=== PATIENT | male | born 1970 | race Caucasian/White ===

== ENCOUNTER → 2020-01-18 13:01 | Outpatient (CLI) | payer MEDICAID, SELFPAY ==
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
--- NOTE | 2020-01-25 10:30 | NURSING ---
THIS RN ATTEMPTED U/S GUIDED IV X4. PRISCA, RN FINANCIAL REPORTING ANALYST, AND [facility] ALSO ATTEMPTED IV STARTS. UNABLE TO COMPLETE CTA TODAY. VASCULAR ALSO MADE AWARE THAT IV WAS UNABLE TO BE ESTABLISHED FOR BUBBLE STUDY. PT ASSISTED WITH DRESSING AND BACK INTO WHEELCHAIR. TO WR TO MEET [facility] AIDE BY Govind LEE, RT-CT.
--- NOTE | 2020-01-25 15:32 | NURSING ---
THIS RN CALLED [facility] AND TALKED WITH SERINA NURSE, TO OBTAIN AN ORDER FOR AN U/S GUIDED IV TO UTILIZE IN[employer]CTOR [employer]S SERVICE BEFORE CTA AND ECHO WHEN RESCHEDULED. WILL FAX TO RADIOLOGY.
== END ==
PROVIDERS: PCP Family Medicine; Referring Provider Family Medicine; Visit Provider Family Medicine
DX: G45.9 Transient cerebral ischemic attack, unspecified (principal)
CPT/HCPCS: 70470; Q9967; A4216

== ENCOUNTER → 2020-02-01 08:56 | Outpatient (CLI) | payer MEDICAID, SELFPAY ==
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
--- NOTE | 2020-02-01 09:57 | ECHOCS_ITS ---
Reason For Study: TIA Procedure This was a 2D Doppler, Color Flow transthoracic echocardiogram. The study was technically difficult. Contrast injection was performed. Exam performed in department. Left Ventricle Normal LV size. Left ventricular systolic function is normal. The estimated ejection fraction is 60 %. No regional wall motion abnormalities noted. Right Ventricle Normal RV size. Normal systolic function. Atria Normal left atrium. Normal right atrium. Bubble contrast study negative for right to left interatrial shunt. Mitral Valve Normal mitral valve. Tricuspid Valve Normal tricuspid valve. Aortic Valve Normal aortic valve. Pulmonic Valve Normal pulmonic valve. Great Vessels Normal aortic root. The pulmonary artery is normal size. Normal inferior vena cava. Pericardium/Pleural No pericardial effusion. Medication Diluted definity 5ml given slow IV push to enhance endocardial definition. Performed a rapid injection of agitated mix of 9 cc saline and 1cc air to assess for atrial septal defect. MMode/2D Measurements & Calculations LVIDd: 4.8 cm IVSd: 0.95 cm Ao root diam: 3.4 cm LVIDs: 3.2 cm LVPWd: 0.97 cm RVDd: 4.4 cm FS: 32.7 % LAV(MOD-sp4): 35.8 ml EDV(MOD-sp4): 123.2 ml EDV(MOD-sp2): 91.9 ml ESV(MOD-sp4): 47.1 ml EF(MOD-sp2): 49.1 % EF(MOD-sp4): 61.8 % SV(MOD-sp4): 76.1 ml SV(MOD-sp2): 45.1 ml LA A4 area: 13.9 cm2 LA dimension(2D): 3.3 cm RA A4 area: 10.8 cm2 Time Measurements MV dec time: 0.15 sec Doppler Measurements & Calculations MV E max gal: 68.5 cm/sec Lat Peak E' Gal: 8.6 cm/sec Med Peak E' Gal: 9.9 cm/sec MV A max gal: 45.6 cm/sec E/E' lat: 7.9 E/E' med: 6.9 MV E/A: 1.5 Ao V2 max: 103.6 cm/sec LV V1 max: 61.0 cm/sec PA V2 max: 114.4 cm/sec Ao max P.3 mmHg LV V1 max P.5 mmHg Interpretation Summary Normal LV size. Left ventricular systolic function is normal. The estimated ejection fraction is 60 %. Bubble contrast study negative for right to left interatrial shunt. Ordering Physician: Ramon Sanchez Referring Physician: Ramon Sanchez Performed By: Romina Momin, NICOLE, RVT
== END ==
PROVIDERS: PCP Family Medicine; Referring Provider Family Medicine; Visit Provider Family Medicine
DX: I65.21 Occlusion and stenosis of right carotid artery (principal)
CPT/HCPCS: 70496; 70498; 93306; Q9957; Q9967; A4216; C8929

== ENCOUNTER 2020-08-27 12:26 | Emergency (ER) | payer MEDICAID, SELFPAY ==
[2020-08-27 12:27] VITALS: RESP 16
[2020-08-27 12:31] VITALS: BP 106/72; PULSE 63; RESP 16; TEMP 37; O2SAT 99; BMI 25.9
--- NOTE | 2020-08-27 12:31 | EDS_ITS ---
HPI History of Present Illness Chief Complaint: Laceration Informant: patient and EMS Narrative Narrative: 49-year-old male presents to the emergency room after he sustained a fall out of wheelchair resulted in laceration to the right hand. It was dressed by nursing. Last tetanus was in 2014. No other injuries noted. Tetanus Immunization: 5-10 years [facility] Medical History Alcohol dependence Anemia Bipolar disorder Chronic pain COPD (chronic obstructive pulmonary disease) Delusional disorder Dementia Depression Hyperlipidemia Nicotine dependence Polyarthritis Post traumatic seizure Psychotic disorder Schizoaffective disorder Stroke/cerebrovascular accident TBI (traumatic brain injury) TIA (transient ischemic attack) Tinea corporis Home Medications Zonisamide [Zonegran] 200 mg PO DAILY 01/02/14 [History Last Taken Unknown] acetaminophen [Tylenol Tablet] 650 mg PO Q4H PRN PRN 01/02/14 [History Last Taken Unknown] lorazepam 2 mg IM Q4H PRN PRN 01/02/14 [History Last Taken Unknown] lorazepam [Ativan] 1 mg PO TID 01/02/14 [History Last Taken Unknown] trazodone 50 mg PO BID 01/02/14 [History Last Taken Unknown] Ibuprofen [Motrin] 600 mg PO 4X/DAY 08/27/20 [History Last Taken Unknown] alum-mag hydroxide-simeth [Mylanta] 30 ml PO Q4H PRN PRN 08/27/20 [History Last Taken Unknown] aspirin [Aspir-81] 81 mg PO DAILY 08/27/20 [History Last Taken Unknown] atorvastatin 20 mg PO DAILY 08/27/20 [History Last Taken Unknown] cholecalciferol (vitamin D3) 1,250 mcg PO SAAVEDRA 08/27/20 [History Last Taken Unknown] escitalopram oxalate [Lexapro] 10 mg PO DAILY 08/27/20 [History Last Taken Unknown] fenofibrate 48 mg PO DAILY 08/27/20 [History Last Taken Unknown] haloperidol [Haldol] 2 mg PO TID 08/27/20 [History Last Taken Unknown] lactulose 45 ml PO TID 08/27/20 [History Last Taken Unknown] lamotrigine [Lamictal] 50 mg PO DAILY 08/27/20 [History Last Taken Unknown] lamotrigine [Lamictal] 100 mg PO QHS 08/27/20 [History Last Taken Unknown] lorazepam [Ativan] 1 mg PO Q4H PRN PRN 08/27/20 [History Last Taken Unknown] lurasidone [Latuda] 40 mg PO BID 08/27/20 [History Last Taken Unknown] magnesium hydroxide [Milk of Magnesia] 30 ml PO DAILY PRN PRN 08/27/20 [History Last Taken Unknown] nicotine (polacrilex) 2 mg BUCCAL Q2H PRN PRN 08/27/20 [History Last Taken Unknown] omega-3 fatty acids [[place] 3 Fish Oil] 2,000 mg PO DAILY 08/27/20 [History Last Taken Unknown] selenium sulfide [Sels[place] Blue Dry Hair/Dandruff] 1 applic TOPICAL DAILY 08/27/20 [History Last Taken Unknown] Allergy/AdvReac Type Severity Reaction Status Date / Time No Known Allergies Allergy Verified 08/27/20 12:29 Social History (Updated 08/27/20 @ 13:[address] Wil Leary, DO) Smoking Status: Current every day smoker tobacco type: cigarettes substance use type: does not use ROS ROS ED Review of Systems ROS Unobtainable: due to mental status EXAM Physical Exam Const Vital Signs: 08/27/20 12:27 08/27/20 12:31 08/27/20 13:52 Temperature 98.6 F Temperature Source Oral Pulse Rate 63 Respiratory Rate 16 16 16 Blood Pressure 106/72 Blood Pressure Mean 83 Pulse Ox 99 Oxygen Delivery Method Room Air Positive well nourished and well developed General Appearance ED: well developed HEENT Reports normocephalic, head/scalp atraumatic and moist mucous membranes Eyes PERRL and EOMs intact bilaterally Neck no lymphadenopathy, supple and no JVD Resp normal respiratory effort and clear to auscultation bilaterally Cardio regular rate, regular rhythm and no murmurs GI normal to inspection, nondistended, normoactive bowel sounds and non-tender Palpation: soft Back/Spine no CVA tenderness and normal ROM Extremity Extremity Narrative: There is laceration noted to the right thumb base on the volar surface. No visualization of the tendons is noted. No active bleeding. General Extremety ED: Negative for edema General Extremity: Negative for edema Neuro Sensorium / Orientation: alert and orientation impaired Sensory Exam: other Chronic right-sided deficits Psych mental status grossly normal Mood & Affect: Negative for depressed or tearful Skin no rashes or lesions noted and no wounds MDM MDM MDM Narrative Medical decision making narrative: Wound was locally anesthetized using 1% lidocaine. Was washed with Shur-Clens and explored. Was closed using a total of 8 simple interrupted 3-0 Ethilon sutures. My interpretation of the plain films of the right hand is nondisplaced fracture through the scaphoid bone.. At this point patient will be discharged home. Stitches will need to be removed a nd 7 to 10 days. Because the patient will need local wound care on hesitant to put a full immobilization Ortho-Glass splint on. I think a Velcro wrist splint will be appropriate and allow better access to the wound for monitoring and care. Radiography Diagnostic Testing: Radiology Impression Hand X-Ray 08/27/20 12:56 IMPRESSION: Nondisplaced fracture through the waist of the scaphoid bone. Foreshortening and deformity of the fifth metacarpal. Metallic BB in the soft tissues overlying the base of the fifth metacarpal. Electronically Signed: Aleksander Alberts MD at 14:44 EDT , Service support , Discharge Plan Triage Chief Complaint: Laceration ED Provider: Wil Leary Dx/Rx/DC Orders Clinical Impression: Laceration of right hand, Closed fracture of scaphoid of right wrist Instructions: ED Laceration, Hand: All Closures Prescriptions: No Action trazodone 50 MG tablet 50 mg PO BID RF: 0 lorazepam 2 MG/ML syringe 2 mg IM Q4H PRN PRN (Reason: ANXIETY/SEIZURES) RF: 0 lorazepam [Ativan] 2 MG tablet 1 mg PO TID RF: 0 acetaminophen [Tylenol] 325 MG tablet 650 mg PO Q4H PRN PRN (Reason: PAIN/FEVER) RF: 0 Zonisamide [Zonegran] 100 MG capsule 200 mg PO DAILY RF: 0 atorvastatin 20 mg Tablet 20 mg PO DAILY RF: 0 aspirin [Aspir-81] 81 mg Tablet,Delayed Release (Dr/Ec) 81 mg PO DAILY RF: 0 lamotrigine [Lamictal] 25 mg Tablet 50 mg PO DAILY RF: 0 magnesium hydroxide [Milk of Magnesia] 400 mg/5 mL Suspension 30 ml PO DAILY PRN PRN (Reason: Constipation) RF: 0 alum-mag hydroxide-simeth [Mylanta] 200-200-20 mg/5 mL Suspension 30 ml PO Q4H PRN PRN (Reason: Indigestion) RF: 0 lorazepam [Ativan] 1 mg Tablet 1 mg PO Q4H PRN PRN (Reason: ANXIETY/SEIZURES) RF: 0 haloperidol [Haldol] 2 mg Tablet 2 mg PO TID RF: 0 lamotrigine [Lamictal] 100 mg Tablet 100 mg PO QHS RF: 0 [place] Blue Dry Hair/Dandruff 1 % Shampoo 1 applic TOPICAL DAILY RF: 0 escitalopram oxalate [Lexapro] 10 mg Tablet 10 mg PO DAILY RF: 0 nicotine (polacrilex) 2 mg Lozenge 2 mg BUCCAL Q2H PRN PRN (Reason: Smoking Cessation) RF: 0 [place] 3 Fish Oil Capsule 2,000 mg PO DAILY RF: 0 lactulose 10 gram/15 mL Solution 45 ml PO TID RF: 0 cholecalciferol (vitamin D3) 1,250 mcg (50,000 unit) Capsule 1,250 mcg PO SAAVEDRA RF: 0 fenofibrate 120 mg Tablet 48 mg PO DAILY RF: 0 Latuda 40 mg Tablet 40 mg PO BID RF: 0 Ibuprofen [Motrin] 800 MG tablet 600 mg PO 4X/DAY RF: 0 Primary Care Provider: Ramon Sanchez Referrals: Ramon Sanchez MD [Primary Care Provider] - 10 Day for suture removal Disposition Disposition: Home, Self Care Discharge Date/Time: 08/27/20 13:53
[2020-08-27] MEDS: Lidocaine 1% (20 ml mdv) 20 ML Vial INFILT (12:44)
--- NOTE | 2020-08-27 12:56 | RAD_ITS ---
STUDY: X-RAY - RIGHT HAND REASON FOR EXAM: Male, 49 years old. INJURY TO RIGHT HAND TECHNIQUE: 3 view(s) of the hand. COMPARISON: None. FINDINGS: Normal radiocarpal articulation. Normal distal radioulnar joint. Nondisplaced fracture through the waist of the scaphoid bone. Normal carpal articulations Normal carpometacarpal articulation of the thumb. Normal second through fifth carpometacarpal joints. Shortening and deformity of the fifth metacarpal most likely secondary to prior injury. Normal metacarpophalangeal joint of the thumb. Normal interphalangeal joint of the thumb. Normal proximal and distal phalanges of the thumb. Normal metacarpophalangeal joints of the second through fifth fingers. Normal proximal and distal interphalangeal joints of the second through fifth fingers. Normal phalanges of the second through fifth fingers. A 2 mm metallic BB is seen within the dorsal soft tissues overlying the base of the fifth metacarpal. RAD/Hand Min 3 Views IMPRESSION: Nondisplaced fracture through the waist of the scaphoid bone. Foreshortening and deformity of the fifth metacarpal. Metallic BB in the soft tissues overlying the base of the fifth metacarpal. Electronically Signed: Aleksander Alberts MD at 14:44 EDT , Service support ,
--- NOTE | 2020-08-27 13:21 | NURSING ---
CALLED [facility], ETA IS 30 MIN
[2020-08-27 13:52] VITALS: RESP 16
--- NOTE | 2020-08-27 13:52 | ED.RN ---
DISCHARGE INSTRUCTIONS GIVEN TO STAFF MEMBER FROM [facility] AT BEDSIDE. PT SKIN P/W/D, RESP EVEN AND UNLABORED, NO DISTRESS NOTED. PT OUT OF ED IN WHEELCHAIR FOR TRANSPORT BACK TO [facility] VIA [facility].
== END 2020-08-27 13:53 | disposition home or self-care (01) ==
PROVIDERS: Emergency Provider Emergency Medicine; PCP Family Medicine
DX: S61.411A Laceration without foreign body of right hand, initial encounter (principal); S62.001A Unspecified fracture of navicular [scaphoid] bone of right wrist, initial encounter for closed fracture; W05.0XXA Fall from non-moving wheelchair, initial encounter; F17.210 Nicotine dependence, cigarettes, uncomplicated; E78.5 Hyperlipidemia, unspecified; D64.9 Anemia, unspecified; F31.9 Bipolar disorder, unspecified; Z79.82 Long term (current) use of aspirin; Z79.899 Other long term (current) drug therapy
CPT/HCPCS: 12002; 73130; 99285

== ENCOUNTER → 2021-04-22 | Outpatient (REF) | payer SELFPAY | END | disposition home or self-care (01) | LOC: OLS.AHA 04:35 | PROVIDERS: PCP Family Medicine; Visit Provider Family Medicine | DX: Z79.899 Other long term (current) drug therapy (principal); Z51.81 Encounter for therapeutic drug level monitoring | CPT/HCPCS: 82140 ==

== ENCOUNTER → 2021-07-14 | Outpatient (REF) | payer SELFPAY | END | disposition home or self-care (01) | LOC: OLS.AHA 06:11 | PROVIDERS: PCP Family Medicine; Visit Provider Family Medicine | DX: E72.20 Disorder of urea cycle metabolism, unspecified (principal); K72.91 Hepatic failure, unspecified with coma; E87.1 Hypo-osmolality and hyponatremia; B34.2 Coronavirus infection, unspecified | CPT/HCPCS: 82140 ==

== ENCOUNTER → 2021-08-07 | Outpatient (REF) | payer SELFPAY | END | disposition home or self-care (01) | LOC: OLS.AHA 03:48 | PROVIDERS: PCP Family Medicine; Visit Provider Family Medicine | DX: E72.20 Disorder of urea cycle metabolism, unspecified (principal) | CPT/HCPCS: 82140 ==

== ENCOUNTER 2022-08-13 22:25 | Emergency (ER) | payer MEDICAID, SELFPAY ==
[2022-08-13 22:27] VITALS: BP 149/90; PULSE 78; RESP 18; TEMP 36.3; O2SAT 97; BMI 22.8
--- NOTE | 2022-08-13 22:29 | CT_ITS ---
EXAM: CT brain without contrast HISTORY: Neuro deficit, acute, stroke suspected TECHNIQUE: CT Head Stroke Protocol W/O Contrast Injection A radiation dose optimization technique was used for this scan. COMPARISON: CT brain 01/18/2020 LIMITATIONS: None. BRAIN: Encephalomalacia in the left frontotemporal region subjacent to the overlying craniotomy, consistent with postsurgical changes, similar compared to the prior. VENTRICLES: The ventricles and cortical sulci are mildly enlarged, similar compared to the prior. Bilateral periventricular hypoattenuation, nonspecific however likely represents chronic microvascular ischemic changes.. EXTRA-AXIAL SPACES: No hemorrhages, fluid collections, or masses. CALVARIUM/SKULL BASE: Normal. FACE/SINUSES: Visualized portions normal. SOFT TISSUES: Normal. OTHER: None. CT/STROKE Brain/Head without Cont IMPRESSION: 1. No intracranial hemorrhage or acute territorial infarction. 2. Postsurgical and senescent changes as above. N.B. : The above Results were Read Back by Eddie Barth MD to Mohan Srivastava MD, and understanding confirmed on 08/13/2022 22:49:57 (ET). Electronically Signed: Eddie Barth MD at 22:51 EDT ,
--- NOTE | 2022-08-13 22:35 | ED.RN ---
STROKE ALERT WAS CALLED,BUT AFTER DR GIRON EVALUTED PT IT WAS CANCELLED.
--- NOTE | 2022-08-13 22:38 | RAD_ITS ---
INDICATION: Neuro deficit, acute, stroke suspected EXAMINATION/TECHNIQUE: X-RAY - XR Chest 1 View COMPARISON: None FINDINGS: LINES/DEVICES: None. LUNGS: Hazy left basal opacity. No edema or effusion. No pneumothorax. MEDIASTINUM AND CARDIOVASCULAR STRUCTURES: Cardiac silhouette not enlarged. Central airways and mediastinal contour are unremarkable. BONES AND SOFT TISSUES: Unremarkable. RAD/Chest 1 View IMPRESSION: Hazy left basal opacity, may represent atelectasis or infection. Electronically Signed: Eddie Barth MD at 23:05 EDT ,
[2022-08-13 22:55] LABS: International Normalized Ratio 0.9; Prothrombin Time (Protime)PT. 11.7 SECONDS (11.7-14.9)
[2022-08-13 22:56] LABS: Partial Thromboplast Time 28.2 Seconds (24.1-36.2)
[2022-08-13 22:59] LABS: AST(SGOT) 13 U/L (15-37); Absolute Lymphocyte Count 2.57 X10^3/uL (0.83-4.51); Absolute Neutrophil Count 4.8 X10^3/uL (2.0-7.7); Alanine Aminotransfer ALT/SGPT 20 U/L (16-61); Albumin, Serum 4.1 g/dL (3.2-5.0); Alkaline Phosphatase 91 U/L (45-117); Anion Gap 5 (5-15); BUN 10 mg/dL (7-18); BUN/Creat Ratio 9.9 RATIO (10-20); Basophil# 0.03 X10^3/uL; Basophil% 0.4 % (0-1); Bilirubin, Direct 0.13 mg/dL (0.00-0.30); Calcium,Total 10.1 mg/dL (8.5-10.1); Chloride 104 mmol/L (98-107); Creatinine, Serum 1.01 mg/dL (0.70-1.30); EST Glomerular Filtration Rate 83 mL/min (>60); Eosinophil# 0.26 X10^3/uL; Eosinophils% 3.1 % (0-5); Est Glom Filt Rate - Afr Amer 100 mL/min (>60); Estimated Creatinine Clearance 90.69 ml/min; Globulin 3.3 g/dL (2.2-4.2); Glucose 98 mg/dL (74-106); Lymphocyte # 2.57 X10^3/ul (0.83-4.51); Lymphocyte % 30.3 % (19-41); Mean Corpuscular Volume 94.3 fL (80-94); Mean Platelet Vol. 8.8 fl (6.2-12.0); Monocyte# 0.68 X10^3/uL; NRBC Flagged by Analyzer 0 % (0-5); Neutrophil # 4.82 X10^3/uL (2.7-7.7); Neutrophil % 56.7 % (47-70); Platelet Count 197 K/mm3 (150-450); Potassium 3.3 mmol/L (3.5-5.1); Protein, Total 7.4 g/dL (6.4-8.2); RBC Distribution Width CV 11.7 % (11.6-14.6); RBC Distribution Width SD 40.2 fl (35.1-43.9); Red Blood Count 4.24 M/mm3 (4.6-6.2); Sodium Level 139 mmol/L (136-145); Troponin-I HS 4 pg/mL (3.0-78.0); White Blood Count 8.5 K/mm3 (4.4-11.0)
--- NOTE | 2022-08-13 22:59 | EDS_ITS ---
HPI History of Present Illness Chief Complaint: Mental Status Change Informant: patient, EMS and SNF Onset/Context/Timing Onset: Today Context: Gradual Onset Timing: Continuous Current Severity: Moderate Maximum Severity: Moderate Narrative Narrative: 51-year-old male was unable to give me any history. I reviewed his prior medical records sent in from his extended care facility. He lives at a facility called [facility] [place]. Reportedly had a decreased mental status. Also fell out of his wheelchair tonight. He has a history of dementia and seizures. He has a history history of hepatic encephalopathy. Today had a decreased mental status this evening and fell out of his wheelchair. He is normally wheelchair-bound but can stand but really does not walk. I spoke to the nurse that he typically cares for him at this facility. She states has not recently been ill. He has not had a fever. Has not recently been hospitalized. He was treated with his normal dose of Haldol, Ativan and trazodone tonight. Prior similar symptoms: No Recent Illness/Hospitalization: No PFSH PFSH Medical History Alcohol dependence Anemia Bipolar disorder Chronic pain COPD (chronic obstructive pulmonary disease) Delusional disorder Dementia Depression Hyperlipidemia Nicotine dependence Personality disorder Polyarthritis Post traumatic seizure Psychotic disorder Schizoaffective disorder Stroke/cerebrovascular accident TBI (traumatic brain injury) TIA (transient ischemic attack) Tinea corporis Home Medications Zonisamide [Zonegran] 200 mg PO DAILY 01/02/14 [History Last Taken Unknown] acetaminophen 325 mg tablet (Tylenol) 650 mg PO Q4H PRN PRN PAIN/FEVER 01/02/14 [History Last Taken Unknown] lorazepam 2 mg/mL injection solution 1 mg IM Q4H PRN PRN ANXIETY/SEIZURES 01/02/14 [History Last Taken Unknown] trazodone 50 mg tablet 100 mg PO QHS 01/02/14 [History Last Taken Unknown] Ibuprofen [Motrin] 600 mg PO TID 08/27/20 [History Last Taken Unknown] aluminum-mag hydroxide-simethicone 200 mg-200 mg-20 mg/5 mL oral susp 30 ml PO Q4H PRN PRN Indigestion 08/27/20 [History Last Taken Unknown] cholecalciferol (vitamin D3) 1,250 mcg (50,000 unit) capsule 1,250 mcg PO SAAVEDRA 08/27/20 [History Last Taken Unknown] fenofibrate 120 mg tablet 48 mg PO DAILY 08/27/20 [History Last Taken Unknown] haloperidol 2 mg tablet 5 mg PO TID 08/27/20 [History Last Taken Unknown] lamotrigine 100 mg tablet (Lamictal) 100 mg PO QHS 08/27/20 [History Last Taken Unknown] lamotrigine 25 mg tablet (Lamictal) 50 mg PO DAILY 08/27/20 [History Last Taken Unknown] lorazepam 1 mg tablet (Ativan) 1 mg PO Q4H PRN PRN ANXIETY/SEIZURES 08/27/20 [History Last Taken Unknown] lurasidone 40 mg tablet (Latuda) 40 mg PO BID 08/27/20 [History Last Taken Unknown] magnesium hydroxide 400 mg/5 mL oral suspension (Milk of Magnesia) 30 ml PO DAILY PRN PRN Constipation 08/27/20 [History Last Taken Unknown] nicotine (polacrilex) 2 mg buccal lozenge 2 mg buccal Q2H PRN PRN Smoking Cessation 08/27/20 [History Last Taken Unknown] omega-3 fatty acids 2,000 mg PO DAILY 08/27/20 [History Last Taken Unknown] selenium sulfide 1 % shampoo 1 applic topical DAILY 08/27/20 [History Last Taken Unknown] atorvastatin 20 mg tablet (Lipitor) 20 mg PO DAILY 08/13/22 [History Last Taken Unknown] cariprazine 1.5 mg capsule (Vraylar) 1.5 mg PO DAILY 08/13/22 [History Last Taken Unknown] lactulose 10 gram/15 mL (15 mL) oral solution 45 ml PO TID 08/13/22 [History Last Taken Unknown] lorazepam 1 mg tablet (Ativan) 1 mg PO TID PRN Anxiety 08/13/22 [History Last Taken Unknown] propranolol 80 mg capsule,24 hr,extended release (Inderal LA) 80 mg PO DAILY 08/13/22 [History Last Taken Unknown] rifaximin 550 mg tablet 550 mg PO BID 08/13/22 [History Last Taken Unknown] trazodone 50 mg tablet 50 mg PO DAILY 08/13/22 [History Last Taken Unknown] Allergy/AdvReac Type Severity Reaction Status Date / Time No Known Allergies Allergy Verified 08/13/22 22:40 Social History Smoking Status: Current every day smoker tobacco type: cigarettes substance use type: does not use ROS ROS ED ROS Narrative Unable to obtain from the patient. Per nurse at [facility] has had no recent illness. Review of Systems ROS Unobtainable: due to mental status EXAM Physical Exam Narrative Exam Narrative: 51-year-old male. Brought in by squad. Vital signs stable afebrile. Pulse ox 97% on room air. Patient's eyes are open. He is not responsive. He does not answer questions. She really not speaking. He does not follow commands. HEENT exam pupils are round reactive light. He is looking about the room. He has a contusion and abrasion to his left forehead. There is no significant hematoma. No laceration. Scalp nontender. C-spine nontender. Trachea midline. Lungs clear equal and symmetrical bilaterally. Heart regular rhythm rate about 80 no murmur. Chest wall and ribs nontender. Abdomen soft nontender. Moving all 4 extremities. Nontender no deformity. Neurologically. Eyes are open. Moving extremities. Not answering any questions. Not following any commands. Seems confused. Const Vital Signs: 08/13/22 22:27 08/13/22 23:38 08/14/22 00:21 Temperature 97.4 F L Temperature Source Temporal Pulse Rate 78 78 Respiratory Rate 18 22 H Blood Pressure 149/90 H 178/90 H Blood Pressure Mean 109 119 Pulse Ox 97 Oxygen Delivery Method Room Air Nasal Cannula Oxygen Flow Rate (L/min) 2 Positive well nourished and well developed; Negative for cachectic, contractures or unkempt General Appearance ED: well developed and NAD; Negative for unkempt, cachectic, contractures, cyanotic, diaphoretic or pallor Nutritional Appearance: Negative for cachectic HEENT Reports moist mucous membranes; Denies dry mucous membranes trauma Mouth ED: No dry mucous membranes Mouth: No dry mucous membranes Eyes PERRL and EOMs intact bilaterally General Eye ED: Negative for pale conjunctiva or scleral icterus Neck no lymphadenopathy, supple and no JVD General: Negative for tenderness Lymph Lymphatic: Negative for other Chest Wall inspection of chest normal and palpation of chest normal Resp normal respiratory effort and clear to auscultation bilaterally Effort and Inspection: Negative for retractions Auscultation: Negative for rales, rhonchi or wheezes Cardio regular rate, regular rhythm, S1 normal heart sound, S2 normal heart sound and no murmurs GI normal to inspection, nondistended, normoactive bowel sounds, non-tender, non- distended and no masses Auscultation: normoactive bowel sounds Palpation: soft; Negative for tender or guarding Back/Spine no CVA tenderness General Back: Negative for CVA tenderness Cervical Spine: Negative for cervical spine tenderness Thoracic Spine / Upper Back: Negative for thoracic spinal tenderness Extremity Negative for normal to inspection Extremity Narrative: Nontender. No deformity. Neuro No oriented x3 Sensorium / Orientation: alert, orientation impaired and lethargic Motor Exam: general weakness; Negative for strength 5/5 throughout Psych Negative for mental status grossly normal Appearance: Negative for unkempt Skin no rashes or lesions noted and No no wounds Skin Narrative: Left forehead abrasion. General Skin Exam: elasticity normal; Negative for jaundice or pallor Lesions: No lesion noted Trauma: abrasion MDM MDM MDM Narrative Medical decision making narrative: 51-year-old male with extensive past medical history of a prior craniotomy. Dementia with schizoaffective disorder and bipolar. Extended-care facility resident was been there for at least 4 years. May be much longer. The neurocirculatory status is not his baseline. He is not recently been ill. CAT scan and labs to be obtained. Repeat exam at 1 AM is unchanged. Patient's eyes are open. He is moving everything. He is really not answering questions or following commands. He typically does not speak much according to the [facility]. We do not have any specific, see if they can imaging or lab abnormalities on this patient. He will be transferred back to the [facility]. History & Record Review Discussion w/independent historian: EMS personnel, Patient and Other Additional record(s) reviewed:: Prior inpatient record, Prior outpatient record, Prior ED visit and Prior labs Lab Data Attestation: I reviewed the patient's lab results. Lab results narrative: CBC unremarkable. White count 8.5. H&H 14 and 40. Platelets 197. PT, INR and PTT are normal. Electrolytes show potassium of 3.3. Gap of 5. Normal BUN of 10 creatinine of 1. Liver enzymes are unremarkable. Glucose is 98. Chest x-ray no acute process. CAT scan of the brain shows chronic changes, encephalomalacia and prior brain surgery but no bleed or acute stroke. Ammonia level is unremarkable at 43. UA is normal. No white or red cells. No bacteria or nitrites. Labs: Laboratory Results - last 24 hr 08/13/22 08/13/22 08/13/22 22:30 22:30 22:30 WBC 8.5 RBC 4.24 L Hgb 14.0 Hct 40.0 MCV 94.3 H MCH 33.0 H MCHC 35.0 RDW Std Deviation 40.2 RDW Coeff of Michael 11.7 Plt Count 197 MPV 8.8 Immature Gran % (Auto) 1.500 H Neut % (Auto) 56.7 Lymph % (Auto) 30.3 [place] % (Auto) 8.0 Eos % (Auto) 3.1 Baso % (Auto) 0.4 Absolute Neuts (auto) 4.8 Absolute Lymphs (auto) 2.57 Nucleated RBC % 0 PT 11.7 INR 0.9 APTT 28.2 Sodium 139 Potassium 3.3 L Chloride 104 Carbon Dioxide 30.0 Anion Gap 5 BUN 10 Creatinine 1.01 Estim Creat Clear Calc 90.69 Est GFR (MDRD) Af Amer 100 Est GFR (MDRD) Non-Af 83 BUN/Creatinine Ratio 9.9 L Glucose 98 Calcium 10.1 Total Bilirubin 0.40 Direct Bilirubin 0.13 AST 13 L ALT 20 Alkaline Phosphatase 91 Ammonia Troponin I High Sens 4 Total Protein 7.4 Albumin 4.1 Globulin 3.3 Urine Color Urine Clarity Urine pH Ur Specific [place] Urine Protein Urine Glucose (UA) Urine Ketones Urine Occult Blood Urine Nitrite Urine Bilirubin Urine Urobilinogen Ur Leukocyte Esterase Urine RBC Urine WBC Ur Squamous Epith Cells Urine Bacteria Urine Mucus POC Glucose 08/13/22 08/13/22 08/13/22 22:53 23:10 23:28 WBC RBC Hgb Hct MCV MCH MCHC RDW Std Deviation RDW Coeff of Michael Plt Count MPV Immature Gran % (Auto) Neut % (Auto) Lymph % (Auto) [place] % (Auto) Eos % (Auto) Baso % (Auto) Absolute Neuts (auto) Absolute Lymphs (auto) Nucleated RBC % PT INR APTT Sodium Potassium Chloride Carbon Dioxide Anion Gap BUN Creatinine Estim Creat Clear Calc Est GFR (MDRD) Af Amer Est GFR (MDRD) Non-Af BUN/Creatinine Ratio Glucose Calcium Total Bilirubin Direct Bilirubin AST ALT Alkaline Phosphatase Ammonia 43.0 H Troponin I High Sens Total Protein Albumin Globulin Urine Color Yellow Urine Clarity Clear Urine pH 7.0 Ur Specific [place] 1.005 Urine Protein 15 H Urine Glucose (UA) Normal Urine Ketones Negative Urine Occult Blood Negative Urine Nitrite Negative Urine Bilirubin Negative Urine Urobilinogen Normal Ur Leukocyte Esterase Negative Urine RBC 0 SEEN Urine WBC 0 SEEN Ur Squamous Epith Cells 0 SEEN Urine Bacteria 0 SEEN Urine Mucus 0 SEEN POC Glucose 106 Radiography Chest X-Ray - ED: 1 View, Read by ED Physician, Heart, Lungs, Mediastinum, Bony Structures, No Acute Disease and Chronic Changes Diagnostic Testing: Clinical Impression(s) from Imaging Studies Brain CT 08/13/22 22:29 IMPRESSION: 1. No intracranial hemorrhage or acute territorial infarction. 2. Postsurgical and senescent changes as above. N.B. : The above Results were Read Back by Eddie Barth MD to Mohan Srivastava MD, and understanding confirmed on 08/13/2022 22:49:57 (ET). Electronically Signed: Eddie Barth MD at 22:51 EDT Reading Location ID and State: [facility] / [place] Tel , Service support , ADDENDUM: 08/13/222257 IMPRESSION: 1. No intracranial hemorrhage or acute territorial infarction. 2. Postsurgical and senescent changes as above. N.B. : The above Results were Read Back by Eddie Barth MD to Mohan Srivastava MD, and understanding confirmed on 08/13/2022 22:49:57 (ET). Electronically Signed: Eddie Barth MD at 22:51 EDT , Chest X-Ray 08/13/22 22:38 IMPRESSION: Hazy left basal opacity, may represent atelectasis or infection. Electronically Signed: Eddie Barth MD at 23:05 EDT Reading Location ID and State: [facility] / [place] Tel , Service support , Chest x-ray, portable, single view interpreted by myself shows no acute abnormality. Normal cardiac silhouette. Normal mediastinum. No infiltrates. No effusions. Rhythm Strip Rhythm Strip: Sinus Rhythm Rate: 76 Ectopy: None EKG Initial EKG: Interpretation: Sinus Rhythm and No Acute Injury Pattern Comments: Normal sinus rhythm rate of 51 no acute signs of GA or ischemia. No dysrhythmia. Discharge Plan Triage Chief Complaint: Mental Status Change ED Provider: Mohan Srivastava Dx/Rx/DC Orders Clinical Impression: Altered level of consciousness, History of dementia, History of schizoaffective disorder Instructions: ED ALOC Prescriptions: No Action trazodone 50 MG tablet 100 mg PO QHS lorazepam 2 MG/ML syringe 1 mg IM Q4H PRN PRN (Reason: ANXIETY/SEIZURES) acetaminophen [Tylenol] 325 MG tablet 650 mg PO Q4H PRN PRN (Reason: PAIN/FEVER) Zonisamide [Zonegran] 100 MG capsule 200 mg PO DAILY lamotrigine [Lamictal] 25 mg Tablet 50 mg PO DAILY magnesium hydroxide [Milk of Magnesia] 400 mg/5 mL Suspension 30 ml PO DAILY PRN PRN (Reason: Constipation) alum-mag hydroxide-simeth [Mylanta] 200-200-20 mg/5 mL Suspension 30 ml PO Q4H PRN PRN (Reason: Indigestion) lorazepam [Ativan] 1 mg Tablet 1 mg PO Q4H PRN PRN (Reason: ANXIETY/SEIZURES) haloperidol [Haldol] 2 mg Tablet 5 mg PO TID lamotrigine [Lamictal] 100 mg Tablet 100 mg PO QHS [place] Blue Dry Hair/Dandruff 1 % Shampoo 1 applic TOPICAL DAILY nicotine (polacrilex) 2 mg Lozenge 2 mg BUCCAL Q2H PRN PRN (Reason: Smoking Cessation) [place] 3 Fish Oil Capsule 2,000 mg PO DAILY cholecalciferol (vitamin D3) 1,250 mcg (50,000 unit) Capsule 1,250 mcg PO SAAVEDRA Label Comments: every tuesday fenofibrate 120 mg Tablet 48 mg PO DAILY lurasidone [Latuda] 40 mg Tablet 40 mg PO BID Ibuprofen [Motrin] 800 MG tablet 600 mg PO TID lorazepam [Ativan] 1 mg Tablet 1 mg PO TID PRN (Reason: Anxiety) atorvastatin [Lipitor] 20 mg Tablet 20 mg PO DAILY trazodone 50 mg Tablet 50 mg PO DAILY propranolol [Inderal LA] 80 mg Capsule,Extended Release 24 Hr 80 mg PO DAILY rifaximin 550 mg Tablet 550 mg PO BID lactulose 10 gram/15 mL (15 mL) Solution 45 ml PO TID Vraylar 1.5 mg Capsule 1.5 mg PO DAILY Primary Care Provider: Ramon Sanchez Referrals: Ramon Sanchez MD [Primary Care Provider] - 1-2 Days if not improving Activity Restrictions/Additional Instructions: Follow-up with your medical doctor nuclear medicine or his primary care physician if not improving. The CAT scan of his brain tonight, EKG, chest x-ray and labs were unremarkable. No signs of infection or acute abnormalities on his lab work. Disposition Disposition: Home, Self Care
[2022-08-13 23:11] LABS: Bedside Glucose 106 mg/dL (74-106)
[2022-08-13 23:36] LABS: Bacteria 0 SEEN /hpf (None Seen); Mucous, Urine 0 SEEN /hpf (<or=2+); Red Blood Cells-Urine 0 SEEN /hpf (0-5); Squamous Epithelial Cells - UA 0 SEEN /hpf (0-5); White Blood Cells 0 SEEN /hpf (0-5)
[2022-08-13 23:38] LABS: Color, Urine Yellow (Yellow); Glucose, Dipstick Normal (Normal); Ketone-Dipstick Negative (Negative); Leukocyte Esterase-Dipstick Negative /ul (Negative); Nitrite-Dipstick Negative (Negative); Occult Blood-Urine Negative /ul (Negative); Protein-Dipstick 15 mg/dl (Negative); Specific Gravity, Urine 1.005 (1.002-1.030); Urine Bilirubin Dipstick Negative (Negative); Urine Clarity Clear (Clear); Urine Urobilinogen Normal (Normal)
[2022-08-14 00:21] VITALS: BP 178/90; PULSE 78; RESP 22
[2022-08-14 01:22] VITALS: BP 158/90; PULSE 77; RESP 18; O2SAT 93
[2022-08-14 02:14] VITALS: BP 116/65; PULSE 70; RESP 16
--- NOTE | 2022-08-14 02:32 | ED.RN ---
0230 PT'S MARCH CATHETER DCD AFTER BALLOON DEFLATED. MARCH EMPTIED FOR 400CC OF CLEAR URINE. LAZARA-CARE GIVEN AND DEPENDS APPLIED.PT SHERMAN WITH SOME RESISTENCE.
== END 2022-08-14 04:50 | disposition home or self-care (01) ==
PROVIDERS: Emergency Provider Emergency Medicine; PCP Family Medicine; Visit Provider Emergency Medicine
DX: R40.4 Transient alteration of awareness (principal); F03.90 Unspecified dementia, unspecified severity, without behavioral disturbance, psychotic disturbance, mood disturbance, and anxiety; F17.210 Nicotine dependence, cigarettes, uncomplicated; Z86.73 Personal history of transient ischemic attack (TIA), and cerebral infarction without residual deficits
CPT/HCPCS: 70450; 71045; 80048; 80076; 81001; 82140; 82962; 84484; 85025; 85610; 85730; 93005; 99285; A4216

== ENCOUNTER 2023-03-26 23:41 | Emergency (ER) | payer MEDICAID, SELFPAY ==
[2023-03-26 23:44] VITALS: BP 128/82; PULSE 70; RESP 12; TEMP 36.7; O2SAT 98; BMI 22.4
--- NOTE | 2023-03-27 00:16 | CT_ITS ---
STUDY: CTA OF THE ABDOMINAL AORTA AND BILATERAL LOWER EXTREMITIES REASON FOR EXAM: Male, 52 years old patient with cold right leg after injury last week. RADIATION DOSAGE (If Supplied By Facility): CTDIvol = ( 9.57 ) mGy, DLP = ( 1096.04 ) mGycm TECHNIQUE: Axial CT angiography multi-detector data acquisition was obtained from the lung bases to the feet following intravenous administration of 100 ml of IV Isouve 370. Axial images and MIP images were reconstructed from the axial data set. Post-processing of the angiographic images was performed, with multiplanar reformation and 3D reconstruction. Individualized dose optimization techniques were used for this CT. TECHNICAL QUALITY: Good COMPARISON: None. Descriptors of Narrowing: None (0%) Mild (< 50%) Moderate (50-70%) Severe (70-90%) Subtotal/Total Occlusion (90-100%) Non-Evaluable (technically non-diagnostic FINDINGS: Abdominal aorta: No demonstrated narrowing. Celiac and superior mesenteric arteries: No demonstrated narrowing. Inferior mesenteric artery: No demonstrated narrowing. Right renal artery(arteries): No demonstrated narrowing. Left renal artery(arteries): No demonstrated narrowing. Right common iliac artery: No demonstrated narrowing. Right external iliac artery: No demonstrated narrowing. Right internal iliac artery: No demonstrated narrowing. Left common iliac artery: No demonstrated narrowing. Left external iliac artery: No demonstrated narrowing. Left internal iliac artery: No demonstrated narrowing. RIGHT LOWER EXTREMITY Right common femoral artery: No demonstrated narrowing. Right profundus femoris: No demonstrated narrowing. Right superficial femoral: No demonstrated narrowing. Right popliteal artery: No demonstrated narrowing. Right tibioperoneal trunk: No demonstrated narrowing. Right anterior tibial artery: No demonstrated narrowing. Right posterior tibial artery: No demonstrated narrowing. Right peroneal artery: No demonstrated narrowing. LEFT LOWER EXTREMITY Left common femoral artery: No demonstrated narrowing. Left profundus femoris: No demonstrated narrowing. Left superficial femoral: No demonstrated narrowing. Left popliteal artery: No demonstrated narrowing. Left tibioperoneal trunk: No demonstrated narrowing. Left anterior tibial artery: No demonstrated narrowing. Left posterior tibial artery: No demonstrated narrowing. Left peroneal artery: No demonstrated narrowing. ABDOMINAL AND PELVIC FINDINGS: There is right lower lobe airspace disease suggesting possible pneumonia. Left lung bases clear. The visualized portions of the heart are within normal limits. Normal liver. Normal gallbladder and extrahepatic biliary system. There are multiple benign calcified granulomata of the spleen. Normal pancreas. Normal bilateral adrenal glands. Both kidneys appear to be excreting contrast. There is no obvious hydronephrosis, hydroureter or radiopaque ureteral calculus. Normal visualized stomach. No obvious dilated bowel, ascites or pneumoperitoneum. Small bowel has a grossly normal appearance. There is stool and/or gas visible in the colon. The appendix is visualized and appears normal. Normal abdominal aorta. Normal inferior vena cava. Normal retroperitoneum. Normal urinary bladder. Normal visualized prostate gland. Normal abdominal wall. There is moderate compression of the T12 vertebral body. Remaining imaged thoracic and lumbar vertebral bodies have normal height and alignment. The bony pelvis is grossly normal appearance. Visualized femurs, tibia is in the visualized have a grossly normal appearance. Visualized tarsal bones, metatarsals and phalanges have a grossly normal appearance. The skeletal muscles of the thighs and legs are within normal limits in appearance. CT/CTA Abd w/Runoff W/WO Contrast IMPRESSION: 1. No CT evidence for hemodynamically significant stenosis or thrombosis. 2. Compression fracture of T12. Electronically Signed: Jayne Alcantara MD at 6:24 EST Reading Location ID and State: [facility] / [place] , Service support ,
[2023-03-27 01:07] LABS: Absolute Lymphocyte Count 2.47 X10^3/uL (0.83-4.51); Absolute Neutrophil Count 4.7 X10^3/uL (2.0-7.7); Basophil# 0.04 X10^3/uL; Basophil% 0.5 % (0-1); Eosinophil# 0.27 X10^3/uL; Eosinophils% 3.3 % (0-5); Hematocrit 39.1 % (40-54); Hemoglobin 13.5 g/dL (13.0-16.5); Lymphocyte # 2.47 X10^3/ul (0.83-4.51); Lymphocyte % 30.2 % (19-41); Mean Corp Hgb Conc 34.5 g/dL (32-36); Mean Corpuscular Hgb 32.1 pg (27.0-32.0); Mean Corpuscular Volume 92.9 fL (80-94); Mean Platelet Vol. 9.1 fl (6.2-12.0); Monocyte# 0.67 X10^3/uL; Monocyte% 8.2 % (0-10); NRBC Flagged by Analyzer 0 % (0-5); Neutrophil # 4.71 X10^3/uL (2.7-7.7); Neutrophil % 57.6 % (47-70); POSITIVE COUNT YES; Platelet Count 226 K/mm3 (150-450); RBC Distribution Width CV 11.9 % (11.6-14.6); RBC Distribution Width SD 40.4 fl (35.1-43.9); Red Blood Count 4.21 M/mm3 (4.6-6.2); White Blood Count 8.2 K/mm3 (4.4-11.0)
[2023-03-27 01:11] LABS: Differential Indicated SCAN CRITERIA MET
[2023-03-27 01:22] LABS: ALB/GLOB Ratio 1.1 RATIO (0.9-2.4); AST(SGOT) 13 U/L (15-37); Alanine Aminotransfer ALT/SGPT 18 U/L (16-61); Albumin, Serum 3.5 g/dL (3.2-5.0); Alkaline Phosphatase 92 U/L (45-117); Anion Gap 3 (5-15); BUN 16 mg/dL (7-18); BUN/Creat Ratio 18.1 RATIO (10-20); Calcium,Total 9.6 mg/dL (8.5-10.1); Chloride 103 mmol/L (98-107); Creatinine, Serum 0.89 mg/dL (0.70-1.30); EST Glomerular Filtration Rate 96 mL/min (>60); Est Glom Filt Rate - Afr Amer 116 mL/min (>60); Estimated Creatinine Clearance 100.25 ml/min; Globulin 3.2 g/dL (2.2-4.2); Glucose 100 mg/dL (74-106); Potassium 3.3 mmol/L (3.5-5.1); Protein, Total 6.7 g/dL (6.4-8.2); Sodium Level 137 mmol/L (136-145)
--- NOTE | 2023-03-27 01:27 | ED.RN ---
Attempted to call for permission to treat. No answer at this time.
[2023-03-27 01:43] VITALS: BP 115/97; PULSE 71; RESP 18; O2SAT 100
--- NOTE | 2023-03-27 02:39 | ED.RN ---
unable to obtain IV with multiple tries with multiple RNs. Dr. Way notified, no new orders at this time.
[2023-03-27 03:43] VITALS: BP 130/99; PULSE 68; RESP 18; O2SAT 97
[2023-03-27 05:43] VITALS: BP 100/60; PULSE 69; RESP 18; O2SAT 98
[2023-03-27 07:21] VITALS: BP 120/99; PULSE 69; RESP 16; O2SAT 98
--- NOTE | 2023-03-27 07:44 | ED.RN ---
CALLED PHYSICIANS AT [phone] FOR TRANSFER
--- NOTE | 2023-03-27 07:58 | ED.VIS.LOWEX ---
HPI History of Present Illness Chief Complaint: Lower Extremity Injury Narrative Narrative: 52-year-old male presenting for evaluation of right leg symptoms. Apparently his right leg is cooler than left leg. Patient is a very poor informant and unable to give much history. There is not much given via the nursing facility. [facility] Medical History Alcohol dependence Anemia Bipolar disorder Chronic pain COPD (chronic obstructive pulmonary disease) Delusional disorder Dementia Depression Hyperlipidemia Nicotine dependence Personality disorder Polyarthritis Post traumatic seizure Psychotic disorder Schizoaffective disorder Stroke/cerebrovascular accident TBI (traumatic brain injury) TIA (transient ischemic attack) Tinea corporis Home Medications Zonisamide [Zonegran] 200 mg PO DAILY 01/02/14 [History Last Taken Unknown] acetaminophen 325 mg tablet (Tylenol) 650 mg PO Q4H PRN PRN PAIN/FEVER 01/02/14 [History Last Taken Unknown] lorazepam 2 mg/mL injection solution 1 mg IM Q4H PRN PRN ANXIETY/SEIZURES 01/02/14 [History Last Taken Unknown] trazodone 50 mg tablet 100 mg PO QHS 01/02/14 [History Last Taken Unknown] Ibuprofen [Motrin] 600 mg PO TID 08/27/20 [History Last Taken Unknown] aluminum-mag hydroxide-simethicone 200 mg-200 mg-20 mg/5 mL oral susp 30 ml PO Q4H PRN PRN Indigestion 08/27/20 [History Last Taken Unknown] cholecalciferol (vitamin D3) 1,250 mcg (50,000 unit) capsule 1,250 mcg PO SAAVEDRA 08/27/20 [History Last Taken Unknown] fenofibrate 120 mg tablet 48 mg PO DAILY 08/27/20 [History Last Taken Unknown] haloperidol 2 mg tablet 5 mg PO TID 08/27/20 [History Last Taken Unknown] lamotrigine 100 mg tablet (Lamictal) 100 mg PO QHS 08/27/20 [History Last Taken Unknown] lamotrigine 25 mg tablet (Lamictal) 50 mg PO DAILY 08/27/20 [History Last Taken Unknown] lorazepam 1 mg tablet (Ativan) 1 mg PO Q4H PRN PRN ANXIETY/SEIZURES 08/27/20 [History Last Taken Unknown] lurasidone 40 mg tablet (Latuda) 40 mg PO BID 08/27/20 [History Last Taken Unknown] magnesium hydroxide 400 mg/5 mL oral suspension (Milk of Magnesia) 30 ml PO DAILY PRN PRN Constipation 08/27/20 [History Last Taken Unknown] nicotine (polacrilex) 2 mg buccal lozenge 2 mg buccal Q2H PRN PRN Smoking Cessation 08/27/20 [History Last Taken Unknown] omega-3 fatty acids 2,000 mg PO DAILY 08/27/20 [History Last Taken Unknown] selenium sulfide 1 % shampoo 1 applic topical DAILY 08/27/20 [History Last Taken Unknown] atorvastatin 20 mg tablet (Lipitor) 20 mg PO DAILY 08/13/22 [History Last Taken Unknown] cariprazine 1.5 mg capsule (Vraylar) 1.5 mg PO DAILY 08/13/22 [History Last Taken Unknown] lactulose 10 gram/15 mL (15 mL) oral solution 45 ml PO TID 08/13/22 [History Last Taken Unknown] lorazepam 1 mg tablet (Ativan) 1 mg PO TID PRN Anxiety 08/13/22 [History Last Taken Unknown] propranolol 80 mg capsule,24 hr,extended release (Inderal LA) 80 mg PO DAILY 08/13/22 [History Last Taken Unknown] rifaximin 550 mg tablet 550 mg PO BID 08/13/22 [History Last Taken Unknown] trazodone 50 mg tablet 50 mg PO DAILY 08/13/22 [History Last Taken Unknown] aspirin 81 mg capsule 81 mg PO DAILY 03/27/23 [History Last Taken Unknown] hydrochlorothiazide 25 mg tablet 25 mg PO DAILY 03/27/23 [History Last Taken Unknown] Allergy/AdvReac Type Severity Reaction Status Date / Time No Known Allergies Allergy Verified 03/26/23 23:49 Social History Smoking Status: Current every day smoker tobacco type: cigarettes substance use type: does not use ROS ROS ED Review of Systems ROS Unobtainable: due to mental condition EXAM Physical Exam Const Vital Signs: 03/26/23 23:44 03/27/23 01:43 03/27/23 03:43 Temperature 98.0 F Temperature Source Temporal Pulse Rate 70 71 68 Respiratory Rate 12 18 18 Blood Pressure 128/82 H 115/97 H 130/99 H Blood Pressure Mean 97 103 109 Pulse Ox 98 100 97 Oxygen Delivery Method Room Air Room Air Room Air 03/27/23 05:43 03/27/23 07:21 Temperature Temperature Source Pulse Rate 69 69 Respiratory Rate 18 16 Blood Pressure 100/60 120/99 H Blood Pressure Mean 73 106 Pulse Ox 98 98 Oxygen Delivery Method Room Air Room Air Positive well nourished HEENT Reports moist mucous membranes normocephalic and atraumatic Chest Wall inspection of chest normal and palpation of chest normal Resp normal respiratory effort and no retractions Cardio regular rate and regular rhythm GI non-tender Extremity Extremity Narrative: Right lower extremity slightly cooler than the left lower extremity. 1+ pedal pulses on the right. Cap refill less than 5 seconds on the right. Patient able to lift and move the right leg. Neuro moves all extremities Sensorium / Orientation: alert MDM MDM MDM Narrative Medical decision making narrative: Patient presenting for evaluation of right leg coolness. On examination he has 1+ pulses on the right.. His leg does feel little bit cooler but he is able to move it without difficulty but does feel me touching. He is a poor informant he has a history of elevated ammonia levels. Given the patient's symptoms I did obtain blood work. CBC was obtained to assess white blood cell count, hemoglobin, platelets. CMP to assess liver function, renal function, electrolytes. Ammonia level was obtained due to patient's history of high ammonia. CBC and CMP unremarkable. Ammonia level 60. Patient appears to be on lactulose for this at home. There was a delay in the patient's care as it was very difficult to get IV access on the patient and took hours. I did obtain a CTA of the abdomen and pelvis with runoffs which did not show any acute occlusions. Nothing found acutely in the abdomen. Initially I spoke with the patient's caregiver from previous and they stated that they are no longer the caregiver for the patient and please call the nursing facility for their new caregiver. I did attempt to call a Niya Baptiste who is his new guardian and she did not answer the phone. There was a message on her voicemail telling me to call a Makayla Furby if I could not reach her and I left a message on this voicemail as well. After some time the patient's caregiver called back we discussed the case. We discussed the negative workup and the normal labs with exception of the ammonia level which is noted. The patient's caregiver had no recollection of any symptoms on the right leg. She recommended that I discussed this with the [facility] which we did do with the nursing staff. At this point I feel the patient stable for discharge home. Impression: 1. Hyperammonemia 2. Peripheral vascular disease Lab Data Attestation: I reviewed the patient's lab results. Labs: Laboratory Results - last 24 hr 03/27/23 00:33 WBC 8.2 RBC 4.21 L Hgb 13.5 Hct 39.1 L MCV 92.9 MCH 32.1 H MCHC 34.5 RDW Std Deviation 40.4 RDW Coeff of Michael 11.9 Plt Count 226 MPV 9.1 Immature Gran % (Auto) 0.200 Neut % (Auto) 57.6 Lymph % (Auto) 30.2 [place] % (Auto) 8.2 Eos % (Auto) 3.3 Baso % (Auto) 0.5 Absolute Neuts (auto) 4.7 Absolute Lymphs (auto) 2.47 Nucleated RBC % 0 Sodium 137 Potassium 3.3 L Chloride 103 Carbon Dioxide 31.0 Anion Gap 3 L BUN 16 Creatinine 0.89 Estim Creat Clear Calc 100.25 Est GFR (MDRD) Af Amer 116 Est GFR (MDRD) Non-Af 96 BUN/Creatinine Ratio 18.1 Glucose 100 Calcium 9.6 Total Bilirubin 0.20 AST 13 L ALT 18 Alkaline Phosphatase 92 Ammonia 60.0 H Total Protein 6.7 Albumin 3.5 Globulin 3.2 Albumin/Globulin Ratio 1.1 Radiography Diagnostic Testing: Clinical Impression(s) from Imaging Studies Abdomen/Pelvis CTA 03/27/23 00:16 IMPRESSION: 1. No CT evidence for hemodynamically significant stenosis or thrombosis. 2. Compression fracture of T12. Electronically Signed: Jayne Alcantara MD at 6:24 EST Reading Location ID and State: [facility] / [place] , Service support , Discharge Plan Triage Chief Complaint: Lower Extremity Injury ED Provider: [address] Dx/Rx/DC Orders Instructions: ED Peripheral Artery Disease (PAD) Prescriptions: No Action trazodone 50 MG tablet 100 mg PO QHS lorazepam 2 MG/ML syringe 1 mg IM Q4H PRN PRN (Reason: ANXIETY/SEIZURES) acetaminophen [Tylenol] 325 MG tablet 650 mg PO Q4H PRN PRN (Reason: PAIN/FEVER) Zonisamide [Zonegran] 100 MG capsule 200 mg PO DAILY lamotrigine [Lamictal] 25 mg Tablet 50 mg PO DAILY magnesium hydroxide [Milk of Magnesia] 400 mg/5 mL Suspension 30 ml PO DAILY PRN PRN (Reason: Constipation) alum-mag hydroxide-simeth [Mylanta] 200-200-20 mg/5 mL Suspension 30 ml PO Q4H PRN PRN (Reason: Indigestion) lorazepam [Ativan] 1 mg Tablet 1 mg PO Q4H PRN PRN (Reason: ANXIETY/SEIZURES) haloperidol [Haldol] 2 mg Tablet 5 mg PO TID lamotrigine [Lamictal] 100 mg Tablet 100 mg PO QHS [place] Blue Dry Hair/Dandruff 1 % Shampoo 1 applic TOPICAL DAILY nicotine (polacrilex) 2 mg Lozenge 2 mg BUCCAL Q2H PRN PRN (Reason: Smoking Cessation) [place] 3 Fish Oil Capsule 2,000 mg PO DAILY cholecalciferol (vitamin D3) 1,250 mcg (50,000 unit) Capsule 1,250 mcg PO SAAVEDRA Patient Comments: every tuesday fenofibrate 120 mg Tablet 48 mg PO DAILY lurasidone [Latuda] 40 mg Tablet 40 mg PO BID Ibuprofen [Motrin] 800 MG tablet 600 mg PO TID lorazepam [Ativan] 1 mg Tablet 1 mg PO TID PRN (Reason: Anxiety) atorvastatin [Lipitor] 20 mg Tablet 20 mg PO DAILY trazodone 50 mg Tablet 50 mg PO DAILY propranolol [Inderal LA] 80 mg Capsule,Extended Release 24 Hr 80 mg PO DAILY rifaximin 550 mg Tablet 550 mg PO BID lactulose 10 gram/15 mL (15 mL) Solution 45 ml PO TID Vraylar 1.5 mg Capsule 1.5 mg PO DAILY aspirin 81 mg capsule 81 mg PO DAILY hydrochlorothiazide 25 mg tablet 25 mg PO DAILY Primary Care Provider: Ramon Sanchez Referrals: Ramon Sanchez MD [Primary Care Provider] - Activity Restrictions/Additional Instructions: CT pelvis with lower extremity runoff: 1. No CT evidence for hemodynamically significant stenosis or thrombosis. 2. Compression fracture of T12. Disposition Disposition: Home, Self Care
--- NOTE | 2023-03-27 08:40 | ED.RN ---
called [facility] and gave update, answered questions.
== END 2023-03-27 08:54 | disposition home or self-care (01) ==
PROVIDERS: Emergency Provider Student in an Organized Health Care Education/Training Program; PCP Family Medicine; Visit Provider Student in an Organized Health Care Education/Training Program
DX: E72.20 Disorder of urea cycle metabolism, unspecified (principal); F03.90 Unspecified dementia, unspecified severity, without behavioral disturbance, psychotic disturbance, mood disturbance, and anxiety; J44.9 Chronic obstructive pulmonary disease, unspecified; I73.9 Peripheral vascular disease, unspecified; F17.210 Nicotine dependence, cigarettes, uncomplicated; Z79.82 Long term (current) use of aspirin; Z79.899 Other long term (current) drug therapy; Z86.73 Personal history of transient ischemic attack (TIA), and cerebral infarction without residual deficits
CPT/HCPCS: 75635; 80053; 82140; 85025; 99283; Q9967; A4216

== ENCOUNTER 2023-07-25 16:15 | Inpatient (IN) | payer MEDICAID, SELFPAY ==
[2023-07-25] VITALS (14 sets, daily range): BP systolic 95–126; BP diastolic 52–109; PULSE 59–84; RESP 13–19; TEMP 36.3; O2SAT 74–100; BMI 20.8; BMI 22.5
--- NOTE | 2023-07-25 16:17 | CT_ITS ---
We are attempting to reach an attending provider to discuss findings. An addendum with communication details will be sent when the communication is complete. INDICATION: Neuro deficit, acute, stroke suspected EXAMINATION: CT BRAIN - CT Head Stroke Protocol W/O Contrast Injection TECHNIQUE: Multiple axial images were obtained of the head without intravenous contrast. The protocol utilizes one or more of the following dose reduction techniques: automated exposure control, adjustment of mA and/or kV according to patient size,and/or use of iterative reconstruction technique. IV Contrast dosage and agent: None. RADIATION DOSAGE (If Supplied By Facility): CTDIvol = ( ) mGy, DLP = ( 863.6 ) mGycm COMPARISON: FINDINGS: BRAIN PARENCHYMA: No intra- or extra-axial hemorrhage. Old periventricular white matter ischemic changes. Encephalomalacia in the left temporal lobe consistent with old infarct or postsurgical changes No intracranial mass or mass effect. There is preservation of the pollard/white matter interface. Posterior fossa structures are unremarkable. CSF SPACES: Mild atrophy No hydrocephalus. Basal cisterns are patent. CALVARIUM, SKULL BASE, PARANASAL SINUSES AND MASTOID AIR CELLS: Clear. . ORBITS: Both globes, extraocular muscles, optic nerves and retrobulbar fat appear unremarkable. CT/STROKE Brain/Head without Cont IMPRESSION: Mild atrophy and periventricular white matter ischemic change. Old infarct or postsurgical encephalomalacia in left temporal lobe. No mass or acute bleed. If concern for acute infarct MRI recommended Electronically Signed: Parveen Zheng MD at 16:35 EDT ,
--- NOTE | 2023-07-25 16:18 | RAD_ITS ---
STUDY: X-RAY CHEST REASON FOR EXAM: Male, 52 years old. Neuro deficit, acute, stroke suspected TECHNIQUE: AP portable COMPARISON: None. FINDINGS: The lungs are clear and expanded. There is no demonstrated pleural abnormality. Normal size heart. Normal mediastinum and jaycee. Normal visualized pulmonary arteries. Normal visualized aortic arch and descending thoracic aorta. Central line noted on the left with tip in the right atrium Dorsal spine demonstrates degenerative change. Normal visualized ribs, clavicles, and shoulders. There is no demonstrated abnormality of the visualized soft tissue structures of the upper abdomen. RAD/Chest 1 View IMPRESSION: Central line placement on the right with tip in the right atrium. Electronically Signed: Parveen Zheng MD at 21:00 EDT ,
--- NOTE | 2023-07-25 16:18 | EKG12_ITS ---
Test Reason : STROKE ALRT Blood Pressure : / mmHG Vent. Rate : 059 BPM Atrial Rate : 059 BPM P-R Int : 194 ms QRS Dur : 100 ms QT Int : 418 ms P-R-T Axes : 048 059 054 degrees QTc Int : 413 ms Sinus bradycardia Nonspecific ST abnormality Abnormal ECG Confirmed by BE BOWENS, PETRONA ([id number]), editorial writer ARASH BOLES ([id number]) on 07/26/2023 2:12:05 PM Referred By: Confirmed By:PETRONA LR MD
--- NOTE | 2023-07-25 16:20 | EDS_ITS ---
HPI History of Present Illness Chief Complaint: Stroke Alert Narrative Narrative: 52-year-old male presents from [facility] facility with change in mental status and right-sided weakness. It was reported that around 245, he was outside smoking. When he returned, he was unable to move his wheelchair with his right side. He has a baseline slurring of his speech according to RNs. EMS states they are unaware of his last known well time however. This was obtained phone call to the [facility] facility. EMS reports right pronator drift and slurred speech. Prehospital stroke team was called giving his symptoms and reported unknown last well time. [facility] Medical History Personality disorder Post traumatic seizure Polyarthritis TBI (traumatic brain injury) Depression Bipolar disorder Schizoaffective disorder Nicotine dependence Psychotic disorder Alcohol dependence Dementia Anemia Delusional disorder Hyperlipidemia COPD (chronic obstructive pulmonary disease) Chronic pain Tinea corporis Stroke/cerebrovascular accident TIA (transient ischemic attack) Home Medications ?Medication ?Instructions ?Recorded ?Last Taken ?Type Zonisamide [Zonegran] 200 mg PO DAILY 01/02/14 Unknown History acetaminophen 325 mg tablet 650 mg PO Q4H PRN PRN PAIN/FEVER 01/02/14 Unknown History (Tylenol) lorazepam 2 mg/mL injection 1 mg IM Q4H PRN PRN 01/02/14 Unknown History solution ANXIETY/SEIZURES trazodone 50 mg tablet 100 mg PO QHS 01/02/14 Unknown History Ibuprofen [Motrin] 600 mg PO TID 08/27/20 Unknown History aluminum-mag hydroxide-simethicone 30 ml PO Q4H PRN PRN Indigestion 08/27/20 Unknown History 200 mg-200 mg-20 mg/5 mL oral susp cholecalciferol (vitamin D3) 1,250 1,250 mcg PO SAAVEDRA 08/27/20 Unknown History mcg (50,000 unit) capsule fenofibrate 120 mg tablet 48 mg PO DAILY 08/27/20 Unknown History haloperidol 2 mg tablet 5 mg PO TID 08/27/20 Unknown History lamotrigine 100 mg tablet 100 mg PO QHS 08/27/20 Unknown History (Lamictal) lamotrigine 25 mg tablet (Lamictal) 50 mg PO DAILY 08/27/20 Unknown History lorazepam 1 mg tablet (Ativan) 1 mg PO Q4H PRN PRN 08/27/20 Unknown History ANXIETY/SEIZURES lurasidone 40 mg tablet (Latuda) 40 mg PO BID 08/27/20 Unknown History magnesium hydroxide 400 mg/5 mL 30 ml PO DAILY PRN PRN Constipation 08/27/20 Unknown History oral suspension (Milk of Magnesia) nicotine (polacrilex) 2 mg buccal 2 mg buccal Q2H PRN PRN Smoking 08/27/20 Unknown History lozenge Cessation omega-3 fatty acids 2,000 mg PO DAILY 08/27/20 Unknown History selenium sulfide 1 % shampoo 1 applic topical DAILY 08/27/20 Unknown History atorvastatin 20 mg tablet (Lipitor) 20 mg PO DAILY 08/13/22 Unknown History cariprazine 1.5 mg capsule 1.5 mg PO DAILY 08/13/22 Unknown History (Vraylar) lactulose 10 gram/15 mL (15 mL) 45 ml PO TID 08/13/22 Unknown History oral solution lorazepam 1 mg tablet (Ativan) 1 mg PO TID PRN Anxiety 08/13/22 Unknown History propranolol 80 mg capsule,24 80 mg PO DAILY 08/13/22 Unknown History hr,extended release (Inderal LA) rifaximin 550 mg tablet 550 mg PO BID 08/13/22 Unknown History trazodone 50 mg tablet 50 mg PO DAILY 08/13/22 Unknown History aspirin 81 mg capsule 81 mg PO DAILY 03/27/23 Unknown History hydrochlorothiazide 25 mg tablet 25 mg PO DAILY 03/27/23 Unknown History Allergy/AdvReac Type Severity Reaction Status Date / Time No Known Allergies Allergy Verified 07/25/23 16:16 Social History Smoking Status: Current every day smoker tobacco type: cigarettes substance use type: does not use ROS ROS ED Review of Systems ROS Unobtainable: due to mental status EXAM Physical Exam Narrative Exam Narrative: Afebrile. Vital signs noted. HEENT: Normocephalic. Atraumatic. PERRL, EOMI. Neck soft and supple. No point tenderness or step off. Cardiovascular: Regular rate and rhythm. No murmurs, rubs, or gallops appreciated. Respiratory: No tachypnea. Lungs clear to auscultation bilaterally. Gastrointestinal: Abdomen soft, nontender, with normoactive bowel sounds. No rebound or guarding. Neurological: Awake. Alert. On initial exam, unable to hold up bilateral lower extremities. NIH of 10 because of slight facial palsy, mild dysarthria which may be his baseline, but no pronator drift as reported by EMS. Skin: Normal color. No pallor. Musculoskeletal: No pedal edema. Full range of motion extremities. Const Vital Signs: 07/25/23 16:18 07/25/23 16:24 07/25/23 16:29 Temperature 97.4 F L Temperature Source Temporal Pulse Rate 84 84 Respiratory Rate 18 18 Blood Pressure 102/65 102/65 Blood Pressure Mean 77 77 Pulse Ox 95 95 Oxygen Delivery Method Nasal Cannula Room Air 07/25/23 17:16 07/25/23 18:00 07/25/23 19:00 Temperature Temperature Source Pulse Rate 68 66 64 Respiratory Rate 18 18 19 H Blood Pressure 95/52 L 106/84 H 123/69 H Blood Pressure Mean 66 91 87 Pulse Ox 74 98 98 Oxygen Delivery Method Room Air Nasal Cannula Nasal Cannula 07/25/23 19:30 07/25/23 20:00 07/25/23 20:30 Temperature Temperature Source Pulse Rate 61 59 L 62 Respiratory Rate 16 14 16 Blood Pressure 118/80 118/78 109/96 H Blood Pressure Mean 92 91 100 Pulse Ox 95 96 Oxygen Delivery Method Nasal Cannula 07/25/23 21:00 Temperature Temperature Source Pulse Rate 68 Respiratory Rate 18 Blood Pressure 124/109 H Blood Pressure Mean 114 Pulse Ox 95 Oxygen Delivery Method NIHSS NIHSS Initial: 1a Level of Consciousness: 0 1b LOC Questions (Score 2 if aphasic/stupor): 0 1c LOC Commands (Only score 1st attempt): 0 2 Best Gaze (If aphasic, use reflexive mvmts.): 0 3 Visual: 0 4 Facial Palsy: 1 5 Motor Arm Right (UN = amputation/fusion): 0 5 Motor Arm Left: 0 6 Motor Leg Right: 4 6 Motor Leg Left: 4 7 Limb ataxia (Only + if out of proportion): 0 8 Sensory (Aphasia/stupor=0 or 1, coma=2): 0 9 Best Language: 0 10 Dysarthria (mute, coma=2, intubated=UN): 1 11 Extinction and Inattention (only scored if +): 0 Total Score: 10 MDM MDM MDM Narrative Medical decision making narrative: Upon patient arrival, he was assessed near the ambulance bay. He does not have a pronator drift currently, but he is unable to hold his bilateral legs off the bed. Hence, with his changing symptoms I am unsure as to the cause of his bilateral symptoms. I discussed the patient with the teleneurologist. After discussion with the radiologist regarding the CT of the brain, while there is no acute hemorrhage, there is encephalomalacia. The neurologist was unsure if the patient had a craniotomy for previous bleed. When asked, patient states that he had surgery on his brain in 4 different places secondary to trauma because of bleeding. Hence, through shared decision making with the neurologist as well, it was not felt that TNKase indicated as this may be more of a possible seizure because of the inconsistent results. They documented NIH stroke scale of 7 and were able to get him to move his left leg. There was moderate difficulty in obtaining IV access. His first IV infiltrated when trying to get the CTA. Second IV was obtained, but that also infiltrated when attempting to obtain the CTA of the head and neck. I attempted central line placement in the right IJ with 3 needle sticks, but was unsuccessful secondary to patient movement. I discussed patient with Dr. Lewis with surgery who attempted external jugular venipuncture but was unsuccessful so we placed a left IJ. Chest x-ray in 1 view interpreted by myself does show no pneumothorax, no pneumonia. I reviewed the radiology report which confirms my independent interpretation. I reviewed his laboratory work and he has normal white count of 5.0, hemoglobin 14.6, hematocrit 42.4, platelet count normal at 227. Coagulation studies are negative with an INR of 0.9. His electrolyte panel does show dehydration and hypokalemia with a sodium of 130, potassium 2.9, and chloride 94. High-sensitivity troponin is less than 3. EKG interpreted by myself independently demonstrates sinus bradycardia 59 bpm without ectopy or acute ST changes. No STEMI. Urine for drugs of abuse is negative. Additionally alcohol level is negative as well. After central venous access was obtained, I received a call from the radiologist regarding the CTA of the head and neck which shows no large vessel occlusion. At this point in time, upon repeat examination at approximately 2120, patient states he feels improved. His dysarthria has lessened. I will discuss patient with hospitalist for observation for his neurological symptoms versus TIA. Patient is in stable condition. History & Record Review Discussion w/independent historian: EMS personnel and Patient Lab Data Attestation: I reviewed the patient's lab results. Labs: Laboratory Results - last 24 hr 07/25/23 07/25/23 07/25/23 16:45 17:00 19:13 WBC 5.0 RBC 4.67 Hgb 14.6 Hct 42.4 MCV 90.8 MCH 31.3 MCHC 34.4 RDW Std Deviation 38.8 RDW Coeff of Michael 11.8 Plt Count 227 MPV 8.4 Immature Gran % (Auto) 0.200 Neut % (Auto) 50.8 Lymph % (Auto) 36.0 [place] % (Auto) 10.2 H Eos % (Auto) 2.4 Baso % (Auto) 0.4 Absolute Neuts (auto) 2.5 Absolute Lymphs (auto) 1.80 Nucleated RBC % 0 PT 12.0 INR 0.9 APTT 25.9 Sodium 130 L Potassium 2.9 L Chloride 94 L Carbon Dioxide 29.0 Anion Gap 7 BUN 12 Creatinine 0.99 Estim Creat Clear Calc 90.12 Est GFR (MDRD) Af Amer 101 Est GFR (MDRD) Non-Af 84 BUN/Creatinine Ratio 12.1 Glucose 90 Calcium 10.2 H Troponin I High Sens < 3 L Urine Opiates Screen NEGATIVE Urine Methadone Screen NEGATIVE Ur Barbiturates Screen NEGATIVE Ur Phencyclidine Scrn NEGATIVE Ur Amphetamines Screen NEGATIVE MDMA (Ecstasy) Screen NEGATIVE U Benzodiazepines Scrn NEGATIVE Urine Cocaine Screen NEGATIVE U Cannabinoids Screen NEGATIVE Ur Drug Screen Comment Ethyl Alcohol 7.0 Radiography Diagnostic Testing: Clinical Impression(s) from Imaging Studies Brain CT 07/25/23 16:17 IMPRESSION: Mild atrophy and periventricular white matter ischemic change. Old infarct or postsurgical encephalomalacia in left temporal lobe. No mass or acute bleed. If concern for acute infarct MRI recommended Electronically Signed: Parveen Zheng MD at 16:35 EDT , ADDENDUM: 07/25/23 9788 IMPRESSION: Mild atrophy and periventricular white matter ischemic change. Old infarct or postsurgical encephalomalacia in left temporal lobe. No mass or acute bleed. If concern for acute infarct MRI recommended N.B. : The above Results were Read Back by Parveen Zheng MD to Glenn Lowery MD, and understanding confirmed on 07/25/2023 16:35:03 (ET). Electronically Signed: Parveen Zheng MD at 16:35 EDT , Chest X-Ray 07/25/23 16:18 IMPRESSION: Central line placement on the right with tip in the right atrium. Electronically Signed: Parveen Zheng MD at 21:00 EDT , Head/Neck CTA 07/25/23 20:55 IMPRESSION: No evidence for hemodynamically significant stenosis or major vessel occlusion in the head or neck. Electronically Signed: Parveen Zheng MD at 21:12 EDT , Stroke Documentation Questions Stroke Team Activated: Yes Reviewed Inclusion/Exclusion criteria: Yes Was Patient considered for Endovascular Intervention?: No-CTA negative, determined not to be an endovascular candidate IV Thrombolytic Administered: No No contraindications from thrombolytic administration: No Discharge Plan Triage Chief Complaint: Stroke Alert ED Provider: Glenn Lowery Dx/Rx/DC Orders Clinical Impression: Dysarthria, Encephalomalacia, Hypokalemia, Hyponatremia Prescriptions: No Action trazodone 50 MG tablet 100 mg PO QHS lorazepam 2 MG/ML syringe 1 mg IM Q4H PRN PRN (Reason: ANXIETY/SEIZURES) acetaminophen [Tylenol] 325 MG tablet 650 mg PO Q4H PRN PRN (Reason: PAIN/FEVER) Zonisamide [Zonegran] 100 MG capsule 200 mg PO DAILY lamotrigine [Lamictal] 25 mg Tablet 50 mg PO DAILY magnesium hydroxide [Milk of Magnesia] 400 mg/5 mL Suspension 30 ml PO DAILY PRN PRN (Reason: Constipation) alum-mag hydroxide-simeth [Mylanta] 200-200-20 mg/5 mL Suspension 30 ml PO Q4H PRN PRN (Reason: Indigestion) lorazepam [Ativan] 1 mg Tablet 1 mg PO Q4H PRN PRN (Reason: ANXIETY/SEIZURES) haloperidol [Haldol] 2 mg Tablet 5 mg PO TID lamotrigine [Lamictal] 100 mg Tablet 100 mg PO QHS [place] Blue Dry Hair/Dandruff 1 % Shampoo 1 applic TOPICAL DAILY nicotine (polacrilex) 2 mg Lozenge 2 mg BUCCAL Q2H PRN PRN (Reason: Smoking Cessation) [place] 3 Fish Oil Capsule 2,000 mg PO DAILY cholecalciferol (vitamin D3) 1,250 mcg (50,000 unit) Capsule 1,250 mcg PO SAAVEDRA Patient Comments: every tuesday fenofibrate 120 mg Tablet 48 mg PO DAILY lurasidone [Latuda] 40 mg Tablet 40 mg PO BID Ibuprofen [Motrin] 800 MG tablet 600 mg PO TID lorazepam [Ativan] 1 mg Tablet 1 mg PO TID PRN (Reason: Anxiety) atorvastatin [Lipitor] 20 mg Tablet 20 mg PO DAILY trazodone 50 mg Tablet 50 mg PO DAILY propranolol [Inderal LA] 80 mg Capsule,Extended Release 24 Hr 80 mg PO DAILY rifaximin 550 mg Tablet 550 mg PO BID lactulose 10 gram/15 mL (15 mL) Solution 45 ml PO TID Vraylar 1.5 mg Capsule 1.5 mg PO DAILY aspirin 81 mg capsule 81 mg PO DAILY hydrochlorothiazide 25 mg tablet 25 mg PO DAILY Primary Care Provider: Ramon Sanchez Referrals: Ramon Sanchez MD [Primary Care Provider] - Print Language: Lithuanian
[2023-07-25 16:53] LABS: Absolute Neutrophil Count 2.5 X10^3/uL (2.0-7.7); Basophil# 0.02 X10^3/uL; Basophil% 0.4 % (0-1); Eosinophil# 0.12 X10^3/uL; Eosinophils% 2.4 % (0-5); Hematocrit 42.4 % (40-54); Hemoglobin 14.6 g/dL (13.0-16.5); Mean Corp Hgb Conc 34.4 g/dL (32-36); Mean Corpuscular Hgb 31.3 pg (27.0-32.0); Mean Corpuscular Volume 90.8 fL (80-94); Mean Platelet Vol. 8.4 fl (6.2-12.0); Monocyte# 0.51 X10^3/uL; Monocyte% 10.2 % (0-10); NRBC Flagged by Analyzer 0 % (0-5); Neutrophil # 2.54 X10^3/uL (2.7-7.7); Neutrophil % 50.8 % (47-70); Platelet Count 227 K/mm3 (150-450); RBC Distribution Width CV 11.8 % (11.6-14.6); RBC Distribution Width SD 38.8 fl (35.1-43.9); Red Blood Count 4.67 M/mm3 (4.6-6.2)
[2023-07-25 17:07] LABS: International Normalized Ratio 0.9
[2023-07-25 17:08] LABS: Partial Thromboplast Time 25.9 Seconds (24.1-36.2)
[2023-07-25 17:13] LABS: Anion Gap 7 (5-15); BUN 12 mg/dL (7-18); BUN/Creat Ratio 12.1 RATIO (10-20); Calcium,Total 10.2 mg/dL (8.5-10.1); Chloride 94 mmol/L (98-107); Creatinine, Serum 0.99 mg/dL (0.70-1.30); EST Glomerular Filtration Rate 84 mL/min (>60); Est Glom Filt Rate - Afr Amer 101 mL/min (>60); Estimated Creatinine Clearance 90.12 ml/min; Glucose 90 mg/dL (74-106); Potassium 2.9 mmol/L (3.5-5.1); Sodium Level 130 mmol/L (136-145); Troponin-I HS < 3 pg/mL (3.0-78.0)
[2023-07-25 20:00] LABS: Amphetamine Urine VISTA NEGATIVE (<1000 ng/mL); Barbiturate Urine VISTA NEGATIVE (< 200 ng/mL); Benzodiazepine Urine VISTA NEGATIVE (< 200 ng/mL); Cocaine Urine VISTA NEGATIVE (< 300 ng/mL); Ecstacy Urine VISTA NEGATIVE (< 500 ng/mL); Methadone Urine VISTA NEGATIVE (< 300 ng/mL); PCP Urine VISTA NEGATIVE (< 25 ng/mL); THC Urine VISTA NEGATIVE (< 50 ng/mL); Vista UDS pH Range 6
--- NOTE | 2023-07-25 20:28 | CON.PCM.SX_ITS ---
Assessment & Plan Assessment/Plan (1) Need for intravenous access: PLAN: Patient is a 52-year-old male who was under evaluation for new neurologic symptoms?including motor difficulty with his right upper extremity as well as some dysarthria. Neurologic evaluation is ongoing and CT has been recommended, however, patient does not have viable IV access. Thus I presented at bedside and attempted to place an ultrasound-guided left external jugular peripheral IV after confirming color Doppler flow through the vessel. Unfortunately, despite sonographic evidence of being in the immediate vicinity I was unable to obtain a flash in the catheter so I abandoned this approach after 2 attempts. Patient was consented at bedside for ultrasound-guided placement of a left internal jugular central line and I then proceeded with placement of this line. X-ray is pending but barring any unexpected results we will plan for use of the central line for obtaining patient's CT imaging as well as any subsequent needs. HPI Consult Data Date of Consult: 07/25/23 HPI Narrative Reason for Consultation: Need for IV access HPI Narrative: JESUS WARD, is a 52 M who presents to [facility] from his nursing facility where he is a full-time resident after a traumatic brain injury due to reports of new onset inability to move his right upper extremity and speech difficulty. Surgery was consulted for obtaining IV access after numerous attempts by nursing and emergency medicine?including attempt at the right internal jugular vein. Patient's communication abilities are limited?unknown whether this is secondary to an acute event or his chronic status?but he seems to suggest that he has never undergone prior central line placement. CT of the brain was obtained and was not read for any acute findings but neurology has evaluated and recommended CTA of the head and neck?occasioning the consult. [facility] Medical History Personality disorder Post traumatic seizure Polyarthritis TBI (traumatic brain injury) Depression Bipolar disorder Schizoaffective disorder Nicotine dependence Psychotic disorder Alcohol dependence Dementia Anemia Delusional disorder Hyperlipidemia COPD (chronic obstructive pulmonary disease) Chronic pain Tinea corporis Stroke/cerebrovascular accident TIA (transient ischemic attack) Home Medications ?Medication ?Instructions ?Recorded ?Last Taken ?Type Zonisamide [Zonegran] 200 mg PO DAILY 01/02/14 Unknown History acetaminophen 325 mg tablet 650 mg PO Q4H PRN PRN PAIN/FEVER 01/02/14 Unknown History (Tylenol) lorazepam 2 mg/mL injection 1 mg IM Q4H PRN PRN 01/02/14 Unknown History solution ANXIETY/SEIZURES trazodone 50 mg tablet 100 mg PO QHS 01/02/14 Unknown History Ibuprofen [Motrin] 600 mg PO TID 08/27/20 Unknown History aluminum-mag hydroxide-simethicone 30 ml PO Q4H PRN PRN Indigestion 08/27/20 Unknown History 200 mg-200 mg-20 mg/5 mL oral susp cholecalciferol (vitamin D3) 1,250 1,250 mcg PO SAAVEDRA 08/27/20 Unknown History mcg (50,000 unit) capsule fenofibrate 120 mg tablet 48 mg PO DAILY 08/27/20 Unknown History haloperidol 2 mg tablet 5 mg PO TID 08/27/20 Unknown History lamotrigine 100 mg tablet 100 mg PO QHS 08/27/20 Unknown History (Lamictal) lamotrigine 25 mg tablet (Lamictal) 50 mg PO DAILY 08/27/20 Unknown History lorazepam 1 mg tablet (Ativan) 1 mg PO Q4H PRN PRN 08/27/20 Unknown History ANXIETY/SEIZURES lurasidone 40 mg tablet (Latuda) 40 mg PO BID 08/27/20 Unknown History magnesium hydroxide 400 mg/5 mL 30 ml PO DAILY PRN PRN Constipation 08/27/20 Unknown History oral suspension (Milk of Magnesia) nicotine (polacrilex) 2 mg buccal 2 mg buccal Q2H PRN PRN Smoking 08/27/20 Unknown History lozenge Cessation omega-3 fatty acids 2,000 mg PO DAILY 08/27/20 Unknown History selenium sulfide 1 % shampoo 1 applic topical DAILY 08/27/20 Unknown History atorvastatin 20 mg tablet (Lipitor) 20 mg PO DAILY 08/13/22 Unknown History cariprazine 1.5 mg capsule 1.5 mg PO DAILY 08/13/22 Unknown History (Vraylar) lactulose 10 gram/15 mL (15 mL) 45 ml PO TID 08/13/22 Unknown History oral solution lorazepam 1 mg tablet (Ativan) 1 mg PO TID PRN Anxiety 08/13/22 Unknown History propranolol 80 mg capsule,24 80 mg PO DAILY 08/13/22 Unknown History hr,extended release (Inderal LA) rifaximin 550 mg tablet 550 mg PO BID 08/13/22 Unknown History trazodone 50 mg tablet 50 mg PO DAILY 08/13/22 Unknown History aspirin 81 mg capsule 81 mg PO DAILY 03/27/23 Unknown History hydrochlorothiazide 25 mg tablet 25 mg PO DAILY 03/27/23 Unknown History Allergy/AdvReac Type Severity Reaction Status Date / Time No Known Allergies Allergy Verified 07/25/23 16:16 Social History Smoking Status: Current every day smoker tobacco type: cigarettes substance use type: does not use Physical Exam Const alert Constitutional Narrative: Patient appears oriented to self and displays spastic movements being only occasionally redirectable Nutritional Appearance: underweight Neck Neck Narrative: No obvious signs of infection or scars Chest Chest Narrative: Some areas of redness with excoriation Resp normal respiratory effort Bladder / Kidney Exam: catheter in place urethral Lab / Micro Data 07/25/23 16:45 07/25/23 16:45 Labs: Laboratory Results - last 24 hr 07/25/23 16:45: WBC 5.0, RBC 4.67, Hgb 14.6, Hct 42.4, MCV 90.8, MCH 31.3, MCHC 34.4, RDW Std Deviation 38.8, RDW Coeff of Michael 11.8, Plt Count 227, MPV 8.4, Immature Gran % (Auto) 0.200, Neut % (Auto) 50.8, Lymph % (Auto) 36.0, [place] % (Auto) 10.2 H, Eos % (Auto) 2.4, Baso % (Auto) 0.4, Absolute Neuts (auto) 2.5, Absolute Lymphs (auto) 1.80, Nucleated RBC % 0, PT 12.0, INR 0.9, APTT 25.9, S odium 130 L, Potassium 2.9 L, Chloride 94 L, Carbon Dioxide 29.0, Anion Gap 7, BUN 12, Creatinine 0.99, Estim Creat Clear Calc 90.12, Est GFR (MDRD) Af Amer 101, Est GFR (MDRD) Non-Af 84, BUN/Creatinine Ratio 12.1, Glucose 90, Calcium 10.2 H, Troponin I High Sens < 3 L 07/25/23 17:00: Ethyl Alcohol 7.0 07/25/23 19:13: Urine Opiates Screen NEGATIVE, Urine Methadone Screen NEGATIVE, Ur Barbiturates Screen NEGATIVE, Ur Phencyclidine Scrn NEGATIVE, Ur Amphetamines Screen NEGATIVE, MDMA (Ecstasy) Screen NEGATIVE, U Benzodiazepines Scrn NEGATIVE, Urine Cocaine Screen NEGATIVE, U Cannabinoids Screen NEGATIVE, Ur Drug Screen Comment Imaging Radiology Impression Brain CT 07/25/23 16:17 IMPRESSION: Mild atrophy and periventricular white matter ischemic change. Old infarct or postsurgical encephalomalacia in left temporal lobe. No mass or acute bleed. If concern for acute infarct MRI recommended Electronically Signed: Parveen Zheng MD at 16:35 EDT , ADDENDUM: 07/25/23 1641 IMPRESSION: Mild atrophy and periventricular white matter ischemic change. Old infarct or postsurgical encephalomalacia in left temporal lobe. No mass or acute bleed. If concern for acute infarct MRI recommended N.B. : The above Results were Read Back by Parveen Zheng MD to Glenn Lowery MD, and understanding confirmed on 07/25/2023 16:35:03 (ET). Electronically Signed: Parveen Zheng MD at 16:35 EDT , Charges/Coding Visit Charges Office Visits / Consults: 49302 ED Visit; Moderate Severity
--- NOTE | 2023-07-25 20:38 | PRO.PCM_ITS ---
Procedure Report Date of Procedure: 07/25/23 Procedure name: Insertion of 7 Mongolian, triple-lumen central venous catheter Procedure detail: After obtaining consent from patient, patient was positioned supine to facilitate filling of the central veins of the neck. The head was positioned to the right to allow access to the left neck. The left internal jugular vein was localized using bedside ultrasound. It appeared to be widely patent with good flow on color Doppler. The superficial tissues of the neck were then anesthetized with a local block using 5 mL 1% Xylocaine. Under direct ultrasound guidance the vein was accessed with return of dark red blood. Using a Seldinger technique a guidewire was placed without difficulty. The guidewire tract was then opened at the skin with an 11 blade and dilated. Then the central venous catheter was inserted into the vein. All ports aspirated and flushed ease. The catheter was then sewn in using 0 silk in three-point fixation. Insertion site was cleaned and a Biopatch/Tegaderm dressing was placed about the catheter to maintain sterility. A post procedure chest x-ray was obtained to verify the position of the catheter. Complications: None EBL: 3 mL Procedures Hospitalists Procedures: [id number] Insert Non-tunnel CV Cath
--- NOTE | 2023-07-25 20:55 | CT_ITS ---
We are attempting to reach an attending provider to discuss findings. An addendum with communication details will be sent when the communication is complete. STUDY: CTA HEAD AND NECK WITH CONTRAST REASON FOR EXAM: Male, 52 years old. Neuro deficit, acute, stroke suspected RADIATION DOSAGE (If Supplied By Facility): CTDIvol = ( 17.46 ) mGy, DLP = ( 796.16 ) mGycm TECHNIQUE: CT angiography was performed with a multi-detector CT scanner. Data acquisition was obtained from the skull base through the vertex following intravenous administration of IV 100mL [id number]-370. MIP images were reconstructed from the axial data set. Post-processing of the angiographic images was performed, with multiplanar reformation and 3D reconstruction. Individualized dose optimization techniques were used for this CT. COMPARISON: No relevant priors. FINDINGS: Normal bilateral petrous carotid arteries. Normal right cavernous carotid artery with a normal supraclinoid bifurcation. Normal left cavernous carotid artery with a normal supraclinoid bifurcation. Normal right A1 segments of the anterior cerebral artery. Normal left A1 segments of the anterior cerebral artery. Anterior communicating artery not visualized consistent with normal variant). Normal bilateral A2 segments of the anterior cerebral arteries. Normal right M1 and M2 segments of the middle cerebral arteries, with a normal M1 bifurcation. Normal left M1 and M2 segments of the middle cerebral arteries, with a normal M1 bifurcation. Normal right posterior communicating artery (PCOM). Normal left posterior communicating artery (PCOM). Normal left vertebral artery. Mildly diffusely narrowed distal right vertebral. Normal basilar artery with a normal basilar bifurcation. The visualized bilateral superior cerebellar (SCA) arteries are normal. Normal bilateral P1, P2 and visualized P3 segments of the posterior cerebral arteries. There is no demonstrated aneurysm of the [place]. AORTIC ARCH: Normal visualized aortic arch. Normal origins of the brachiocephalic, left common carotid, and left subclavian arteries. RIGHT CAROTID ARTERIES: Normal right common carotid artery (CCA). Normal right common carotid bulb. Normal origin of the right internal carotid (ICA) artery without a hemodynamically significant stenosis. Normal visualized cervical portion of the right internal carotid artery. Normal origin of the right external carotid artery (ECA). LEFT CAROTID ARTERIES: Normal left common carotid artery (CCA). Normal left common carotid bulb. Normal origin of the left internal carotid (ICA) artery without a hemodynamically significant stenosis. Normal visualized cervical portion of the left internal carotid artery. Normal origin of the left external carotid artery (ECA). VERTEBRAL ARTERIES: Left vertebral is dominant and normal caliber. There is mild diffuse narrowing of the right vertebral CT/STROKE CTA Head AND Neck W/Con IMPRESSION: No evidence for hemodynamically significant stenosis or major vessel occlusion in the head or neck. Electronically Signed: Parveen Zheng MD at 21:12 EDT ,
[2023-07-25] MEDS: 0.9% Normal Saline (1000mL) 1,000 ML 999 ML IV (21:38)
--- NOTE | 2023-07-25 22:05 | HP.PCM.HOS_ITS ---
[facility] General General Date of Admission: 07/25/23 Date of Service: 07/25/23 Chief Complaint: Mental Status Change and Right-sided Weakness. HPI Narrative JESUS GOTTLIEB, is a 52 M with a past medical history of essential hypertension, hyperlipidemia, history of tobacco abuse; with subsequent COPD, history of severe traumatic brain injury; s/p craniotomy for acute hemorrhage with subsequent encephalomalacia and chronic Right leg weakness plus slurred speech, posttraumatic seizure disorder, history of TIA/CVA, bipolar disorder, schizoaffective disorder, delusional disorder, history of alcohol abuse, history of dementia, chronic anemia and osteoarthritis; with chronic pain who presents to [facility] ER complaining of mental status change and Right- sided weakness. Mr. Gottlieb is not a fully reliable historian so information was primarily gathered from chart, medical staff and computer. According to the records from his senior living facility he was noted to have a mental status change and Right-sided weakness. Apparently around 2:45 PM earlier today he was outside smoking when he returned he was unable to move his wheelchair with his right upper extremity. He also has a baseline slurring of his speech according to nurses but his speech was thought to be more slurred than usual causing nursing facility to activate EMS. EMS was unaware of his last known well time given patient's limited capacity and sketchy details from his facility. Nevertheless, EMS reported Right pronator drift and slurred speech with prehospital stroke team called given his symptoms at that time. He initially had difficulty having a venous line placed so he could undergo CTA of the head and neck - and after a central line was placed by the general surgeon on-call is CTA of the head and neck was negative for acute pathologic changes. There was no report of fever, chills, nausea, vomiting, seizure activity, postictal confusion, headache, chest pain or abdominal pain. [facility] teleneurology felt patient was a poor candidate for TNK given his previous craniotomy for previous bleed and unknown clear last known well time. He was noted to have a negative urine tox screen and a blood alcohol concentration of 7 mg/dL. He was then admitted to the PCU under observation status for a TIA/CVA workup for stay that is expected to be less than 2 midnights. [facility] Medical History Personality disorder Post traumatic seizure Polyarthritis TBI (traumatic brain injury) Depression Bipolar disorder Schizoaffective disorder Nicotine dependence Psychotic disorder Alcohol dependence Dementia Anemia Delusional disorder Hyperlipidemia COPD (chronic obstructive pulmonary disease) Chronic pain Tinea corporis Stroke/cerebrovascular accident TIA (transient ischemic attack) Home Medications ?Medication ?Instructions ?Recorded ?Last Taken ?Type Zonisamide [Zonegran] 200 mg PO DAILY 01/02/14 Unknown History acetaminophen 325 mg tablet 650 mg PO Q4H PRN PRN PAIN/FEVER 01/02/14 Unknown History (Tylenol) lorazepam 2 mg/mL injection 1 mg IM Q4H PRN PRN 01/02/14 Unknown History solution ANXIETY/SEIZURES trazodone 50 mg tablet 100 mg PO QHS 01/02/14 Unknown History Ibuprofen [Motrin] 600 mg PO TID 08/27/20 Unknown History aluminum-mag hydroxide-simethicone 30 ml PO Q4H PRN PRN Indigestion 08/27/20 Unknown History 200 mg-200 mg-20 mg/5 mL oral susp cholecalciferol (vitamin D3) 1,250 1,250 mcg PO SAAVEDRA 08/27/20 Unknown History mcg (50,000 unit) capsule fenofibrate 120 mg tablet 48 mg PO DAILY 08/27/20 Unknown History haloperidol 2 mg tablet 5 mg PO TID 08/27/20 Unknown History lamotrigine 100 mg tablet 100 mg PO QHS 08/27/20 Unknown History (Lamictal) lamotrigine 25 mg tablet (Lamictal) 50 mg PO DAILY 08/27/20 Unknown History lorazepam 1 mg tablet (Ativan) 1 mg PO Q4H PRN PRN 08/27/20 Unknown History ANXIETY/SEIZURES lurasidone 40 mg tablet (Latuda) 40 mg PO BID 08/27/20 Unknown History magnesium hydroxide 400 mg/5 mL 30 ml PO DAILY PRN PRN Constipation 08/27/20 Unknown History oral suspension (Milk of Magnesia) nicotine (polacrilex) 2 mg buccal 2 mg buccal Q2H PRN PRN Smoking 08/27/20 Unknown History lozenge Cessation omega-3 fatty acids 2,000 mg PO DAILY 08/27/20 Unknown History selenium sulfide 1 % shampoo 1 applic topical DAILY 08/27/20 Unknown History atorvastatin 20 mg tablet (Lipitor) 20 mg PO DAILY 08/13/22 Unknown History cariprazine 1.5 mg capsule 1.5 mg PO DAILY 08/13/22 Unknown History (Vraylar) lactulose 10 gram/15 mL (15 mL) 45 ml PO TID 08/13/22 Unknown History oral solution lorazepam 1 mg tablet (Ativan) 1 mg PO TID PRN Anxiety 08/13/22 Unknown History propranolol 80 mg capsule,24 80 mg PO DAILY 08/13/22 Unknown History hr,extended release (Inderal LA) rifaximin 550 mg tablet 550 mg PO BID 08/13/22 Unknown History trazodone 50 mg tablet 50 mg PO DAILY 08/13/22 Unknown History aspirin 81 mg capsule 81 mg PO DAILY 03/27/23 Unknown History hydrochlorothiazide 25 mg tablet 25 mg PO DAILY 03/27/23 Unknown History Allergy/AdvReac Type Severity Reaction Status Date / Time No Known Allergies Allergy Verified 07/25/23 16:16 Social History Smoking Status: Current every day smoker tobacco type: cigarettes substance use type: does not use ROS ROS Narrative Full review of systems was not possible due to this patient's limited mental status at this time. Vital Signs Vital Signs Vital Signs: 07/25/23 16:18 07/25/23 16:24 07/25/23 16:29 Temperature 97.4 F L Temperature Source Temporal Pulse Rate 84 84 Respiratory Rate 18 18 Blood Pressure 102/65 102/65 Blood Pressure Mean 77 77 Pulse Ox 95 95 Oxygen Delivery Method Nasal Cannula Room Air 07/25/23 17:16 07/25/23 18:00 07/25/23 19:00 Temperature Temperature Source Pulse Rate 68 66 64 Respiratory Rate 18 18 19 H Blood Pressure 95/52 L 106/84 H 123/69 H Blood Pressure Mean 66 91 87 Pulse Ox 74 98 98 Oxygen Delivery Method Room Air Nasal Cannula Nasal Cannula 07/25/23 19:30 07/25/23 20:00 07/25/23 20:30 Temperature Temperature Source Pulse Rate 61 59 L 62 Respiratory Rate 16 14 16 Blood Pressure 118/80 118/78 109/96 H Blood Pressure Mean 92 91 100 Pulse Ox 95 96 Oxygen Delivery Method Nasal Cannula 07/25/23 21:00 07/25/23 21:30 Temperature Temperature Source Pulse Rate 68 64 Respiratory Rate 18 13 Blood Pressure 124/109 H 119/81 H Blood Pressure Mean 114 93 Pulse Ox 95 100 Oxygen Delivery Method Weight Weight: 161 lb 2.526 oz Body Mass Index (BMI) 22.5 Physical Exam Const alert, no apparent distress and average body habitus General Appearance: cooperative Orientation / Consciousness: confused HEENT normocephalic, head/scalp atraumatic, hearing grossly normal bilaterally and moist oral mucous membranes Eyes PERRL and EOMs intact bilaterally Neck no lymphadenopathy and supple Resp normal respiratory effort, no retractions, no use of accessory muscles and clear to auscultation bilaterally Cardio regular rate and regular rhythm GI normal to inspection, nondistended, normoactive bowel sounds, soft to palpation, non-tender and non-distended Extremity Extremity Narrative: Patient has signs of muscle atrophy in his lower extremities right greater than left. Skin Skin Narrative: Patient has evidence of tinea cruris. Neuro CN's II-XII intact bilaterally Neuro Narrative: Patient is mildly confused with slurred speech. Sensorium / Orientation: awake, alert, oriented to person and oriented to place Psych affect normal Results Medical Records Data Attestation: I reviewed the patient's medical records Lab / Micro Data Attestation: I reviewed the patient's lab results. 07/25/23 16:45 07/25/23 16:45 Labs: Laboratory Results - last 24 hr 07/25/23 16:45: WBC 5.0, RBC 4.67, Hgb 14.6, Hct 42.4, MCV 90.8, MCH 31.3, MCHC 34.4, RDW Std Deviation 38.8, RDW Coeff of Michael 11.8, Plt Count 227, MPV 8.4, Immature Gran % (Auto) 0.200, Neut % (Auto) 50.8, Lymph % (Auto) 36.0, [place] % (Auto) 10.2 H, Eos % (Auto) 2.4, Baso % (Auto) 0.4, Absolute Neuts (auto) 2.5, Absolute Lymphs (auto) 1.80, Nucleated RBC % 0, PT 12.0, INR 0.9, APTT 25.9, S odium 130 L, Potassium 2.9 L, Chloride 94 L, Carbon Dioxide 29.0, Anion Gap 7, BUN 12, Creatinine 0.99, Estim Creat Clear Calc 90.12, Est GFR (MDRD) Af Amer 101, Est GFR (MDRD) Non-Af 84, BUN/Creatinine Ratio 12.1, Glucose 90, Calcium 10.2 H, Troponin I High Sens < 3 L 07/25/23 17:00: Ethyl Alcohol 7.0 07/25/23 19:13: Urine Opiates Screen NEGATIVE, Urine Methadone Screen NEGATIVE, Ur Barbiturates Screen NEGATIVE, Ur Phencyclidine Scrn NEGATIVE, Ur Amphetamines Screen NEGATIVE, MDMA (Ecstasy) Screen NEGATIVE, U Benzodiazepines Scrn NEGATIVE, Urine Cocaine Screen NEGATIVE, U Cannabinoids Screen NEGATIVE, Ur Drug Screen Comment Imaging Radiology Impression Brain CT 07/25/23 16:17 IMPRESSION: Mild atrophy and periventricular white matter ischemic change. Old infarct or postsurgical encephalomalacia in left temporal lobe. No mass or acute bleed. If concern for acute infarct MRI recommended Electronically Signed: Parveen Zheng MD at 16:35 EDT Reading Location ID and State: [facility] / [place] Tel [phone], Service support , ADDENDUM: 07/25/23 1641 IMPRESSION: Mild atrophy and periventricular white matter ischemic change. Old infarct or postsurgical encephalomalacia in left temporal lobe. No mass or acute bleed. If concern for acute infarct MRI recommended N.B. : The above Results were Read Back by Parveen Zheng MD to Glenn Lowery MD, and understanding confirmed on 07/25/2023 16:35:03 (ET). Electronically Signed: Parveen Zheng MD at 16:35 EDT , Chest X-Ray 07/25/23 16:18 IMPRESSION: Central line placement on the right with tip in the right atrium. Electronically Signed: Parveen Zheng MD at 21:00 EDT , Head/Neck CTA 07/25/23 20:55 IMPRESSION: No evidence for hemodynamically significant stenosis or major vessel occlusion in the head or neck. Electronically Signed: Parveen Zheng MD at 21:12 EDT , ADDENDUM: 07/25/232120 IMPRESSION: No evidence for hemodynamically significant stenosis or major vessel occlusion in the head or neck. N.B. : The above Results were Read Back by Parveen Zheng MD to Glenn Lowery MD, and understanding confirmed on 07/25/2023 21:14:24 (ET). Electronically Signed: Parveen Zheng MD at 21:12 EDT , Assessment & Plan Assessment/Plan (1) TIA (transient ischemic attack): (2) TBI (traumatic brain injury): QUALIFIERS: Encounter type: sequela Loss of consciousness presence/duration: without LOC Qualified Code(s): S06.9X0S - Unspecified intracranial injury without loss of consciousness, sequela (3) Encephalomalacia: (4) Schizoaffective disorder: QUALIFIERS: Schizoaffective disorder type: unspecified Qualified Code(s): F25.9 - Schizoaffective disorder, unspecified (5) Hypokalemia: (6) Hyponatremia: PLAN: Plan 1. TIA/CVA; with transient Right upper extremity weakness and acute worsening of his chronically slurred speech in the setting of known severe traumatic brain injury; with history of acute hemorrhage status postcraniotomy with encephalomalacia, posttraumatic seizure disorder and severe psychiatric illness close history of TIA/CVA - Admit to PCU under observation status. Check MRI of the brain to definitively confirm evidence of CVA. Check echocardiogram to evaluate LVEF. Otherwise, continue home medications as previous with baby aspirin and atorvastatin. Check hemoglobin A1c and lipid profile to complete his metabolic evaluation. 2. Hypokalemia of 2.9 mmol/L present on admission complicating #1 - Give supplemental KCl and recheck level in a.m. to ensure improvement. 3. Mild Hyponatremia of 130 mmol/L present on admission compounding #1 & #2 - Stop HCTZ and give normal saline IV fluid with supplemental KCl. Recheck BMP in a.m. to ensure positive response to treatment. 4. Essential hypertension - Allow for 'permissive hypertension' until CVA definitively ruled out on MRI. 5. Hyperlipidemia - Resume statin and check lipid profile. 6. History of tobacco abuse; with subsequent COPD - Stable with no evidence of flare. Continue as needed nebulizers. Tobacco cessation will be strongly encouraged. 7. History of alcohol abuse - Noted with a MARIA TERESA of 7 mg/dL present on admission. Check B12 and folate levels. 8. History of dementia - Noted. 9. Chronic anemia - Stable with hemoglobin of 14.6 g/dL present on admission. 10. Osteoarthritis; with chronic pain - Give Tylenol as needed. 11. DVT prophylaxis - Lovenox 40 mg subcu daily. Total time: Approximately 75 minutes. Charges/Coding Visit Charges Inpatient E&M: 56238 Init Hosp L3
--- NOTE | 2023-07-25 22:41 | ECHOD_ITS ---
Reason For Study: TIA/CVA Procedure This was a 2D Doppler, Color Flow transthoracic echocardiogram. Exam performed portable in patient room. Left Ventricle Normal LV size. Left ventricular systolic function is normal. The estimated ejection fraction is 60 %. Stage 1 diastolic dysfunction. No regional wall motion abnormalities noted. Right Ventricle Normal RV size. Normal systolic function. Atria Normal left atrium. Normal right atrium. Mitral Valve Normal mitral valve. Tricuspid Valve Normal tricuspid valve. Mild tricuspid valve insufficiency. Pulmonary artery systolic pressure is 22 mmHg. Aortic Valve Normal aortic valve. Trisinus/trileaflet aortic valve. Pulmonic Valve Normal pulmonic valve. Great Vessels Mildly dilated aortic root. The pulmonary artery is normal size. Normal inferior vena cava. Pericardium/Pleural No pericardial effusion. MMode/2D Measurements & Calculations LVIDd: 4.4 cm IVSd: 1.1 cm Ao root diam: 3.8 cm LVIDs: 2.9 cm LVPWd: 0.94 cm LA dimension: 3.1 cm RVDd: 3.8 cm FS: 34.5 % LAV(MOD-bp): 41.7 ml LVAd ap4: 30.1 cm2 LVAd ap2: 26.2 cm2 LAV(MOD-bp) Indexed: 22.5 ml/m2 LVLd ap4: 8.5 cm LVLd ap2: 8.7 cm LAV(MOD-sp2): 43.8 ml EDV(MOD-sp4): 90.1 ml EDV(MOD-sp2): 68.5 ml LAV(MOD-sp4): 29.5 ml EDV(sp4-el): 90.9 ml EDV(sp2-el): 67.4 ml LVAs ap4: 17.3 cm2 LVAs ap2: 15.8 cm2 LVLs ap4: 6.9 cm LVLs ap2: 7.0 cm ESV(MOD-sp4): 36.6 ml ESV(MOD-sp2): 30.1 ml ESV(sp4-el): 37.1 ml ESV(sp2-el): 30.2 ml EF(MOD-sp4): 59.4 % EF(MOD-sp2): 56.0 % EF(sp4-el): 59.2 % SV(MOD-sp4): 53.5 ml SV(MOD-sp2): 38.4 ml SV(sp4-el): 53.9 ml TAPSE: 2.5 cm LA A4 area: 12.1 cm2 RA A4 area: 11.6 cm2 Time Measurements MV dec time: 0.22 sec Doppler Measurements & Calculations MV E max gal: 42.0 cm/sec Lat Peak E' Gal: 12.3 cm/sec Med Peak E' Gal: 13.1 cm/sec MV A max gal: 47.3 cm/sec E/E' lat: 3.4 E/E' med: 3.2 MV E/A: 0.89 MV V2 max: 51.8 cm/sec MV P1/2t max gal: 47.8 cm/sec Ao V2 max: 103.5 cm/sec MV max P.1 mmHg MV P1/2t: 73.3 msec Ao max P.3 mmHg MV V2 mean: 30.9 cm/sec MV dec slope: 191.0 cm/sec2 Ao V2 mean: 69.8 cm/sec MV mean P.43 mmHg Ao mean P.3 mmHg MV V2 VTI: 13.3 cm MVA(P1/2t): 3.0 cm2 Ao V2 VTI: 20.8 cm AV (velocity ratio): 0.81 LV V1 max: 82.2 cm/sec PA V2 max: 124.6 cm/sec TR max gal: 211.0 cm/sec LV V1 max P.7 mmHg PA V2 mean: 88.6 cm/sec TR max P.8 mmHg LV V1 mean P.4 mmHg LV V1 mean: 53.7 cm/sec LV V1 VTI: 16.9 cm ECHO/Echo Complete Interpretation Summary Normal LV size. Left ventricular systolic function is normal. The estimated ejection fraction is 60 %. Stage 1 diastolic dysfunction. Ordering Physician: Harvinder Zavala Referring Physician: Ramon Sanchez, Performed By: Debi Stokes RVT, RDCS and Student
[2023-07-25] MEDS: KCL 40mEq in 0.9% NS 40 MEQ/1,000 ML IV.SOLN 250 MEQ IV (22:54)
[2023-07-25 23:30] LABS: Vitamin B12 236 pg/mL (211-911)
[2023-07-25 23:35] LABS: Hemoglobin A1c 4.9 % (3.8-5.6)
[2023-07-25 23:41] LABS: Thyroid Stim Hormone (TSH) 0.95 uIU/mL (0.358-3.74)
[2023-07-26] VITALS (9 sets, daily range): BP systolic 104–130; BP diastolic 68–82; PULSE 65–77; RESP 16–18; TEMP 35.9–36.6; O2SAT 94–100; BMI 20.8
[2023-07-26] MEDS: Potassium Chloride Oral Tablet 20 MEQ 60 MEQ PO (00:21)
[2023-07-26] MEDS: Multivitamins 10 ML in 0.9% Normal Saline (500mL Bag) 500 ML IV (01:45)
[2023-07-26] MEDS: KCL 40mEq in 0.9% NS 40 MEQ/1,000 ML IV.SOLN 250 MEQ IV ×4 (03:33→20:23)
[2023-07-26] MEDS: Haloperidol 5 MG Tablet PO ×3 (06:25→21:20)
--- NOTE | 2023-07-26 06:30 | NURSING ---
0630- After passing dysphagia screen at time of admission to PCU, this RN gave pt am meds. During med pass pt choked on water/ pill. NPO status continued.
[2023-07-26 07:36] LABS: Cholesterol 82 mg/dL (200); High Density Lipoprotein 47 mg/dL; Triglycerides 88 mg/dL; Very Low Density Lipoprotein 18 mg/dL (5-40)
[2023-07-26] MEDS: rifAXIMin 550 MG Tablet PO ×2 (08:29→21:17)
[2023-07-26] MEDS: lamoTRIgine 25 MG Tablet 50 MG PO (08:29)
[2023-07-26] MEDS: traZODone 50 MG Tablet PO (08:30)
[2023-07-26] MEDS: Aspirin 81 MG TAB.CHEW PO (08:30)
[2023-07-26] MEDS: Fenofibrate 48 MG Tablet PO (08:31)
--- NOTE | 2023-07-26 11:01 | CASEMGMT ---
Patient is from [facility]. Patient also has a legal guardian. SW called patient's legal guardian, Meg Baptiste and left her a voice mail asking for confirmation that patient plans to return to [facility] at discharge. Fannie COOPER
[2023-07-26] MEDS: ZONISAMIDE 100 MG CAPSULE 200 MG PO (11:21)
[2023-07-26] MEDS: LURASIDONE HCL 20 MG TABLET 40 MG PO ×2 (11:22→21:18)
[2023-07-26] MEDS: CARIPRAZINE HCL 1.5 MG CAPSULE PO (11:22)
--- NOTE | 2023-07-26 13:06 | CON.PCM.NE_ITS ---
Assessment and Plan: Stroke Assessment/Plan JESUS GOTTLIEB is a 52 M with a history of essential hypertension, hyperlipidemia, history of tobacco abuse; with subsequent COPD, history of severe traumatic brain injury; s/p craniotomy for acute hemorrhage with subsequent encephalomalacia and chronic Right leg weakness plus slurred speech, posttraumatic seizure disorder, history of TIA/CVA, bipolar disorder, schizoaffective disorder, delusional disorder, history of alcohol abuse, history of dementia who presents for evaluation of worsening dysarthria and RUE weakness. Unclear that this is TIA or could be seizure or other cause for TBI recrudescence. Recommend additional evalution below: - UA, EEG - cont ASA - rec TTE to complete workup - LDL 17, A1C 4.9 [place] HPI Consult Data Date of Consult: 07/26/23 HPI Narrative HPI Narrative: JESUS GOTTLIEB, is a 52 M with a past medical history of essential hypertension, hyperlipidemia, history of tobacco abuse; with subsequent COPD, history of severe traumatic brain injury; s/p craniotomy for acute hemorrhage with subsequent encephalomalacia and chronic Right leg weakness plus slurred speech, posttraumatic seizure disorder, history of TIA/CVA, bipolar disorder, schizoaffective disorder, delusional disorder, history of alcohol abuse, history of dementia, chronic anemia and osteoarthritis; with chronic pain who presents to [facility] ER complaining of mental status change and Right- sided weakness. Mr. Gottlieb is not a fully reliable historian so information was primarily gathered from chart, medical staff and computer. According to the records from his nursing home facility he was noted to have a mental status change and Right-sided weakness. Apparently around 2:45 PM earlier today he was outside smoking when he returned he was unable to move his wheelchair with his right upper extremity. He also has a baseline slurring of his speech according to nurses but his speech was thought to be more slurred than usual causing nursing facility to activate EMS. EMS was unaware of his last known well time given patient's limited capacity and sketchy details from his facility. Nevertheless, EMS reported Right pronator drift and slurred speech with prehospital stroke team called given his symptoms at that time. There was no report of fever, chills, nausea, vomiting, seizure activity, postictal confusion, headache, chest pain or abdominal pain. [facility] teleneurology felt patient was a poor candidate for TNK given his previous craniotomy for previous bleed and unknown clear last known well time. He was noted to have a negative urine tox screen and a blood alcohol concentration of 7 mg/dL. . Neurologic History: Pt is a poor historian. History obtained from his nurse and the chart. Pt in the room is at the same level as he was after coming to the floor from the ED. Unclear how severe the weakness is but does have baseline dysartriand right sided weakness. [facility] Medical History Personality disorder Post traumatic seizure Polyarthritis TBI (traumatic brain injury) Depression Bipolar disorder Schizoaffective disorder Nicotine dependence Psychotic disorder Alcohol dependence Dementia Anemia Delusional disorder Hyperlipidemia COPD (chronic obstructive pulmonary disease) Chronic pain Tinea corporis Stroke/cerebrovascular accident TIA (transient ischemic attack) Home Medications ?Medication ?Instructions ?Recorded ?Last Taken ?Type Zonisamide [Zonegran] 200 mg PO DAILY 01/02/14 Unknown History acetaminophen 325 mg tablet 650 mg PO Q4H PRN PRN PAIN/FEVER 01/02/14 Unknown History (Tylenol) lorazepam 2 mg/mL injection 1 mg IM Q4H PRN PRN 01/02/14 Unknown History solution ANXIETY/SEIZURES trazodone 50 mg tablet 100 mg PO QHS 01/02/14 Unknown History Ibuprofen [Motrin] 600 mg PO TID 08/27/20 Unknown History aluminum-mag hydroxide-simethicone 30 ml PO Q4H PRN PRN Indigestion 08/27/20 Unknown History 200 mg-200 mg-20 mg/5 mL oral susp cholecalciferol (vitamin D3) 1,250 1,250 mcg PO SAAVEDRA 08/27/20 Unknown History mcg (50,000 unit) capsule fenofibrate 120 mg tablet 48 mg PO DAILY 08/27/20 Unknown History haloperidol 2 mg tablet 5 mg PO TID 08/27/20 Unknown History lamotrigine 100 mg tablet 100 mg PO QHS 08/27/20 Unknown History (Lamictal) lamotrigine 25 mg tablet (Lamictal) 50 mg PO DAILY 08/27/20 Unknown History lorazepam 1 mg tablet (Ativan) 1 mg PO Q4H PRN PRN 08/27/20 Unknown History ANXIETY/SEIZURES lurasidone 40 mg tablet (Latuda) 40 mg PO BID 08/27/20 Unknown History magnesium hydroxide 400 mg/5 mL 30 ml PO DAILY PRN PRN Constipation 08/27/20 Unknown History oral suspension (Milk of Magnesia) nicotine (polacrilex) 2 mg buccal 2 mg buccal Q2H PRN PRN Smoking 08/27/20 Unknown History lozenge Cessation omega-3 fatty acids 2,000 mg PO DAILY 08/27/20 Unknown History selenium sulfide 1 % shampoo 1 applic topical DAILY 08/27/20 Unknown History atorvastatin 20 mg tablet (Lipitor) 20 mg PO DAILY 08/13/22 Unknown History cariprazine 1.5 mg capsule 1.5 mg PO DAILY 08/13/22 Unknown History (Vraylar) lactulose 10 gram/15 mL (15 mL) 45 ml PO TID 08/13/22 Unknown History oral solution lorazepam 1 mg tablet (Ativan) 1 mg PO TID PRN Anxiety 08/13/22 Unknown History propranolol 80 mg capsule,24 80 mg PO DAILY 08/13/22 Unknown History hr,extended release (Inderal LA) rifaximin 550 mg tablet 550 mg PO BID 08/13/22 Unknown History trazodone 50 mg tablet 50 mg PO DAILY 08/13/22 Unknown History aspirin 81 mg capsule 81 mg PO DAILY 03/27/23 Unknown History hydrochlorothiazide 25 mg tablet 25 mg PO DAILY 03/27/23 Unknown History Allergy/AdvReac Type Severity Reaction Status Date / Time No Known Allergies Allergy Verified 07/25/23 16:16 Social History Smoking Status: Current every day smoker tobacco type: cigarettes substance use type: does not use Vital Signs Vital Signs Vital Signs: 07/25/23 16:18 07/25/23 16:24 07/25/23 16:29 Temperature 97.4 F L Temperature Source Temporal Pulse Rate 84 84 Respiratory Rate 18 18 Respiratory Effort Respiratory Depth Respiratory Pattern Blood Pressure 102/65 102/65 Blood Pressure Mean 77 77 Blood Pressure Source Blood Pressure Position Blood Pressure Location Pulse Ox 95 95 Oxygen Delivery Method Nasal Cannula Room Air 07/25/23 17:16 07/25/23 18:00 07/25/23 19:00 Temperature Temperature Source Pulse Rate 68 66 64 Respiratory Rate 18 18 19 H Respiratory Effort Respiratory Depth Respiratory Pattern Blood Pressure 95/52 L 106/84 H 123/69 H Blood Pressure Mean 66 91 87 Blood Pressure Source Blood Pressure Position Blood Pressure Location Pulse Ox 74 98 98 Oxygen Delivery Method Room Air Nasal Cannula Nasal Cannula 07/25/23 19:30 07/25/23 20:00 07/25/23 20:30 Temperature Temperature Source Pulse Rate 61 59 L 62 Respiratory Rate 16 14 16 Respiratory Effort Respiratory Depth Respiratory Pattern Blood Pressure 118/80 118/78 109/96 H Blood Pressure Mean 92 91 100 Blood Pressure Source Blood Pressure Position Blood Pressure Location Pulse Ox 95 96 Oxygen Delivery Method Nasal Cannula 07/25/23 21:00 07/25/23 21:30 07/25/23 22:00 Temperature Temperature Source Pulse Rate 68 64 62 Respiratory Rate 18 13 14 Respiratory Effort Respiratory Depth Respiratory Pattern Blood Pressure 124/109 H 119/81 H 119/83 H Blood Pressure Mean 114 93 95 Blood Pressure Source Blood Pressure Position Blood Pressure Location Pulse Ox 95 100 94 Oxygen Delivery Method Room Air 07/25/23 22:20 07/25/23 22:30 07/25/23 23:00 Temperature 97.4 F L Temperature Source Pulse Rate 68 60 62 Respiratory Rate 16 16 14 Respiratory Effort Respiratory Depth Respiratory Pattern Blood Pressure 122/84 H 126/84 H 121/83 H Blood Pressure Mean 96 98 95 Blood Pressure Source Blood Pressure Position Blood Pressure Location Pulse Ox 95 98 98 Oxygen Delivery Method Room Air Room Air 07/26/23 00:00 07/26/23 00:00 07/26/23 00:15 Temperature 96.6 F L Temperature Source Temporal Pulse Rate 65 Respiratory Rate 18 Respiratory Effort Normal Respiratory Depth Normal Respiratory Pattern Normal Blood Pressure 117/78 Blood Pressure Mean 91 Blood Pressure Source Monitor Blood Pressure Position Semi-Fowlers Blood Pressure Location Left Arm Pulse Ox 100 95 Oxygen Delivery Method Room Air Room Air Room Air 07/26/23 04:00 07/26/23 07:18 07/26/23 08:00 Temperature 97.6 F L 97.9 F Temperature Source Temporal Temporal Pulse Rate 71 69 Respiratory Rate 16 18 Respiratory Effort Respiratory Depth Respiratory Pattern Blood Pressure 104/68 118/82 H Blood Pressure Mean 80 94 Blood Pressure Source Monitor Monitor Blood Pressure Position Semi-Fowlers Semi-Fowlers Blood Pressure Location Right Arm Left Arm Pulse Ox 97 94 98 Oxygen Delivery Method Room Air Room Air Room Air 07/26/23 10:00 07/26/23 12:00 Temperature Temperature Source Pulse Rate 72 Respiratory Rate 16 Respiratory Effort Normal Respiratory Depth Normal Respiratory Pattern Normal Blood Pressure 111/79 Blood Pressure Mean 89 Blood Pressure Source Monitor Blood Pressure Position Semi-Fowlers Blood Pressure Location Left Arm Pulse Ox 96 Oxygen Delivery Method Room Air Room Air Weight Weight: 67.5 kg Body Mass Index (BMI) 20.8 EEG Results Procedure Details EEG Procedure Details: JESUS GOTTLIEB is a 52 year old M with a past medical history of , who presents for evaluation of Electroencephalogram on DATE at TIME NIHSS NIHSS Nursing Documentation NIHSS Nursing Documentation: NIHSS: Ischemic Stroke/TIA Start: 07/25/23 23:48 Text: For PCU Patients: NIH and Neuro Check every 4 Status: Active hours, PRN and with change in RN caregiver. Freq: Q4H Protocol: Activity Type Activity Date Activity User E-sign Co-sign Detail Recorded Client Recorded Date Recorded By Document 07/26/23 12:00 JI [id number] 07/26/23 12:23 KIAN 07/26/23 12:00 NIH Stroke Scale [NIHSS] A score of 0 is normal or asymptomatic . Total possible score is 42. Inpatient: RN or Physician to activate a stroke alert for onset of new stroke symptoms or with NIHSS increase >/= 3 points. Following change in neurological status, NIHSS will be performed per physician order or more frequently PRN. -1a. Level of Consciousness Alert; keenly responsive -1b. LOC Questions Answers one question correctly. -1c. LOC Commands Performs both tasks correctly . -2. Best Gaze Normal -3. Visual No visual loss -4. Facial Palsy Normal symmetrical movements -5a. Left Arm No drift; arm holds 90 (or 45 ) degrees for full 10 seconds -5b. Right Arm No drift; arm holds 90 (or 45 ) degrees for full 10 seconds -6a. Left Leg No drift; leg holds 30-degree position for full 5 seconds -6b. Right Leg No drift; leg holds 30-degree position for full 5 seconds -7. Limb Ataxia Absent -8. Sensory Mild-to- moderate sensory loss; -9. Best Language No aphasia; normal -10. Dysarthria Mild-to- moderate dysarthria; -11. Extinction and Inattention No abnormality -Total 3 Query Text:A score of 0 is normal or asymptomatic. Total possible score is 42 . ED: Notify Physician for NIHSS increase by > / = 3 points. Inpatient: RN or Physician to activate a stroke alert for NIHSS increase of > / = 3 points. Coma Scale [Assess] -Eye Opening Spontaneous -Motor Obeys Commands -Verbal Confused [Total] -Coma Scale Total 14 NIHSS 1a. Level of Consciousness: Alert; keenly responsive 1b. LOC Questions: Answers neither question correctly. 1c. LOC Commands: Performs neither task correctly. 2. Best Gaze: Normal 3. Visual: No visual loss 4. Facial Palsy: Normal symmetrical movements 5a. Left Arm: Drift; arm drifts downward but doesn?t hit the bed 5b. Right Arm: Drift; arm drifts downward but doesn?t hit the bed 6a. Left Leg: No drift; leg holds 30-degree position for full 5 seconds 6b. Right Leg: Drift; leg falls by the end of 5-seconds, but does not hit bed 7. Limb Ataxia: Absent 8. Sensory: Normal; no sensory loss 9. Best Language: Severe aphasia; 10. Dysarthria: [id number] dysarthria; 11. Extinction and Inattention: No abnormality Total: 10 Physical Exam Narrative -? General: Laying comfortably in bed; in no acute distress. -? HENT: Normal oropharynx and mucosa. Normal external appearance of ears and nose. Exophthalmos. -? Neck: Supple, no pain or tenderness -? CV:? No peripheral edema. -? Pulmonary:? Normal respiratory effort. -? Ext: No cyanosis, edema, or deformity -? Skin: No rash. Normal palpation of skin.? -? Musculoskeletal: full range of motion; no joint tenderness. Normal digits and nails by inspection. No clubbing. -? NEURO: - Pt awake and aware that he is in the hospital but unable to provide additional information. - UE antigravity bilaterally but falls to bed d/t poor attention, more pronation on the RUE - RLE antigravity with drift, LLE no drift antigravity - sensation intact bilaterally Lab / Micro Data 07/25/23 16:45 07/25/23 16:45 Labs: Laboratory Results - last 24 hr 07/25/23 16:45: WBC 5.0, RBC 4.67, Hgb 14.6, Hct 42.4, MCV 90.8, MCH 31.3, MCHC 34.4, RDW Std Deviation 38.8, RDW Coeff of Michael 11.8, Plt Count 227, MPV 8.4, Immature Gran % (Auto) 0.200, Neut % (Auto) 50.8, Lymph % (Auto) 36.0, [place] % (Auto) 10.2 H, Eos % (Auto) 2.4, Baso % (Auto) 0.4, Absolute Neuts (auto) 2.5, Absolute Lymphs (auto) 1.80, Nucleated RBC % 0, PT 12.0, INR 0.9, APTT 25.9, S odium 130 L, Potassium 2.9 L, Chloride 94 L, Carbon Dioxide 29.0, Anion Gap 7, BUN 12, Creatinine 0.99, Estim Creat Clear Calc 90.12, Est GFR (MDRD) Af Amer 101, Est GFR (MDRD) Non-Af 84, BUN/Creatinine Ratio 12.1, Glucose 90, Hemoglobin A1c 4.9, Calcium 10.2 H, Troponin I High Sens < 3 L, Vitamin B12 236, Folate 10.20, TSH 0.95 07/25/23 17:00: Ethyl Alcohol 7.0 07/25/23 19:13: Urine Opiates Screen NEGATIVE, Urine Methadone Screen NEGATIVE, Ur Barbiturates Screen NEGATIVE, Ur Phencyclidine Scrn NEGATIVE, Ur Amphetamines Screen NEGATIVE, MDMA (Ecstasy) Screen NEGATIVE, U Benzodiazepines Scrn NEGATIVE, Urine Cocaine Screen NEGATIVE, U Cannabinoids Screen NEGATIVE, Ur Drug Screen Comment 07/26/23 06:42: Triglycerides 88, Cholesterol 82, LDL Cholesterol 17, VLDL Cholesterol 18, HDL Cholesterol 47 Imaging Radiology Impression Brain CT 07/25/23 16:17 IMPRESSION: Mild atrophy and periventricular white matter ischemic change. Old infarct or postsurgical encephalomalacia in left temporal lobe. No mass or acute bleed. If concern for acute infarct MRI recommended Electronically Signed: Parveen Zheng MD at 16:35 EDT , ADDENDUM: 07/25/23 1641 IMPRESSION: Mild atrophy and periventricular white matter ischemic change. Old infarct or postsurgical encephalomalacia in left temporal lobe. No mass or acute bleed. If concern for acute infarct MRI recommended N.B. : The above Results were Read Back by Parveen Zheng MD to Glenn Lowery MD, and understanding confirmed on 07/25/2023 16:35:03 (ET). Electronically Signed: Parveen Zheng MD at 16:35 EDT , Chest X-Ray 07/25/23 16:18 IMPRESSION: Central line placement on the right with tip in the right atrium. Electronically Signed: Parveen Zheng MD at 21:00 EDT , Head/Neck CTA 07/25/23 20:55 IMPRESSION: No evidence for hemodynamically significant stenosis or major vessel occlusion in the head or neck. Electronically Signed: Parveen Zheng MD at 21:12 EDT , ADDENDUM: 07/25/23 2121 IMPRESSION: No evidence for hemodynamically significant stenosis or major vessel occlusion in the head or neck. N.B. : The above Results were Read Back by Parveen Zheng MD to Glenn Lowery MD, and understanding confirmed on 07/25/2023 21:14:24 (ET). Electronically Signed: Parveen Zheng MD at 21:12 EDT , Echocardiogram 07/25/23 22:41 Interpretation Summary Normal LV size. Left ventricular systolic function is normal. The estimated ejection fraction is 60 %. Stage 1 diastolic dysfunction. Ordering Physician: Harvinder Zavala Referring Physician: Ramon Sanchez, Performed By: Debi Stokes RVT, RDCS and Student Brain MRI 07/26/23 22:41 IMPRESSION: Motion artifact. No acute infarct identified. Left temporal encephalomalacia. Chronic involutional and white matter changes. Electronically Signed: Caroline Melendez MD at 11:26 EDT Reading Location ID and State: [facility] / [place] Tel , Service support , Active Medications Active Medications Active Medications: Current Medications Generic Name Dose Route Start Last Admin Trade Name Freq PRN Reason Stop Dose Admin Acetaminophen 650 mg 07/25/23 23:48 Acetaminophen 325 Mg Tablet PO Q6H PRN PRN PAIN/FEVER Al Hydroxide/Mg Hydroxide 30 ml 07/25/23 23:57 Mag Hydrox/Al Hydrox/Simeth 30 Ml Udc PO Q4H PRN PRN Indigestion Aspirin 81 mg 07/26/23 08:00 07/26/23 08:30 Aspirin 81 Mg Tab.Chew PO 81 mg DAILYCM [place] Administration Atorvastatin Calcium 20 mg 07/26/23 22:00 Atorvastatin Calcium 20 Mg Tablet PO QHS [place] Clarify Med Order 1 each 07/26/23 02:00 07/26/23 12:58 Clarify Order NOTE Not Given CLARIFY [place] Ergocalciferol 1.25 mg 07/31/23 10:00 Ergocalciferol 1.25 Mg (50, 000 Unit) Capsule PO Saavedra@1000 [facility] Fenofibrate 48 mg 07/26/23 10:00 07/26/23 08:31 Fenofibrate 48 Mg Tablet PO 48 mg DAILY [place] Administration Haloperidol 5 mg 07/26/23 06:00 07/26/23 12:57 Haloperidol 5 Mg Tablet PO 5 mg TID [place] Administration Potassium Chloride/Sodium Chloride 40 meq in 1,000 mls @ 250 mls/hr 07/25/23 21:45 07/26/23 12:37 IV Not Given .Q4H [place] Labetalol HCl 20 mg 07/25/23 16:18 Labetalol (Compound) 20 Mg/4 Ml Syringe IV 07/26/23 16:18 X1 PRN BLOOD PRESSURE Lactulose 30 gm 07/26/23 06:00 07/26/23 12:54 Lactulose 20 Gm/30 Ml Udc PO Not Given TID [place] Lamotrigine 50 mg 07/26/23 10:00 07/26/23 08:29 Lamotrigine 25 Mg Tablet PO 50 mg DAILY [place] Administration Lamotrigine 100 mg 07/26/23 22:00 Lamotrigine 100 Mg Tablet PO QHS [place] Lorazepam 1 mg 07/25/23 23:48 Lorazepam 2 Mg/Ml Syringe IM Q4H PRN PRN ANXIETY/SEIZURES Lorazepam 1 mg 07/25/23 23:48 Lorazepam 1 Mg Tablet PO Q4H PRN PRN ANXIETY/SEIZURES Lorazepam 1 mg 07/25/23 23:48 Lorazepam 1 Mg Tablet PO TID PRN Anxiety Magnesium Hydroxide 30 ml 07/25/23 23:48 Magnesium Hydroxide 30 Ml Udc PO DAILY PRN PRN Constipation Nicotine Polacrilex 2 mg 07/25/23 23:55 Nicotine Polacrilex 2 Mg Gum BUCCAL Q2H PRN PRN Smoking Cessation Rifaximin 550 mg 07/26/23 10:00 07/26/23 08:29 Rifaximin 550 Mg Tablet PO 550 mg BID [facility] Administration Trazodone HCl 100 mg 07/26/23 22:00 Trazodone 100 Mg Tablet PO QHS [facility] Trazodone HCl 50 mg 07/26/23 10:00 07/26/23 08:30 Trazodone 50 Mg Tablet PO 50 mg DAILY [place] Administration Zonisamide 200 mg 07/26/23 10:00 07/26/23 11:21 Zonisamide 100 Mg Capsule PO 200 mg DAILY [place] Administration
--- NOTE | 2023-07-26 14:41 | CASEMGMT ---
Discharge Planning Updates faxed to Ger[facility] with fax confirmation rec'd. Bessie Donnelly DC Planning Asst.
--- NOTE | 2023-07-26 16:14 | PN.HOSP_ITS ---
Subjective Subjective states he is fine but not very communicative Objective Data Objective Data Vital Signs: Vital Signs Temp Pulse Resp BP Pulse Ox O2 Del Method 97.9 F 72 16 111/79 96 Room Air 07/26/23 08:00 07/26/23 12:00 07/26/23 12:00 07/26/23 12:00 07/26/23 13:08 07/26/23 15:00 Oxygen Delivery Method Room Air Weight: 147 lb 11.355 oz Body Mass Index (BMI) 20.8 Intake & Output: Intake and Output for Last 24 Hours 07/25/23 07/26/23 07/27/23 03:59 03:59 03:59 Intake Total 2510 / 2510 2000.00 / 1999.00 Output Total 850 / 850 Balance 2510 / 2510 1150.00 / 1150.00 Lab / Micro Data 07/25/23 16:45 07/25/23 16:45 Labs: Laboratory Results - last 24 hr 07/25/23 16:45: WBC 5.0, RBC 4.67, Hgb 14.6, Hct 42.4, MCV 90.8, MCH 31.3, MCHC 34.4, RDW Std Deviation 38.8, RDW Coeff of Michael 11.8, Plt Count 227, MPV 8.4, Immature Gran % (Auto) 0.200, Neut % (Auto) 50.8, Lymph % (Auto) 36.0, [place] % (Auto) 10.2 H, Eos % (Auto) 2.4, Baso % (Auto) 0.4, Absolute Neuts (auto) 2.5, Absolute Lymphs (auto) 1.80, Nucleated RBC % 0, PT 12.0, INR 0.9, APTT 25.9, S odium 130 L, Potassium 2.9 L, Chloride 94 L, Carbon Dioxide 29.0, Anion Gap 7, BUN 12, Creatinine 0.99, Estim Creat Clear Calc 90.12, Est GFR (MDRD) Af Amer 101, Est GFR (MDRD) Non-Af 84, BUN/Creatinine Ratio 12.1, Glucose 90, Hemoglobin A1c 4.9, Calcium 10.2 H, Troponin I High Sens < 3 L, Vitamin B12 236, Folate 10.20, TSH 0.95 07/25/23 17:00: Ethyl Alcohol 7.0 07/25/23 19:13: Urine Opiates Screen NEGATIVE, Urine Methadone Screen NEGATIVE, Ur Barbiturates Screen NEGATIVE, Ur Phencyclidine Scrn NEGATIVE, Ur Amphetamines Screen NEGATIVE, MDMA (Ecstasy) Screen NEGATIVE, U Benzodiazepines Scrn NEGATIVE, Urine Cocaine Screen NEGATIVE, U Cannabinoids Screen NEGATIVE, Ur Drug Screen Comment 07/26/23 06:42: Triglycerides 88, Cholesterol 82, LDL Cholesterol 17, VLDL Cholesterol 18, HDL Cholesterol 47 Radiography Diagnostic Testing: Radiology Impression Brain CT 07/25/23 16:17 IMPRESSION: Mild atrophy and periventricular white matter ischemic change. Old infarct or postsurgical encephalomalacia in left temporal lobe. No mass or acute bleed. If concern for acute infarct MRI recommended Electronically Signed: Parveen Zheng MD at 16:35 EDT , ADDENDUM: 07/25/23 1641 IMPRESSION: Mild atrophy and periventricular white matter ischemic change. Old infarct or postsurgical encephalomalacia in left temporal lobe. No mass or acute bleed. If concern for acute infarct MRI recommended N.B. : The above Results were Read Back by Parveen Zheng MD to Glenn Lowery MD, and understanding confirmed on 07/25/2023 16:35:03 (ET). Electronically Signed: Parveen Zheng MD at 16:35 EDT , Chest X-Ray 07/25/23 16:18 IMPRESSION: Central line placement on the right with tip in the right atrium. Electronically Signed: Parveen Zheng MD at 21:00 EDT , Head/Neck CTA 07/25/23 20:55 IMPRESSION: No evidence for hemodynamically significant stenosis or major vessel occlusion in the head or neck. Electronically Signed: Parveen Zheng MD at 21:12 EDT , ADDENDUM: 07/25/232120 IMPRESSION: No evidence for hemodynamically significant stenosis or major vessel occlusion in the head or neck. N.B. : The above Results were Read Back by Parveen Zheng MD to Glenn Lowery MD, and understanding confirmed on 07/25/2023 21:14:24 (ET). Electronically Signed: Parveen Zheng MD at 21:12 EDT , Echocardiogram 07/25/23 22:41 Interpretation Summary Normal LV size. Left ventricular systolic function is normal. The estimated ejection fraction is 60 %. Stage 1 diastolic dysfunction. Ordering Physician: Harvinder Zavala Referring Physician: Ramon Sanchez, Performed By: Kike CAR RDCS, Debi and Student Brain MRI 07/26/23 22:41 IMPRESSION: Motion artifact. No acute infarct identified. Left temporal encephalomalacia. Chronic involutional and white matter changes. Electronically Signed: Caroline Melendez MD at 11:26 EDT , Physical Exam Narrative General: Alert, cooperative, No apparent distress HEENT: Atraumatic, PERRLA, EOMI, Normocephalic Oral: Moist Mucosa Neck: Supple, No JVD Lungs: Clear to auscultation, Normal air movement, No rhonchi, No wheeze, No rales Cardiovascular: Regular rate, Regular Rhythm, Normal S1, Normal S2, No murmurs Abdomen: Soft, Non Tender, Non-Distended, No Hepato-splenomegaly Extremities: No edema, Capillary Refill Less than 3 Seconds Skin: No rashes, No breakdown Musculoskeletal: No Tenderness to Palpation of Joints or Extremities Neurological: No focal neurological deficits, moves all extremities Psych/Mental Status: Flat affect Assessment & Plan Assessment/Plan (1) TIA (transient ischemic attack): (2) TBI (traumatic brain injury): QUALIFIERS: Encounter type: sequela Loss of consciousness presence/duration: without LOC Qualified Code(s): S06.9X0S - Unspecified intracranial injury without loss of consciousness, sequela (3) Encephalomalacia: (4) Schizoaffective disorder: QUALIFIERS: Schizoaffective disorder type: unspecified Qualified Code(s): F25.9 - Schizoaffective disorder, unspecified (5) Hypokalemia: (6) Hyponatremia: PLAN: Plan 1. TIA/traumatic brain injury with encephalomalacia and dementia ? MRI is negative for any acute stroke does show his traumatic brain injury with encephalomalacia ? Awaiting neurology consult ? Echo with an EF of 60% and stage I diastolic dysfunction ? PT/OT/speech ? Will recheck potassium as well as magnesium and phosphorus in the morning ? Awaiting verification of his home medications 2. Essential HTN/HLD ? Blood pressure stable, can resume blood pressure medications tomorrow morning ? Continue with statin 3. COPD ? No exacerbation ? Continue with home inhalers DVT: Lovenox Charges/Coding Visit Charges Inpatient E&M: 94423 Subs Hosp L2
--- NOTE | 2023-07-26 16:17 | ED.RN ---
Addendum: 07/25/23 1630 First CTA tried. Pt had a 22g in the LFA. Blood return noted. Blood drawn from line. IV flushed with no problems. CTA IV contrast infusion started and line infiltrated. Infusion stopped. Fluid attempted to be withdrawn with no luck. Pt tolerated well. Another line was gotten by Julio chou in the left upper arm. Blood drawn flushed great, contrast started and IV infiltrated. Infusion stopped, Fluid withdrawal attempted without success. Pt tolerated well. Arm cold, and blanched both times. Pt had been stuck 20 times plus for IVs. Attempt by ER physician was unsuccessful. Dr Lewis contacted finally able to obtain central line after 2 attempts to gain access.
--- NOTE | 2023-07-26 19:45 | NURSING ---
Updates given to Salomon-nurse from [facility] where patient resides by this RN
[2023-07-26] MEDS: lamoTRIgine 100 MG Tablet PO (21:19)
[2023-07-26] MEDS: Atorvastatin Calcium 20 MG Tablet PO (21:19)
[2023-07-26] MEDS: traZODone 100 MG Tablet PO (21:20)
--- NOTE | 2023-07-26 22:41 | MRI_ITS ---
HISTORY: TIA versus CVA. Right-sided weakness and slur, history of craniotomy. TECHNIQUE: Multiplanar and multisequence MR images of the brain were obtained without contrast. 319 images. COMPARISON: CT prior day. FINDINGS: Motion artifact lowers the sensitivity of the examination. BRAIN PARENCHYMA: Left temporal encephalomalacia again seen. Chronic mild periventricular white matter changes. No abnormal focus of restricted diffusion. No acute intracranial hemorrhage identified. CSF SPACES: Moderate volume loss. No significant midline shift or other mass effect.No extra-axial fluid collection. VASCULAR SYSTEM: Major intracranial flow voids are maintained. PARANASAL SINUSES AND MASTOID AIR CELLS: No significant air fluid levels. ORBITS: Symmetric contents. MRI/Brain without Contrast IMPRESSION: Motion artifact. No acute infarct identified. Left temporal encephalomalacia. Chronic involutional and white matter changes. Electronically Signed: Caroline Melendez MD at 11:26 EDT ,
--- NOTE | 2023-07-27 01:09 | EKG12_ITS ---
Test Reason : Blood Pressure : / mmHG Vent. Rate : 125 BPM Atrial Rate : 125 BPM P-R Int : 174 ms QRS Dur : 088 ms QT Int : 298 ms P-R-T Axes : 069 068 068 degrees QTc Int : 430 ms Sinus tachycardia Otherwise normal ECG Baseline artifact Confirmed by Nolan Wyatt ([id number]), society editor CARLOS BOOTHE ([id number]) on 07/28/2023 6:08:56 AM Referred By: Confirmed By:Nolan Wyatt
--- NOTE | 2023-07-27 01:22 | PN.HOSP_ITS ---
Hospitalist Note Rapid response was called overhead at approximately 1 AM after patient had witnessed tonic-clonic seizure activity. According to the RESOURCE AGENT his seizure activity lasted approximately 2 minutes and then resolved with postictal confusion. He was treated immediately with 2 mg of IV Ativan followed by Keppra 1 g IV twice a day which was added to his multiple current AEDs (zonisamide, Lamictal, Vraylar and as needed Ativan). Finally, stat head CT without contrast was ordered to complete his evaluation to assess for possible structural changes that may explain his new onset of breakthrough seizure activity with no acute pathologic changes noted. RESOURCE AGENT was updated with plan. [facility] Imaging Services [id number] [place], [place] [id number] Brain/Head without Contrast MR#: [id number] Acct: [id number] Name: JESUS WARD Rep #: [id number] : 1970 M 52 From: Nolan Mosley MD PCP: Dr. Ramon Sanchez MD Status: ADM IN Study: Brain/Head without Contrast Date of Exam: 07/27/23 Exam# [id number] Ordering Dr: Harvinder Zavala DO EXAM: CT HEAD WITHOUT INTRAVENOUS CONTRAST CLINICAL INDICATION: SEIZURE TECHNIQUE: Multiple axial images were obtained of the head without intravenous contrast. This CT exam was performed using one or more of the following dose reduction techniques: automated exposure control, adjustment of the mA and/or kV according to patient size, and/or use of iterative reconstruction technique. RADIATION DOSE: CTDIvol = 44.99 mGy, DLP = 897.35 mGy-cm COMPARISON: 07/25/2023. FINDINGS: BRAIN AND EXTRA-AXIAL SPACES: Old left frontal opercular and left temporal encephalomalacia/postsurgical changes. Mild generalized atrophy. Mild low density bilaterally in the deep white matter. No intra- or extra-axial hemorrhage. No evidence of acute infarct. No intracranial mass or mass effect. There is preservation of the pollard/white matter interface. Posterior fossa structures are unremarkable. No hydrocephalus. Basal cisterns are patent. BONES/JOINTS: Unremarkable. No discrete lytic or blastic abnormalities. SOFT TISSUES: Small metallic foreign bodies again seen in the right-sided scalp. SINUSES: Unremarkable as visualized. Clear. MASTOID AIR CELLS: Unremarkable. Clear. ORBITS: Visualized globes, extraocular muscles, optic nerves and retrobulbar fat appear unremarkable. CT/Brain/Head without Contrast IMPRESSION: 1. Old left frontal opercular and left temporal encephalomalacia/postsurgical changes. 2. Small metallic foreign bodies again seen in the right-sided scalp. 3. Mild generalized atrophy. Mild low density bilaterally in the deep white matter. This likely represents chronic small vessel ischemic changes in the deep white matter. No acute intracranial abnormality. Electronically Signed: Nolan Mosley MD at 2:24 EDT , CC: Dr. Harvinder Zavala, DO; Dr. Ramon Sanchez MD ~ Associate Professor Of Library Science: Signed
[2023-07-27 01:29] LABS: Bedside Glucose 130 mg/dL (74-106)
[2023-07-27] MEDS: levETIRAcetam IV 1,000 MG/100 ML BAG 400 MG IV ×3 (01:31→21:25)
[2023-07-27] MEDS: LORazepam 2 MG/ML Syringe IV (01:31)
--- NOTE | 2023-07-27 01:34 | CT_ITS ---
EXAM: CT HEAD WITHOUT INTRAVENOUS CONTRAST CLINICAL INDICATION: SEIZURE TECHNIQUE: Multiple axial images were obtained of the head without intravenous contrast. This CT exam was performed using one or more of the following dose reduction techniques: automated exposure control, adjustment of the mA and/or kV according to patient size, and/or use of iterative reconstruction technique. RADIATION DOSE: CTDIvol = 44.99 mGy, DLP = 897.35 mGy-cm COMPARISON: 07/25/2023. FINDINGS: BRAIN AND EXTRA-AXIAL SPACES: Old left frontal opercular and left temporal encephalomalacia/postsurgical changes. Mild generalized atrophy. Mild low density bilaterally in the deep white matter. No intra- or extra-axial hemorrhage. No evidence of acute infarct. No intracranial mass or mass effect. There is preservation of the pollard/white matter interface. Posterior fossa structures are unremarkable. No hydrocephalus. Basal cisterns are patent. BONES/JOINTS: Unremarkable. No discrete lytic or blastic abnormalities. SOFT TISSUES: Small metallic foreign bodies again seen in the right-sided scalp. SINUSES: Unremarkable as visualized. Clear. MASTOID AIR CELLS: Unremarkable. Clear. ORBITS: Visualized globes, extraocular muscles, optic nerves and retrobulbar fat appear unremarkable. CT/Brain/Head without Contrast IMPRESSION: 1. Old left frontal opercular and left temporal encephalomalacia/postsurgical changes. 2. Small metallic foreign bodies again seen in the right-sided scalp. 3. Mild generalized atrophy. Mild low density bilaterally in the deep white matter. This likely represents chronic small vessel ischemic changes in the deep white matter. No acute intracranial abnormality. Electronically Signed: Nolan Mosley MD at 2:24 EDT ,
[2023-07-27] MEDS: KCL 40mEq in 0.9% NS 40 MEQ/1,000 ML IV.SOLN 250 MEQ IV ×2 (02:31→06:42)
[2023-07-27 03:32] VITALS: BP 103/63; PULSE 84; RESP 18; TEMP 36.6; O2SAT 95
[2023-07-27 07:10] LABS: Absolute Lymphocyte Count 1.48 X10^3/uL (0.83-4.51); Absolute Neutrophil Count 5.2 X10^3/uL (2.0-7.7); Basophil# 0.02 X10^3/uL; Basophil% 0.3 % (0-1); Eosinophil# 0.14 X10^3/uL; Eosinophils% 1.8 % (0-5); Hematocrit 36.3 % (40-54); Hemoglobin 12.2 g/dL (13.0-16.5); Lymphocyte # 1.48 X10^3/ul (0.83-4.51); Lymphocyte % 19.5 % (19-41); Mean Corp Hgb Conc 33.6 g/dL (32-36); Mean Corpuscular Hgb 31.9 pg (27.0-32.0); Mean Corpuscular Volume 94.8 fL (80-94); Mean Platelet Vol. 8.3 fl (6.2-12.0); Monocyte# 0.72 X10^3/uL; Monocyte% 9.5 % (0-10); NRBC Flagged by Analyzer 0 % (0-5); Neutrophil % 68.6 % (47-70); POSITIVE COUNT YES; RBC Distribution Width CV 11.9 % (11.6-14.6); RBC Distribution Width SD 41.6 fl (35.1-43.9); Red Blood Count 3.83 M/mm3 (4.6-6.2); White Blood Count 7.6 K/mm3 (4.4-11.0)
[2023-07-27 07:39] LABS: Differential Indicated SCAN CRITERIA MET
[2023-07-27 07:40] LABS: Platelet Estimate ADEQUATE (ADEQ)
[2023-07-27 08:04] VITALS: O2SAT 93
[2023-07-27 08:51] LABS: Anion Gap 5 (5-15); BUN 6 mg/dL (7-18); BUN/Creat Ratio 8.7 RATIO (10-20); Calcium,Total 8.7 mg/dL (8.5-10.1); Chloride 115 mmol/L (98-107); Creatinine, Serum 0.69 mg/dL (0.70-1.30); EST Glomerular Filtration Rate 128 mL/min (>60); Est Glom Filt Rate - Afr Amer 154 mL/min (>60); Estimated Creatinine Clearance 118.68 ml/min; Glucose 94 mg/dL (74-106); Magnesium 1.7 mg/dL (1.6-2.6); Phosphorus 1.7 mg/dL (2.5-4.9); Potassium 4.2 mmol/L (3.5-5.1); Sodium Level 140 mmol/L (136-145)
[2023-07-27 09:27] VITALS: BP 127/89; PULSE 83; RESP 18; TEMP 36.6; O2SAT 98
[2023-07-27] MEDS: Aspirin 81 MG TAB.CHEW PO (09:30)
[2023-07-27] MEDS: lamoTRIgine 25 MG Tablet 50 MG PO (09:30)
[2023-07-27] MEDS: traZODone 50 MG Tablet PO (09:31)
[2023-07-27] MEDS: Fenofibrate 48 MG Tablet PO (09:31)
[2023-07-27] MEDS: rifAXIMin 550 MG Tablet PO ×2 (09:31→21:24)
[2023-07-27] MEDS: CARIPRAZINE HCL 1.5 MG CAPSULE PO (09:31)
[2023-07-27] MEDS: LURASIDONE HCL 20 MG TABLET 40 MG PO ×2 (09:31→21:23)
[2023-07-27] MEDS: ZONISAMIDE 100 MG CAPSULE 200 MG PO (09:32)
--- NOTE | 2023-07-27 10:10 | CASEMGMT ---
SW did not complete a PHQ 9 as patient is alert and oriented X 1-2. Fannie Palma EQUINE DENTIST ALLISON
--- NOTE | 2023-07-27 11:14 | ST.MBS ---
Modified Barium Swallow Patient Information Study Date: 07/27/23 Study Time: 10:55 Direct Billable Minutes: 108 Total Minutes procedure & reportin Diagnosis: TBI S06.9X9A; TIA G45.9 Referring Physician: Daniel Marina Reason for Referral: Objectively assess swallow function, assess risk for aspiration, and determine recommendations for least restrictive diet textures and compensatory strategies to improve safety of swallow. Medical History: PMH: essential HTN, HLD, history of tobacco abuse; with subsequent COPD, history of severe TBI; s/p craniotomy for acute hemorrhage with subsequent encephalomalacia and chronic right leg weakness plus slurred speech, posttraumatic seizure disorder, history of TIA/CVA, bipolar disorder, schizoaffective disorder, delusional disorder, history of alcohol abuse, history of dementia, chronic anemia and osteoarthritis; with chronic pain. He presented to [facility] ED 07/25/23 complaining of mental status change and worsening right-sided weakness. Pt is not a reliable historian so information was taken from chart, medical staff, and computer. In the afternoon on day of admission, he was outside smoking and when he returned he was unable to move his wheelchair with his right upper extremity. He also has a baseline slurring of his speech, but this was thought to be worse than usual so SNF called EMS. He was not a candidate for TNK in the ED. He was admitted to PCU for TIA/CVA workup. He was referred for ST consult as part of CVA work up. BSE 07/26/23 revealed consistent coughing with liquids; however, no overt s/s of aspiration consuming food consistencies. CONSTRUCTION SUPERVISOR/CARPENTER recommended the following diet textures and supervision: Easy to Chew textures (Assist patient in cutting foods into small bite sizes, extra sauce/gravy), HOLD LIQUIDS, 1:1 Close supervision, Ok for ice chips after oral care between meals for pt comfort, Meds crushed in puree. MBSS planned 07/27/23 to assess aspiration risk, especially when consuming thin liquids. CONSTRUCTION SUPERVISOR/CARPENTER obtained verbal consent for MBSS from patient's legal guardian's supervisor gelatin plant, Makayla, as well as the legal guardian, Meg, via phone call. Current Diet Ordered: Easy to Chew textures (cut bite size) / ice chips Dentition: Natural Teeth and Missing Teeth Mental Status: Impaired (Hx of TBI) Respiratory Status: Oxygenating on Room Air Penetration-Aspiration Scale Penetration-Aspiration Scale: OBJECTIVE ASSESSMENT OF SWALLOW FUNCTION (QUANTITATIVE ? PER TRIAL): PENETRATION / ASPIRATION SCALE (PARRA): 1 = does not enter airway 2 = enters airway/above vocal folds/ejected 3 = enters airway/above vocal folds/not ejected 4 = enters airway/contacts vocal folds/ejected 5 = enters airway/contacts vocal folds/not ejected 6 = enters airway/below vocal folds/ejected 7 = enters airway/below vocal folds/not ejected despite effort 8 = enters airway/below vocal folds/no effort VIDEOFLOROSCOPIC SCALE SCORE (PARRA): Grade I = aspiration of material that has penetrated into the laryngeal vestibule, intact cough reflex Grade II = aspiration < 10 % of the bolus, intact cough reflex Grade III = aspiration of < 10 % of the bolus, reduced cough reflex or aspiration of > 10 % of the bolus, intact cough reflex Grade IV = aspiration of > 10 % of the bolus, reduced cough reflex Penetration-Aspiration Scale Score Thin Liquid via teaspoon: Result: 2= enter airway/above vocal folds/ejected Thin Liquid via teaspoon Trial 2: Result: 5= enters airways/contacts vocal folds/not ejected Thin Liquid via large single sip: cup: Result: 5= enters airways/contacts vocal folds/not ejected Comment: SILENT post prandial aspiration of previous trial [place] Thick Liquid via large single sip: cup: Result: 2= enter airway/above vocal folds/ejected Pudding via teaspoon: Result: 1= does not enter airway 1/2 Cookie: Result: 1= does not enter airway [place] Thick Liquid via single sip: straw: Result: 2= enter airway/above vocal folds/ejected Comment: Large Thin Liquid via single sip: straw: Result: 8= enters airway/below vocal folds/no effort Comment: Delayed cough after completion of study Oral Phase Labial Seal: Interlabial escape, no progression to anterior lip Tongue Control During Bolus Hold: Posterior escape of less than half of bolus (to the laryngeal vestibule for thin by straw) Bolus Preparation/Mastication: Disorganized chewing/mashing with solid pieces of bolus unchewed (disorganized; however, complete mastication of cookie) Bolus Transport/Lingual Motion: Repetitive/disorganized tongue motion Oral Residue: Residue collection on oral structures Pharyngeal Phase Initiation of Pharyngeal Swallow: Bolus head in pyriforms Soft Palate Elevation: No bolus between soft palate and pharyngeal wall Laryngeal Elevation: Partial superior movement thyroid cart/partial apprx aryt-epig petiole Anterior Hyoid Excursion: Partial anterior movement Epiglottic Movement: Partial inversion (inconsistent) Laryngeal Vestibule Closure at Height of Swallow: Incomplete; narrow column of air/contrast in laryngeal vestibule Pharyngeal Stripping Wave: Present - diminished Pharyngoesophageal Segment Opening: Parital distension and partial duration; parital obstruction of flow Tongue Base Retraction: Wide column of contrast between tongue base & post. pharyngeal wall Pharyngeal Residue: Collection of residue within or on pharyngeal structures Esophageal Phase Esophageal Clearance: Complete clearance Diagnosis/Impression Diagnosis: Moderate oropharyngeal dysphagia R13.12 Impression: The oral phase is primarily marked by... -Decreased bolus control with bolus head of thin liquid via straw spilling posteriorly to the laryngeal vestibule prior to swallow onset with resulting aspiration during the swallow. -Disorganized tongue motion for A-P transport. -Mild oral residue after the swallow. -Disorganized, but complete mastication of cookie. The pharyngeal phase is primarily marked by... -Decreased airway closure during the swallow due to decreased anterior hyoid excursion, partial & inconsistent epiglottic inversion, and decreased laryngeal elevation. -Moderately decreased tongue base retraction, mildly decreased UES opening/duration, and no pharyngeal stripping wave with resulting moderate-severe pharyngeal residues after the swallow. -Silent post prandial aspiration of thin liquids via tsp. Silent aspiration of thin liquids via straw during the swallow. Deep laryngeal penetration of thin liquids by cup to the vocal folds without ejection. Pt is impulsive and drinks large sips even with CONSTRUCTION SUPERVISOR/CARPENTER attempting to limit sip size, he would grab the cup to get a larger sip. Recommendations Diet: Regular Textures (Easy to Chew textures - ASSIST CUTTING FOOD BITE SIZE, Extra sauce/gravy for dry textures) and [place]-thick Liquids (Mildy thick liquids - IDDSI Level 2) Compensatory Strategies: Small Bites, Small Sips, Slow Rate, Alternate bites/solids and sips/liquids and Sitting upright Supervision: 1:1 Close Supervision Recommend Repeat Modified Barium Swallow: TBD Need for Skilled Speech Therapy Services: Yes Comment: -Train the patient and staff in use of strategies to decrease risk for aspiration. -Ongoing assessment of diet tolerance of recommended textures. Education Completed: 1. Described result of evaluation. and 7. Pt requires further education on strategies & risks. Status Active ST Patient: Active Contact Information [facility] Speech Therapy:: Norma Agrawal M.A. CCC-CONSTRUCTION SUPERVISOR/CARPENTER? Speech-Language Pathologist?? [place] [id number]?? [place] [address]?? [email or web address]?? [phone]
[2023-07-27] MEDS: Potassium Phosphate 21 MM in 0.9% Normal Saline (250mL Bag) 250 ML 84 MM IV (12:46)
[2023-07-27] MEDS: Haloperidol 5 MG Tablet PO ×2 (13:21→21:23)
--- NOTE | 2023-07-27 14:32 | PCM.PROGNOTE ---
Subjective Subjective Pt not seen, discussed with team and chart reviewed. Possible tonic clonic stroke overnight. CTH stable. Pt agitated. Started on Keppra, will cont zonegran and inc lamictal from 50mg AM and 100mg QHS to 75mg AM and 100mg QHS. Will have teleneurology reassess tomorrow. Objective Data Objective Data Vital Signs: Vital Signs Temp Pulse Resp BP Pulse Ox O2 Del Method 98 F 83 18 127/89 H 98 Room Air 07/27/23 09:27 07/27/23 09:27 07/27/23 09:27 07/27/23 09:27 07/27/23 09:27 07/27/23 09:27 Oxygen Delivery Method Room Air Weight: 67 kg Body Mass Index (BMI) 20.8 Intake & Output: Intake and Output for Last 24 Hours 07/25/23 07/26/23 07/27/23 23:59 23:59 23:59 Intake Total 5510.00 / 5510.00 2895.83 / 2895.83 Output Total 1900 / 1900 450 / 450 Balance 3610.00 / 3610.00 2445.83 / 2445.83 Lab / Micro Data 07/27/23 06:55 07/27/23 06:55 Labs: Laboratory Results - last 24 hr 07/27/23 01:07: POC Glucose 130 H 07/27/23 06:55: WBC 7.6, RBC 3.83 L, Hgb 12.2 L, Hct 36.3 L, MCV 94.8 H, MCH 31.9, MCHC 33.6, RDW Std Deviation 41.6, RDW Coeff of Michael 11.9, Plt Count TNP, MPV 8.3, Immature Gran % (Auto) 0.300, Neut % (Auto) 68.6, Lymph % (Auto) 19.5, [place] % (Auto) 9.5, Eos % (Auto) 1.8, Baso % (Auto) 0.3, Absolute Neuts (auto) 5.2, Absolute Lymphs (auto) 1.48, Nucleated RBC % 0, Platelet Estimate ADEQUATE, Sodium 140, Potassium 4.2, Chloride 115 H, Carbon Dioxide 20.0 L, Anion Gap 5, BUN 6 L, Creatinine 0.69 L, Estim Creat Clear Calc 118.68, Est GFR (MDRD) Af Amer 154, Est GFR (MDRD) Non-Af 128, BUN/Creatinine Ratio 8.7 L, Glucose 94, Calcium 8.7, Phosphorus 1.7 L, Magnesium 1.7 Radiography Diagnostic Testing: Radiology Impression Brain CT 07/27/23 01:34 IMPRESSION: 1. Old left frontal opercular and left temporal encephalomalacia/postsurgical changes. 2. Small metallic foreign bodies again seen in the right-sided scalp. 3. Mild generalized atrophy. Mild low density bilaterally in the deep white matter. This likely represents chronic small vessel ischemic changes in the deep white matter. No acute intracranial abnormality. Electronically Signed: Nolan Mosley MD at 2:24 EDT ,
--- NOTE | 2023-07-27 15:40 | PCM.PN.HOSP ---
Subjective Subjective Had a rapid response earlier this morning because of a tonic-clonic seizure was given a dose of Ativan and started on Keppra Objective Data Objective Data Vital Signs: Vital Signs Temp Pulse Resp BP Pulse Ox O2 Del Method 98 F 83 18 127/89 H 98 Room Air 07/27/23 09:27 07/27/23 09:27 07/27/23 09:27 07/27/23 09:27 07/27/23 09:27 07/27/23 09:27 Oxygen Delivery Method Room Air Weight: 147 lb 11.355 oz Body Mass Index (BMI) 20.8 Intake & Output: Intake and Output for Last 24 Hours 07/26/23 07/27/23 07/28/23 03:59 03:59 03:59 Intake Total 2510 / 2510 4100.00 / 4100.00 1805.83 / 1805.83 Output Total 1900 / 1900 1200 / 1200 Balance 2510 / 2510 2200.00 / 2200.00 605.83 / 605.83 Lab / Micro Data 07/27/23 06:55 07/27/23 06:55 Labs: Laboratory Results - last 24 hr 07/27/23 01:07: POC Glucose 130 H 07/27/23 06:55: WBC 7.6, RBC 3.83 L, Hgb 12.2 L, Hct 36.3 L, MCV 94.8 H, MCH 31.9, MCHC 33.6, RDW Std Deviation 41.6, RDW Coeff of Michael 11.9, Plt Count TNP, MPV 8.3, Immature Gran % (Auto) 0.300, Neut % (Auto) 68.6, Lymph % (Auto) 19.5, [place] % (Auto) 9.5, Eos % (Auto) 1.8, Baso % (Auto) 0.3, Absolute Neuts (auto) 5.2, Absolute Lymphs (auto) 1.48, Nucleated RBC % 0, Platelet Estimate ADEQUATE, Sodium 140, Potassium 4.2, Chloride 115 H, Carbon Dioxide 20.0 L, Anion Gap 5, BUN 6 L, Creatinine 0.69 L, Estim Creat Clear Calc 118.68, Est GFR (MDRD) Af Amer 154, Est GFR (MDRD) Non-Af 128, BUN/Creatinine Ratio 8.7 L, Glucose 94, Calcium 8.7, Phosphorus 1.7 L, Magnesium 1.7 Radiography Diagnostic Testing: Radiology Impression Brain CT 07/27/23 01:34 IMPRESSION: 1. Old left frontal opercular and left temporal encephalomalacia/postsurgical changes. 2. Small metallic foreign bodies again seen in the right-sided scalp. 3. Mild generalized atrophy. Mild low density bilaterally in the deep white matter. This likely represents chronic small vessel ischemic changes in the deep white matter. No acute intracranial abnormality. Electronically Signed: Nolan Mosley MD at 2:24 EDT , Physical Exam Narrative General: Alert, cooperative, No apparent distress HEENT: Atraumatic, PERRLA, EOMI, Normocephalic Oral: Moist Mucosa Neck: Supple, No JVD Lungs: Clear to auscultation, Normal air movement, No rhonchi, No wheeze, No rales Cardiovascular: Regular rate, Regular Rhythm, Normal S1, Normal S2, No murmurs Abdomen: Soft, Non Tender, Non-Distended, No Hepato-splenomegaly Extremities: No edema, Capillary Refill Less than 3 Seconds Skin: No rashes, No breakdown Musculoskeletal: No Tenderness to Palpation of Joints or Extremities Neurological: No focal neurological deficits, moves all extremities Psych/Mental Status: Flat affect Assessment & Plan Assessment/Plan (1) TIA (transient ischemic attack): (2) TBI (traumatic brain injury): QUALIFIERS: Encounter type: sequela Loss of consciousness presence/duration: without LOC Qualified Code(s): S06.9X0S - Unspecified intracranial injury without loss of consciousness, sequela (3) Encephalomalacia: (4) Schizoaffective disorder: QUALIFIERS: Schizoaffective disorder type: unspecified Qualified Code(s): F25.9 - Schizoaffective disorder, unspecified (5) Hypokalemia: (6) Hyponatremia: PLAN: Plan 1. TIA/traumatic brain injury with encephalomalacia and dementia/seizure disorder ? MRI is negative for any acute stroke does show his traumatic brain injury with encephalomalacia ?Appreciate neurology's assistance unfortunate unable to get an EEG today after his stroke overnight as he was not cooperative continue with Keraisa and will increase his Lamictal to 75 mg during the day and keep his nightly dose at 100 mg ? Echo with an EF of 60% and stage I diastolic dysfunction ? PT/OT/speech ? Will recheck potassium as well as magnesium and phosphorus in the morning ? Awaiting verification of his home medications 2. Essential HTN/HLD ? Blood pressure stable, can resume blood pressure medications tomorrow morning ? Continue with statin 3. COPD ? No exacerbation ? Continue with home inhalers DVT: Lovenox Charges/Coding Visit Charges Inpatient E&M: 63756 Subs Hosp L2
[2023-07-27 15:55] VITALS: BMI 20.8
--- NOTE | 2023-07-27 16:00 | NURSING ---
Pt refusing to allow vital signs be taken, multiple attempts tried. Will reassess later. Call light in reach.
[2023-07-27 16:01] VITALS: BMI 20.8
[2023-07-27 21:19] VITALS: BP 116/70; PULSE 78; RESP 18; TEMP 36.5; O2SAT 92
[2023-07-27] MEDS: lamoTRIgine 100 MG Tablet PO (21:24)
[2023-07-27] MEDS: Atorvastatin Calcium 20 MG Tablet PO (21:24)
[2023-07-27] MEDS: traZODone 100 MG Tablet PO (21:24)
[2023-07-28] MEDS: Haloperidol 5 MG Tablet PO (05:54)
[2023-07-28] MEDS: Lactulose 20 GM/30 ML UDC 30 GM PO (05:55)
[2023-07-28 07:24] VITALS: O2SAT 94
[2023-07-28 08:35] LABS: Anion Gap 6 (5-15); BUN 6 mg/dL (7-18); BUN/Creat Ratio 7.4 RATIO (10-20); Calcium,Total 9.2 mg/dL (8.5-10.1); Chloride 112 mmol/L (98-107); Creatinine, Serum 0.81 mg/dL (0.70-1.30); EST Glomerular Filtration Rate 106 mL/min (>60); Est Glom Filt Rate - Afr Amer 128 mL/min (>60); Glucose 106 mg/dL (74-106); Magnesium 1.7 mg/dL (1.6-2.6); Phosphorus 3.3 mg/dL (2.5-4.9); Potassium 3.6 mmol/L (3.5-5.1); Sodium Level 140 mmol/L (136-145)
[2023-07-28] MEDS: LURASIDONE HCL 20 MG TABLET 40 MG PO (10:17)
[2023-07-28] MEDS: ZONISAMIDE 100 MG CAPSULE 200 MG PO (10:18)
[2023-07-28] MEDS: levETIRAcetam IV 1,000 MG/100 ML BAG 400 MG IV (10:18)
[2023-07-28] MEDS: Fenofibrate 48 MG Tablet PO (10:18)
[2023-07-28] MEDS: rifAXIMin 550 MG Tablet PO (10:18)
[2023-07-28] MEDS: Aspirin 81 MG TAB.CHEW PO (10:18)
[2023-07-28] MEDS: lamoTRIgine 25 MG Tablet 75 MG PO (10:18)
[2023-07-28] MEDS: traZODone 50 MG Tablet PO (10:18)
[2023-07-28] MEDS: CARIPRAZINE HCL 1.5 MG CAPSULE PO (10:18)
--- NOTE | 2023-07-28 10:21 | PCM.TXEXTCAR ---
Diet Diet Order/Speech Therapy: 07/26/23 12:12 Diet: Regular - General Food consistency:: Easy to Chew Liquid Consistency:: Frisbee/Mildly Thick Is pt able to select menu?: Yes Diet Comments: Direct sup, FOOD CUT BITE SIZE, extra sauce/gravy Routine Orders/Code Status Routine Lab Work: CBC and BMP Code Status: Full Code Problem/Diagnosis (1) TIA (transient ischemic attack): Status: Acute Code(s): G45.9 - Transient cerebral ischemic attack, unspecified (2) TBI (traumatic brain injury): Status: Acute Code(s): S06.9X9A - Unspecified intracranial injury with loss of consciousness of unspecified duration, initial encounter (3) Encephalomalacia: Status: Acute Code(s): G93.89 - Other specified disorders of brain (4) Schizoaffective disorder: Status: Acute Code(s): F25.9 - Schizoaffective disorder, unspecified (5) Hypokalemia: Status: Acute Code(s): E87.6 - Hypokalemia (6) Hyponatremia: Status: Acute Code(s): E87.1 - Hypo-osmolality and hyponatremia Plan 1. TIA/traumatic brain injury with encephalomalacia and dementia/seizure disorder ? MRI is negative for any acute stroke does show his traumatic brain injury with encephalomalacia ?Appreciate neurology's assistance unfortunate unable to get an EEG today after his stroke overnight as he was not cooperative continue with Keppra and will increase his Lamictal to 75 mg during the day and keep his nightly dose at 100 mg ? Echo with an EF of 60% and stage I diastolic dysfunction ? PT/OT/speech ? Will recheck potassium as well as magnesium and phosphorus in the morning ? Awaiting verification of his home medications 2. Essential HTN/HLD ? Blood pressure stable, can resume blood pressure medications tomorrow morning ? Continue with statin 3. COPD ? No exacerbation ? Continue with home inhalers DVT: Lovenox Allergies/Procedures Done in Hospital Allergies No Known Allergies Allergy (Verified 07/25/23 16:16) Procedures: 2-D Echocardiogram Type of Care/Length of Stay Estimated LOS: Convalescent Care Less Than 30 days Type of Care Needed: [facility]/Assisted Living Rehab Potential: Fair Prognosis: Good Additional Orders/Day of Discharge Day of Discharge: 07/28/23 Dietary and Speech Recommendations Dietitian Recommendations/Changes: Continue current diet order per IN FLIGHT TECHNICIAN recommendation If meal intake becomes <50%, consider supplemental nutrition like Magic Cup as to avoid liquids at this time. Discharge Plan Admission Admit Date/Time: 07/26/23 16:13 Attending Provider: Daniel Marina Primary Care Provider: Ramon Sanchez Consulting Providers: Yordy Yarbrough; Ehsan Del Rio; Stefany Hughes; Cheryl Adair; Suzy Douglass; Sushant Shah; Chantell Granado; Gordon Terrell; Jose Antonio Prado; Johanna Thornton; Carl Che; Yessi Seaman; Ivone Ramirez; Christo Hummel; Lamin Huertas; Ernie Pandya; Venkat Torres; Ernestine Chacon; Jovan Scott; Harvinder Zavala; Therese Styles; Justyn Duval; Samantha Lynn; GABE WALTON; Hong House; Kristin Spencer Discharge Orders/Prescriptions Prescriptions: New lamotrigine 25 mg Tablet, Chewable Dispersible 75 mg PO DAILY Qty: 0 0RF zonisamide 100 mg Capsule 300 mg PO DAILY Qty: 0 0RF Continued trazodone 50 MG tablet 100 mg PO QHS lorazepam 2 MG/ML syringe 1 mg IM Q4H PRN PRN (Reason: ANXIETY/SEIZURES) acetaminophen [Tylenol] 325 MG tablet 650 mg PO Q4H PRN PRN (Reason: PAIN/FEVER) magnesium hydroxide [Milk of Magnesia] 400 mg/5 mL Suspension 30 ml PO DAILY PRN PRN (Reason: Constipation) alum-mag hydroxide-simeth 200-200-20 mg/5 mL Suspension 30 ml PO Q4H PRN PRN (Reason: Indigestion) lorazepam [Ativan] 1 mg Tablet 1 mg PO Q4H PRN PRN (Reason: ANXIETY/SEIZURES) haloperidol 2 mg Tablet 5 mg PO TID lamotrigine [Lamictal] 100 mg Tablet 100 mg PO QHS selenium sulfide 1 % Shampoo 1 applic TOPICAL DAILY nicotine (polacrilex) 2 mg Lozenge 2 mg BUCCAL Q2H PRN PRN (Reason: Smoking Cessation) omega-3 fatty acids Capsule 2,000 mg PO DAILY cholecalciferol (vitamin D3) 1,250 mcg (50,000 unit) Capsule 1,250 mcg PO SAAVEDRA Patient Comments: every tuesday fenofibrate 120 mg Tablet 48 mg PO DAILY lurasidone [Latuda] 40 mg Tablet 40 mg PO BID Ibuprofen [Motrin] 800 MG tablet 600 mg PO TID lorazepam [Ativan] 1 mg Tablet 1 mg PO TID PRN (Reason: Anxiety) atorvastatin [Lipitor] 20 mg Tablet 20 mg PO DAILY trazodone 50 mg Tablet 50 mg PO DAILY propranolol [Inderal LA] 80 mg Capsule,Extended Release 24 Hr 80 mg PO DAILY rifaximin 550 mg Tablet 550 mg PO BID lactulose 10 gram/15 mL (15 mL) Solution 45 ml PO TID Vraylar 1.5 mg Capsule 1.5 mg PO DAILY aspirin 81 mg capsule 81 mg PO DAILY hydrochlorothiazide 25 mg tablet 25 mg PO DAILY Discontinued Zonisamide [Zonegran] 100 MG capsule 200 mg PO DAILY lamotrigine [Lamictal] 25 mg Tablet 50 mg PO DAILY Referrals / Follow Up: Ramon Sanchez MD [Primary Care Provider] - Disposition Disposition (needs filled in before D/C Order can be placed): NonSkilled NH/Intermed Care (2) TBI (traumatic brain injury) Qualifiers: Encounter type: sequela Loss of consciousness presence/duration: without LOC Qualified Code(s): S06.9X0S - Unspecified intracranial injury without loss of consciousness, sequela (4) Schizoaffective disorder Qualifiers: Schizoaffective disorder type: unspecified Qualified Code(s): F25.9 - Schizoaffective disorder, unspecified
[2023-07-28 10:25] VITALS: BP 118/69; PULSE 84; RESP 16; TEMP 37; O2SAT 97
--- NOTE | 2023-07-28 11:07 | PHA.DC_ITS ---
Pharmacy [place] Med Reconciliation Pharmacy Service has performed discharge medication reconciliation for this patient upon transfer to [facility]. The patient's discharge medication list was reviewed for discrepancies and discrepancies were resolved. Medications at Discharge Home Medications acetaminophen 325 mg tablet (Tylenol) 650 mg PO Q4H PRN PRN PAIN/FEVER 01/02/14 lorazepam 2 mg/mL injection solution 1 mg IM Q4H PRN PRN ANXIETY/SEIZURES 01/02/14 trazodone 50 mg tablet 100 mg PO QHS 01/02/14 Ibuprofen [Motrin] 600 mg PO TID 08/27/20 aluminum-mag hydroxide-simethicone 200 mg-200 mg-20 mg/5 mL oral susp 30 ml PO Q4H PRN PRN Indigestion 08/27/20 cholecalciferol (vitamin D3) 1,250 mcg (50,000 unit) capsule 1,250 mcg PO SAAVEDRA 08/27/20 fenofibrate 120 mg tablet 48 mg PO DAILY 08/27/20 haloperidol 2 mg tablet 5 mg PO TID 08/27/20 lamotrigine 100 mg tablet (Lamictal) 100 mg PO QHS 08/27/20 lorazepam 1 mg tablet (Ativan) 1 mg PO Q4H PRN PRN ANXIETY/SEIZURES 08/27/20 lurasidone 40 mg tablet (Latuda) 40 mg PO BID 08/27/20 magnesium hydroxide 400 mg/5 mL oral suspension (Milk of Magnesia) 30 ml PO DAILY PRN PRN Constipation 08/27/20 nicotine (polacrilex) 2 mg buccal lozenge 2 mg buccal Q2H PRN PRN Smoking Cessation 08/27/20 omega-3 fatty acids 2,000 mg PO DAILY 08/27/20 selenium sulfide 1 % shampoo 1 applic topical DAILY 08/27/20 atorvastatin 20 mg tablet (Lipitor) 20 mg PO DAILY 08/13/22 cariprazine 1.5 mg capsule (Vraylar) 1.5 mg PO DAILY 08/13/22 lactulose 10 gram/15 mL (15 mL) oral solution 45 ml PO TID 08/13/22 lorazepam 1 mg tablet (Ativan) 1 mg PO TID PRN Anxiety 08/13/22 propranolol 80 mg capsule,24 hr,extended release (Inderal LA) 80 mg PO DAILY 08/13/22 rifaximin 550 mg tablet 550 mg PO BID 08/13/22 trazodone 50 mg tablet 50 mg PO DAILY 08/13/22 aspirin 81 mg capsule 81 mg PO DAILY 03/27/23 hydrochlorothiazide 25 mg tablet 25 mg PO DAILY 03/27/23 lamotrigine 25 mg chewable dispersible tablet 75 mg (3 x 25 mg) PO DAILY #0 ea 07/28/23 zonisamide 100 mg capsule 300 mg (3 x 100 mg) PO DAILY #0 caps 07/28/23
[2023-07-28 11:59] VITALS: BMI 20.8
--- NOTE | 2023-07-28 11:59 | CASEMGMT ---
Discharge Planning Discharge orders, signed med list, and transport time faxed to [facility]. Fax confirmation rec'd. Physicians will transport patient by cot at 12:30p. Nursing, SW, and patients guardian (Alfreda Sheetsz) updated. Bessie Donnelly DC Planning Asst.
--- NOTE | 2023-07-28 12:54 | NURSING ---
report called to Luis at [facility]
--- NOTE | 2023-07-28 14:40 | DS.PCM_ITS ---
Providers Date of Admission: 07/26/23 Primary Care Physician: Dr. Ramon Sanchez MD Consultations 07/25/23 23:48 Consult: Tele-Neurology Routine Consulting Provider: [facility] Reason for Consult: Acute Ischemic Stroke/TIA EMERGENT Consult: No MD Notified: Yes Date Notified: 07/26/23 Time Notified: 01:13 Method of Notification: Answering Service Method of Consult:: Telemedicine Nursing Unit Staff Notify [facility] of Tele-Neurology Consult: Yes Reason For Visit: TIA VS CVA Diagnosis Discharge Diagnosis (1) TIA (transient ischemic attack): Status: Acute Code(s): G45.9 - Transient cerebral ischemic attack, unspecified (2) TBI (traumatic brain injury): Status: Acute Code(s): S06.9X9A - Unspecified intracranial injury with loss of consciousness of unspecified duration, initial encounter Qualifiers: Encounter type: sequela Loss of consciousness presence/duration: w ithout LOC Qualified Code(s): S06.9X0S - Unspecified intracranial injury without loss of consciousness, sequela (3) Encephalomalacia: Status: Acute Code(s): G93.89 - Other specified disorders of brain (4) Schizoaffective disorder: Status: Acute Code(s): F25.9 - Schizoaffective disorder, unspecified Qualifiers: Schizoaffective disorder type: unspecified Qualified Code(s): F25.9 - Schizoaffective disorder, unspecified (5) Hypokalemia: Status: Acute Code(s): E87.6 - Hypokalemia (6) Hyponatremia: Status: Acute Code(s): E87.1 - Hypo-osmolality and hyponatremia Medications at Discharge Home Medications acetaminophen 325 mg tablet (Tylenol) 650 mg PO Q4H PRN PRN PAIN/FEVER 01/02/14 lorazepam 2 mg/mL injection solution 1 mg IM Q4H PRN PRN ANXIETY/SEIZURES 01/02/14 trazodone 50 mg tablet 100 mg PO QHS 01/02/14 Ibuprofen [Motrin] 600 mg PO TID 08/27/20 aluminum-mag hydroxide-simethicone 200 mg-200 mg-20 mg/5 mL oral susp 30 ml PO Q4H PRN PRN Indigestion 08/27/20 cholecalciferol (vitamin D3) 1,250 mcg (50,000 unit) capsule 1,250 mcg PO SAAVEDRA 08/27/20 fenofibrate 120 mg tablet 48 mg PO DAILY 08/27/20 haloperidol 2 mg tablet 5 mg PO TID 08/27/20 lamotrigine 100 mg tablet (Lamictal) 100 mg PO QHS 08/27/20 lorazepam 1 mg tablet (Ativan) 1 mg PO Q4H PRN PRN ANXIETY/SEIZURES 08/27/20 lurasidone 40 mg tablet (Latuda) 40 mg PO BID 08/27/20 magnesium hydroxide 400 mg/5 mL oral suspension (Milk of Magnesia) 30 ml PO DAILY PRN PRN Constipation 08/27/20 nicotine (polacrilex) 2 mg buccal lozenge 2 mg buccal Q2H PRN PRN Smoking Cessation 08/27/20 omega-3 fatty acids 2,000 mg PO DAILY 08/27/20 selenium sulfide 1 % shampoo 1 applic topical DAILY 08/27/20 atorvastatin 20 mg tablet (Lipitor) 20 mg PO DAILY high cholesterol 08/13/22 cariprazine 1.5 mg capsule (Vraylar) 1.5 mg PO DAILY 08/13/22 lactulose 10 gram/15 mL (15 mL) oral solution 45 ml PO TID 08/13/22 lorazepam 1 mg tablet (Ativan) 1 mg PO TID PRN Anxiety 08/13/22 propranolol 80 mg capsule,24 hr,extended release (Inderal LA) 80 mg PO DAILY 08/13/22 rifaximin 550 mg tablet 550 mg PO BID 08/13/22 trazodone 50 mg tablet 50 mg PO DAILY 08/13/22 aspirin 81 mg capsule 81 mg PO DAILY pain, blood thinner 03/27/23 hydrochlorothiazide 25 mg tablet 25 mg PO DAILY 03/27/23 lamotrigine 25 mg chewable dispersible tablet 75 mg (3 x 25 mg) PO DAILY #0 ea 07/28/23 zonisamide 100 mg capsule 300 mg (3 x 100 mg) PO DAILY #0 caps 07/28/23 Hospital Course Operations None Procedures 2-D Echocardiogram Summary of Care Provided Minutes Spent on Discharge: 33 Hospital Course: Per HPI: JESUS GOTTLIEB, is a 52 M with a past medical history of essential hypertension, hyperlipidemia, history of tobacco abuse; with subsequent COPD, history of severe traumatic brain injury; s/p craniotomy for acute hemorrhage with subsequent encephalomalacia and chronic Right leg weakness plus slurred speech, posttraumatic seizure disorder, history of TIA/CVA, bipolar disorder, schizoaffective disorder, delusional disorder, history of alcohol abuse, history of dementia, chronic anemia and osteoarthritis; with chronic pain who presents to [facility] ER complaining of mental status change and Right- sided weakness. Mr. Gottlieb is not a fully reliable historian so information was primarily gathered from chart, medical staff and computer. According to the records from [facility] facility he was noted to have a mental status change and Right-sided weakness. Apparently around 2:45 PM earlier today he was outside smoking when he returned he was unable to move his wheelchair with his right upper extremity. He also has a baseline slurring of his speech according to nurses but his speech was thought to be more slurred than usual causing nursing facility to activate EMS. EMS was unaware of his last known well time given patient's limited capacity and sketchy details from his facility. Nevertheless, EMS reported Right pronator drift and slurred speech with prehospital stroke team called given his symptoms at that time. He initially had difficulty having a venous line placed so he could undergo CTA of the head and neck - and after a central line was placed by the general surgeon on-call is CTA of the head and neck was negative for acute pathologic changes. There was no report of fever, chills, nausea, vomiting, seizure activity, postictal confusion, headache, chest pain or abdominal pain. [facility] felt patient was a poor candidate for TNK given his previous craniotomy for previous bleed and unknown clear last known well time. He was noted to have a negative urine tox screen and a blood alcohol concentration of 7 mg/dL. He was then admitted to the PCU under observation status for a TIA/CVA workup for stay that is expected to be less than 2 midnights. Hospital Course: 1. Seizure with postictal state/traumatic brain injury with encephalomalacia and dementia?52-year-old male presented from [facility] [place] as a residential facility because of concerns for right-sided weakness and mental status change. He is not a reliable historian as he does not communicate consistently given his history of acute cerebral hemorrhage with craniotomy and subsequent encephalomalacia as well as a history of bipolar disorder and schizoaffective disorder and delusional disorder. He was initially worked up for a CVA however MRI was unremarkable. He had an echo which demonstrated an EF of 60% and stage I diastolic dysfunction. Neurology was consulted and was not convinced that he had had a TIA or CVA and recommended an EEG. This was attempted however he was not agreeable and would not keep the leads on. He did have a seizure at around 1 AM on 07/27/2023 and was given Ativan as well as started on Keppra. In discussion with neurology they felt that we could increase his Lamictal to 75 mg daily and then keep his Lamictal at 100 mg at night. Instead of prescribing him another antiseizure medication we increased his zonisamide to 300 mg daily from 200. I agree with neurology's assessment that an EEG is not 100% necessary given his agitation with a prior attempt would hold off on performing an EEG during this admission. 2. Essential hypertension, hyperlipidemia, COPD, schizoaffective disorder, bipolar disorder, dementia, chronic anemia are chronic medical conditions which complicate his care. His home medications were continued where appropriate Physical Exam Narrative General: Alert, cooperative, No apparent distress HEENT: Atraumatic, PERRLA, EOMI, Normocephalic Oral: Moist Mucosa Neck: Supple, No JVD Lungs: Clear to auscultation, Normal air movement, No rhonchi, No wheeze, No rales Cardiovascular: Regular rate, Regular Rhythm, Normal S1, Normal S2, No murmurs Abdomen: Soft, Non Tender, Non-Distended, No Hepato-splenomegaly Extremities: No edema, Capillary Refill Less than 3 Seconds Skin: No rashes, No breakdown Musculoskeletal: No Tenderness to Palpation of Joints or Extremities Neurological: No focal neurological deficits, moves all extremities Psych/Mental Status: Flat affect Weight / BMI Weight Weight: 147 lb 11.355 oz Body Mass Index (BMI) 20.8 ABG / Lab / Microbiology Data 07/27/23 06:55 07/28/23 07:09 Laboratory: Laboratory Results - last 24 hr 07/28/23 07:09: Sodium 140, Potassium 3.6, Chloride 112 H, Carbon Dioxide 22.0, Anion Gap 6, BUN 6 L, Creatinine 0.81, Estim Creat Clear Calc 101.10, Est GFR (MDRD) Af Amer 128, Est GFR (MDRD) Non-Af 106, BUN/Creatinine Ratio 7.4 L, Glucose 106, Calcium 9.2, Phosphorus 3.3, Magnesium 1.7 Meaningful Use Info Meaningful Use Meaningful Use Diagnoses (Choose all that apply): None applicable Ischemic Stroke Statin Dosing Therapy Reference: STATIN DOSE THERAPY REFERENCE: * Patients > 75 years receive moderate or high dose statin therapy. * Patients 75 years or YOUNGER should receive HIGH intensity statin dose unless contraindicated. You will be required to document reason for non-treatment if statin daily dose does not meet guidelines. HIGH DOSE STATIN THERAPY DAILY Atorvastatin > than or = to 40 mg Rosuvastatin > than or = to 20 mg Amlodipine + Atorvastatin > than or = to 2.5/40 mg Ezetimibe + Simvastatin 10/80 mg Simvastatin 80mg Discharge Plan Admission Admit Date/Time: 07/26/23 16:13 Attending Provider: Daniel Marina Primary Care Provider: Ramon Sanchez Consulting Providers: Yordy Yarbrough; Ehsan Del Rio; Stefany Hughes; Cheryl Adair; Suzy Douglass; Sushant Shah; Chantell Granado; Gordon Terrell; Jose Antonio Prado; Johanna Thornton; Carl Che; Yessi Seaman; Ivone Ramirez; Christo Hummel; Lamin Huertas; Ernie Pandya; Venkat Torres; Ernestine Chacon; Jovan Scott; Harvinder Zavala; Therese Styles; Justyn Duval; Samantha Lynn; GABE WALTON; Hong House; Kristin Spencer Discharge Orders/Prescriptions Prescriptions: New lamotrigine 25 mg Tablet, Chewable Dispersible 75 mg PO DAILY Qty: 0 0RF zonisamide 100 mg Capsule 300 mg PO DAILY Qty: 0 0RF Continued trazodone 50 MG tablet 100 mg PO QHS lorazepam 2 MG/ML syringe 1 mg IM Q4H PRN PRN (Reason: ANXIETY/SEIZURES) acetaminophen [Tylenol] 325 MG tablet 650 mg PO Q4H PRN PRN (Reason: PAIN/FEVER) magnesium hydroxide [Milk of Magnesia] 400 mg/5 mL Suspension 30 ml PO DAILY PRN PRN (Reason: Constipation) alum-mag hydroxide-simeth 200-200-20 mg/5 mL Suspension 30 ml PO Q4H PRN PRN (Reason: Indigestion) lorazepam [Ativan] 1 mg Tablet 1 mg PO Q4H PRN PRN (Reason: ANXIETY/SEIZURES) haloperidol 2 mg Tablet 5 mg PO TID lamotrigine [Lamictal] 100 mg Tablet 100 mg PO QHS selenium sulfide 1 % Shampoo 1 applic TOPICAL DAILY nicotine (polacrilex) 2 mg Lozenge 2 mg BUCCAL Q2H PRN PRN (Reason: Smoking Cessation) omega-3 fatty acids Capsule 2,000 mg PO DAILY cholecalciferol (vitamin D3) 1,250 mcg (50,000 unit) Capsule 1,250 mcg PO SAAVEDRA Patient Comments: every tuesday fenofibrate 120 mg Tablet 48 mg PO DAILY lurasidone [Latuda] 40 mg Tablet 40 mg PO BID Ibuprofen [Motrin] 800 MG tablet 600 mg PO TID lorazepam [Ativan] 1 mg Tablet 1 mg PO TID PRN (Reason: Anxiety) atorvastatin [Lipitor] 20 mg Tablet 20 mg PO DAILY trazodone 50 mg Tablet 50 mg PO DAILY propranolol [Inderal LA] 80 mg Capsule,Extended Release 24 Hr 80 mg PO DAILY rifaximin 550 mg Tablet 550 mg PO BID lactulose 10 gram/15 mL (15 mL) Solution 45 ml PO TID Vraylar 1.5 mg Capsule 1.5 mg PO DAILY aspirin 81 mg capsule 81 mg PO DAILY hydrochlorothiazide 25 mg tablet 25 mg PO DAILY Discontinued Zonisamide [Zonegran] 100 MG capsule 200 mg PO DAILY lamotrigine [Lamictal] 25 mg Tablet 50 mg PO DAILY Referrals / Follow Up: Ramon Sanchez MD [Primary Care Provider] - Disposition Disposition (needs filled in before D/C Order can be placed): NonSkilled NH/Intermed Care Charges/Coding Visit Charges Inpatient E&M: 45996 Disch Hosp >30min
== END 2023-07-28 12:41 | disposition intermediate care facility (04) | DRG 53 ==
LOC: ED 22:11 → PCU 07-26 01:21
PROVIDERS: Admitting Provider Internal Medicine; Emergency Provider Emergency Medicine; PCP Family Medicine; Visit Provider Family Medicine
DX: G40.409 Other generalized epilepsy and epileptic syndromes, not intractable, without status epilepticus (principal); E87.1 Hypo-osmolality and hyponatremia; F03.90 Unspecified dementia, unspecified severity, without behavioral disturbance, psychotic disturbance, mood disturbance, and anxiety; G93.89 Other specified disorders of brain; F25.9 Schizoaffective disorder, unspecified; J44.9 Chronic obstructive pulmonary disease, unspecified; F31.9 Bipolar disorder, unspecified; I10 Essential (primary) hypertension; E87.6 Hypokalemia; E78.5 Hyperlipidemia, unspecified; F17.210 Nicotine dependence, cigarettes, uncomplicated
CPT/HCPCS: 36415; 70450; 70496; 70498; 70551; 71045; 74230; 80048; 80061; 80307; 80320; 82607; 82746; 82962; 83036; 83735; 84100; 84443; 84484; 85025; 85610; 85730; 92610; 92611; 93005; 93306; 94762; 97162; 97166; 97530; 97802; 99285; 99406; J7040; J7050; Q9957; Q9967; A4216; C1751; G0480

== ENCOUNTER 2023-12-29 20:33 | Emergency (ER) | payer MEDICAID, SELFPAY ==
[2023-12-29 20:35] VITALS: BP 118/89; PULSE 59; RESP 16; TEMP 36.3; O2SAT 98; BMI 21.3
[2023-12-29] MEDS: Lidocaine 1% (20 ml mdv) 20 ML Vial INFILT (21:58)
[2023-12-29 23:43] VITALS: BP 122/76; PULSE 60; RESP 16; TEMP 36.6; O2SAT 99
== END 2023-12-30 02:58 | disposition skilled nursing facility (03) ==
PROVIDERS: Emergency Provider Emergency Medicine; PCP Family Medicine; Referring Provider Emergency Medicine; Visit Provider Emergency Medicine
DX: S63.286A Dislocation of proximal interphalangeal joint of right little finger, initial encounter (principal); F25.9 Schizoaffective disorder, unspecified; J44.9 Chronic obstructive pulmonary disease, unspecified; F17.210 Nicotine dependence, cigarettes, uncomplicated; X58.XXXA Exposure to other specified factors, initial encounter; Z86.73 Personal history of transient ischemic attack (TIA), and cerebral infarction without residual deficits
CPT/HCPCS: 73140; 99284

== ENCOUNTER 2024-07-05 18:59 | Emergency (ER) | payer MEDICAID, SELFPAY ==
[2024-07-05 19:00] VITALS: BP 133/84; PULSE 80; RESP 16; TEMP 36.4; O2SAT 100; BMI 22.0
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
--- NOTE | 2024-07-05 19:41 | CT_ITS ---
PROCEDURE: BRAIN/HEAD WITHOUT CONTRAST 07/05/2024 REASON FOR EXAM: SEIZURE TECHNIQUE: Head CT without intravenous contrast. Coronal and Sagittal reconstruction series were provided. One or more dose reduction techniques were used (e.g., Automated exposure control, adjustment of the mA and/or kV according to patient size, use of iterative reconstruction technique. RADIATION DOSE SUMMARY: CTDlvol: 45.0 mGy DLP: 914 mGycm COMPARISON: CT head without contrast 07/27/2023, MRI brain on 07/26/2023 FINDINGS: Brain: No acute intracranial hemorrhage, midline shift, or mass effect. There is extensive encephalomalacia in the left temporal and frontal lobes, unchanged. CSF Spaces: There is generalized cerebral atrophy which is similar to prior Sinuses/Mastoids: Predominantly clear at visualized levels Bones: Postoperative changes of the left temporal calvarium. Metallic foci in the right parietal scalp are unchanged. 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 Soft tissue debris in the external auditory canals, likely cerumen. CT/Brain/Head without Contrast IMPRESSION: No acute intracranial abnormality. Unchanged encephalomalacia in the left fron barry and temporal lobes. Reading Location: [id number]
[2024-07-05 20:01] LABS: Absolute Lymphocyte Count 1.11 X10^3/uL (0.83-4.51); Basophil# 0.05 X10^3/uL; Basophil% 0.4 % (0-1); Eosinophil# 0.26 X10^3/uL; Hematocrit 40.9 % (40-54); Hemoglobin 14.1 g/dL (13.0-16.5); Lymphocyte # 1.11 X10^3/ul (0.83-4.51); Lymphocyte % 8.4 % (19-41); Mean Corp Hgb Conc 34.5 g/dL (32-36); Mean Corpuscular Hgb 32.9 pg (27.0-32.0); Mean Corpuscular Volume 95.3 fL (80-94); Mean Platelet Vol. 8.2 fl (6.2-12.0); Monocyte# 0.76 X10^3/uL; Monocyte% 5.7 % (0-10); NRBC Flagged by Analyzer 0 % (0-5); Neutrophil # 11.01 X10^3/uL (2.7-7.7); Platelet Count 261 K/mm3 (150-450); RBC Distribution Width CV 12.3 % (11.6-14.6); RBC Distribution Width SD 42.7 fl (35.1-43.9); Red Blood Count 4.29 M/mm3 (4.6-6.2); White Blood Count 13.3 K/mm3 (4.4-11.0)
[2024-07-05 21:00] VITALS: BP 134/89; PULSE 88; O2SAT 98
[2024-07-05 21:19] LABS: ALB/GLOB Ratio 1.4 RATIO (0.9-2.4); AST(SGOT) 23 U/L (<=37); Alanine Aminotransfer ALT/SGPT 14 U/L (<=46); Albumin, Serum 4.3 g/dL (3.5-5.0); Alkaline Phosphatase 116 U/L (40-129); Anion Gap 12 (5-15); BUN 14 mg/dL (4-19); BUN/Creat Ratio 15.8 RATIO (10-20); Calcium,Total 9.9 mg/dL (7.6-11.0); Carbon Dioxide 23.8 mmol/L (21.0-32.0); Chloride 103 mmol/L (98-108); Creatinine, Serum 0.91 mg/dL (0.70-1.20); EST Glomerular Filtration Rate 101 (>60); Estimated Creatinine Clearance 95.21 ml/min (50-250); Glucose 87 mg/dL (70-99); Potassium 3.6 mmol/L (3.3-5.1); Protein, Total 7.3 g/dL (5.9-8.4); Sodium Level 139 mmol/L (133-145)
--- NOTE | 2024-07-05 21:49 | ED.RN ---
physicians ETA 3 HOURS
--- NOTE | 2024-07-05 22:15 | ED.RN ---
Upon taking report, this RN walked into room for assessment. Pt not answering questions and looking back and forth between this RN and wall. Discussed with Dr. Gibran ORTEGA for further clarification on pt sx. Dr. Leary stated this was baseline, no new orders at this time.
--- NOTE | 2024-07-05 22:20 | ED.RN ---
Report called to [facility].
[2024-07-05 22:51] VITALS: BP 134/99; PULSE 95; RESP 24; TEMP 36.3; O2SAT 95
[2024-07-06 01:00] VITALS: BP 134/99; PULSE 88; RESP 18; O2SAT 95
== END 2024-07-06 01:28 | disposition home or self-care (01) ==
PROVIDERS: Emergency Provider Emergency Medicine; PCP Family Medicine; Referring Provider Emergency Medicine; Visit Provider Emergency Medicine
DX: G40.909 Epilepsy, unspecified, not intractable, without status epilepticus (principal); J44.9 Chronic obstructive pulmonary disease, unspecified; F17.210 Nicotine dependence, cigarettes, uncomplicated; E78.5 Hyperlipidemia, unspecified; Z79.899 Other long term (current) drug therapy; Z79.82 Long term (current) use of aspirin; Z86.73 Personal history of transient ischemic attack (TIA), and cerebral infarction without residual deficits
CPT/HCPCS: 70450; 80053; 83735; 85025; 99285

== ENCOUNTER → 2024-10-02 | Outpatient (CLI) | payer MEDICAID, SELFPAY | END | disposition home or self-care (01) | PROVIDERS: PCP Family Medicine; Referring Provider Family Medicine; Visit Provider Family Medicine | DX: E72.20 Disorder of urea cycle metabolism, unspecified (principal) ==

== ENCOUNTER → 2024-10-05 | Outpatient (CLI) | payer MEDICAID, SELFPAY | END | disposition home or self-care (01) | LOC: LABSPEC 14:58 | PROVIDERS: PCP Family Medicine; Referring Provider Family Medicine; Visit Provider Family Medicine | DX: K72.91 Hepatic failure, unspecified with coma (principal); E72.20 Disorder of urea cycle metabolism, unspecified ==

== ENCOUNTER → 2024-11-01 | Outpatient (CLI) | payer MEDICAID, SELFPAY | END | disposition home or self-care (01) | LOC: LABSPEC 15:34 | PROVIDERS: PCP Family Medicine; Referring Provider Family Medicine; Visit Provider Family Medicine | DX: E72.20 Disorder of urea cycle metabolism, unspecified (principal) | CPT/HCPCS: 82140 ==

== ENCOUNTER 2024-11-03 11:01 | Emergency (ER) | payer MEDICAID, SELFPAY ==
[2024-11-03 11:02] VITALS: BP 132/71; PULSE 70; RESP 18; TEMP 37.1; O2SAT 98; BMI 22.2
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
--- OUTSIDE RECORDS SUMMARY | 2024-11-03 11:40 | XMS RPT_ITS | CCD ---
Author Organization [facility] Care Team Providers Care Switchboard Wirer Name Role Phone Daniel BOWENS, Dr. Navarro Primary Care Provider Dr. Wil Leary DO Referring Provider Dr. Wil Leary DO Emergency Provider [phone] Dr. Wil Leary DO Attending Provider Daniel BOWENS, Dr. Navarro Attending Provider [phone] [address]. Ramon Sanchez MD Referring Provider [phone] Ramon Sanchez Attending Unavailable Ramon Sanchez Referring Unavailable Ramon Sanchez Primary Care Unavailable Wil Leary Attending Unavailable Wil Leary Referring Unavailable Ramon Sanchez Primary Care Unavailable Gianfranco Leigh Attending Unavailable Gianfranco Leigh Referring Unavailable Ramon Sanchez Primary Care Unavailable Ramon Sanchez Referring Unavailable Ramon Sanchez Primary Care Unavailable Ramon Sanchez Attending Unavailable Medications Current Medications Medication Drug Class(es) Dates Sig (Normalized) Sig (Original) acetaminophen 325 mg oral tablet (8 sources) Start: 01-02-2014 take 2 tablets by mouth every four hours as needed for pain Acetaminophen (Tylenol) 325 MG tablet Active 650 mg PO EVERY 4 HOURS NEEDED as needed for PAIN/FEVER January 02, 2014 1:00am Alum-Mag Hydroxide-Simeth (Mylanta) 200-200-20 mg/5 mL Suspension (1 source) Start: 08-27-2020 take 1 mL by mouth every four hours as needed Alum-Mag Hydroxide-Simeth (Mylanta) 200-200-20 mg/5 mL Suspension Active 30 ML PO EVERY 4 HOURS NEEDED August 26, 2020 11:00pm aspirin 81 mg oral tablet (7 sources) Platelet Aggregation Inhibitor, Nonsteroidal Anti-inflammatory Drug Start: 03-27-2023 take 1 capsule by mouth once daily Aspirin 81 mg capsule Active 81 mg PO DAILY March 27, 2023 1:00am pain, blood thinner Start: 08-27-2020 take 1 tablet by janelle th once daily Aspirin (Aspir-81) 81 mg Tablet,Delayed Release (Dr/Ec) Active 81 MG PO DAILY August 27, 2020 12:52pm atorvastatin 20 mg oral tablet (8 sources) HMG-CoA Reductase Inhibitor Start: 08-13-2022 take 1 tablet by mouth once daily Atorvastatin (Lipitor) 20 mg Tablet Active 20 mg PO DAILY August 13, 2022 12:00am high cholesterol Start: 08-27-2020 take 20 mg by mouth once daily Atorvastatin Active 20 MG PO DAILY August 27, 2020 12:52pm cholecalciferol 1.25 mg oral capsule (8 sources) Vitamin D Start: 08-27-2020 Cholecalciferol (Vitamin D3) 1,250 mcg (50,000 unit) Capsule Active 1250 ug PO SAAVEDRA August 27, 2020 12:00am escitalopram 10 mg oral tablet (3 sources) Serotonin Reuptake Inhibitor Start: 08-27-2020 take 1 tablet by mouth once daily Escitalopram Oxalate (Lexapro) 10 mg Tablet Active 10 MG PO DAILY August 27, 2020 12:52pm fenofibrate 48 mg oral tablet (11 sources) Peroxisome Proliferator Receptor alpha Agonist Start: 07-05-2024 take 1 tablet by mouth once daily Fenofibrate Nanocrystallized 48 mg tablet Active 48 mg PO DAILY July 05, 2024 12:00am Start: 08-27-2020 End: 07-05-2024 Fenofibrate 120 mg Tablet Discontinued 48 mg PO DAILY August 27, 2020 12:00am July 05, 2024 7:22pm Start: 08-27-2020 take 48 mg by mouth once daily Fenofibrate Active 48 MG PO DAILY August 26, 2020 11:00pm haloperidol 5 mg oral tablet (11 sources) Typical Antipsychotic Start: 07-05-2024 take 1 tablet by mouth three times daily Haloperidol 5 mg tablet Active 5 mg PO THREE TIMES A DAY July 05, 2024 12:00am Start: 08-27-2020 End: 07-05-2024 take 5 mg by mouth three times daily Haloperidol 2 mg Tablet Discontinued 5 mg PO THREE TIMES A DAY August 27, 2020 12:00am July 05, 2024 7:17pm Start: 08-27-2020 take 1 tablet by janelle th three times daily Haloperidol (Haldol) 2 mg Tablet Active 2 MG PO THREE TIMES A DAY August 27, 2020 12:52pm hydroCHLOROthiazide 25 mg oral tablet (4 sources) Thiazide Diuretic Start: 03-27-2023 take 1 tablet by mouth once daily Hydrochlorothiazide 25 mg tablet Active 25 mg PO DAILY March 27, 2023 1:00am ibuprofen 200 mg oral tablet (19 sources) Nonsteroidal Anti-inflammator y Drug Start: 07-05-2024 take 3 tablets by mouth every eight hours Ibuprofen (Advil) 200 mg tablet Active 600 mg PO Q8H July 05, 2024 12:00am PAIN Start: 08-27-2020 End: 07-05-2024 Ibuprofen (Motrin) 800 MG ta blet Discontinued 600 mg PO THREE TIMES A DAY August 27, 2020 1:08pm July 05, 2024 7:25pm Start: 08-27-2020 Ibuprofen (Mot rin) 800 MG tablet Active 600 MG PO 4 TIMES DAILY August 27, 2020 1:08pm Start: 01-09-2015 End: 08-27-2020 take 1 tablet by mouth three times daily as needed for pain Ibuprofen (Motrin) 800 MG tablet Discontinued 800 mg PO 3 TIMES DAILY NEEDED as needed for Pain 10 0 January 09, 2015 1:00am August 27, 2020 1:09pm lactulose 667 mg/ml oral solution (8 sources) Osmotic Laxative Start: 08-13-2022 take 1 mL by mouth three times daily Lactulose 10 gram/15 mL (15 mL) Solution Active 45 mL PO THREE TIMES A DAY August 13, 2022 12:00am Start: 08-13-2022 take 1 mL by mouth t hree times daily Lactulose Active 45 ML PO THREE TIMES A DAY August 12, 2022 11:00pm Start: 08-27-2020 take 1 mL by mouth t hree times daily Lactulose Active 45 ML PO THREE TIMES A DAY August 27, 2020 12:52pm LORazepam 1 mg oral tablet (20 sources) Benzodiazepine Start: 08-13-2022 take 1 tablet by mouth three times daily as needed for anxiety Lorazepam (Ativan) 1 mg Tablet Active 1 mg PO THREE TIMES A DAY as needed for Anxiety August 13, 2022 12:00am Start: 08-27-2020 take 1 tablet by janelle th every four hours as needed for anxiety Lorazepam (Ativan) 1 mg Tablet Active 1 mg PO EVERY 4 HOURS NEEDED as needed for ANXIETY/SEIZURES August 27, 2020 12:00am Start: 01-02-2014 take 1 mg by mouth t hree times daily Lorazepam (Ativan) 2 MG tablet Active 1 MG PO THREE TIMES A DAY January 02, 2014 1:51am Start: 01-02-2014 End: 07-05-2024 inject 1 mg by intramuscular injection every four hours as needed for anxiety Lorazepam 2 MG/ML syringe Discontinued 1 mg IM EVERY 4 HOURS NEEDED as needed for ANXIETY/SEIZURES January 02, 2014 1:00am July 05, 2024 7:26pm Start: 01-02-2014 inject 1 mg by intra muscular injection every four hours as needed Lorazepam Active 1 MG IM EVERY 4 HOURS NEEDED January 02, 2014 12:00am Start: 01-02-2014 inject 2 mg by intra muscular injection every four hours as needed Lorazepam Active 2 MG IM EVERY 4 HOURS NEEDED January 02, 2014 1:51am memantine hydrochloride 5 mg oral tablet (3 sources) L-lxxovp-I-aspartate Receptor Antagonist Start: 07-05-2024 take 1 tablet by mouth twice daily Memantine 5 mg tablet Active 5 mg PO TWICE A DAY July 05, 2024 12:00am mirtazapine 7.5 mg oral tablet (3 sources) Start: 07-05-2024 take 1 tablet by mouth at bedtime Mirtazapine 7.5 mg tablet Active 7.5 mg PO AT BEDTIME July 05, 2024 12:00am [place]-3 Fatty Acids ([place] 3 Fish Oil) Capsule (5 sources) Start: 08-27-2020 take 1 capsule by mouth once daily [place]-3 Fatty Acids ([place] 3 Fish Oil) Capsule Active 2000 MG PO DAILY August 27, 2020 12:52pm Start: 08-27-2020 take 1 capsule by mouth once d aily [place]-3 Fatty Acids ([place] 3 Fish Oil) Capsule Active 2000 MG PO DAILY August 26, 2020 11:00pm Start: 08-27-2020 take 1 capsule by mouth once d aily [place]-3 Fatty Acids ([place] 3 Fish Oil) Capsule Active 2000 MG PO DAILY August 27, 2020 12:00am [place]-3 Fatty Acids Capsule (3 sources) Start: 08-27-2020 take 1 capsule by mouth once daily [place]-3 Fatty Acids Capsule Active 2000 mg PO DAILY August 27, 2020 12:00am 24 hr propranolol hydrochloride 80 mg extended release oral capsule (5 sources) beta-Adrenergic Danisha Start: 08-13-2022 take 1 capsule by mouth once daily Propranolol (Inderal La) 80 mg Capsule,Extended Release 24 Hr Active 80 mg PO DAILY August 13, 2022 12:00am rifAXIMin 550 mg oral tablet (5 sources) Rifamycin Antibacterial Start: 08-13-2022 take 1 tablet by mouth twice daily Rifaximin 550 mg Tablet Active 550 mg PO TWICE A DAY August 13, 2022 12:00am selenium sulfide 10 mg/ml medicated shampoo (8 sources) Start: 08-27-2020 Selenium Sulfide 1 % Shampoo Active 1 NMA TOPICAL DAILY August 27, 2020 12:00am vortioxetine 10 mg oral tablet (3 sources) Start: 07-05-2024 take 1 tablet by mouth once daily Vortioxetine (Trintellix) 10 mg tablet Active 10 mg PO DAILY July 05, 2024 12:00am zonisamide 100 mg oral capsule (11 sources) Anti-epileptic Agent Start: 01-02-2014 End: 07-28-2023 take 1 capsule by mouth once daily Zonisamide 100 mg Capsule Active 300 mg PO DAILY 0 0 July 28, 2023 12:00am Completed/Discontinued Medications Medication Drug Class(es) Dates Sig (Normalized) Sig (Original) aluminum hydroxide 40 mg/ml / magnesium hydroxide 40 mg/ml / simethicone 4 mg/ml oral suspension (7 sources) Start: 08-27-2020 End: 07-05-2024 take 1 mL by mouth every four hours as needed Alum-Mag Hydroxide-Simeth 200-200-20 mg/5 mL Suspension Discontinued 30 mL PO EVERY 4 HOURS NEEDED as needed for Indigestion August 27, 2020 12:00am July 05, 2024 7:25pm Start: 08-27-2020 take 1 mL by mouth e very four hours as needed Alum-Mag Hydroxide-Simeth (Mylanta) 200-200-20 mg/5 mL Suspension Active 30 ML PO EVERY 4 HOURS NEEDED August 27, 2020 12:00am cariprazine 1.5 mg oral capsule (5 sources) Atypical Antipsychotic Start: 08-13-2022 End: 07-05-2024 take 1 capsule by mouth once daily Cariprazine (Vraylar) 1.5 mg Capsule Discontinued 1.5 mg PO DAILY August 13, 2022 12:00am July 05, 2024 7:25pm lamoTRIgine 25 mg chewable tablet (19 sources) Mood Stabilizer, Anti-epileptic Agent Start: 07-28-2023 End: 07-05-2024 take 3 tablets by mouth once daily Lamotrigine 25 mg Tablet, Chewable Dispersible Discontinued 75 mg PO DAILY 0 0 July 28, 2023 12:00am July 05, 2024 7:25pm Start: 08-27-2020 take 1 tablet by janelle th every twelve hours Lamotrigine (Lamictal) 100 mg Tablet Active 100 mg PO Q12H August 27, 2020 12:00am Start: 08-27-2020 End: 07-28-2023 take 2 tablets by mouth once daily Lamotrigine (Lamictal) 25 mg Tablet Discontinued 50 mg PO DAILY August 27, 2020 12:00am July 28, 2023 10:24am lurasidone hydrochloride 40 mg oral tablet (8 sources) Atypical Antipsychotic Start: 08-27-2020 End: 07-05-2024 take 1 tablet by mouth twice daily Lurasidone (Latuda) 40 mg Tablet Discontinued 40 mg PO TWICE A DAY August 27, 2020 12:00am July 05, 2024 7:26pm Magnesium Hydroxide (8 sources) Start: 08-27-2020 End: 07-05-2024 take 1 mL by mouth once daily as needed for constipation Magnesium Hydroxide (Milk Of Magnesia) 400 mg/5 mL Suspension Discontinued 30 mL PO DAILY NEEDED as needed for Constipation August 27, 2020 12:00am July 05, 2024 7:26pm Start: 08-27-2020 take 1 mL by mouth o nce daily as needed Magnesium Hydroxide (Milk Of Magnesia) 400 mg/5 mL Suspension Active 30 ML PO DAILY NEEDED August 26, 2020 11:00pm Start: 08-27-2020 take 1 mL by mouth o nce daily as needed Magnesium Hydroxide (Milk Of Magnesia) 400 mg/5 mL Suspension Active 30 ML PO DAILY NEEDED August 27, 2020 12:00am Start: 08-27-2020 take 1 mL by mouth o nce daily as needed Magnesium Hydroxide (Milk Of Magnesia) 400 mg/5 mL Suspension Active 30 ML PO DAILY NEEDED August 27, 2020 12:52pm nicotine 2 mg oral lozenge (8 sources) Cholinergic Nicotinic Agonist Start: 08-27-2020 End: 07-05-2024 Nicotine (Polacrilex) 2 mg Lozenge Discontinued 2 mg BUCCAL EVERY 2 HOURS NEEDED as needed for Smoking Cessation August 27, 2020 12:00am July 05, 2024 7:26pm traZODone hydrochloride 50 mg oral tablet (13 sources) Serotonin Reuptake Inhibitor Start: 08-13-2022 End: 07-05-2024 take 1 tablet by mouth once daily Trazodone 50 mg Tablet Discontinued 50 mg PO DAILY August 13, 2022 12:00am July 05, 2024 7:26pm Start: 01-02-2014 End: 07-05-2024 take 2 tablets by mouth at bedtime Trazodone 50 MG tablet Discontinued 100 mg PO AT BEDTIME January 02, 2014 1:00am July 05, 2024 7:26pm Start: 01-02-2014 take 100 mg by mouth at bedtim e Trazodone Active 100 MG PO AT BEDTIME January 02, 2014 12:00am Start: 01-02-2014 take 50 mg by mouth twice wilberto y Trazodone Active 50 MG PO TWICE A DAY January 02, 2014 1:51am Problems Active Problems Problem Classification Problem Date Documented Date Episodic/Chronic Administrative/social admission (3 sources) Procedure needed 07-25-2023 Episodic Epilepsy; convulsions (6 sources) Other generalized epilepsy and epileptic syndromes, not intractable, without status epilepticus; Translations: [Grand mal seizure] 07-27-2023 Chronic Fluid and electrolyte disorders (6 sources) Hyponatremia; Translations: [Hypo-osmolality and hyponatremia] 07-25-2023 Episodic Fracture of upper limb (8 sources) Closed fracture of scaphoid bone of wrist; Translations: [Unspecified fracture of navicular [scaphoid] bone of right wrist, initial encounter for closed fracture] 08-27-2020 Episodic Intracranial injury (3 sources) Traumatic brain injury; Translations: [Traumatic brain injury] 07-26-2023 Episodic Joint disorders and dislocations; trauma-related (3 sources) Dislocation of proximal interphalangeal joint of right little finger, initial encounter; Translations: [Dislocation of proximal interphalangeal joint of right little finger, initial encount] 01-07-2024 Episodic Open wounds of extremities (8 sources) Laceration of hand; Translations: [Laceration without foreign body of right hand, initial encounter] 08-27-2020 Episodic Other liver diseases (1 source) Hepatic failure, unspecified with coma; Translations: [Hepatic failure, unspecified with coma] Onset: 10-12-2024 Episodic Other nervous system disorders (3 sources) Encephalomalacia; Translations: [Other specified disorders of brain] 07-25-2023 Chronic Other nervous system disorders (3 sources) Dysarthria; Translations: [Dysarthria and anarthria] 07-25-2023 Episodic Other nutritional; endocrine; and metabolic disorders (1 source) Disorder of urea cycle metabolism, unspecified; Translations: [Disorder of urea cycle metabolism, unspecified] Onset: 10-09-2024 Chronic Residual codes; unclassified (5 sources) Disturbance of consciousness; Translations: [Transient alteration of awareness] 08-14-2022 Episodic Schizophrenia and other psychotic disorders (3 sources) Schizoaffective disorder; Translations: [Schizoaffective disorder, unspecified] 07-26-2023 Chronic Screening and history of mental health and substance abuse codes (10 sources) H/O: dementia; Translations: [Personal history of other mental and behavioral disorders] 08-14-2022 Episodic Transient cerebral ischemia (3 sources) Transient cerebral ischemia; Translations: [Transient cerebral ischemic attack, unspecified] 07-25-2023 Chronic Past or Other Problems Problem Classification Problem Date Documented Da te Episodic/Chronic Epilepsy; convulsions (1 source) Unspecified convulsions; Translations: [Unspecified convulsions] Onset: 07-11-2024 Episodic Other injuries and conditions due to external causes (1 source) Unspecified injury of right wrist, hand and finger(s), initial encounter; Translations: [Unspecified injury of right wrist, hand and finger(s), initial encounter] Onset: 01-24-2024 Episodic Results Test Name Value Interpretation Reference Range Facility Absolute lymphocyte countOrd ered By: Wil Leary on 07-05-2024 Lymphocytes Auto (Unsp spec) [#/Vol] 1.11 10*3/uL 0.83-4.51 [facility] Absolute neutrophil countOrd ered By: Wil Leary on 07-05-2024 Neutrophils (Bld) [#/Vol] 11.0 10*3/uL High 2.0-7.7 [facility] Anion gap in Serum or Plasma Ordered By: Wil Leary on 07-05-2024 Anion gap [Moles/Vol] 12 mmol/L 07-[address] [facility] Automated lymphocyte count a s percentage of total leukocytesOrdered By: Wil Leary on 07-05-2024 Lymphocytes/100 WBC Auto (Unsp spec) 8.4 % Low 19-41 [facility] BUN/creatinine ratioOrdered By: Wil Leary on 07-05-2024 Urea nitrogen/Creatinine [Mass ratio] 15.8 mg/mg 10-20 [facility] Basophil percentageOrdered B y: Wil Leary on 07-05-2024 Basophils/100 WBC (Bld) 0.4 % 0-1 [facility] Bilirubin, totalOrdered By: Wil Leary on 07-05-2024 Bilirubin [Mass/Vol] 0.30 mg/dL 0.00-1.30 [facility] Brain/Head without Contrasto n 07-05-2024 Brain/Head without Contrast [facility] Imaging Services [facility] [place], [place] [id number] Brain/Head without Contrast MR#: [id number] Acct: [id number] Name: JESUS WARD Rep #: [id number] : 1970 M 53 From: Masood Medina MD PCP: Dr. Ramon Sanchez MD Status: REG ER Study: Brain/Head without Contrast Date of Exam: 06/21 07/15 Exam# [id number] Ordering Dr: Wil Leary DO PROCEDURE: BRAIN/HEAD WITHOUT CONTRAST 07/05/2024 REASON FOR EXAM: SEIZURE TECHNIQUE: Head CT without intravenous contrast. Coronal and Sagittal reconstruction series were provided. One or more dose reduction techniques were used (e.g., Automated exposure control, adjustment of the mA and/or kV according to patient size, use of iterative reconstruction technique. RADIATION DOSE SUMMARY: CTDlvol: 45.0 mGy DLP: 914 mGycm COMPARISON: CT head without contrast 07/27/2023, MRI brain on 07/26/2023 FINDINGS: Brain: No acute intracranial hemorrhage, midline shift, or mass effect. There is extensive encephalomalacia in the left temporal and frontal lobes, unchanged. CSF Spaces: There is generalized cerebral atrophy which is similar to prior Sinuses/Mastoids: Predominantly clear at visualized levels Bones: Postoperative changes of the left temporal calvarium. Metallic foci in the right parietal scalp are unchanged. 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 Soft tissue debris in the external auditory canals, likely cerumen. CT/Brain/Head without Contrast IMPRESSION: No acute intracranial abnormality. Unchanged encephalomalacia in the left frontal and temporal lobes. Reading Location: [id number] CC: Dr. Wil Leary DO; Dr. Ramon Sanchez MD Weatherization Coordinator: Signed Normal [facility] CBC W/Diff, Automatedon 06-21 Absolute Lymph 1.11 X10 3/uL Normal 0.83-4.51 [facility] Comment on above: Performed By: #### L 501.5200, L100.0100, [id number] #### [facility] [address] [place], [address] Absolute Neut 11.0 X10 3/uL High 2.0-7.7 [facility] Comment on above: Performed By: #### L 501.5200, L100.0100, [id number] #### [facility] [address] [place], [address] Basophils/100 WBC (Bld) 0.4 % Normal 0-1 [facility] Comment on above: Performed By: #### L 501.5200, L100.0100, [id number] #### [facility] [address] [place], [address] Eosinophils/100 WBC (Bld) 2.0 % Normal 0-5 [facility] Comment on above: Performed By: #### L [id number], L100.0100, [id number] #### [facility] [address] [place], [address] Erythrocyte distribution width (RBC) [Ratio] 12.3 % Normal 11.6-14.6 [facility] Comment on above: Performed By: #### L 501.5200, L100.0100, [id number] #### [facility] [address] [place], [address] Hematocrit (Bld) [Volume fraction] 40.9 % Normal 40-54 [facility] Comment on above: Performed By: #### L [id number], L100.0100, [id number] #### [facility] [address] [place], [address] Hemoglobin (Bld) [Mass/Vol] 14.1 g/dL Normal 13.0-16.5 [facility] Comment on above: Performed By: #### L 501.5200, L100.0100, [id number] #### [facility] [address] [place], [address] IG% 0.500 Normal 0.0-0.9 [facility] Comment on above: Result Comment: IG% - Immature Granulocytes (promyelocytes, myelocytes and metamyelocytes) > 1% indicates that a LEFT SHIFT is Present. Performed By: #### L 501.5200, L100.0100, [id number] #### [facility] [address] [place], [address] Lymphocytes/100 WBC (Bld) 8.4 % Low 19-41 [facility] Comment on above: Performed By: #### L 501.5200, L100.0100, [id number] #### [facility] [address] [place], [address] MCH (RBC) [Entitic mass] 32.9 pg High 27.0-32.0 [facility] Comment on above: Performed By: #### L 501.5200, L100.0100, [id number] #### [facility] [address] [place], [address] MCHC (RBC) [Mass/Vol] 34.5 g/dL Normal 32-[address] [facility] Comment on above: Performed By: #### L 501.5200, L100.0100, [id number] #### [facility] [address] [place], [address] MCV (RBC) [Entitic vol] 95.3 fL High 80-94 [facility] Comment on above: Performed By: #### L 501.5200, L100.0100, [id number] #### [facility] [address] [place], [address] Monocytes/100 WBC (Bld) 5.7 % Normal 0-10 [facility] Comment on above: Performed By: #### L 501.5200, L100.0100, [id number] #### [facility] [address] [place], [address] Neutrophils/100 WBC (Bld) 83.0 % High 47-70 [facility] Comment on above: Performed By: #### L 501.5200, L100.0100, [id number] #### [facility] [address] [place], [address] Nucleated RBC (Bld) [#/Vol] 0 10*3/uL Normal 0-5 [facility] Comment on above: Performed By: #### L 501.5200, L100.0100, [id number] #### [facility] [address] [place], [address] Platelet mean volume (Bld) [Entitic vol] 8.2 fL Normal 6.2-12.0 [facility] Comment on above: Performed By: #### L 501.5200, L100.0100, [id number] #### [facility] [address] [place], [address] Platelets (Bld) [#/Vol] 261 10*3/uL Normal 150-450 [facility] Comment on above: Performed By: #### L 501.5200, L100.0100, [id number] #### [facility] [address] [place], [address] RBC (Bld) [#/Vol] 4.29 10*6/uL Low 4.6-6.2 [facility] Comment on above: Performed By: #### L 501.5200, L100.0100, [id number] #### [facility] [address] [place], [address] RDW SD 42.7 fl Normal 35.1-43.9 [facility] Comment on above: Performed By: #### L 501.5200, L100.0100, [id number] #### [facility] [address] [place], [address] WBC (Bld) [#/Vol] 13.3 10*3/uL High 4.4-11.0 [facility] Comment on above: Performed By: #### L 501.5200, L100.0100, [id number] #### [facility] [address] [place], [address] Carbon dioxide, total [Moles /volume] in Central venous bloodOrdered By: Wil Leary on 07-05-2024 CO2 [Moles/Vol] 23.8 mmol/L 21.0-32.0 [facility] Chloride assayOrdered By: Sunday Leary on 07-05-2024 Chloride [Moles/Vol] 103 mmol/L 98-108 [facility] Comprehensive Metabolic Prof ilon 07-05-2024 Albumin [Mass/Vol] 4.3 g/dL Normal 3.5-5.0 [facility] Comment on above: Performed By: #### L 501.5200, L100.0100, [id number] #### [facility] [address] [place], [address] Albumin/Globulin [Mass ratio] 1.4 {ratio} Normal 0.9-2.4 [facility] Comment on above: Performed By: #### L 501.5200, L100.0100, [id number] #### [facility] [address] [place], [address] ALK PHOS 116 U/L Normal 40-129 [facility] Comment on above: Performed By: #### L 501.5200, L100.0100, [id number] #### [facility] [address] [place], [address] ALT [Catalytic activity/Vol] 14 U/L Normal <=46 [facility] Comment on above: Performed By: #### L 501.5200, L100.0100, [id number] #### [facility] [address] [place], [address] AST [Catalytic activity/Vol] 23 U/L Normal <=37 [facility] Comment on above: Performed By: #### L 501.5200, L100.0100, [id number] #### [facility] [address] [place], [address] Bilirubin [Mass/Vol] 0.30 mg/dL Normal 0.00-1.30 [facility] Comment on above: Performed By: #### L 501.5200, L100.0100, [id number] #### [facility] [address] [place], [address] BUN/CRE 15.8 RATIO Normal 10-20 [facility] Comment on above: Performed By: #### L 501.5200, L100.0100, [id number] #### [facility] [address] [place], [address] Calcium [Mass/Vol] 9.9 mg/dL Normal 7.6-11.0 [facility] Comment on above: Performed By: #### L 501.5200, L100.0100, L500.4050 #### [facility] [address] [place], [address] Chloride [Moles/Vol] 103 mmol/L Normal 98-108 [facility] Comment on above: Performed By: #### L 501.5200, L100.0100, L500.4050 #### [facility] [address] [place], [address] CO2 [Moles/Vol] 23.8 mmol/L Normal 21.0-32.0 [facility] Comment on above: Performed By: #### L 501.5200, L100.0100, L500.4050 #### [facility] [address] [place], [address] Creatinine [Mass/Vol] 0.91 mg/dL Normal 0.70-1.[address] [facility] Comment on above: Performed By: #### L 501.5200, L100.0100, L500.4050 #### [facility] [address] [place], [address] ECRCL 95.21 ml/min Normal 50-250 [facility] Comment on above: Performed By: #### L 501.5200, L100.0100, L500.4050 #### [facility] [address] [place], [address] GAP 12 Normal 5-15 [facility] Comment on above: Performed By: #### L 501.5200, L100.0100, L500.4050 #### [facility] [address] [place], [address] GFR/1.73 sq M.predicted among non-blacks MDRD (S/P/Bld) [Vol rate/Area] 101 mL/min/{1.73_m2} Normal >60 [facility] Comment on above: Result Comment: mL/m in/1.73m2 CKD-EPI Creatinine Equation (2020) Performed By: #### L 501.5200, L100.0100, L500.4050 #### [facility] [address] [place], [address] Globulin (S) [Mass/Vol] 3.0 g/dL Normal 2.2-4.2 [facility] Comment on above: Performed By: #### L 501.5200, L100.0100, L500.4050 #### [facility] [address] [place], [address] Glucose [Mass/Vol] 87 mg/dL Normal 70-99 [facility] Comment on above: Performed By: #### L 501.5200, L100.0100, L500.4050 #### [facility] [address] [place], [address] Potassium [Moles/Vol] 3.6 mmol/L Normal 3.3-5.[address] [facility] Comment on above: Performed By: #### L 501.5200, L100.0100, L500.4050 #### [facility] [address] [place], [address] Sodium [Moles/Vol] 139 mmol/L Normal 133-145 [facility] Comment on above: Performed By: #### L 501.5200, L100.0100, L500.4050 #### [facility] [address] [place], [address] T PROT 7.3 g/dL Normal 5.9-8.4 [facility] Comment on above: Performed By: #### L 501.5200, L100.0100, L500.4050 #### [facility] [address] [place], [address] Urea nitrogen [Mass/Vol] 14 mg/dL Normal 4-19 [facility] Comment on above: Performed By: #### L 501.5200, L100.0100, L500.4050 #### [facility] [address] [place], [address] Emergency Department Summary on 07-05-2024 Emergency Department Summary [facility] Medical Records Department [address] [facility] [place] [address] Emergency Department Summary 07/05/24 MR#: [id number] Acct: [id number] Name: JESUS WARD Rep #: [id number] : 1970 53 From: Wil Leary DO PCP: Dr. Ramon Sanchez MD Status:REG ER Location: ED HPI History of Present Illness Chief Complaint: Seizure Informant: patient and EMS Narrative Narrative: 53-year-old male brought to the emergency room from EMS following a seizure. Reportedly the patient is from the skilled facility has a history of TBI/stroke/psychiatr ic disorder as well as seizures. He apparently went outside to smoke and began to have a seizure in his chair. This lasted about 3 minutes per report. Reportedly the last seizure was in July 2023. At baseline is reported that he is unsteady in a wheelchair slurs words points to things moves arms and legs a lot and is occasionally combative. Medication sheet accompanies him I do not see any labs that I can readily get a level on tonight. Patient himself is not really contributing anything to the history. [facility] Medical History Personality disorder Post traumatic seizure Polyarthritis TBI (traumatic brain injury) Depression Bipolar disorder Schizoaffective disorder Nicotine dependence Psychotic disorder Alcohol dependence Dementia Anemia Delusional disorder Hyperlipidemia COPD (chronic obstructive pulmonary disease) Chronic pain Tinea corporis Stroke/cerebrovascul ar accident TIA (transient ischemic attack) Home Medications ???Medication ???Instructions ???Recorded ???Last Taken ???Type acetaminophen 325 mg tablet 650 mg PO Q4H PRN PRN PAIN/FEVER 1 03/04/13 06/19/24 History (Tylenol) cholecalciferol (vitamin D3) 1,250 1,250 mcg PO SAAVEDRA 08/27/20 5 History mcg (50,000 unit) capsule lamotrigine 100 mg tablet 100 mg PO Q12H 08/27/20 07/05/24 H istory (Lamictal) lorazepam 1 mg tablet (Ativan) 1 mg PO Q4H PRN PRN 08/27/2006/29 History ANXIETY/SEIZURES omega-3 fatty acids 2,000 mg PO DAILY 08/27/20 5 History selenium sulfide 1 % shampoo 1 applic topical DAILY 08/27/20 History atorvastatin 20 mg tablet (Lipitor) 20 mg PO DAILY high cholesterol 08/13/22 07/04/24 History lactulose 10 gram/15 mL (15 mL) 45 ml PO TID 08/13/22 07/05/24 His tory oral solution lorazepam 1 mg tablet (Ativan) 1 mg PO TID PRN Anxiety 08/13/22 0 07/05/24 History propranolol 80 mg capsule,24 80 mg PO DAILY 08/13/22 07/05/24 H istory hr,extended release (Inderal LA) rifaximin 550 mg tablet 550 mg PO BID 08/13/22 07/05/24 Hi story aspirin 81 mg capsule 81 mg PO DAILY pain, blood thinner 03/27/23 07/05/24 History hydrochlorothiazide 25 mg tablet 25 mg PO DAILY 03/27/23 07/05/24 H istory zonisamide 100 mg capsule 300 mg (3 x 100 mg) PO DAILY #0 07/05/24 Rx caps fenofibrate nanocrystallized 48 mg 48 mg PO DAILY 07/05/24 07/04/24 History tablet haloperidol 5 mg tablet 5 mg PO TID 07/05/24 07/05/24 Hist ory ibuprofen 200 mg tablet (Advil) 600 mg PO Q8H PAIN 07/05/24 History memantine 5 mg tablet 5 mg PO BID 07/05/24 07/05/24 Hist ory mirtazapine 7.5 mg tablet 7.5 mg PO QHS 07/05/24 07/04/24 Hi story vortioxetine 10 mg tablet 10 mg PO DAILY 07/05/24 07/05/24 H istory (Trintellix) Allergy/AdvReac Type Severity Reaction Status Date / Time No Known Allergies Allergy Verified 07/05/24 19:00 Social History Smoking Status: Smoker, status unknown tobacco type: cigarettes substance use type: does not use ROS ROS ED Review of Systems ROS Unobtainable: due to mental status EXAM Physical Exam Const Vital Signs: 07/05/24 19:00 07/05/24 21:00 Temperature 97.5 F L Temperature Source Temporal Pulse Rate 80 88 Respiratory Rate 16 Blood Pressure 133/84 H 134/89 H Blood Pressure Mean 100 104 Pulse Ox 100 98 Oxygen Delivery Method Room Air Positive well nourished and well developed General Appearance ED: well developed HEENT Reports normocephalic, head/scalp atraumatic and moist mucous membranes Eyes PERRL and EOMs intact bilaterally Neck no lymphadenopathy, supple and no JVD Resp normal respiratory effort and clear to auscultation bilaterally Cardio regular rate, regular rhythm and no murmurs GI normal to inspection, nondistended, normoactive bowel sounds and non-tender Palpation: soft Back/Spine no CVA tenderness and normal ROM Extremity Extremity Narrative: Appears to have some contractures of the hands. General Extremety ED: Negative for edema General Extremity: Negative for edema Neuro oriented x3 Neuro Narrative: P (more content not included)... Normal [facility] Eosinophil percentageOrdered By: Wil Leary on 07-05-2024 Eosinophils/100 WBC (Bld) 2.0 % 0-5 [facility] Erythrocyte distribution wid th ratioOrdered By: Wil Leary on 07-05-2024 Erythrocyte distribution width (RBC) [Ratio] 12.3 % 11.6-14.6 [facility] Erythrocyte distribution wid th standard deviationOrdered By: Wil Leary on 07-05-2024 Erythrocyte distribution width (RBC) [Ratio] 42.7 fl 35.1-43.9 [facility] Glomerular filtration rate ( GFR) estimation/1.73 sq m using serum, plasma, or whole bOrdered By: Wil Leary on 07-05-2024 GFR/1.73 sq M.predicted among non-blacks MDRD (S/P/Bld) [Vol rate/Area] 101 mL/min/{1.73_m2} >60 [facility] Comment on above: mL/min/1.73m2 CKD-EP I Creatinine Equation (2020) Hematocrit Auto (Bld) [Volum e fraction]Ordered By: Wil Leary on 07-05-2024 Hematocrit (Bld) [Volume fraction] 40.9 % 40-54 [facility] Hemoglobin measurementOrdere d By: Wil Leary on 07-05-2024 Hemoglobin (Bld) [Mass/Vol] 14.1 g/dL 13.0-16.5 [facility] Immature granulocytes/100 WB C Auto (Bld)Ordered By: Wil Leary on 07-05-2024 Immature granulocytes/100 WBC (Bld) 0.500 % 0.0-0.9 [facility] Comment on above: IG% - Immature Granu locytes (promyelocytes, myelocytes and metamyelocytes) > 1% indicates that a LEFT SHIFT is Present. Laboratory - Chemistry and C hemistry - challengeOrdered By: Wil Leary on 07-05-2024 AST [Catalytic activity/Vol] 23 U/L <38 [facility] MCV (mean corpuscular volume ) determinationOrdered By: Wil Leary on 07-05-2024 MCV (RBC) [Entitic vol] 95.3 fL High 80-94 [facility] Magnesiumon 07-05-2024 Magnesium [Mass/Vol] 2.0 mg/dL Normal 1.5-2.2 [facility] Comment on above: Performed By: #### L 501.5200, L100.0100, L500.4050 #### [facility] [place], [address] Magnesium measurement (mass/ volume)Ordered By: Wil Leary on 07-05-2024 Magnesium (Unsp spec) [Mass/Vol] 2.0 mg/dL 1.5-2.2 [facility] Mean corpuscular hemoglobin (MCH) determinationOrdered By: Wil Leary on 07-05-2024 MCH (RBC) [Entitic mass] 32.9 pg High 27.0-32.0 [facility] Mean corpuscular hemoglobin concentration (MCHC) determinationOrdered By: Wil Leary on 07-05-2024 MCHC (RBC) [Mass/Vol] 34.5 g/dL 32-[address] [facility] Mean platelet volume determi nationOrdered By: Wil Leary on 07-05-2024 Platelet mean volume (Bld) [Entitic vol] 8.2 fL 6.2-12.0 [facility] Monocyte percentageOrdered B y: Wil Leary on 07-05-2024 Monocytes/100 WBC (Bld) 5.7 % 0-10 [facility] Neutrophil percentageOrdered By: Wil Leary on 07-05-2024 Neutrophils/100 WBC (Bld) 83.0 % High 47-70 [facility] Nucleated red blood cell per centageOrdered By: Wil Leary on 07-05-2024 Nucleated RBC/100 WBC (Bld) [Ratio] 0 % 0-5 [facility] Platelet countOrdered By: Sunday Leary on 07-05-2024 Platelets (Bld) [#/Vol] 261 10*3/uL 150-450 [facility] Potassium measurement (mass/ volume)Ordered By: Wil Leary on 07-05-2024 Potassium (Unsp spec) [Mass/Vol] 3.6 mmol/L 3.3-5.1 [facility] RBC Auto (Bld) [#/Vol]Ordere d By: Wil Leary on 07-05-2024 RBC (Bld) [#/Vol] 4.29 10*6/uL Low 4.6-6.2 [facility] Serum creatinine measurement (mass/volume)Ordered By: Wil Leary on 07-05-2024 Creatinine [Mass/Vol] 0.91 mg/dL 0.70-1.[address] [facility] Serum globulin measurementOr dered By: Wil Leary on 07-05-2024 Globulin (S) [Mass/Vol] 3.0 g/dL 2.2-4.2 [facility] Serum glucose measurement (m ass/volume)Ordered By: Wil Leary on 07-05-2024 Glucose [Mass/Vol] 87 mg/dL 70-99 [facility] Serum or plasma alanine link otransferase (ALT) measurementOrdered By: Wil Leary on 07-05-2024 ALT [Catalytic activity/Vol] 14 U/L <47 [facility] Serum or plasma albumin ashish urement (mass/volume)Ordered By: Wil Leary on 07-05-2024 Albumin [Mass/Vol] 4.3 g/dL 3.5-5.0 [facility] Serum or plasma albumin/glob ulin mass ratioOrdered By: Wil Leary on 07-05-2024 Albumin/Globulin [Mass ratio] 1.4 {ratio} 0.9-2.4 [facility] Serum or plasma alkaline nanette sphatase measurementOrdered By: Wil Leary on 07-05-2024 ALP [Catalytic activity/Vol] 116 U/L 40-129 [facility] Serum or plasma calcium ashish urement (mass/volume)Ordered By: Wil Leary on 07-05-2024 Calcium [Mass/Vol] 9.9 mg/dL 7.6-11.0 [facility] Serum or plasma urea nitroge n measurement (mass/volume)Ordered By: Wil Leary on 07-05-2024 Urea nitrogen [Mass/Vol] 14 mg/dL 4-19 [facility] Sodium levelOrdered By: Jerrod Leary on 07-05-2024 Sodium [Moles/Vol] 139 mmol/L 133-145 [facility] Total proteinOrdered By: Angel Leary on 07-05-2024 Protein [Mass/Vol] 7.3 g/dL 5.9-8.4 [facility] Urinalysis, Completeon 07-05 BACTERIA Normal None Seen [facility] Comment on above: Order Comment: [place] CTOR TO SPECIFY Result Comment: @PT DEPARTED ER, OK TO CANCEL BY MHOSTETTLER Performed By: #### L 400.0001 #### [facility] [address] [place], [address] BILIRUBIN URINE Normal Negative [facility] Comment on above: Order Comment: [place] CTOR TO SPECIFY Result Comment: @PT DEPARTED ER, OK TO CANCEL BY MHOSTETTLER Performed By: #### L 400.0001 #### [facility] [address] [place], [address] Clarity (U) Normal Clear [facility] Comment on above: Order Comment: [place] CTOR TO SPECIFY Result Comment: @PT DEPARTED ER, OK TO CANCEL BY MHOSTETTLER Performed By: #### L 400.0001 #### [facility] [address] [place], [address] Color (U) Normal Yellow [facility] Comment on above: Order Comment: [place] CTOR TO SPECIFY Result Comment: @PT DEPARTED ER, OK TO CANCEL BY MHOSTETTLER Performed By: #### L 400.0001 #### [facility] [address] [place], [address] EPI,SQUAMOUS Normal 0-5 [facility] Comment on above: Order Comment: COLLE CTOR TO SPECIFY Result Comment: @PT DEPARTED ER, OK TO CANCEL BY MHOSTETTLER Performed By: #### L 400.0001 #### [facility] [address] [place], [address] GLUCOSE, UR Normal Normal [facility] Comment on above: Order Comment: [place] CTOR TO SPECIFY Result Comment: @PT DEPARTED ER, OK TO CANCEL BY MHOSTETTLER Performed By: #### L 400.0001 #### [facility] [address] [place], [address] KETONE UR Normal Negative [facility] Comment on above: Order Comment: COLLE CTOR TO SPECIFY Result Comment: @PT DEPARTED ER, OK TO CANCEL BY MHOSTETTLER Performed By: #### L 400.0001 #### [facility] [address] [place], [address] LEUK ESTERASE Normal Negative [facility] Comment on above: Order Comment: COLLE CTOR TO SPECIFY Result Comment: @PT DEPARTED ER, OK TO CANCEL BY MHOSTETTLER Performed By: #### L 400.0001 #### [facility] [address] [place], [address] Mucus Ql (Urine sed) Normal [facility] Comment on above: Order Comment: COLLE CTOR TO SPECIFY Result Comment: @PT DEPARTED ER, OK TO CANCEL BY MHOSTETTLER Performed By: #### L 400.0001 #### [facility] [address] [place], [address] Nitrite Ql (U) Normal Negative [facility] Comment on above: Order Comment: COLLE CTOR TO SPECIFY Result Comment: @PT DEPARTED ER, OK TO CANCEL BY MHOSTETTLER Performed By: #### L 400.0001 #### [facility] [address] [place], [address] OCCULT BLOOD-UR Normal Negative [facility] Comment on above: Order Comment: COLLE CTOR TO SPECIFY Result Comment: @PT DEPARTED ER, OK TO CANCEL BY MHOSTETTLER Performed By: #### L 400.0001 #### [facility] [address] [place], [address] pH UR Normal 5.0 - 8.0 [facility] Comment on above: Order Comment: COLLE CTOR TO SPECIFY Result Comment: @PT DEPARTED ER, OK TO CANCEL BY MHOSTETTLER Performed By: #### L 400.0001 #### [facility] [address] [place], [address] PROT DIPSTX Normal Negative [facility] Comment on above: Order Comment: COLLE CTOR TO SPECIFY Result Comment: @PT DEPARTED ER, OK TO CANCEL BY MHOSTETTLER Performed By: #### L 400.0001 #### [facility] [address] [place], [address] RBC Normal 0-5 [facility] Comment on above: Order Comment: COLLE CTOR TO SPECIFY Result Comment: @PT DEPARTED ER, OK TO CANCEL BY MHOSTETTLER Performed By: #### L 400.0001 #### [facility] [address] [place], [address] SP.GR. DIPSTX Normal 1.002-1.030 [facility] Comment on above: Order Comment: [place] CTOR TO SPECIFY Result Comment: @PT DEPARTED ER, OK TO CANCEL BY MHOSTETTLER Performed By: #### L 400.0001 #### [facility] [address] [place], [address] [facility] Comment on above: Order Comment: [place] CTOR TO SPECIFY Result Comment: @PT DEPARTED ER, OK TO CANCEL BY MHOSTETTLER Performed By: #### L 400.0001 #### [facility] [address] [place], [address] Normal [facility] Comment on above: Order Comment: COLLE CTOR TO SPECIFY Result Comment: @PT DEPARTED ER, OK TO CANCEL BY MHOSTETTLER Performed By: #### L 400.0001 #### [facility] [address] [place], [address] WBC Normal 0-5 [facility] Comment on above: Order Comment: [place] CTOR TO SPECIFY Result Comment: @PT DEPARTED ER, OK TO CANCEL BY MHOSTETTLER Performed By: #### L 400.0001 #### [facility] [address] [place], [address] White blood cell (WBC) count Ordered By: Wil Leary on 07-05-2024 WBC (Bld) [#/Vol] 13.3 10*3/uL High 4.4-11.0 [facility] Emergency Department Summary on 12-29-2023 Emergency Department Summary [facility] Medical Records Department [address] [place] [address] Emergency Department Summary 12/29/23 MR#: [id number] Acct: [id number] Name: JESUS WARD Rep #: [id number] : 1970 53 From: Gianfranco Leigh DO PCP: Dr. Ramon Sanchez MD Status:REG ER Location: ED HPI History of Present Illness HPI Narrative: Patient presents with an injury to his right fifth finger that occurred today. Patient caught his finger while transferring himself to a chair. Patient states his pain is worse with any movement of his finger. Patient denies any paresthesias or weakness. Patient denies any lacerations. Patient is a poor informant. Chief Complaint: Upper Extremity Injury Informant: patient and EMS Onset/Context/Timing Onset: Today Context: Sudden Onset Timing: Continuous Location: Right fifth finger Worsened by: Movement Relieved by: Nothing Associated Symptoms Associated Symptoms: Negative for Parasthesia, Weakness or Loss of Funtion PFSH PFS Medical History Personality disorder Post traumatic seizure Polyarthritis TBI (traumatic brain injury) Depression Bipolar disorder Schizoaffective disorder Nicotine dependence Psychotic disorder Alcohol dependence Dementia Anemia Delusional disorder Hyperlipidemia COPD (chronic obstructive pulmonary disease) Chronic pain Tinea corporis Stroke/cerebrovascul ar accident TIA (transient ischemic attack) Home Medications ???Medication ???Instructions ???Recorded ???Last Taken ???Type acetaminophen 325 mg tablet 650 mg PO Q4H PRN PRN PAIN/FEVER 01/02/14 Unknown History (Tylenol) lorazepam 2 mg/mL injection 1 mg IM Q4H PRN PRN 01/02/14 Unknown History solution ANXIETY/SEIZURES trazodone 50 mg tablet 100 mg PO QHS 01/02/14 Unknown History Ibuprofen [Motrin] 600 mg PO TID 08/27/20 Unknown History aluminum-mag hydroxide-simethicon e 30 ml PO Q4H PRN PRN Indigestion 08/27/20 Unknown History 200 mg-200 mg-20 mg/5 mL oral susp cholecalciferol (vitamin D3) 1,250 1,250 mcg PO SAAVEDRA 08/27/20 Unknown History mcg (50,000 unit) capsule fenofibrate 120 mg tablet 48 mg PO DAILY 08/27/20 Unknown History haloperidol 2 mg tablet 5 mg PO TID 08/27/20 Unknown History lamotrigine 100 mg tablet 100 mg PO QHS 08/27/20 Unknown History (Lamictal) lorazepam 1 mg tablet (Ativan) 1 mg PO Q4H PRN PRN 08/27/20 Unknown History ANXIETY/SEIZURES lurasidone 40 mg tablet (Latuda) 40 mg PO BID 08/27/20 Unknown History magnesium hydroxide 400 mg/5 mL 30 ml PO DAILY PRN PRN Constipation 08/27/20 Unknown History oral suspension (Milk of Magnesia) nicotine (polacrilex) 2 mg buccal 2 mg buccal Q2H PRN PRN Smoking 08/27/20 Unknown History lozenge Cessation omega-3 fatty acids 2,000 mg PO DAILY 08/27/20 Unknown History selenium sulfide 1 % shampoo 1 applic topical DAILY 08/27/20 Unknown History atorvastatin 20 mg tablet (Lipitor) 20 mg PO DAILY high cholesterol 08/13/22 Unknown History cariprazine 1.5 mg capsule 1.5 mg PO DAILY 08/13/22 Unknown History (Vraylar) lactulose 10 gram/15 mL (15 mL) 45 ml PO TID 08/13/22 Unknown History oral solution lorazepam 1 mg tablet (Ativan) 1 mg PO TID PRN Anxiety 08/13/22 Unknown History propranolol 80 mg capsule,24 80 mg PO DAILY 08/13/22 Unknown History hr,extended release (Inderal LA) rifaximin 550 mg tablet 550 mg PO BID 08/13/22 Unknown History trazodone 50 mg tablet 50 mg PO DAILY 08/13/22 Unknown History aspirin 81 mg capsule 81 mg PO DAILY pain, blood thinner 03/27/23 Unknown History hydrochlorothiazide 25 mg tablet 25 mg PO DAILY 03/27/23 Unknown History lamotrigine 25 mg chewable 75 mg (3 x 25 mg) PO DAILY #0 ea 07/28/23 Unknown Rx dispersible tablet zonisamide 100 mg capsule 300 mg (3 x 100 mg) PO DAILY #0 07/28/23 Unknown Rx caps Allergy/AdvReac Type Severity Reaction Status Date / Time No Known Allergies Allergy Verified 12/29/23 20:34 Social History Smoking Status: Smoker, status unknown tobacco type: cigarettes substance use type: does not use ROS ROS ED Review of Systems ROS Unobtainable: due to mental condition EXAM Physical Exam Const Vital Signs: 12/29/23 20:35 Temperature 97.3 F L Temperature Source Oral Pulse Rate 59 L Respiratory Rate 16 Blood Pressure 118/89 H Blood Pressure Mean 98 Pulse Ox 98 Oxygen Delivery Method Room Air Positive well nourished and well developed General Appearance ED: well developed and NAD HEENT Reports moist mucous membranes normocephalic and atraumatic Neck full ROM and supple Extremity Extremity Narrative: There is a deformity of the PIP joint of the right fifth finger. Range of motion was limited (more content not included)... Normal [facility] Finger(s) Min 2 Viewson 11-0 -2023 Finger(s) Min 2 Views [facility] Imaging Services [address] [place] [address] Finger(s) Min 2 Views MR#: [id number] Acct: [id number] Name: JESUS WARD Rep #: [id number] : 1970 M 53 From: Varinder burnett MD PCP: Dr. Ramon Sanchez MD Status: REG ER Study: Finger(s) Min 2 Views Date of Exam: 12/29/23 Exam# [id number] Ordering Dr: Gianfranco Leigh DO [id number] STUDY: X-RAY - RIGHT HAND, ATTENTION FIFTH FINGER REASON FOR EXAM: Male, 53 years old. Injury/Pain -- Postreduction TECHNIQUE: 2 view(s) of the finger were obtained. COMPARISON: Radiographs of earlier today. FINDINGS: Previous dislocation mediastinum to normal position. No subluxations. Again seen is a fragment of bone displaced from the corner of the base of the fifth proximal phalanx consistent with a fracture of indeterminate age. No other evidence for fracture. RAD/Finger(s) Min 2 Views IMPRESSION: Complete reduction of previous dislocation. Electronically Signed: Varinder Corrigan MD at 23:11 EST , CC: Dr. Gianfranco Leigh DO; Dr. Ramon Sanchez MD Weatherization Coordinator: Signed Normal [facility] Finger(s) Min 2 Views [facility] Imaging Services [address] [place], [place] [address] Finger(s) Min 2 Views MR#: [id number] Acct: [id number] Name: JESUS WARD Rep #: [id number] : 1970 M 53 From: Varinder burnett MD PCP: Dr. Ramon Sanchez MD Status: [facility] Study: Finger(s) Min 2 Views Date of Exam: 12/29/23 Exam# [id number] Ordering Dr: Gianfranco Leigh DO [id number] STUDY: X-RAY - RIGHT HAND, ATTENTION FIFTH FINGER REASON FOR EXAM: Male, 53 years old. Injury/Pain TECHNIQUE: 3 view(s) of the finger were obtained. COMPARISON: None. FINDINGS: There is complete dorsal dislocation of the fifth proximal interphalangeal joint. No associated fractures are seen. Probable small fracture of the base of the fifth proximal phalanx. Deformities of the fifth metacarpal seen consistent with previous fracture. Normal middle phalanx. Normal distal phalanx. Metal foreign body can be seen in the soft tissues dorsal to the distal carpal row. RAD/Finger(s) Min 2 Views IMPRESSION: There is complete dorsal dislocation of the fifth proximal interphalangeal joint. No associated fractures are seen. Electronically Signed: Varinder Corrigan MD at 22:18 EST , CC: Dr. Gianfranco Leigh, DO; Dr. Ramon Sanchez MD Weatherization Coordinator: Signed Normal [facility] Absolute lymphocyte countOrd ered By: Jesus Way on 03-27-2023 Lymphocytes Auto (Unsp spec) [#/Vol] 2.47 10*3/uL 0.83-4.51 [facility] Automated lymphocyte count a s percentage of total leukocytesOrdered By: Jesus Way on 03-27-2023 Lymphocytes/100 WBC Auto (Unsp spec) 30.2 % 19-41 [facility] Basophil percentageOrdered B y: Jesus Way on 03-27-2023 Ammonia (P) [Moles/Vol] 60.0 umol/L 11-32 [facility] Basophils/100 WBC (Bld) 0.5 % 0-1 [facility] Bilirubin [Mass/Vol] 0.20 mg/dL 0.20-1.00 [facility] Comment on above: For patients on eltr ombopag therapy, use of Dimension [place] TBIL is not recommended. Chloride [Moles/Vol] 103 mmol/L 98-107 [facility] Eosinophils/100 WBC (Bld) 3.3 % 0-5 [facility] Glucose [Mass/Vol] 100 mg/dL 74-106 [facility] Comment on above: Fasting Glucose resu lt from 100 to 125 mg/dL suggests IMPAIRED HOMEOSTASIS per A.D.A. criteria. Hemoglobin (Bld) [Mass/Vol] 13.5 g/dL 13.0-16.5 [facility] Monocytes/100 WBC (Bld) 8.2 % 0-10 [facility] Neutrophils (Bld) [#/Vol] 4.7 10*3/uL 2.0-7.7 [facility] Neutrophils/100 WBC (Bld) 57.6 % 47-70 [facility] Potassium [Moles/Vol] 3.3 mmol/L 3.5-5.[address] [facility] Protein [Mass/Vol] 6.7 g/dL 6.4-8.2 [facility] Sodium [Moles/Vol] 137 mmol/L 136-145 [facility] WBC (Bld) [#/Vol] 8.2 10*3/uL 4.4-11.0 [facility] Determination of erythrocyte mean corpuscular volume (MCV)Ordered By: Jessu Way on 03-27-2023 MCV (RBC) [Entitic vol] 92.9 fL 80-94 [facility] Erythrocyte distribution wid th ratioOrdered By: Jesus Way on 03-27-2023 Erythrocyte distribution width (RBC) [Ratio] 11.9 % 11.6-14.6 [facility] Erythrocyte distribution wid th standard deviationOrdered By: Jesus Way on 03-27-2023 Erythrocyte distribution width (RBC) [Entitic vol] 40.4 fL 35.1-43.9 [facility] Hematocrit Auto (Bld) [Volum e fraction]Ordered By: Jesus Way on 03-27-2023 Hematocrit (Bld) [Volume fraction] 39.1 % 40-54 [facility] Immature granulocytes/100 WB C Auto (Bld)Ordered By: Jesus Way on 03-27-2023 Immature granulocytes/100 WBC (Bld) 0.200 % 0.0-0.9 [facility] Comment on above: IG% - Immature Granu locytes (promyelocytes, myelocytes and metamyelocytes) > 1% indicates that a LEFT SHIFT is Present. Laboratory - Chemistry and C hemistry - challengeOrdered By: Jesus Way on 03-27-2023 Albumin/Globulin [Mass ratio] 1.1 {ratio} 0.9-2.4 [facility] ALP [Catalytic activity/Vol] 92 U/L 45-117 [facility] ALT [Catalytic activity/Vol] 18 U/L 16-61 [facility] CO2 [Moles/Vol] 31.0 mmol/L 21.0-32.0 [facility] Globulin (S) [Mass/Vol] 3.2 g/dL 2.2-4.2 [facility] Urea nitrogen/Creatinine [Mass ratio] 18.1 mg/mg 10-20 [facility] Laboratory - Hematology and Cell countsOrdered By: Jesus Way on 03-27-2023 MCH (RBC) [Entitic mass] 32.1 pg 27.0-32.0 [facility] MCHC (RBC) [Mass/Vol] 34.5 g/dL 32-[address] [facility] Nucleated RBC/100 WBC (Bld) [Ratio] 0 % 0-5 [facility] Platelets (Bld) [#/Vol] 226 10*3/uL 150-450 [facility] No Panel InformationOrdered By: Jesus Way on 03-27-2023 Estimated Creatinine Clearance Calc 100.25 ml/min [facility] Estimated GFR (MDRD) Amer 116 mL/min >60 [facility] Comment on above: GFR Calc Estimated GFR (MDRD) Non-Af Amer 96 mL/min >60 [facility] Comment on above: Non- GFR Calc Platelet mean volume Abhi-Ec ker (Bld) [Entitic vol]Ordered By: Jesus Way on 03-27-2023 Platelet mean volume (Bld) [Entitic vol] 9.1 fL 6.2-12.0 [facility] RBC Auto (Bld) [#/Vol]Ordere d By: Jesus Way on 03-27-2023 RBC (Bld) [#/Vol] 4.21 10*6/uL 4.6-6.2 [facility] Serum or plasma calcium ashish urement (mass/volume)Ordered By: Jesus Way on 03-27-2023 Calcium [Mass/Vol] 9.6 mg/dL 8.5-10.1 [facility] Serum or plasma creatinine m easurement (mass/volume)Ordered By: Jesus Way on 03-27-2023 Creatinine [Mass/Vol] 0.89 mg/dL 0.70-1.[address] [facility] Comment on above: The validity of the calculated GFR & GFRAA in patients over 70 years has not been determined. Clinical correlation is essential. Serum or plasma urea nitroge n measurement (mass/volume)Ordered By: Jesus Way on 03-27-2023 Urea nitrogen [Mass/Vol] 16 mg/dL 7-18 [facility] Thin prep Papanicolaou smear with manual screeningOrdered By: Jesus Way on 03-27-2023 Thin prep Papanicolaou smear with manual screening 3.5 g/dL 3.2-5.0 [facility] Thin prep Papanicolaou smear with manual screening 13 U/L 15-37 [facility] Thin prep Papanicolaou smear with manual screening 3 5-15 [facility] Absolute lymphocyte countOrd ered By: Dr. Srivastava on 08-13-2022 Lymphocytes Auto (Unsp spec) [#/Vol] 2.57 10*3/uL 0.83-4.51 [facility] Basophil percentageOrdered B y: Dr. Srivastava on 08-13-2022 Basophil percentage 0 SEEN /hpf 0-5 [facility] Ammonia (P) [Moles/Vol] 43.0 umol/L 11-32 [facility] Basophils/100 WBC (Bld) 0.4 % 0-1 [facility] Bilirubin [Mass/Vol] 0.40 mg/dL 0.20-1.00 [facility] Comment on above: For patients on eltr ombopag therapy, use of Dimension [place] TBIL is not recommended. Chloride [Moles/Vol] 104 mmol/L 98-107 [facility] Eosinophils/100 WBC (Bld) 3.1 % 0-5 [facility] Glucose [Mass/Vol] 98 mg/dL 74-106 [facility] Neutrophils (Bld) [#/Vol] 4.8 10*3/uL 2.0-7.7 [facility] Neutrophils/100 WBC (Bld) 56.7 % 47-70 [facility] Potassium [Moles/Vol] 3.3 mmol/L 3.5-5.[address] [facility] Protein [Mass/Vol] 7.4 g/dL 6.4-8.2 [facility] Sodium [Moles/Vol] 139 mmol/L 136-145 [facility] WBC (Bld) [#/Vol] 8.5 10*3/uL 4.4-11.0 [facility] Bilirubin Test strip Ql (U)O rdered By: Dr. Srivastava on 08-13-2022 Bilirubin Ql (U) Negative Negative [facility] Blood erythrocytes count (nu mber/volume)Ordered By: Dr. Srivastava on 08-13-2022 RBC (Bld) [#/Vol] 4.24 10*6/uL 4.6-6.2 [facility] Blood hemoglobin measurement (mass/volume)Ordered By: Dr. Srivastava on 08-13-2022 Hemoglobin (Bld) [Mass/Vol] 14.0 g/dL 13.0-16.5 [facility] Blood lymphocytes/100 leukoc ytesOrdered By: Dr. Srivastava on 08-13-2022 Lymphocytes/100 WBC (Bld) 30.3 % 19-41 [facility] Blood monocytes/100 leukocyt esOrdered By: Dr. Srivastava on 08-13-2022 Monocytes/100 WBC (Bld) 8.0 % 0-10 [facility] Blood platelet mean volumeOr dered By: Dr. Srivastava on 08-13-2022 Platelet mean volume (Bld) [Entitic vol] 8.8 fL 6.2-12.0 [facility] Determination of erythrocyte mean corpuscular volume (MCV)Ordered By: Dr. Srivastava on 08-13-2022 MCV (RBC) [Entitic vol] 94.3 fL 80-94 [facility] Direct bilirubinOrdered By: Dr. Srivastava on 08-13-2022 Bilirubin.direct [Mass/Vol] 0.13 mg/dL 0.00-0.30 [facility] Glucose Glucometer (dC) [M ass/Vol]Ordered By: Dr. Srivastava on 08-13-2022 Glucose [Mass/Vol] 106 mg/dL 74-106 [facility] Comment on above: MANAGEMENT OF PATIEN T CARE PER NURSING PROTOCOL Hematocrit Auto (Bld) [Volum e fraction]Ordered By: Dr. Srivastava on 08-13-2022 Hematocrit (Bld) [Volume fraction] 40.0 % 40-54 [facility] INR in Blood by Coagulation assayOrdered By: Dr. Srivastava on 08-13-2022 INR Coag (Bld) [Relative time] 0.9 {INR} [facility] Ketones Test strip Ql (U)Ord ered By: Dr. Srivastava on 08-13-2022 Ketones Ql (U) Negative Negative [facility] Laboratory - Chemistry and C hemistry - challengeOrdered By: Dr. Srivastava on 08-13-2022 ALP [Catalytic activity/Vol] 91 U/L 45-117 [facility] ALT [Catalytic activity/Vol] 20 U/L 16-61 [facility] CO2 [Moles/Vol] 30.0 mmol/L 21.0-32.0 [facility] Globulin (S) [Mass/Vol] 3.3 g/dL 2.2-4.2 [facility] Urea nitrogen/Creatinine [Mass ratio] 9.9 mg/mg 10-20 [facility] Laboratory - CoagulationOrde red By: Dr. Srivastava on 08-13-2022 aPTT Coag (Bld) [Time] 28.2 s 24.1-36.2 [facility] PT Coag (PPP) [Time] 11.7 s 11.7-14.9 [facility] Laboratory - Hematology and Cell countsOrdered By: Dr. Srivastava on 08-13-2022 Erythrocyte distribution width (RBC) [Entitic vol] 40.2 fL 35.1-43.9 [facility] Erythrocyte distribution width (RBC) [Ratio] 11.7 % 11.6-14.6 [facility] Immature granulocytes/100 WBC (Bld) 1.500 % 0.0-0.9 [facility] Comment on above: IG% - Immature Granu locytes (promyelocytes, myelocytes and metamyelocytes) > 1% indicates that a LEFT SHIFT is Present. MCH (RBC) [Entitic mass] 33.0 pg 27.0-32.0 [facility] Nucleated RBC/100 WBC (Bld) [Ratio] 0 % 0-5 [facility] MCHC Auto (RBC) [Mass/Vol]Or dered By: Dr. Srivastava on 08-13-2022 MCHC (RBC) [Mass/Vol] 35.0 g/dL 32-[address] [facility] Mucus LM Ql (Urine sed)Order ed By: Dr. Srivastava on 08-13-2022 Mucus Ql (Urine sed) 0 SEEN /hpf [facility] Nitrite Test strip Ql (U)Ord ered By: Dr. Srivastava on 08-13-2022 Nitrite Ql (U) Negative Negative [facility] No Panel InformationOrdered By: Dr. Srivastava on 08-13-2022 Estimated Creatinine Clearance Calc 90.69 ml/min [facility] Estimated GFR (MDRD) Amer 100 mL/min >60 [facility] Comment on above: GFR Calc Estimated GFR (MDRD) Non-Af Amer 83 mL/min >60 [facility] Comment on above: Non- GFR Calc Troponin I High Sensitivity 4 pg/mL 3.0-78.0 [facility] Comment on above: Please Note: [place] t Units and Gender Specific Reference Ranges. For more information see Policy Stat Procedure [place] High Sensitivity Troponin (TNIH) and attachments. Platelets bldOrdered By: Dr. Srivastava on 08-13-2022 Platelets (Bld) [#/Vol] 197 10*3/uL 150-450 [facility] Protein Test strip Ql (U)Ord ered By: Dr. Srivastava on 08-13-2022 Protein Ql (U) 15 mg/dl Negative [facility] Serum or plasma albumin ashish urement (mass/volume)Ordered By: Dr. Srivastava on 08-13-2022 Albumin [Mass/Vol] 4.1 g/dL 3.2-5.0 [facility] Serum or plasma calcium ashish urement (mass/volume)Ordered By: Dr. Srivastava on 08-13-2022 Calcium [Mass/Vol] 10.1 mg/dL 8.5-10.1 [facility] Serum or plasma creatinine m easurement (mass/volume)Ordered By: Dr. Srivastava on 08-13-2022 Creatinine [Mass/Vol] 1.01 mg/dL 0.70-1.[address] [facility] Comment on above: The validity of the calculated GFR & GFRAA in patients over 70 years has not been determined. Clinical correlation is essential. Serum or plasma urea nitroge n measurement (mass/volume)Ordered By: Dr. Srivastava on 08-13-2022 Urea nitrogen [Mass/Vol] 10 mg/dL 7-18 [facility] Squamous epithelial cells de tection in urine sediment by light microscopyOrdered By: Dr. Srivastava on 08-13-2022 Epithelial cells.squamous LM Ql (Urine sed) 0 SEEN /hpf 0-5 [facility] Thin prep Papanicolaou smear with manual screeningOrdered By: Dr. Srivastava on 08-13-2022 Thin prep Papanicolaou smear with manual screening 13 U/L 15-37 [facility] Thin prep Papanicolaou smear with manual screening 5 5-15 [facility] Urine blood detectionOrdered By: Dr. Srivastava on 08-13-2022 RBC Ql (U) Negative Negative [facility] RBC Ql (U) 0 SEEN /hpf 0-5 [facility] Urine clarityOrdered By: Dr. Srivastava on 08-13-2022 Clarity (U) Clear Clear [facility] Urine color determinationOrd ered By: Dr. Srivastava on 08-13-2022 Color (U) Yellow Yellow [facility] Urine glucose detectionOrder ed By: Dr. Srivastava on 08-13-2022 Glucose Ql (U) Normal mg/dl Normal [facility] Urine leukocyte esterase det ection by dipstickOrdered By: Dr. Srivastava on 08-13-2022 Leukocyte esterase Test strip Ql (U) Negative Negative [facility] Urine pHOrdered By: Dr. Ortega on 08-13-2022 pH (U) 7.0 [pH] 5.0 - 8.0 [facility] Urine sediment bacteria coun t by microscopy (number/high power field)Ordered By: Dr. Srivastava on 08-13-2022 Bacteria LM.HPF (Urine sed) [#/Area] 0 /[HPF] None Seen [facility] Urine specific gravity measu rementOrdered By: Dr. Srivastava on 08-13-2022 Specific gravity (U) [Rel density] 1.005 1.002-1.030 [facility] Urobilinogen Auto test strip Ql (U)Ordered By: Dr. Srivastava on 08-13-2022 Urobilinogen Ql (U) Normal mg/dl Normal [facility] Basophil percentageOrdered B y: Ramon Sanchez on 04-20-2022 Ammonia (P) [Moles/Vol] 66.0 umol/L [facility] Basophil percentageon 2021 Ammonia (P) [Moles/Vol] 90.0 umol/L [facility] Work Phone: Basophil percentageon 2021 Ammonia (P) [Moles/Vol] 33.0 umol/L [facility] Work Phone: Basophil percentageon 2021 Ammonia (P) [Moles/Vol] 67.0 umol/L [facility] Work Phone: Vital Signs Date Time Vital Sign Value Performing Clinician Faci lity 07-06-2024 01:00-0400 Diastolic blood pressure 99 mm[Hg] Dr. Ramon Sanchez MD Work Phone: [facility] 07-06-2024 01:00-0400 Heart rate 88 /min Dr. Ramon Sanchez MD Work Phone: [facility] 07-06-2024 01:00-0400 Respiratory rate 18 /min Dr. Ramon Sanchez MD Work Phone: [facility] 07-06-2024 01:00-0400 SaO2% (BldA) [Mass fraction] 95 % Dr. Ramno Sanchez MD Work Phone: [facility] 07-06-2024 01:00-0400 Systolic blood pressure 134 mm[Hg] Dr. Ramon Sanchez MD Work Phone: [facility] 07-05-2024 22:51-0400 Body temperature 97.4 [degF] Dr. Ramon Sanchez MD Work Phone: [facility] 07-05-2024 19:00-0400 Body height 180.[address] Ramon Sanchez MD Work Phone: [facility] 07-05-2024 19:00-0400 Body mass index (BMI) [Ratio] 22 kg/m2 Dr. Ramon Sanchez MD Work Phone: [facility] 07-05-2024 19:00-0400 Body weight 71.[address] Ramon Sanchez MD Work Phone: [facility] 03-27-2023 07:21-0500 Diastolic blood pressure 99 mm[Hg] [facility] 03-27-2023 07:21-0500 Heart rate 69 /min [facility] 03-27-2023 07:21-0500 Respiratory rate 16 /min [facility] 03-27-2023 07:21-0500 SaO2% (BldA) [Mass fraction] 98 % [facility] 03-27-2023 07:21-0500 Systolic blood pressure 120 mm[Hg] [facility] 03-26-2023 23:44-0500 Body height 180.34 cm [facility] 03-26-2023 23:44-0500 Body mass index (BMI) [Ratio] 22.4 kg/m2 [facility] 03-26-2023 23:44-0500 Body temperature 98 [degF] [facility] 03-26-2023 23:44-0500 Body weight 73 kg [facility] 08-14-2022 02:14-0400 Diastolic blood pressure 65 mm[Hg] [facility] 08-14-2022 02:14-0400 Heart rate 70 /min [facility] 08-14-2022 02:14-0400 Respiratory rate 16 /min [facility] 08-14-2022 02:14-0400 Systolic blood pressure 116 mm[Hg] [facility] 08-14-2022 01:22-0400 SaO2% (BldA) [Mass fraction] 93 % [facility] 08-13-2022 23:38-0400 Inhaled oxygen flow rate 2 L/min [facility] 08-13-2022 22:27-0400 Body height 180.34 cm [facility] 08-13-2022 22:27-0400 Body mass index (BMI) [Ratio] 22.8 kg/m2 [facility] 08-13-2022 22:27-0400 Body temperature 97.4 [degF] [facility] 08-13-2022 22:27-0400 Body weight 74.1 kg [facility] Encounters Encounter Date Encounter Type Care Provider Facility Start: 10-05-2024 End: 08-15-[address] Ramon Sanchez MD Work Phone: -Laboratory Specimen Start: 10-05-2024 End: 10-05-[address] Ramon Sanchez MD -Laboratory Specimen Work Phone: Start: 10-05-2024 End: 10-05-[address] [facility] Facility:[facility] Start: 10-02-2024 End: 10-02-[address] Ramon Sanchez MD Work Phone: -Laboratory Specimen Start: 10-02-2024 End: 10-02-[address] Ramon Sanchez MD -Laboratory Specimen Work Phone: Start: 10-02-2024 End: 10-02-[address] [facility] Facility:[facility] Start: 07-05-2024 End: 07-06-2024 Emergency department patient visit Dr. Ramon Sanchez MD Work Phone: -Emergency Department Work Phone: Start: 12-29-2023 End: 12-30-2023 Emergency department patient visit [facility] Facility:[facility] Start: 03-26-2023 End: 03-27-2023 Emergency department patient visit [facility] Department Work Phone: Start: 08-13-2022 End: 08-14-2022 Emergency department patient visit [facility] Start: 04-20-2022 Registered Referred [facility] Start: 08-07-2021 End: 08-07-2021 Departed Referred [facility] Start: 07-14-2021 End: 07-14-2021 Departed Referred [facility] Start: 07-14-2021 Registered Referred [facility] Start: 04-22-2021 End: 04-22-2021 Departed Referred [facility] Procedures Date Procedure Procedure Detail Performing Clinician Start: 07-05-[address] Ramon Sanchez MD Work Phone: Start: 07-05-2024 CT of head without contrast Dr. Ramon Sanchez MD Work Phone: Start: 03-27-2023 CT of abdominal aort a with contrast Start: 08-13-2022 Plain chest X-ray Start: 08-13-2022 CT of head without contrast Plan of Treatment Date Care Activity Detail Author Start: 07-05-2024 [facility] Start: 07-05-2024 Seizure precautions [facility] Start: 03-27-2023 [facility] Start: 08-13-[address] [facility] Start: 08-13-2022 [facility] Bilirubin measurement, urine [facility] Hemoglobin [Presence] in Urine [facility] Measurement of keton es in urine using dipstick [facility] Microscopic urinalysis [facility] Patient Education [facility] Work Phone: Patient referral [place] Work Phone: pH of Urine [facility] Specific gravity of Urine [facility] Urine blood test [place] Urine dipstick for glucose [facility] Urine dipstick for l eukocyte esterase [facility] Urine dipstick for nitrite [facility] Urine dipstick for protein [facility] Urine examination [facility] Urine microscopy: ep ithelial cells [facility] Urine Microscopy: white cells [facility] Urobilinogen [Presence] in Urine [facility] Immunizations Immunization Date Immunization Notes Care Provider Ella saleem 06-19-2014 tetanus and diphther ia toxoids, adsorbed, preservative free, for adult use (2 Lf of tetanus toxoid and 2 Lf of diphtheria toxoid) [facility] Payers Date Payer Category Payer Medicaid [id number] 2023 Self-pay [id number] Unknown [id number] Unknown [id number] Unknown [id number] Unknown [id number] Social History Date Type Detail Facility Start: 08-27-2020 End: 03-26-2023 Tobacco smoking status NHIS Unknown if ever smoked [facility] Start: 1970 Sex Assigned At Male [facility] Start: 07-05-2024 Tobacco smoking stat us MNIS Smoker (finding) [facility] Mental Status Date Assessment Result Facility 07-05-2024 Cognitive function Level Of Cons ciousness Awake;Alert;Appropriate;Follow s Commands [facility] Work Phone: 08-13-2022 Cognitive function Level Of Consciousness Awake [facility] Work Phone: Discharge summary 07-06-2024 Note Date & Type Note Facility 07-06-2024 Discharge summary Note Date/Time July 05, 2024 10:41pm [facility] Medical Records Department [address] [place] [address] Emergency Department Summary 07/05/24 MR#: [id number] Acct: [id number] Name: JESUS WARD Rep #:[id number] : 1970 53 From: [facility] PCP: Dr. Ramon Sanchez MD Status:REG ER Location: ED HPI History of Present Illness Chief Complaint: Seizure Informant: patient and EMS Narrative Narrative: 53-year-old male brought to the emergency room from EMS following a seizure. Reportedly the patient is from the skilled facility has a history of TBI/stroke/psychiatric disorder as well as seizures. He apparently went outsideto smoke and began to have a seizure in his chair. This lasted about 3 minutes per report. Reportedly the last seizure was in July 2023. At baseline is reported that he is unsteady in a wheelchair slurs words points to things moves arms and legs a lot and is occasionally combative. Medication sheet accompanieshim I do not see any labs that I can readily get a level on tonight. Patient himself is not really contributing anything to the history. [facility] Medical History Personality disorder Post traumatic seizure Polyarthritis TBI (traumatic brain injury) Depression Bipolar disorder Schizoaffective disorder Nicotine dependence Psychotic disorder Alcohol dependence Dementia Anemia Delusional disorder Hyperlipidemia COPD (chronic obstructive pulmonary disease) Chronic pain Tinea corporis Stroke/cerebrovascular accident TIA (transient ischemic attack) Home Medications ?Medication ?Instructions ?Recorded ?Last Taken ?Type acetaminophen 325 mg tablet 650 mg PO Q4H PRN PRN PAIN /FEVER 01/02/14 06/19/24 History (Tylenol) cholecalciferol (vitamin D3) 1,250 1,250 mcg PO SAAVEDRA 09/1007/01/24 History mcg (50,000 unit) capsule lamotrigine 100 mg tablet 100 mg PO Q12H 08/27/2006/21 History (Lamictal) lorazepam 1 mg tablet (Ativan) 1 mg PO Q4H PRN PRN 09/1006/29/24 History ANXIETY/SEIZURES omega-3 fatty acids 2,000 mg PO DAILY 08/27/20 0 07/05/24 History selenium sulfide 1 % shampoo 1 applic topical DAILY 07/03/24 History atorvastatin 20 mg tablet (Lipitor) 20 mg PO DAILY hig h cholesterol 08/13/22 07/04/24 History lactulose 10 gram/15 mL (15 mL) 45 ml PO TID 08/13/22 07/05/24 History oral solution lorazepam 1 mg tablet (Ativan) 1 mg PO TID PRN Anxiety 08/13/22 07/05/24 History propranolol 80 mg capsule,24 80 mg PO DAILY 08/13/22 0 07/05/24 History hr,extended release (Inderal LA) rifaximin 550 mg tablet 550 mg PO BID 08/13/2207/05 History aspirin 81 mg capsule 81 mg PO DAILY pain, blood t hinner 03/27/23 07/05/24 History hydrochlorothiazide 25 mg tablet 25 mg PO DAILY 07/05/24 History zonisamide 100 mg capsule 300 mg (3 x 100 mg) PO DAILY #0 07/28/23 07/05/24 Rx caps fenofibrate nanocrystallized 48 mg 48 mg PO DAILY 06/2107/04/24 History tablet haloperidol 5 mg tablet 5 mg PO TID 07/05/24 5 History ibuprofen 200 mg tablet (Advil) 600 mg PO Q8H PAIN 07/05/24 History memantine 5 mg tablet 5 mg PO BID 07/05/24 5 History mirtazapine 7.5 mg tablet 7.5 mg PO QHS 07/05/2407/04 History vortioxetine 10 mg tablet 10 mg PO DAILY 07/05/2406/21 History (Trintellix) Allergy/AdvReac Type Severity Reaction Status Date / Time No Known Allergies Allergy Verified 07/05/24 19:00 Social History Smoking Status: Smoker, status unknown tobacco type: cigarettes substance use type: does not use ROS ROS ED Review of Systems ROS Unobtainable: due to mental status EXAM Physical Exam Const Vital Signs: 07/05/24 19:00 07/05/24 21:00 Temperature 97.5 F L Temperature Source Temporal Pulse Rate 80 88 Respiratory Rate 16 Blood Pressure 133/84 H 134/89 H Blood Pressure Mean 100 104 Pulse Ox 100 98 Oxygen Delivery Method Room Air Positive well nourished and well developed General Appearance ED: well developed HEENT Reports normocephalic, head/scalp atraumatic and moist mucous membranes Eyes PERRL and EOMs intact bilaterally Neck no lymphadenopathy, supple and no JVD Resp normal respiratory effort and clear to auscultation bilaterally Cardio regular rate, regular rhythm and no murmurs GI normal to inspection, nondistended, normoactive bowel sounds and non-tender Palpation: soft Back/Spine no CVA tenderness and normal ROM Extremity Extremity Narrative: Appears to have some contractures of the hands. General Extremety ED: Negative for edema General Extremity: Negative for edema Neuro oriented x3 Neuro Narrative: Patient moves both arms and legs. I get him to follow my finger with his eyes. He does make sounds but I do not understand what he is saying. Sensorium / Orientation: alert Motor Exam: strength 5/5 throughout Psych Psych Narrative: Unable to assess Skin no rashes or lesions noted and no wounds MDM MDM MDM Narrative Medical decision making narrative: Differential diagnosis includes but not limited to seizure electrolyte abnormalities intracranial hemorrhage stroke The patient has not had a seizure since July of last year I obtain some baselinelabs especially in light of his history of hyponatremia and hypokalemia. He CT of the brain was obtained. This was negative for acute findings. Basic blood work essentially negative except for white count 13.3. Based on the descriptionprovided by fdc it appears that the patient has his neurologic baseline. Been no further seizure activity. I am going to have the patient discharged back to nursing facility. History & Record Review Discussion w/independent historian: EMS personnel and Other (SNF) Additional record(s) reviewed:: Prior inpatient record, Prior ED visit and Priorlabs Lab Data Attestation: I reviewed the patient's lab results. Labs: Laboratory Results - last 24 hr 07/05/24 19:50 WBC 13.3 H RBC 4.29 L Hgb 14.1 Hct 40.9 MCV 95.3 H MCH 32.9 H MCHC 34.5 RDW Std Deviation 42.7 RDW Coeff of Michael 12.3 Plt Count 261 MPV 8.2 Immature Gran % (Auto) 0.500 Neut % (Auto) 83.0 H Lymph % (Auto) 8.4 L Cavalier % (Auto) 5.7 Eos % (Auto) 2.0 Baso % (Auto) 0.4 Absolute Neuts (auto) 11.0 H Absolute Lymphs (auto) 1.11 Nucleated RBC % 0 Sodium 139 Potassium 3.6 Chloride 103 Carbon Dioxide 23.8 Anion Gap 12 BUN 14 Creatinine 0.91 Estim Creat Clear Calc 95.21 Est GFR (MDRD) Non-Af 101 BUN/Creatinine Ratio 15.8 Glucose 87 Calcium 9.9 Magnesium 2.0 Total Bilirubin 0.30 AST 23 ALT 14 Alkaline Phosphatase 116 Total Protein 7.3 Albumin 4.3 Globulin 3.0 Albumin/Globulin Ratio 1.4 Radiography Diagnostic Testing: Clinical Impression(s) from Imaging Studies Brain CT 07/05/24 19:41 IMPRESSION: No acute intracranial abnormality. Unchanged encephalomalacia in the left frontal and temporal lobes. Reading Location: [id number] Discharge Plan Triage Chief Complaint: Seizure ED Provider: Wil Leary Dx/Rx/DC Orders Clinical Impression: Epileptic seizure Instructions: ED Seizure, Recurrent (Adult) Prescriptions: No Action acetaminophen [Tylenol] 325 MG tablet 650 mg PO Q4H PRN PRN (Reason: PAIN/FEVER) lorazepam [Ativan] 1 mg Tablet 1 mg PO Q4H PRN PRN (Reason: ANXIETY/SEIZURES) lamotrigine [Lamictal] 100 mg Tablet 100 mg PO Q12H selenium sulfide 1 % Shampoo 1 applic TOPICAL DAILY omega-3 fatty acids Capsule 2,000 mg PO DAILY cholecalciferol (vitamin D3) 1,250 mcg (50,000 unit) Capsule 1,250 mcg PO SAAVEDRA Patient Comments: every tuesday lorazepam [Ativan] 1 mg Tablet 1 mg PO TID PRN (Reason: Anxiety) atorvastatin [Lipitor] 20 mg Tablet 20 mg PO DAILY propranolol [Inderal LA] 80 mg Capsule,Extended Release 24 Hr 80 mg PO DAILY rifaximin 550 mg Tablet 550 mg PO BID lactulose 10 gram/15 mL (15 mL) Solution 45 ml PO TID aspirin 81 mg capsule 81 mg PO DAILY hydrochlorothiazide 25 mg tablet 25 mg PO DAILY ibuprofen [Advil] 200 mg tablet 600 mg PO Q8H haloperidol 5 mg tablet 5 mg PO TID Trintellix 10 mg tablet 10 mg PO DAILY memantine 5 mg tablet 5 mg PO BID mirtazapine 7.5 mg tablet 7.5 mg PO QHS fenofibrate nanocrystallized 48 mg tablet 48 mg PO DAILY zonisamide 100 mg Capsule 300 mg PO DAILY Qty: 0 0RF Primary Care Provider: Ramon Sanchez Referrals: Ramon Sanchez MD [Primary Care Provider] - 3-5 Days Activity Restrictions/Additional Instructions: If patient has a neurologist would recommend follow-up with neurology Print Language: Yi Disposition Disposition: Home, Self Care What to do if you have Problems For any increased pain, shortness of breath, bleeding, nausea or vomiting, chestpain, or any unexpected problems, contact your Primary Care Provider. Call [facility] ([phone]) or report to the closest Emergency Room. Call 911 if necessary. 07/05/24 7327 <Electronically signed by Wil Leary DO> Cosigner Signature (if applicable): CC: Dr. Ramon Sanchez MD ~ Signed [facility] Work Phone: Discharge summary 07-05-2024 Note Date & Type Note Facility 07-05-[address] [facility] Radiology Diagnostic study note 07-05-2024 Note Date & Type Note Facility 07-05-2024 Radiology Diagnostic study note [facility] Imaging Services [address] [place] [address] Brain/Head without Contrast MR#: [id number] Acct: [id number] Name: JESUS WARD Rep #: [id number] : 1970 M 53 From: Katina Medina MD PCP: Dr. Ramon Sanchez MD Status: REG ER Study:Brain/Head without Contrast Date of Exa m: 07/05/24 Exam# [id number] Ordering Dr: Pete Leary DO PROCEDURE: BRAIN/HEAD WITHOUT CONTRAST 07/05/2024 REASON FOR EXAM: SEIZURE TECHNIQUE: Head CT without intravenous contrast. Coronal and Sagittal reconstruction serieswere provided. One or more dose reduction techniques were used (e.g., Automated exposure control, adjustment of the mA and/or kV according to patient size, use of iterative reconstruction technique. RADIATION DOSE SUMMARY: CTDlvol: 45.0 mGy DLP: 914 mGycm COMPARISON: CT head without contrast 07/27/2023, MRI brain on 07/26/2023 FINDINGS: Brain: No acute intracranial hemorrhage, midline shift, or mass effect. There is extensive encephalomalacia in the left temporal and frontal lobes, unchanged. CSF Spaces: There is generalized cerebral atrophy which is similar to prior Sinuses/Mastoids: Predominantly clear at visualized levels Bones: Postoperative changes of the left temporal calvarium. Metallic foci in the right parietal scalp are unchanged. 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 Soft tissue debris in the external auditory canals, likely cerumen. CT/Brain/Head without Contrast IMPRESSION: No acute intracranial abnormality. Unchanged encephalomalacia in the left frontal and temporal lobes. Reading Location: [id number] CC: Dr. Wil Leary DO; Dr. Ramon Sanchez MD ~ Weatherization Coordinator: Signed [facility] Discharge summary 08-14-2022 Note Date & Type Note Facility 08-14-2022 Discharge summary Note Date/Time August 13, 2022 11:08pm [facility] Medical Records Department [address] [place] [address] Emergency Department Summary 08/13/22 MR#: [id number] Acct: [id number] Name: JESUS WARD Rep #:[id number] : 1970 51 From: Mohan Srivastava MD PCP: Dr. Ramon Sanchez MD Status:REG ER Location: ED HPI History of Present Illness Chief Complaint: Mental Status Change Informant: patient, EMS and SNF Onset/Context/Timing Onset: Today Context: Gradual Onset Timing: Continuous Current Severity: Moderate Maximum Severity: Moderate Narrative Narrative: 51-year-old male was unable to give me any history. I reviewed his prior medical records sent in from his extended care facility. He lives at a [facility]. Reportedly had a decreased mental status. Also fell out of his wheelchair tonight. He has a history of dementia and seizures. He has ahistory history of hepatic encephalopathy. Today had a decreased mental status this evening and fell out of his wheelchair. He is normally wheelchair-bound but can stand but really does not walk. I spoke to the nurse that he typically cares for him at this facility. She states has not recently been ill. He has not had a fever. Has not recently been hospitalized. He was treated with his normal dose of Haldol, Ativan and trazodone tonight. Prior similar symptoms: No Recent Illness/Hospitalization: No PFSH PFSH Medical History Alcohol dependence Anemia Bipolar disorder Chronic pain COPD (chronic obstructive pulmonary disease) Delusional disorder Dementia Depression Hyperlipidemia Nicotine dependence Personality disorder Polyarthritis Post traumatic seizure Psychotic disorder Schizoaffective disorder Stroke/cerebrovascular accident TBI (traumatic brain injury) TIA (transient ischemic attack) Tinea corporis Home Medications Zonisamide [Zonegran] 200 mg PO DAILY 01/02/14 [History Last Taken Unknown] acetaminophen 325 mg tablet (Tylenol) 650 mg PO Q4H PRN PRN PAIN/FEVER 01/02/14 [History Last Taken Unknown] lorazepam 2 mg/mL injection solution 1 mg IM Q4H PRN PRN ANXIETY/SEIZURES 01/02/14 [History Last Taken Unknown] trazodone 50 mg tablet 100 mg PO QHS 01/02/14 [History Last Taken Unknown] Ibuprofen [Motrin] 600 mg PO TID 08/27/20 [History Last Taken Unknown] aluminum-mag hydroxide-simethicone 200 mg-200 mg-20 mg/5 mL oral susp 30 ml PO Q4H PRN PRN Indigestion 08/27/20 [History Last Taken Unknown] cholecalciferol (vitamin D3) 1,250 mcg (50,000 unit) capsule 1,250 mcg PO SAAVEDRA 08/27/20 [History Last Taken Unknown] fenofibrate 120 mg tablet 48 mg PO DAILY 08/27/20 [History Last Taken Unknown] haloperidol 2 mg tablet 5 mg PO TID 08/27/20 [History Last Taken Unknown] lamotrigine 100 mg tablet (Lamictal) 100 mg PO QHS 08/27/20 [History Last Taken Unknown] lamotrigine 25 mg tablet (Lamictal) 50 mg PO DAILY 08/27/20 [History Last Taken Unknown] lorazepam 1 mg tablet (Ativan) 1 mg PO Q4H PRN PRN ANXIETY/SEIZURES 08/27/20 [History Last Taken Unknown] lurasidone 40 mg tablet (Latuda) 40 mg PO BID 08/27/20 [History Last Taken Unknown] magnesium hydroxide 400 mg/5 mL oral suspension (Milk of Magnesia) 30 ml PO DAILY PRN PRN Constipation 08/27/20 [History Last Taken Unknown] nicotine (polacrilex) 2 mg buccal lozenge 2 mg buccal Q2H PRN PRN Smoking Cessation 08/27/20 [History Last Taken Unknown] omega-3 fatty acids 2,000 mg PO DAILY 08/27/20 [History Last Taken Unknown] selenium sulfide 1 % shampoo 1 applic topical DAILY 08/27/20 [History Last Taken Unknown] atorvastatin 20 mg tablet (Lipitor) 20 mg PO DAILY 08/13/22 [History Last Taken Unknown] cariprazine 1.5 mg capsule (Vraylar) 1.5 mg PO DAILY 08/13/22 [History Last Taken Unknown] lactulose 10 gram/15 mL (15 mL) oral solution 45 ml PO TID 08/13/22 [History Last Taken Unknown] lorazepam 1 mg tablet (Ativan) 1 mg PO TID PRN Anxiety 08/13/22 [History Last Taken Unknown] propranolol 80 mg capsule,24 hr,extended release (Inderal LA) 80 mg PO DAILY 08/13/22 [History Last Taken Unknown] rifaximin 550 mg tablet 550 mg PO BID 08/13/22 [History Last Taken Unknown] trazodone 50 mg tablet 50 mg PO DAILY 08/13/22 [History Last Taken Unknown] Allergy/AdvReac Type Severity Reaction Status Date / Time No Known Allergies Allergy Verified 08/13/22 22:40 Social History Smoking Status: Current every day smoker tobacco type: cigarettes substance use type: does not use ROS ROS ED ROS Narrative Unable to obtain from the patient. Per nurse at day extended-care facility has had no recent illness. Review of Systems ROS Unobtainable: due to mental status EXAM Physical Exam Narrative Exam Narrative: 51-year-old male. Brought in by squad. Vital signs stable afebrile. Pulse ox 97% on room air. Patient's eyes are open. He is not responsive. He does not answer questions. She really not speaking. He does not follow commands. HEENTexam pupils are round reactive light. He is looking about the room. He has a contusion and abrasion to his left forehead. There is no significant hematoma. No laceration. Scalp nontender. C-spine nontender. Trachea midline. Lungs clear equal and symmetrical bilaterally. Heart regular rhythm rate about 80 no murmur. Chest wall and ribs nontender. Abdomen soft nontender. Moving all 4 extremities. Nontender no deformity. Neurologically. Eyes are open. Moving extremities. Not answering any questions. Not following any commands. Seems confused. Const Vital Signs: 08/13/22 22:27 08/13/22 23:38 08/14/22 00:21 Temperature 97.4 F L Temperature Source Temporal Pulse Rate 78 78 Respiratory Rate 18 22 H Blood Pressure 149/90 H 178/90 H Blood Pressure Mean 109 119 Pulse Ox 97 Oxygen Delivery Method Room Air Nasal Cannula Oxygen Flow Rate (L/min) 2 Positive well nourished and well developed; Negative for cachectic, contracturesor unkempt General Appearance ED: well developed and NAD; Negative for unkempt, cachectic, contractures, cyanotic, diaphoretic or pallor Nutritional Appearance: Negative for cachectic HEENT Reports moist mucous membranes; Denies dry mucous membranes trauma Mouth ED: No dry mucous membranes Mouth: No dry mucous membranes Eyes PERRL and EOMs intact bilaterally General Eye ED: Negative for pale conjunctiva or scleral icterus Neck no lymphadenopathy, supple and no JVD General: Negative for tenderness Lymph Lymphatic: Negative for other Chest Wall inspection of chest normal and palpation of chest normal Resp normal respiratory effort and clear to auscultation bilaterally Effort and Inspection: Negative for retractions Auscultation: Negative for rales, rhonchi or wheezes Cardio regular rate, regular rhythm, S1 normal heart sound, S2 normal heart sound and no murmurs GI normal to inspection, nondistended, normoactive bowel sounds, non-tender, non-distended and no masses Auscultation: normoactive bowel sounds Palpation: soft; Negative for tender or guarding Back/Spine no CVA tenderness General Back: Negative for CVA tenderness Cervical Spine: Negative for cervical spine tenderness Thoracic Spine / Upper Back: Negative for thoracic spinal tenderness Extremity Negative for normal to inspection Extremity Narrative: Nontender. No deformity. Neuro No oriented x3 Sensorium / Orientation: alert, orientation impaired and lethargic Motor Exam: general weakness; Negative for strength 5/5 throughout Psych Negative for mental status grossly normal Appearance: Negative for unkempt Skin no rashes or lesions noted and No no wounds Skin Narrative: Left forehead abrasion. General Skin Exam: elasticity normal; Negative for jaundice or pallor Lesions: No lesion noted Trauma: abrasion MDM MDM MDM Narrative Medical decision making narrative: 51-year-old male with extensive past medical history of a prior craniotomy. Dementia with schizoaffective disorder and bipolar. [facility] facility resident was been there for at least 4 years. May be much longer. The neurocirculatory status is not his baseline. He is not recently been ill. CAT scan and labs to be obtained. Repeat exam at 1 AM is unchanged. Patient's eyes are open. He is moving everything. He is really not answering questions or following commands. He typically does not speak much according to the [facility]. We do not have any specific, see if they can imaging or lab abnormalities on this patient. He will be transferred back to the extended care facility. History & Record Review Discussion w/independent historian: EMS personnel, Patient and Other Additional record(s) reviewed:: Prior inpatient record, Prior outpatient record,Prior ED visit and Prior labs Lab Data Attestation: I reviewed the patient's lab results. Lab results narrative: CBC unremarkable. White count 8.5. H&H 14 and 40. Platelets 197. PT, INR andPTT are normal. Electrolytes show potassium of 3.3. Gap of 5. Normal BUN of 10 creatinine of 1. Liver enzymes are unremarkable. Glucose is 98. Chest x-ray no acute process. CAT scan of the brain shows chronic changes, encephalomalacia and prior brain surgery but no bleed or acute stroke. Ammonia level is unremarkable at 43. UA is normal. No white or red cells. No bacteriaor nitrites. Labs: Laboratory Results - last 24 hr 08/13/22 08/13/22 08/13/22 22:30 22:30 22:30 WBC 8.5 RBC 4.24 L Hgb 14.0 Hct 40.0 MCV 94.3 H MCH 33.0 H MCHC 35.0 RDW Std Deviation 40.2 RDW Coeff of Michael 11.7 Plt Count 197 MPV 8.8 Immature Gran % (Auto) 1.500 H Neut % (Auto) 56.7 Lymph % (Auto) 30.3 Cavalier % (Auto) 8.0 Eos % (Auto) 3.1 Baso % (Auto) 0.4 Absolute Neuts (auto) 4.8 Absolute Lymphs (auto) 2.57 Nucleated RBC % 0 PT 11.7 INR 0.9 APTT 28.2 Sodium 139 Potassium 3.3 L Chloride 104 Carbon Dioxide 30.0 Anion Gap 5 BUN 10 Creatinine 1.01 Estim Creat Clear Calc 90.69 Est GFR (MDRD) Af Amer 100 Est GFR (MDRD) Non-Af 83 BUN/Creatinine Ratio 9.9 L Glucose 98 Calcium 10.1 Total Bilirubin 0.40 Direct Bilirubin 0.13 AST 13 L ALT 20 Alkaline Phosphatase 91 Ammonia Troponin I High Sens 4 Total Protein 7.4 Albumin 4.1 Globulin 3.3 Urine Color Urine Clarity Urine pH Ur Specific [place] Urine Protein Urine Glucose (UA) Urine Ketones Urine Occult Blood Urine Nitrite Urine Bilirubin Urine Urobilinogen Ur Leukocyte Esterase Urine RBC Urine WBC Ur Squamous Epith Cells Urine Bacteria Urine Mucus POC Glucose 08/13/22 08/13/22 08/13/22 22:53 23:10 23:28 WBC RBC Hgb Hct MCV MCH MCHC RDW Std Deviation RDW Coeff of Michael Plt Count MPV Immature Gran % (Auto) Neut % (Auto) Lymph % (Auto) Cavalier % (Auto) Eos % (Auto) Baso % (Auto) Absolute Neuts (auto) Absolute Lymphs (auto) Nucleated RBC % PT INR APTT Sodium Potassium Chloride Carbon Dioxide Anion Gap BUN Creatinine Estim Creat Clear Calc Est GFR (MDRD) Af Amer Est GFR (MDRD) Non-Af BUN/Creatinine Ratio Glucose Calcium Total Bilirubin Direct Bilirubin AST ALT Alkaline Phosphatase Ammonia 43.0 H Troponin I High Sens Total Protein Albumin Globulin Urine Color Yellow Urine Clarity Clear Urine pH 7.0 Ur Specific [place] 1.005 Urine Protein 15 H Urine Glucose (UA) Normal Urine Ketones Negative Urine Occult Blood Negative Urine Nitrite Negative Urine Bilirubin Negative Urine Urobilinogen Normal Ur Leukocyte Esterase Negative Urine RBC 0 SEEN Urine WBC 0 SEEN Ur Squamous Epith Cells 0 SEEN Urine Bacteria 0 SEEN Urine Mucus 0 SEEN POC Glucose 106 Radiography Chest X-Ray - ED: 1 View, Read by ED Physician, Heart, Lungs, Mediastinum, Bony Structures, No Acute Disease and Chronic Changes Diagnostic Testing: Clinical Impression(s) from Imaging Studies Brain CT 08/13/22 22:29 IMPRESSION: 1. No intracranial hemorrhage or acute territorial infarction. 2. Postsurgical and senescent changes as above. N.B. : The above Results were Read Back by Eddie Barth MD to Mohan Srivastava MD, and understanding confirmed on 08/13/2022 22:49:57 (ET). Electronically Signed: Eddie Barth MD at 22:51 EDT , ADDENDUM: 08/13/22 6224 IMPRESSION: 1. No intracranial hemorrhage or acute territorial infarction. 2. Postsurgical and senescent changes as above. N.B. : The above Results were Read Back by Eddie Barth MD to Mohan Srivastava MD, and understanding confirmed on 08/13/2022 22:49:57 (ET). Electronically Signed: Eddie Barth MD at 22:51 EDT , Chest X-Ray 08/13/22 22:38 IMPRESSION: Hazy left basal opacity, may represent atelectasis or infection. Electronically Signed: Eddie Barth MD at 23:05 EDT , Chest x-ray, portable, single view interpreted by myself shows no acute abnormality. Normal cardiac silhouette. Normal mediastinum. No infiltrates. No effusions. Rhythm Strip Rhythm Strip: Sinus Rhythm Rate: 76 Ectopy: None EKG Initial EKG: Interpretation: Sinus Rhythm and No Acute Injury Pattern Comments: Normal sinus rhythm rate of 51 no acute signs of TX or ischemia. No dysrhythmia. Discharge Plan Triage Chief Complaint: Mental Status Change ED Provider: Mohan Srivastava Dx/Rx/DC Orders Clinical Impression: Altered level of consciousness, History of dementia, History of schizoaffectivedisorder Instructions: ED ALOC Prescriptions: No Action trazodone 50 MG tablet 100 mg PO QHS lorazepam 2 MG/ML syringe 1 mg IM Q4H PRN PRN (Reason: ANXIETY/SEIZURES) acetaminophen [Tylenol] 325 MG tablet 650 mg PO Q4H PRN PRN (Reason: PAIN/FEVER) Zonisamide [Zonegran] 100 MG capsule 200 mg PO DAILY lamotrigine [Lamictal] 25 mg Tablet 50 mg PO DAILY magnesium hydroxide [Milk of Magnesia] 400 mg/5 mL Suspension 30 ml PO DAILY PRN PRN (Reason: Constipation) alum-mag hydroxide-simeth [Mylanta] 200-200-20 mg/5 mL Suspension 30 ml PO Q4H PRN PRN (Reason: Indigestion) lorazepam [Ativan] 1 mg Tablet 1 mg PO Q4H PRN PRN (Reason: ANXIETY/SEIZURES) haloperidol [Haldol] 2 mg Tablet 5 mg PO TID lamotrigine [Lamictal] 100 mg Tablet 100 mg PO QHS [place] Blue Dry Hair/Dandruff 1 % Shampoo 1 applic TOPICAL DAILY nicotine (polacrilex) 2 mg Lozenge 2 mg BUCCAL Q2H PRN PRN (Reason: Smoking Cessation) [place] 3 Fish Oil Capsule 2,000 mg PO DAILY cholecalciferol (vitamin D3) 1,250 mcg (50,000 unit) Capsule 1,250 mcg PO SAAVEDRA Label Comments: every tuesday fenofibrate 120 mg Tablet 48 mg PO DAILY lurasidone [Latuda] 40 mg Tablet 40 mg PO BID Ibuprofen [Motrin] 800 MG tablet 600 mg PO TID lorazepam [Ativan] 1 mg Tablet 1 mg PO TID PRN (Reason: Anxiety) atorvastatin [Lipitor] 20 mg Tablet 20 mg PO DAILY trazodone 50 mg Tablet 50 mg PO DAILY propranolol [Inderal LA] 80 mg Capsule,Extended Release 24 Hr 80 mg PO DAILY rifaximin 550 mg Tablet 550 mg PO BID lactulose 10 gram/15 mL (15 mL) Solution 45 ml PO TID Vraylar 1.5 mg Capsule 1.5 mg PO DAILY Primary Care Provider: Ramon Sanchez Referrals: Ramon Sanchez MD [Primary Care Provider] - 1-2 Days if not improving Activity Restrictions/Additional Instructions: Follow-up with your nuclear medical technologist or his primary care physician if not improving. The CAT scan of his brain tonight, EKG, chest x-ray and labs were unremarkable. No signs of infection or acute abnormalities on his lab work. Disposition Disposition: Home, Self Care What to do if you have Problems For any increased pain, shortness of breath, bleeding, nausea or vomiting, chestpain, or any unexpected problems, contact your Primary Care Provider. Call [facility] ([phone]) or report to the closest Emergency Room. Call 911 if necessary. 08/14/22 0145 <Electronically signed by Mohan Srivastava MD> Cosigner Signature (if applicable): CC: Dr. Ramon Sanchez MD ~ Signed [facility] Work Phone: Discharge summary Note Date & Type Note Facility Discharge summary Note Date/Time March 27, 2023 7:58am [facility] Medical Records Department [address] [place] [id number] Emergency Department Summary 03/27/23 MR#: [id number] Acct: [id number] Name: JESUS WARD Rep #:[id number] : 1970 52 From: [address] DO PCP: Dr. Ramon Sanchez MD Status:REG ER Location: ED HPI History of Present Illness Chief Complaint: Lower Extremity Injury Narrative Narrative: 52-year-old male presenting for evaluation of right leg symptoms. Apparently his right leg is cooler than left leg. Patient is a very poor informant and unable to give much history. There is not much given via the nursing facility. [facility] Medical History Alcohol dependence Anemia Bipolar disorder Chronic pain COPD (chronic obstructive pulmonary disease) Delusional disorder Dementia Depression Hyperlipidemia Nicotine dependence Personality disorder Polyarthritis Post traumatic seizure Psychotic disorder Schizoaffective disorder Stroke/cerebrovascular accident TBI (traumatic brain injury) TIA (transient ischemic attack) Tinea corporis Home Medications Zonisamide [Zonegran] 200 mg PO DAILY 01/02/14 [History Last Taken Unknown] acetaminophen 325 mg tablet (Tylenol) 650 mg PO Q4H PRN PRN PAIN/FEVER 01/02/14 [History Last Taken Unknown] lorazepam 2 mg/mL injection solution 1 mg IM Q4H PRN PRN ANXIETY/SEIZURES 01/02/14 [History Last Taken Unknown] trazodone 50 mg tablet 100 mg PO QHS 01/02/14 [History Last Taken Unknown] Ibuprofen [Motrin] 600 mg PO TID 08/27/20 [History Last Taken Unknown] aluminum-mag hydroxide-simethicone 200 mg-200 mg-20 mg/5 mL oral susp 30 ml PO Q4H PRN PRN Indigestion 08/27/20 [History Last Taken Unknown] cholecalciferol (vitamin D3) 1,250 mcg (50,000 unit) capsule 1,250 mcg PO SAAVEDRA 08/27/20 [History Last Taken Unknown] fenofibrate 120 mg tablet 48 mg PO DAILY 08/27/20 [History Last Taken Unknown] haloperidol 2 mg tablet 5 mg PO TID 08/27/20 [History Last Taken Unknown] lamotrigine 100 mg tablet (Lamictal) 100 mg PO QHS 08/27/20 [History Last Taken Unknown] lamotrigine 25 mg tablet (Lamictal) 50 mg PO DAILY 08/27/20 [History Last Taken Unknown] lorazepam 1 mg tablet (Ativan) 1 mg PO Q4H PRN PRN ANXIETY/SEIZURES 08/27/20 [History Last Taken Unknown] lurasidone 40 mg tablet (Latuda) 40 mg PO BID 08/27/20 [History Last Taken Unknown] magnesium hydroxide 400 mg/5 mL oral suspension (Milk of Magnesia) 30 ml PO DAILY PRN PRN Constipation 08/27/20 [History Last Taken Unknown] nicotine (polacrilex) 2 mg buccal lozenge 2 mg buccal Q2H PRN PRN Smoking Cessation 08/27/20 [History Last Taken Unknown] omega-3 fatty acids 2,000 mg PO DAILY 08/27/20 [History Last Taken Unknown] selenium sulfide 1 % shampoo 1 applic topical DAILY 08/27/20 [History Last Taken Unknown] atorvastatin 20 mg tablet (Lipitor) 20 mg PO DAILY 08/13/22 [History Last Taken Unknown] cariprazine 1.5 mg capsule (Vraylar) 1.5 mg PO DAILY 08/13/22 [History Last Taken Unknown] lactulose 10 gram/15 mL (15 mL) oral solution 45 ml PO TID 08/13/22 [History Last Taken Unknown] lorazepam 1 mg tablet (Ativan) 1 mg PO TID PRN Anxiety 08/13/22 [History Last Taken Unknown] propranolol 80 mg capsule,24 hr,extended release (Inderal LA) 80 mg PO DAILY 08/13/22 [History Last Taken Unknown] rifaximin 550 mg tablet 550 mg PO BID 08/13/22 [History Last Taken Unknown] trazodone 50 mg tablet 50 mg PO DAILY 08/13/22 [History Last Taken Unknown] aspirin 81 mg capsule 81 mg PO DAILY 03/27/23 [History Last Taken Unknown] hydrochlorothiazide 25 mg tablet 25 mg PO DAILY 03/27/23 [History Last Taken Unknown] Allergy/AdvReac Type Severity Reaction Status Date / Time No Known Allergies Allergy Verified 03/26/23 23:49 Social History Smoking Status: Current every day smoker tobacco type: cigarettes substance use type: does not use ROS ROS ED Review of Systems ROS Unobtainable: due to mental condition EXAM Physical Exam Const Vital Signs: 03/26/23 23:44 03/27/23 01:43 03/27/23 03:43 Temperature 98.0 F Temperature Source Temporal Pulse Rate 70 71 68 Respiratory Rate 12 18 18 Blood Pressure 128/82 H 115/97 H 130/99 H Blood Pressure Mean 97 103 109 Pulse Ox 98 100 97 Oxygen Delivery Method Room Air Room Air Room Air 03/27/23 05:43 03/27/23 07:21 Temperature Temperature Source Pulse Rate 69 69 Respiratory Rate 18 16 Blood Pressure 100/60 120/99 H Blood Pressure Mean 73 106 Pulse Ox 98 98 Oxygen Delivery Method Room Air Room Air Positive well nourished HEENT Reports moist mucous membranes normocephalic and atraumatic Chest Wall inspection of chest normal and palpation of chest normal Resp normal respiratory effort and no retractions Cardio regular rate and regular rhythm GI non-tender Extremity Extremity Narrative: Right lower extremity slightly cooler than the left lower extremity. 1+ pedal pulses on the right. Cap refill less than 5 seconds on the right. Patient ableto lift and move the right leg. Neuro moves all extremities Sensorium / Orientation: alert MDM MDM MDM Narrative Medical decision making narrative: Patient presenting for evaluation of right leg coolness. On examination he has 1+ pulses on the right.. His leg does feel little bit cooler but he is able to move it without difficulty but does feel me touching. He is a poor informant hehas a history of elevated ammonia levels. Given the patient's symptoms I did obtain blood work. CBC was obtained to assess white blood cell count, hemoglobin, platelets. CMP to assess liver function, renal function, electrolytes. Ammonia level was obtained due to patient's history of high ammonia. CBC and CMP unremarkable. Ammonia level 60. Patient appears to be onlactulose for this at home. There was a delay in the patient's care as it was very difficult to get IV access on the patient and took hours. I did obtain a CTA of the abdomen and pelvis with runoffs which did not show any acute occlusions. Nothing found acutely in the abdomen. Initially I spoke with the patient's caregiver from previous and they stated that they are no longer the caregiver for the patient and please call the nursing facility for their new caregiver. I did attempt to call a Niya Emile who is his new guardian and she did not answer the phone. There was a message on her voicemail telling me to call a Makayla Langston if I could not reach her and I left a message on this voicemail as well. After some time the patient's caregiver called back we discussed the case. We discussed the negative workup and the normal labs with exception of the ammonia level which is noted. The patient's caregiver had no recollection of any symptoms on the right leg. She recommended that I discussedthis with the fdc which we did do with the nursing staff. At this point I feel the patient stable for discharge home. Impression: 1. Hyperammonemia 2. Peripheral vascular disease Lab Data Attestation: I reviewed the patient's lab results. Labs: Laboratory Results - last 24 hr 03/27/23 00:33 WBC 8.2 RBC 4.21 L Hgb 13.5 Hct 39.1 L MCV 92.9 MCH 32.1 H MCHC 34.5 RDW Std Deviation 40.4 RDW Coeff of Michael 11.9 Plt Count 226 MPV 9.1 Immature Gran % (Auto) 0.200 Neut % (Auto) 57.6 Lymph % (Auto) 30.2 Cavalier % (Auto) 8.2 Eos % (Auto) 3.3 Baso % (Auto) 0.5 Absolute Neuts (auto) 4.7 Absolute Lymphs (auto) 2.47 Nucleated RBC % 0 Sodium 137 Potassium 3.3 L Chloride 103 Carbon Dioxide 31.0 Anion Gap 3 L BUN 16 Creatinine 0.89 Estim Creat Clear Calc 100.25 Est GFR (MDRD) Af Amer 116 Est GFR (MDRD) Non-Af 96 BUN/Creatinine Ratio 18.1 Glucose 100 Calcium 9.6 Total Bilirubin 0.20 AST 13 L ALT 18 Alkaline Phosphatase 92 Ammonia 60.0 H Total Protein 6.7 Albumin 3.5 Globulin 3.2 Albumin/Globulin Ratio 1.1 Radiography Diagnostic Testing: Clinical Impression(s) from Imaging Studies Abdomen/Pelvis CTA 03/27/23 00:16 IMPRESSION: 1. No CT evidence for hemodynamically significant stenosis or thrombosis. 2. Compression fracture of T12. Electronically Signed: Jayne Alcantara MD at 6:24 EST Reading Location ID and State: [facility] / [place] , Service support , Discharge Plan Triage Chief Complaint: Lower Extremity Injury ED Provider: Jesus Way Dx/Rx/DC Orders Instructions: ED Peripheral Artery Disease (PAD) Prescriptions: No Action trazodone 50 MG tablet 100 mg PO QHS lorazepam 2 MG/ML syringe 1 mg IM Q4H PRN PRN (Reason: ANXIETY/SEIZURES) acetaminophen [Tylenol] 325 MG tablet 650 mg PO Q4H PRN PRN (Reason: PAIN/FEVER) Zonisamide [Zonegran] 100 MG capsule 200 mg PO DAILY lamotrigine [Lamictal] 25 mg Tablet 50 mg PO DAILY magnesium hydroxide [Milk of Magnesia] 400 mg/5 mL Suspension 30 ml PO DAILY PRN PRN (Reason: Constipation) alum-mag hydroxide-simeth [Mylanta] 200-200-20 mg/5 mL Suspension 30 ml PO Q4H PRN PRN (Reason: Indigestion) lorazepam [Ativan] 1 mg Tablet 1 mg PO Q4H PRN PRN (Reason: ANXIETY/SEIZURES) haloperidol [Haldol] 2 mg Tablet 5 mg PO TID lamotrigine [Lamictal] 100 mg Tablet 100 mg PO QHS [place] Blue Dry Hair/Dandruff 1 % Shampoo 1 applic TOPICAL DAILY nicotine (polacrilex) 2 mg Lozenge 2 mg BUCCAL Q2H PRN PRN (Reason: Smoking Cessation) [place] 3 Fish Oil Capsule 2,000 mg PO DAILY cholecalciferol (vitamin D3) 1,250 mcg (50,000 unit) Capsule 1,250 mcg PO SAAVEDRA Patient Comments: every tuesday fenofibrate 120 mg Tablet 48 mg PO DAILY lurasidone [Latuda] 40 mg Tablet 40 mg PO BID Ibuprofen [Motrin] 800 MG tablet 600 mg PO TID lorazepam [Ativan] 1 mg Tablet 1 mg PO TID PRN (Reason: Anxiety) atorvastatin [Lipitor] 20 mg Tablet 20 mg PO DAILY trazodone 50 mg Tablet 50 mg PO DAILY propranolol [Inderal LA] 80 mg Capsule,Extended Release 24 Hr 80 mg PO DAILY rifaximin 550 mg Tablet 550 mg PO BID lactulose 10 gram/15 mL (15 mL) Solution 45 ml PO TID Vraylar 1.5 mg Capsule 1.5 mg PO DAILY aspirin 81 mg capsule 81 mg PO DAILY hydrochlorothiazide 25 mg tablet 25 mg PO DAILY Primary Care Provider: Ramon Sanchez Referrals: Ramon Sanchez MD [Primary Care Provider] - Activity Restrictions/Additional Instructions: CT pelvis with lower extremity runoff: 1. No CT evidence for hemodynamically significant stenosis or thrombosis. 2. Compression fracture of T12. Disposition Disposition: Home, Self Care What to do if you have Problems For any increased pain, shortness of breath, bleeding, nausea or vomiting, chestpain, or any unexpected problems, contact your Primary Care Provider. Call [facility] ([phone]) or report to the closest Emergency Room. Call 911 if necessary. 03/27/23814 <Electronically signed by Jesus Way DO> Cosigner Signature (if applicable): CC: Dr. Ramon Sanchez MD ~ Signed [facility] Work Phone: Evaluation note Note Date & Type Note Facility Evaluation note No assessment information availa ble [facility] Work Phone: Hospital Discharge instructions Note Date & Type Note Facility Hospital Discharge instructions Additional Instructions Follow-up with your nuclear medical technologist or his primary care physician if not improving. The CAT scan of his brain tonight, EKG, chest x-ray and labs were unremarkable. No signs of infection or acute abnormalities on his lab work. [facility] Work Phone: Hospital Discharge instructions Note Date & Type Note Facility Hospital Discharge instructions Additional Instructions CT pelvis with lower extremity runoff: 1. No CT evidence for hemodynamically significant stenosis or thrombosis. 2. Compression fracture of T12. [facility] Work Phone: Hospital Discharge instructions Note Date & Type Note Facility Hospital Discharge instructions Additional Instructions If patient has a neurologist would recommend follow-up with neurology [facility] Work Phone: Reason for referral (narrative) Note Date & Type Note Facility Reason for referral (narrative) No reason for referral information available [facility] Work Phone: Chief Complaint and Reason for Visit Chief Complaint ASSISTED LABWORK LABWORK Chief Complaint LABWORK ASSISTED LABWORK Chief Complaint LAB WORK L SIDED WEAKNESS Chief Complaint COLD RIGHT LEG Chief Complaint Admit Date SEIZURE July 05, 2024 6:59p m Chief Complaint Admit Date SEIZURE July 05, 2024 6:59p m FAX RESULTS [phone] October 02 1:37pm Advance Directives No Advanced Directives Records Found Advance Directive Response Recorded Date/ Time Living Will No August 27, 2020 1 2:31pm Power of Fifth Hand No August 27, 2020 12:31pm Advance Directive Response Recorded Date/ Time Living Will No August 13, 2022 10:39pm Power of Fifth Hand No August 13 10:39pm Advance Directive Response Recorded Date/ Time Living Will No March 26 11:50pm Power of Fifth Hand Yes March 26, 2023 11:50pm Name of Medical Power of Fifth Hand MAGALYS WARD March 26, 2023 11:50pm Advance Directive Response Recorded Date/ Time Do you have a Healthcare Power of Fifth Hand? No July 05, 2024 7:55pm Summary Purpose Family History No Family History Records Found Additional Source Comments Goals (unrecognized section and content) Goals may be documented in a n alternate sectionGoals may be documented in an alternate sectionGoals may be documented in an alternate sectionGoals may be documented in an alternate sectionGoals may be documented in an alternate sectionGoals may be documented in an alternate sectionGoals may be documented in an alternate section Care Teams (unrecognized sec tion and content) Team Status: Active Member Role Status Dates Dr. Ramon Sanchez MD Primary Care Provider Active Team Status: Inactive Member Role Status Dates Dr. Ramon Sanchez MD Primary Care Provider Active Dr. Jesus Way DO Emergency Provider Active Team Status: Active Member Role Status Dates Dr. Ramon Sanchez MD Primary Care Provider Active Ramon HIGGINS Attending Provider, Referring Provid er Active Team Status: Inactive Member Role Status Dates Dr. Ramon Sanchez MD Primary Care Provider Active Dr. Mohan Srivastava MD Emergency Provider Active Team Status: Inactive Member Role Status Dates Dr. Ramon Sanchez MD Primary Care Provider Active Start: July 05, 2024 End: July 06, 2024 Dr. Wil Leary DO Referring Provider Active Start: July 05, 2024 End: July 06, 2024 Dr. Wil Leary DO Emergency Provider Active Start: July 05, 2024 End: July 06, 2024 Team Status: Active Member Role/Relationship Status Dates Dr. Ramon Sanchez MD Primary Care Provider Active Team Status: Inactive Member Role/Relationship Status Dates Dr. Ramon Sanchez MD Primary Care Provider Active Start: July 05, 2024 End: July 06, 2024 Dr. Wil Leary DO Attending Provider Active Start: July 05, 2024 End: July 06, 2024 Dr. Wil Leary DO Referring Provider Active Start: July 05, 2024 End: July 06, 2024 Dr. Wil Leary DO Emergency Provider Active Start: July 05, 2024 End: July 06, 2024 Team Status: Inactive Member Role/Relationship Status Dates Dr. Ramon Sanchez MD Primary Care Provider Active Start: October 02, 2024 End: October 02, 2024 Dr. Ramon Sanchez MD Attending Provider Active Start: October 02, 2024 End: October 02, 2024 Dr. Ramon Sanchez MD Referring Provider Active Start: October 02, 2024 End: October 02, 2024 Team Status: Active Member Role/Relationship Status Dates Dr. Ramon Sanchez MD Primary Care Provider Active Start: October 05, 2024 Dr. Rmaon Sanchez MD Attending Provider Active Start: October 05, 2024 Dr. Ramon Sanchez MD Referring Provider Active Start: October 05, 2024 Team Status: Inactive Member Role/Relationship Status Dates Dr. Ramon Sanchez MD Primary Care Provider Active Start: October 05, 2024 End: October 05, 2024 Dr. Ramon Sanchez MD Attending Provider Active Start: October 05, 2024 End: October 05, 2024 Dr. Ramon Sanchez MD Referring Provider Active Start: October 05, 2024 End: October 05, 2024 (unrecognized sect ion and content) No Status Records Found INFORMATION SOURCE (unrecogn ized section and content) DATE CREATED AUTHOR 10/14/2024 [facility] FOR RECORDS PERTAINING TO PATIENTS WHO ARE OR HAVE BEEN ENROLLED IN A CHEMICAL DEPENDENCY/SUBSTANCEABUSE PROGRAM, SOME INFORMATION MAY BE OMITTED. This clinical summary was aggregated from multiple sources. Caution should be exercised in using it in the provision of clinical care. This summary normalizes information from multiple sources, and as a consequence, information in this document may materially change the coding, format and clinical context of patient data. In addition, data may be omitted in some cases. CLINICAL DECISIONS SHOULD BE BASED ON THE PRIMARY CLINICAL RECORDS. [facility] [employer] [facility]. provides no warranty or guarantee of the accuracy or completeness of information in this document.
[2024-11-03 12:01] VITALS: BP 125/89; PULSE 61; RESP 16; O2SAT 99
--- NOTE | 2024-11-03 12:15 | ED.RN ---
attempted to call legal guardian via the number given by registration two times. voice mail stated that this person is no longer a guardian. registration notified
[2024-11-03 12:42] VITALS: BP 127/93; PULSE 58; RESP 12; TEMP 36.5; O2SAT 99
[2024-11-03 13:00] VITALS: BP 123/83; PULSE 62; RESP 16; O2SAT 100
[2024-11-03 14:00] VITALS: BP 121/85; PULSE 57; RESP 16; O2SAT 99
== END 2024-11-03 14:48 | disposition home or self-care (01) ==
PROVIDERS: Emergency Provider Emergency Medicine; PCP Family Medicine; Visit Provider Emergency Medicine
DX: S02.2XXA Fracture of nasal bones, initial encounter for closed fracture (principal); F03.93 Unspecified dementia, unspecified severity, with mood disturbance; F03.92 Unspecified dementia, unspecified severity, with psychotic disturbance; J44.9 Chronic obstructive pulmonary disease, unspecified; S09.90XA Unspecified injury of head, initial encounter; Y04.8XXA Assault by other bodily force, initial encounter; Y92.129 Unspecified place in nursing home as the place of occurrence of the external cause; E78.5 Hyperlipidemia, unspecified; F17.210 Nicotine dependence, cigarettes, uncomplicated; Z79.82 Long term (current) use of aspirin; Z87.820 Personal history of traumatic brain injury; Z79.899 Other long term (current) drug therapy
CPT/HCPCS: 70450; 99284

== ENCOUNTER 2025-01-17 02:08 | Emergency (ER) | payer MEDICAID, SELFPAY ==
[2025-01-17 02:10] VITALS: BP 147/94; PULSE 64; RESP 16; TEMP 36.4; O2SAT 100; BMI 21.3
--- NOTE | 2025-01-17 02:23 | EX.ED.UPPERE ---
HPI History of Present Illness Chief Complaint: Upper Extremity Injury Informant: patient, EMS and SNF Narrative Narrative: 54-year-old residential patient DNR CC only with a history of TBI and multiple psychiatric issues, apparently was trying to self-transfer from bed to wheelchair, as he is post to wait for an habilitation assistant, and fell injuring his right little finger. History is almost impossible from the patient, he does not answer most questions appropriately, most of this is coming from residential who states was all witnessed. He stated he has been at his baseline mental status tonight. [facility] Medical History Personality disorder Post traumatic seizure Polyarthritis TBI (traumatic brain injury) Depression Bipolar disorder Schizoaffective disorder Nicotine dependence Psychotic disorder Alcohol dependence Dementia Anemia Delusional disorder Hyperlipidemia COPD (chronic obstructive pulmonary disease) Chronic pain Tinea corporis Stroke/cerebrovascular accident TIA (transient ischemic attack) Home Medications Medication Instructions Recorded Last Taken Type acetaminophen 325 mg tablet 650 mg PO Q4H PRN PRN PAIN/FEVER 01/02/14 10/15/24 History (Tylenol) cholecalciferol (vitamin D3) 1,250 1,250 mcg PO SAAVEDRA 08/27/20 10/28/24 History mcg (50,000 unit) capsule lamotrigine 100 mg tablet 100 mg PO Q12H 08/27/20 07/05/24 History (Lamictal) lorazepam 1 mg tablet (Ativan) 1 mg PO Q4H PRN PRN 08/27/20 11/02/24 History ANXIETY/SEIZURES atorvastatin 20 mg tablet (Lipitor) 20 mg PO DAILY high cholesterol 08/13/22 11/02/24 History lorazepam 1 mg tablet (Ativan) 1 mg PO TID PRN Anxiety 08/13/22 11/03/24 History rifaximin 550 mg tablet 550 mg PO BID 08/13/22 11/03/24 History aspirin 81 mg capsule 81 mg PO DAILY pain, blood thinner 03/27/23 11/03/24 History hydrochlorothiazide 25 mg tablet 25 mg PO DAILY 03/27/23 11/03/24 History zonisamide 100 mg capsule 300 mg (3 x 100 mg) PO DAILY #0 07/28/23 11/03/24 Rx caps fenofibrate nanocrystallized 48 mg 48 mg PO DAILY 07/05/24 11/02/24 History tablet haloperidol 5 mg tablet 5 mg PO TID 07/05/24 11/03/24 History ibuprofen 200 mg tablet (Advil) 600 mg PO Q8H PAIN 07/05/24 11/03/24 History mirtazapine 7.5 mg tablet 7.5 mg PO QHS 07/05/24 11/02/24 History vortioxetine 10 mg tablet 10 mg PO DAILY 07/05/24 11/03/24 History (Trintellix) lorazepam 2 mg/mL injection 1 mg IM PRN anxiety 11/03/24 10/20/24 History solution (Ativan) memantine 10 mg tablet 10 mg PO BID 11/03/24 11/03/24 History omega-3 fatty acids 1,000 mg 2,000 mg PO BID 11/03/24 Unknown History capsule (Super [place]-3) propranolol 60 mg capsule,24 60 mg PO DAILY 11/03/24 11/03/24 History hr,extended release diphenhydramine HCl 25 mg tablet 25 mg PO Q6H PRN itching 01/17/25 Unknown History (Benadryl Allergy) lactulose 10 gram/15 mL oral 45 ml PO TID 01/17/25 Unknown History solution (Enulose) Allergy/AdvReac Type Severity Reaction Status Date / Time No Known Allergies Allergy Verified 01/17/25 02:12 Social History housing: residential Smoking Status: Former smoker substance use type: does not use ROS ROS ED Review of Systems ROS Unobtainable: due to mental condition EXAM Physical Exam Const Vital Signs: 01/17/25 02:10 Temperature 97.6 F L Temperature Source Oral Pulse Rate 64 Respiratory Rate 16 Blood Pressure 147/94 H Blood Pressure Mean 111 Pulse Ox 100 Oxygen Delivery Method Room Air Positive well nourished and well developed General Appearance ED: well developed and NAD HEENT Reports moist mucous membranes normocephalic and atraumatic Eyes PERRL and EOMs intact bilaterally Neck full ROM and supple General: Negative for tenderness Resp normal respiratory effort and clear to auscultation bilaterally Cardio regular rate, regular rhythm and no murmurs Rate: Negative for tachycardic GI non-tender and non-distended Auscultation: normoactive bowel sounds Palpation: soft Back/Spine no CVA tenderness General Back: other FROM Extremity normal to inspection Extremity Narrative: No focal tenderness throughout the fingers of the right hand, FDS and FDP intact throughout all digits, able to extend without difficulty. No obvious deformities or signs of acute injury, but he does appear to be hyperextended at the small finger MCPJ, however when asked to bend it he can do so without apparent difficulty. There is a healing scab without signs of erythema or tenderness on the back of the hand. Left upper extremity ranges fully without limitation or difficulty, and all joints of the lower extremities range without any limitation or difficulty. All compartments of proximal and distal upper and lower extremities all soft and nondistended without any obvious signs of trauma. General Extremety ED: Negative for edema, pulses abnormal or tenderness General Extremity: Negative for edema or pulses abnormal Neuro CN's II-XII intact bilaterally and no sensory deficits noted Sensorium / Orientation: awake and alert Motor Exam: strength 5/5 throughout Psych Psych Narrative: flat affect Skin no rashes or lesions noted and no wounds MDM MDM MDM Narrative Medical decision making narrative: Assessment: The patient is a 54-year-old male presenting for right hand pain after a fall. Right hand radiographs show a deformity at the fifth MCP joint identical to prior studies obtained after a past PIP dislocation, suggesting a chronic condition rather than an acute injury. Manipulation of the right little finger with distraction and hyper-extension produced no pain or change in the appearance of the joint/finger, further supporting a chronic rather than acute process. Most likely diagnosis is a contusion of the right hand without acute fracture or dislocation. Plan: - Manipulated right little finger (distraction and hyper-extension) without pain elicited. - Discharge back to care facility; no acute orthopedic intervention required. Diagnostics: - Right hand radiographs, 3v – abnormality at 5th MCP joint unchanged from prior studies; no acute fracture or dislocation. Independently interpreted by Kg red. Reevaluations: - Patient re-examined after manipulation and imaging; remains comfortable, neurovascularly intact, ready for discharge. Diagnoses: Contusion of right hand; Unspecified fall, initial encounter Discharge Plan Triage Chief Complaint: Upper Extremity Injury ED Provider: Kg Abebe Dx/Rx/DC Orders Clinical Impression: Contusion of hand, right, Fall on same level, unspecified, initial encounter Instructions: ED Hand Contusion Prescriptions: No Action acetaminophen [Tylenol] 325 MG tablet 650 mg PO Q4H PRN PRN (Reason: PAIN/FEVER) lorazepam [Ativan] 1 mg Tablet 1 mg PO Q4H PRN PRN (Reason: ANXIETY/SEIZURES) lamotrigine [Lamictal] 100 mg Tablet 100 mg PO Q12H cholecalciferol (vitamin D3) 1,250 mcg (50,000 unit) Capsule 1,250 mcg PO SAAVEDRA Patient Comments: every tuesday lorazepam [Ativan] 1 mg Tablet 1 mg PO TID PRN (Reason: Anxiety) atorvastatin [Lipitor] 20 mg Tablet 20 mg PO DAILY rifaximin 550 mg Tablet 550 mg PO BID aspirin 81 mg capsule 81 mg PO DAILY hydrochlorothiazide 25 mg tablet 25 mg PO DAILY ibuprofen [Advil] 200 mg tablet 600 mg PO Q8H haloperidol 5 mg tablet 5 mg PO TID Trintellix 10 mg tablet 10 mg PO DAILY mirtazapine 7.5 mg tablet 7.5 mg PO QHS fenofibrate nanocrystallized 48 mg tablet 48 mg PO DAILY omega-3 fatty acids [Super [place]-3] 1,000 mg capsule 2,000 mg PO BID propranolol 60 mg capsule,extended release 24 hr 60 mg PO DAILY memantine 10 mg tablet 10 mg PO BID lorazepam [Ativan] 2 mg/mL solution 1 mg IM PRN Rx Instructions: give qid if po not given zonisamide 100 mg Capsule 300 mg PO DAILY Qty: 0 0RF diphenhydramine HCl [Benadryl Allergy] 25 mg tablet 25 mg PO Q6H PRN (Reason: itching) lactulose [Enulose] 10 gram/15 mL solution 45 ml PO TID Patient Comments: [NO ORIGINAL SIG] Primary Care Provider: Ramon Sanchez Referrals: Ramon Sanchez MD [Primary Care Provider, Medical] - As Needed Print Language: Hungarian Disposition Disposition: Home, Self Care
--- NOTE | 2025-01-17 02:30 | RAD_ITS ---
PROCEDURE: HAND MIN 3 VIEWS 01/17/2025 REASON FOR EXAM: FALL/INJURY TECHNIQUE: Procedure Code: KRISTOPHER Modality: DX Procedure: HAND MIN 3 VIEWS Laterality: Right. COMPARISON: 12/29/2023. FINDINGS: Palmar dislocation of the proximal phalanx of the 5th finger in relation to the 5th metacarpal head at the level of the 5th metacarpophalangeal joint. Chronic deformity of the neck of the 5th metacarpal bone secondary to healed fracture. Moderate degenerative joint disease. RAD/Hand Min 3 Views IMPRESSION: Palmar dislocation of the proximal phalanx of the 5th finger in relation to the 5th metacarpal head at the level of the 5th metacarpophalangeal joint. Reading [facility]
--- NOTE | 2025-01-17 02:37 | ED.RN ---
This RN attempted to call the patient's legal guardian at this time. Voicemail left.
--- OUTSIDE RECORDS SUMMARY | 2025-01-17 02:58 | XMS RPT_ITS | CCD ---
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 By: #### L 100.0100, L500.4050, L501.5200 #### [facility] [address] [place], [address] MCHC (RBC) [Mass/Vol] 34.5 g/dL Normal 32-36 [facility] Comment on above: Performed By: #### L 100.0100, L500.4050, L501.5200 #### [facility] [address] [place], [address] MCV (RBC) [Entitic vol] 95.3 fL High 80-94 [facility] Comment on above: Performed By: #### L 100.0100, L500.4050, L501.5200 #### [facility] [address] [place], [address] Monocytes/100 WBC (Bld) 5.7 % Normal 0-10 [facility] Comment on above: Performed By: #### L 100.0100, L500.4050, L501.5200 #### [facility] [address] [place], [address] Neutrophils/100 WBC (Bld) 83.0 % High 47-70 [facility] Comment on above: Performed By: #### L 100.0100, L500.4050, L501.5200 #### [facility] [address] [place] [place], [address] Nucleated RBC (Bld) [#/Vol] 0 10*3/uL Normal 0-5 [facility] Comment on above: Performed By: #### L 100.0100, L500.4050, L501.5200 #### [facility] [address] [place], [address] Platelet mean volume (Bld) [Entitic vol] 8.2 fL Normal 6.2-12.0 [facility] Comment on above: Performed By: #### L 100.0100, L500.4050, L501.5200 #### [facility] [address] [place] [place], [address] Platelets (Bld) [#/Vol] 261 10*3/uL Normal 150-450 [facility] Comment on above: Performed By: #### L 100.0100, L500.4050, L501.5200 #### [facility] [address] [place], [address] RBC (Bld) [#/Vol] 4.29 10*6/uL Low 4.6-6.2 [facility] Comment on above: Performed By: #### L 100.0100, L500.4050, L501.5200 #### [facility] [address] [place], [address] RDW SD 42.7 fl Normal 35.1-43.9 [facility] Comment on above: Performed By: #### L 100.0100, L500.4050, L501.5200 #### [facility] [address] [place], [address] WBC (Bld) [#/Vol] 13.3 10*3/uL High 4.4-11.0 [facility] Comment on above: Performed By: #### L 100.0100, L500.4050, L501.5200 #### [facility] [address] [place], [address] Carbon dioxide, total [Moles /volume] in Central venous bloodOrdered By: Wil Leary on 07-05-2024 CO2 [Moles/Vol] 23.8 mmol/L 21.0-32.0 [facility] Chloride assayOrdered By: Sunday Leary on 07-05-2024 Chloride [Moles/Vol] 103 mmol/L 98-108 [facility] Comprehensive Metabolic Prof ilon 07-05-2024 Albumin [Mass/Vol] 4.3 g/dL Normal 3.5-5.0 [facility] Comment on above: Performed By: #### L 100.0100, L500.4050, L501.5200 #### [facility] [address] [place], [address] Albumin/Globulin [Mass ratio] 1.4 {ratio} Normal 0.9-2.4 [facility] Comment on above: Performed By: #### L 100.0100, L500.4050, L501.5200 #### [facility] [address] [place], [address] ALK PHOS 116 U/L Normal 40-129 [facility] Comment on above: Performed By: #### L 100.0100, L500.4050, L501.5200 #### [facility] [address] [place], [address] ALT [Catalytic activity/Vol] 14 U/L Normal <=46 [facility] Comment on above: Performed By: #### L 100.0100, L500.4050, L501.5200 #### [facility] [address] [place], [address] AST [Catalytic activity/Vol] 23 U/L Normal <=37 [facility] Comment on above: Performed By: #### L 100.0100, L500.4050, L501.5200 #### [facility] [address] [place], [address] Bilirubin [Mass/Vol] 0.30 mg/dL Normal 0.00-1.30 [facility] Comment on above: Performed By: #### L 100.0100, L500.4050, L501.5200 #### [facility] [address] [place], [address] BUN/CRE 15.8 RATIO Normal 10-20 [facility] Comment on above: Performed By: #### L 100.0100, L500.4050, L501.5200 #### [facility] [address] [place], [address] Calcium [Mass/Vol] 9.9 mg/dL Normal 7.6-11.0 [facility] Comment on above: Performed By: #### L 100.0100, L500.4050, L501.5200 #### [facility] [address] [place], [address] Chloride [Moles/Vol] 103 mmol/L Normal 98-108 [facility] Comment on above: Performed By: #### L 100.0100, L500.4050, L501.5200 #### [facility] [address] [place], [address] CO2 [Moles/Vol] 23.8 mmol/L Normal 21.0-32.0 [facility] Comment on above: Performed By: #### L 100.0100, L500.4050, L501.5200 #### [facility] [address] [place], [address] Creatinine [Mass/Vol] 0.91 mg/dL Normal 0.70-1.20 [facility] Comment on above: Performed By: #### L 100.0100, L500.4050, L501.5200 #### [facility] [address] [place], [address] ECRCL 95.21 ml/min Normal 50-250 [facility] Comment on above: Performed By: #### L 100.0100, L500.4050, L501.5200 #### [facility] [address] [place], [address] GAP 12 Normal 5-15 [facility] Comment on above: Performed By: #### L 100.0100, L500.4050, L501.5200 #### [facility] [address] [place], [address] GFR/1.73 sq M.predicted among non-blacks MDRD (S/P/Bld) [Vol rate/Area] 101 mL/min/{1.73_m2} Normal >60 [facility] Comment on above: Result Comment: mL/m in/1.73m2 CKD-EPI Creatinine Equation (2020) Performed By: #### L 100.0100, L500.4050, L501.5200 #### [facility] [address] [place], [address] Globulin (S) [Mass/Vol] 3.0 g/dL Normal 2.2-4.2 [facility] Comment on above: Performed By: #### L 100.0100, L500.4050, L501.5200 #### [facility] [address] [place], [address] Glucose [Mass/Vol] 87 mg/dL Normal 70-99 [facility] Comment on above: Performed By: #### L 100.0100, L500.4050, L501.5200 #### [facility] [address] [place], [address] Potassium [Moles/Vol] 3.6 mmol/L Normal 3.3-5.1 [facility] Comment on above: Performed By: #### L 100.0100, L500.4050, L501.5200 #### [facility] [address] [place], [address] Sodium [Moles/Vol] 139 mmol/L Normal 133-145 [facility] Comment on above: Performed By: #### L 100.0100, L500.4050, L501.5200 #### [facility] [address] [place], [address] T PROT 7.3 g/dL Normal 5.9-8.4 [facility] Comment on above: Performed By: #### L 100.0100, L500.4050, L501.5200 #### [facility] [address] [place], [address] Urea nitrogen [Mass/Vol] 14 mg/dL Normal 4-19 [facility] Comment on above: Performed By: #### L 100.0100, L500.4050, L501.5200 #### [facility] [address] [place], [address] Emergency Department Summary on 07-05-2024 Emergency Department Summary [facility] Medical Records Department [address] [place] [address] Emergency Department Summary 07/05/24 MR#: [id number] Acct: [id number] Name: JESUS WARD Rep #: [id number] : 1970 53 From: Wil Leary DO PCP: Dr. Ramon Sanchez MD Status:REG ER Location: ED HPI History of Present Illness Chief Complaint: Seizure Informant: patient and EMS Narrative Narrative: 53-year-old male brought to the emergency room from EMS following a seizure. Reportedly the patient [facility] has a history of TBI/stroke/psychiatr ic [...] not really contributing anything to the history. [facility] Medical History Personality disorder Post traumatic seizure [...] Narrative: P (more content not included)... Normal [facility] Eosinophil percentageOrdered By: Wil Leary on 07-05-2024 Eosinophils/100 WBC (Bld) 2.0 % 0-5 [facility] Erythrocyte distribution wid th ratioOrdered By: Wil Leary on 07-05-2024 Erythrocyte distribution width (RBC) [Ratio] 12.3 % 11.6-14.6 [facility] Erythrocyte distribution wid th standard deviationOrdered By: Wil Leary on 07-05-2024 Erythrocyte distribution width (RBC) [Ratio] 42.7 fl 35.1-43.9 [facility] Glomerular filtration rate ( GFR) estimation/1.73 sq m using serum, plasma, or whole bOrdered By: Wil Leary on 07-05-2024 GFR/1.73 sq M.predicted among non-blacks MDRD (S/P/Bld) [Vol rate/Area] 101 mL/min/{1.73_m2} >60 [facility] Comment on above: mL/min/1.73m2 CKD-EP I Creatinine Equation (2020) Hematocrit Auto (Bld) [Volum e fraction]Ordered By: Wil Leary on 07-05-2024 Hematocrit (Bld) [Volume fraction] 40.9 % 40-54 [facility] Hemoglobin measurementOrdere d By: Wil Leary on 07-05-2024 Hemoglobin (Bld) [Mass/Vol] 14.1 g/dL 13.0-16.5 [facility] Immature granulocytes/100 WB C Auto (Bld)Ordered By: Wil Leary on 07-05-2024 Immature granulocytes/100 WBC (Bld) 0.500 % 0.0-0.9 [facility] Comment on above: IG% - Immature Granu locytes (promyelocytes, myelocytes and metamyelocytes) > 1% indicates that a LEFT SHIFT is Present. Laboratory - Chemistry and C hemistry - challengeOrdered By: Wil Leary on 07-05-2024 AST [Catalytic activity/Vol] 23 U/L <38 [facility] MCV (mean corpuscular volume ) determinationOrdered By: Wil Leary on 07-05-2024 MCV (RBC) [Entitic vol] 95.3 fL High 80-94 [facility] Magnesiumon 07-05-2024 Magnesium [Mass/Vol] 2.0 mg/dL Normal 1.5-2.2 [facility] Comment on above: Performed By: #### L 100.0100, L500.4050, L501.5200 ####[facility] [address] [place], [address] Magnesium measurement (mass/ volume)Ordered By: Wil Leary on 07-05-2024 Magnesium (Unsp spec) [Mass/Vol] 2.0 mg/dL 1.5-2.2 [facility] Mean corpuscular hemoglobin (MCH) determinationOrdered By: Wil Leary on 07-05-2024 MCH (RBC) [Entitic mass] 32.9 pg High 27.0-32.0 [facility] Mean corpuscular hemoglobin concentration (MCHC) determinationOrdered By: Wil Leary on 07-05-2024 MCHC (RBC) [Mass/Vol] 34.5 g/dL 32-36 [facility] Mean platelet volume determi nationOrdered By: Wil Leary on 07-05-2024 Platelet mean volume (Bld) [Entitic vol] 8.2 fL 6.2-12.0 [facility] Monocyte percentageOrdered B y: Wil Leary on 07-05-2024 Monocytes/100 WBC (Bld) 5.7 % 0-10 [facility] Neutrophil percentageOrdered By: Wil Leary on 07-05-2024 Neutrophils/100 WBC (Bld) 83.0 % High 47-70 [facility] Nucleated red blood cell per centageOrdered By: Wil Leary on 07-05-2024 Nucleated RBC/100 WBC (Bld) [Ratio] 0 % 0-5 [facility] Platelet countOrdered By: Sunday Leary on 07-05-2024 Platelets (Bld) [#/Vol] 261 10*3/uL 150-450 [facility] Potassium measurement (mass/ volume)Ordered By: Wil Leary on 07-05-2024 Potassium (Unsp spec) [Mass/Vol] 3.6 mmol/L 3.3-5.1 [facility] RBC Auto (Bld) [#/Vol]Ordere d By: Wil Leary on 07-05-2024 RBC (Bld) [#/Vol] 4.29 10*6/uL Low 4.6-6.2 [facility] Serum creatinine measurement (mass/volume)Ordered By: Wil Leary on 07-05-2024 Creatinine [Mass/Vol] 0.91 mg/dL 0.70-1.20 [facility] Serum globulin measurementOr dered By: Wil Leary on 07-05-2024 Globulin (S) [Mass/Vol] 3.0 g/dL 2.2-4.2 [facility] Serum glucose measurement (m ass/volume)Ordered By: Wil Leary on 07-05-2024 Glucose [Mass/Vol] 87 mg/dL 70-99 [facility] Serum or plasma alanine link otransferase (ALT) measurementOrdered By: Wil Leary on 07-05-2024 ALT [Catalytic activity/Vol] 14 U/L <47 [facility] Serum or plasma albumin ashish urement (mass/volume)Ordered By: Wil Leary on 07-05-2024 Albumin [Mass/Vol] 4.3 g/dL 3.5-5.0 [facility] Serum or plasma albumin/glob ulin mass ratioOrdered By: Wil Leary on 07-05-2024 Albumin/Globulin [Mass ratio] 1.4 {ratio} 0.9-2.4 [facility] Serum or plasma alkaline nanette sphatase measurementOrdered By: Wil Leary on 07-05-2024 ALP [Catalytic activity/Vol] 116 U/L 40-129 [facility] Serum or plasma calcium ashish urement (mass/volume)Ordered By: Wil Leary on 07-05-2024 Calcium [Mass/Vol] 9.9 mg/dL 7.6-11.0 [facility] Serum or plasma urea nitroge n measurement (mass/volume)Ordered By: Wil Gibran on 07-05-2024 Urea nitrogen [Mass/Vol] 14 mg/dL 4-19 [facility] Sodium levelOrdered By: Jerrod peterson Gibran on 07-05-2024 Sodium [Moles/Vol] 139 mmol/L 133-145 [facility] Total proteinOrdered By: Angel bledsoe Gibran on 07-05-2024 Protein [Mass/Vol] 7.3 g/dL 5.9-8.4 [facility] Urinalysis, Completeon 07-05 BACTERIA Normal None Seen [facility] Comment on above: Order Comment: [place] CTOR TO SPECIFY Result Comment: @PT DEPARTED ER, OK TO CANCEL BY MHOSTETTLER Performed By: #### L 400.0001 #### [facility] [address] [place], [address] BILIRUBIN URINE Normal Negative [facility] Comment on above: Order Comment: [place] CTOR TO SPECIFY Result Comment: @PT DEPARTED ER, OK TO CANCEL BY MHOSTETTLER Performed By: #### L 400.0001 #### [facility] [address] [place], [address] Clarity (U) Normal Clear [facility] Comment on above: Order Comment: [place] CTOR TO SPECIFY Result Comment: @PT DEPARTED ER, OK TO CANCEL BY MHOSTETTLER Performed By: #### L 400.0001 #### [facility] [address] [place], [address] Color (U) Normal Yellow [facility] Comment on above: Order Comment: [place] CTOR TO SPECIFY Result Comment: @PT DEPARTED ER, OK TO CANCEL BY MHOSTETTLER Performed By: #### L 400.0001 #### [facility] [address] [place], [address] EPI,SQUAMOUS Normal 0-5 [facility] Comment on above: Order Comment: COLLE CTOR TO SPECIFY Result Comment: @PT DEPARTED ER, OK TO CANCEL BY MHOSTETTLER Performed By: #### L 400.0001 #### [facility] [address] [place], [address] GLUCOSE, UR Normal Normal [facility] Comment on above: Order Comment: COLLE CTOR TO SPECIFY Result Comment: @PT DEPARTED ER, OK TO CANCEL BY MHOSTETTLER Performed By: #### L 400.0001 #### [facility] [address] [place], [address] KETONE UR Normal Negative [facility] Comment on above: Order Comment: COLLE CTOR TO SPECIFY Result Comment: @PT DEPARTED ER, OK TO CANCEL BY MHOSTETTLER Performed By: #### L 400.0001 #### [facility] [address] [place], [address] LEUK ESTERASE Normal Negative [facility] Comment on above: Order Comment: COLLE CTOR TO SPECIFY Result Comment: @PT DEPARTED ER, OK TO CANCEL BY MHOSTETTLER Performed By: #### L 400.0001 #### [facility] [address] [place], [address] Mucus Ql (Urine sed) Normal [facility] Comment on above: Order Comment: COLLE CTOR TO SPECIFY Result Comment: @PT DEPARTED ER, OK TO CANCEL BY MHOSTETTLER Performed By: #### L 400.0001 #### [facility] [address] [place], [address] Nitrite Ql (U) Normal Negative [facility] Comment on above: Order Comment: COLLE CTOR TO SPECIFY Result Comment: @PT DEPARTED ER, OK TO CANCEL BY MHOSTETTLER Performed By: #### L 400.0001 #### [facility] [address] [place], [address] OCCULT BLOOD-UR Normal Negative [facility] Comment on above: Order Comment: COLLE CTOR TO SPECIFY Result Comment: @PT DEPARTED ER, OK TO CANCEL BY MHOSTETTLER Performed By: #### L 400.0001 #### [facility] [address] [place], [address] pH UR Normal 5.0 - 8.0 [facility] Comment on above: Order Comment: COLLE CTOR TO SPECIFY Result Comment: @PT DEPARTED ER, OK TO CANCEL BY MHOSTETTLER Performed By: #### L 400.0001 #### [facility] [address] [place], [address] PROT DIPSTX Normal Negative [facility] Comment on above: Order Comment: COLLE CTOR TO SPECIFY Result Comment: @PT DEPARTED ER, OK TO CANCEL BY MHOSTETTLER Performed By: #### L 400.0001 #### [facility] [address] [place], [address] RBC Normal 0-5 [facility] Comment on above: Order Comment: COLLE CTOR TO SPECIFY Result Comment: @PT DEPARTED ER, OK TO CANCEL BY MHOSTETTLER Performed By: #### L 400.0001 #### [facility] [address] [place], [address] SP.GR. DIPSTX Normal 1.002-1.030 [facility] Comment on above: Order Comment: COLLE CTOR TO SPECIFY Result Comment: @PT DEPARTED ER, OK TO CANCEL BY MHOSTETTLER Performed By: #### L 400.0001 #### [facility] [address] [place], [address] UR Preservative Normal [facility] Comment on above: Order Comment: COLLE CTOR TO SPECIFY Result Comment: @PT DEPARTED ER, OK TO CANCEL BY MHOSTETTLER Performed By: #### L 400.0001 #### [facility] [address] [place], [address] UROBILI Normal Normal [facility] Comment on above: Order Comment: COLLE CTOR TO SPECIFY Result Comment: @PT DEPARTED ER, OK TO CANCEL BY MHOSTETTLER Performed By: #### L 400.0001 #### [facility] [address] [place], [address] WBC Normal 0-5 [facility] Comment on above: Order Comment: COLLE CTOR TO SPECIFY Result Comment: @PT DEPARTED ER, OK TO CANCEL BY MAYKEL Performed By: #### L 400.0001 #### [facility] [address] [place], [address] White blood cell (WBC) count Ordered By: Wil Leary on 07-05-2024 WBC (Bld) [#/Vol] 13.3 10*3/uL High 4.4-11.0 [facility] Emergency Department Summary on 12-29-2023 Emergency Department Summary [facility] Medical Records Department [address] [address] Emergency Department Summary 12/29/23 MR#: [id number] Acct: [id number] Name: JESUS WARD Rep #: [id number] : 1970 53 From: Gianfranco Leigh DO [...] Parasthesia, Weakness or Loss of Funtion PFSH PFSH Medical History Personality disorder Post traumatic seizure [...] was limited (more content not included)... Normal [facility] Finger(s) Min 2 Viewson 11-0 Finger(s) Min 2 Views [facility] Services [address] [place], [place] [address] Finger(s) Min 2 Views MR#: [id number] Acct: [id number] Name: JESUS WARD Rep #: [id number] : 1970 M 53 From: Varinder burnett MD PCP: Dr. Ramon Sanchez MD Status: REG ER Study: Finger(s) Min 2 Views Date of Exam: 12/29/23 Exam# [id number] Ordering Dr: Gianfranco Leigh DO [id number] STUDY: X-RAY - RIGHT HAND, ATTENTION FIFTH [...] Gianfranco Leigh DO; Dr. Ramon Sanchez MD Mechanical Reliability Engineer: Signed Normal [facility] Finger(s) Min 2 Views [facility] [address] [place] [address] Finger(s) Min 2 Views MR#: [id number] Acct: [id number] Name: JESUS WARD Klever Rep #: [id number] : 1970 M 53 From: Varinder burnett MD PCP: Dr. Ramon Sanchez MD Status: [facility] ER Study: Finger(s) Min 2 Views Date of Exam: 12/29/23 Exam# [id number] Ordering Dr: Gianfranco Leigh DO [id number] STUDY: X-RAY - RIGHT HAND, ATTENTION FIFTH [...] Gianfranco Leigh, DO; Dr. Ramon Sanchez MD Mechanical Reliability Engineer: Signed Normal [facility] Absolute lymphocyte countOrd ered By: Jesus Way on 03-27-2023 Lymphocytes Auto (Unsp spec) [#/Vol] 2.47 10*3/uL 0.83-4.51 [facility] Automated lymphocyte count a s percentage of total leukocytesOrdered By: Jeuss Way on 03-27-2023 Lymphocytes/100 WBC Auto (Unsp spec) 30.2 % 19-41 [facility] Basophil percentageOrdered B y: Jesus Way on 03-27-2023 Ammonia (P) [Moles/Vol] 60.0 umol/L 11-32 [facility] Basophils/100 WBC (Bld) 0.5 % 0-1 [facility] Bilirubin [Mass/Vol] 0.20 mg/dL 0.20-1.00 [facility] Comment on above: For patients on eltr ombopag therapy, use of Dimension [place] TBIL is not recommended. Chloride [Moles/Vol] 103 mmol/L 98-107 [facility] Eosinophils/100 WBC (Bld) 3.3 % 0-5 [facility] Glucose [Mass/Vol] 100 mg/dL 74-106 [facility] Comment on above: Fasting Glucose resu lt from 100 to 125 mg/dL suggests IMPAIRED HOMEOSTASIS per A.D.A. criteria. Hemoglobin (Bld) [Mass/Vol] 13.5 g/dL 13.0-16.5 [facility] Monocytes/100 WBC (Bld) 8.2 % 0-10 [facility] Neutrophils (Bld) [#/Vol] 4.7 10*3/uL 2.0-7.7 [facility] Neutrophils/100 WBC (Bld) 57.6 % 47-70 [facility] Potassium [Moles/Vol] 3.3 mmol/L 3.5-5.1 [facility] Protein [Mass/Vol] 6.7 g/dL 6.4-8.2 [facility] Sodium [Moles/Vol] 137 mmol/L 136-145 [facility] WBC (Bld) [#/Vol] 8.2 10*3/uL 4.4-11.0 [facility] Determination of erythrocyte mean corpuscular volume (MCV)Ordered By: Jesus Way on 03-27-2023 MCV (RBC) [Entitic vol] 92.9 fL 80-94 [facility] Erythrocyte distribution wid th ratioOrdered By: Jesus Way on 03-27-2023 Erythrocyte distribution width (RBC) [Ratio] 11.9 % 11.6-14.6 [facility] Erythrocyte distribution wid th standard deviationOrdered By: Jesus Way on 03-27-2023 Erythrocyte distribution width (RBC) [Entitic vol] 40.4 fL 35.1-43.9 [facility] Hematocrit Auto (Bld) [Volum e fraction]Ordered By: Jesus Way on 03-27-2023 Hematocrit (Bld) [Volume fraction] 39.1 % 40-54 [facility] Immature granulocytes/100 WB C Auto (Bld)Ordered By: Jesus Way on 03-27-2023 Immature granulocytes/100 WBC (Bld) 0.200 % 0.0-0.9 [facility] Comment on above: IG% - Immature Granu locytes (promyelocytes, myelocytes and metamyelocytes) > 1% indicates that a LEFT SHIFT is Present. Laboratory - Chemistry and C hemistry - challengeOrdered By: Jesus Way on 03-27-2023 Albumin/Globulin [Mass ratio] 1.1 {ratio} 0.9-2.4 [facility] ALP [Catalytic activity/Vol] 92 U/L 45-117 [facility] ALT [Catalytic activity/Vol] 18 U/L 16-61 [facility] CO2 [Moles/Vol] 31.0 mmol/L 21.0-32.0 [facility] Globulin (S) [Mass/Vol] 3.2 g/dL 2.2-4.2 [facility] Urea nitrogen/Creatinine [Mass ratio] 18.1 mg/mg 10-20 [facility] Laboratory - Hematology and Cell countsOrdered By: Jesus Way on 03-27-2023 MCH (RBC) [Entitic mass] 32.1 pg 27.0-32.0 [facility] MCHC (RBC) [Mass/Vol] 34.5 g/dL 32-36 [facility] Nucleated RBC/100 WBC (Bld) [Ratio] 0 % 0-5 [facility] Platelets (Bld) [#/Vol] 226 10*3/uL 150-450 [facility] No Panel InformationOrdered By: Jesus Way on 03-27-2023 Estimated Creatinine Clearance Calc 100.25 ml/min [facility] Estimated GFR (MDRD) Amer 116 mL/min >60 [facility] Comment on above: GFR Calc Estimated GFR (MDRD) Non-Af Amer 96 mL/min >60 [facility] Comment on above: Non- GFR Calc Platelet mean volume Abhi-Ec ker (Bld) [Entitic vol]Ordered By: Jesus Way on 03-27-2023 Platelet mean volume (Bld) [Entitic vol] 9.1 fL 6.2-12.0 [facility] RBC Auto (Bld) [#/Vol]Ordere d By: Jesus Way on 03-27-2023 RBC (Bld) [#/Vol] 4.21 10*6/uL 4.6-6.2 [facility] Serum or plasma calcium ashish urement (mass/volume)Ordered By: Jesus Way on 03-27-2023 Calcium [Mass/Vol] 9.6 mg/dL 8.5-10.1 [facility] Serum or plasma creatinine m easurement (mass/volume)Ordered By: Jesus Way on 03-27-2023 Creatinine [Mass/Vol] 0.89 mg/dL 0.70-1.30 [facility] Comment on above: The validity of the calculated GFR & GFRAA in patients over 70 years has not been determined. Clinical correlation is essential. Serum or plasma urea nitroge n measurement (mass/volume)Ordered By: Jesus Way on 03-27-2023 Urea nitrogen [Mass/Vol] 16 mg/dL 7-18 [facility] Thin prep Papanicolaou smear with manual screeningOrdered By: Jesus Way on 03-27-2023 Thin prep Papanicolaou smear with manual screening 3.5 g/dL 3.2-5.0 [facility] Thin prep Papanicolaou smear with manual screening 13 U/L 15-37 [facility] Thin prep Papanicolaou smear with manual screening 3 5-15 [facility] Absolute lymphocyte countOrd ered By: Dr. Srivastava on 08-13-2022 Lymphocytes Auto (Unsp spec) [#/Vol] 2.57 10*3/uL 0.83-4.51 [facility] Basophil percentageOrdered B y: Dr. Srivastava on 08-13-2022 Basophil percentage 0 SEEN /hpf 0-5 [facility] Ammonia (P) [Moles/Vol] 43.0 umol/L 11-32 [facility] Basophils/100 WBC (Bld) 0.4 % 0-1 [facility] Bilirubin [Mass/Vol] 0.40 mg/dL 0.20-1.00 [facility] Comment on above: For patients on eltr ombopag therapy, use of Dimension [place] TBIL is not recommended. Chloride [Moles/Vol] 104 mmol/L 98-107 [facility] Eosinophils/100 WBC (Bld) 3.1 % 0-5 [facility] Glucose [Mass/Vol] 98 mg/dL 74-106 [facility] Neutrophils (Bld) [#/Vol] 4.8 10*3/uL 2.0-7.7 [facility] Neutrophils/100 WBC (Bld) 56.7 % 47-70 [facility] Potassium [Moles/Vol] 3.3 mmol/L 3.5-5.1 [facility] Protein [Mass/Vol] 7.4 g/dL 6.4-8.2 [facility] Sodium [Moles/Vol] 139 mmol/L 136-145 [facility] WBC (Bld) [#/Vol] 8.5 10*3/uL 4.4-11.0 [facility] Bilirubin Test strip Ql (U)O rdered By: Dr. Srivastava on 08-13-2022 Bilirubin Ql (U) Negative Negative [facility] Blood erythrocytes count (nu mber/volume)Ordered By: Dr. Srivastava on 08-13-2022 RBC (Bld) [#/Vol] 4.24 10*6/uL 4.6-6.2 [facility] Blood hemoglobin measurement (mass/volume)Ordered By: Dr. Srivastava on 08-13-2022 Hemoglobin (Bld) [Mass/Vol] 14.0 g/dL 13.0-16.5 [facility] Blood lymphocytes/100 leukoc ytesOrdered By: Dr. Srivastava on 08-13-2022 Lymphocytes/100 WBC (Bld) 30.3 % 19-41 [facility] Blood monocytes/100 leukocyt esOrdered By: Dr. Srivastava on 08-13-2022 Monocytes/100 WBC (Bld) 8.0 % 0-10 [facility] Blood platelet mean volumeOr dered By: Dr. Srivastava on 08-13-2022 Platelet mean volume (Bld) [Entitic vol] 8.8 fL 6.2-12.0 [facility] Determination of erythrocyte mean corpuscular volume (MCV)Ordered By: Dr. Srivastava on 08-13-2022 MCV (RBC) [Entitic vol] 94.3 fL 80-94 [facility] Direct bilirubinOrdered By: Dr. Srivastava on 08-13-2022 Bilirubin.direct [Mass/Vol] 0.13 mg/dL 0.00-0.30 [facility] Glucose Glucometer (dC) [M ass/Vol]Ordered By: Dr. Srivastava on 08-13-2022 Glucose [Mass/Vol] 106 mg/dL 74-106 [facility] Comment on above: MANAGEMENT OF PATIEN T CARE PER NURSING PROTOCOL Hematocrit Auto (Bld) [Volum e fraction]Ordered By: Dr. Srivastava on 08-13-2022 Hematocrit (Bld) [Volume fraction] 40.0 % 40-54 [facility] INR in Blood by Coagulation assayOrdered By: Dr. Srivastava on 08-13-2022 INR Coag (Bld) [Relative time] 0.9 {INR} [facility] Ketones Test strip Ql (U)Ord ered By: Dr. Srivastava on 08-13-2022 Ketones Ql (U) Negative Negative [facility] Laboratory - Chemistry and C hemistry - challengeOrdered By: Dr. Srivastava on 08-13-2022 ALP [Catalytic activity/Vol] 91 U/L 45-117 [facility] ALT [Catalytic activity/Vol] 20 U/L 16-61 [facility] CO2 [Moles/Vol] 30.0 mmol/L 21.0-32.0 [facility] Globulin (S) [Mass/Vol] 3.3 g/dL 2.2-4.2 [facility] Urea nitrogen/Creatinine [Mass ratio] 9.9 mg/mg 10-20 [facility] Laboratory - CoagulationOrde red By: Dr. Srivastava on 08-13-2022 aPTT Coag (Bld) [Time] 28.2 s 24.1-36.[address] [facility] PT Coag (PPP) [Time] 11.7 s 11.7-14.9 [facility] Laboratory - Hematology and Cell countsOrdered By: Dr. Srivastava on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
[2025-01-17 05:20] VITALS: BP 115/57; PULSE 68; RESP 18; TEMP 36.6; O2SAT 96
== END 2025-01-17 05:30 | disposition home or self-care (01) ==
PROVIDERS: Emergency Provider Emergency Medicine; PCP Family Medicine; Visit Provider Emergency Medicine
DX: S63.286A Dislocation of proximal interphalangeal joint of right little finger, initial encounter (principal); J44.9 Chronic obstructive pulmonary disease, unspecified; Z51.5 Encounter for palliative care; E78.5 Hyperlipidemia, unspecified; S60.221A Contusion of right hand, initial encounter; Z87.891 Personal history of nicotine dependence; Z66 Do not resuscitate; W18.39XA Other fall on same level, initial encounter
CPT/HCPCS: 73130

== ENCOUNTER 2025-01-17 10:49 | Emergency (ER) | payer MEDICAID, SELFPAY ==
[2025-01-17 10:42] VITALS: BP 128/98; BP 133/99; PULSE 68; PULSE 72; RESP 18; TEMP 36.6; TEMP 36.8; O2SAT 100; O2SAT 97
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
--- NOTE | 2025-01-17 10:48 | EX.ED.UPPERE ---
HPI History of Present Illness Chief Complaint: Upper Extremity Injury Detail of Chief Complaint: Suspected dislocation right little finger MCP joint Informant: other (Patient cognitively impaired and history is very limited) Occured/Mechanism Mechanism/Context: Yes injury, Yes blunt trauma and Yes fall Comment: Patient was seen earlier. Please reference Dr. Berhane Abebe's note Onset/Context/Timing Onset: Yesterday Context: - (Unable to determine) Timing: - (Patient has no complaints) Quality of Pain: - (Unable to determine) Location: Based on x-ray and physical exam MCP joint right little finger Current Severity: Gone Maximum Severity: Unable to determine Worsened by: Apparently nothing Relieved by: Not applicable Associated Symptoms Associated Symptoms: Negative for Parasthesia or Weakness Narrative Narrative: Patient is a 54-year-old male. He has history of schizoaffective disorder, traumatic brain injury, who was seen earlier today. Was felt to have a possible dislocation of the MCP joint of his right little finger. Attempts were made by ED physician to reduce without success. Patient returns for further evaluation. Apparently his finger does not appear normal. Prior similar symptoms: Yes Recent Illness/Hospitalization: Yes PFSH PFSH Medical History Personality disorder Post traumatic seizure Polyarthritis TBI (traumatic brain injury) Depression Bipolar disorder Schizoaffective disorder Nicotine dependence Psychotic disorder Alcohol dependence Dementia Anemia Delusional disorder Hyperlipidemia COPD (chronic obstructive pulmonary disease) Chronic pain Tinea corporis Stroke/cerebrovascular accident TIA (transient ischemic attack) Home Medications ?Medication ?Instructions ?Recorded ?Last Taken ?Type acetaminophen 325 mg tablet 650 mg PO Q4H PRN PRN PAIN/FEVER 01/02/14 10/15/24 History (Tylenol) cholecalciferol (vitamin D3) 1,250 1,250 mcg PO SAAVEDRA 08/27/20 10/28/24 History mcg (50,000 unit) capsule lamotrigine 100 mg tablet 100 mg PO Q12H 08/27/20 07/05/24 History (Lamictal) lorazepam 1 mg tablet (Ativan) 1 mg PO Q4H PRN PRN 08/27/20 11/02/24 History ANXIETY/SEIZURES atorvastatin 20 mg tablet (Lipitor) 20 mg PO DAILY high cholesterol 08/13/22 11/02/24 History lorazepam 1 mg tablet (Ativan) 1 mg PO TID PRN Anxiety 08/13/22 11/03/24 History rifaximin 550 mg tablet 550 mg PO BID 08/13/22 11/03/24 History aspirin 81 mg capsule 81 mg PO DAILY pain, blood thinner 03/27/23 11/03/24 History hydrochlorothiazide 25 mg tablet 25 mg PO DAILY 03/27/23 11/03/24 History zonisamide 100 mg capsule 300 mg (3 x 100 mg) PO DAILY #0 07/28/23 11/03/24 Rx caps fenofibrate nanocrystallized 48 mg 48 mg PO DAILY 07/05/24 11/02/24 History tablet haloperidol 5 mg tablet 5 mg PO TID 07/05/24 11/03/24 History ibuprofen 200 mg tablet (Advil) 600 mg PO Q8H PAIN 07/05/24 11/03/24 History mirtazapine 7.5 mg tablet 7.5 mg PO QHS 07/05/24 11/02/24 History vortioxetine 10 mg tablet 10 mg PO DAILY 07/05/24 11/03/24 History (Trintellix) lorazepam 2 mg/mL injection 1 mg IM PRN anxiety 11/03/24 10/20/24 History solution (Ativan) memantine 10 mg tablet 10 mg PO BID 11/03/24 11/03/24 History omega-3 fatty acids 1,000 mg 2,000 mg PO BID 11/03/24 Unknown History capsule (Super [place]-3) propranolol 60 mg capsule,24 60 mg PO DAILY 11/03/24 11/03/24 History hr,extended release diphenhydramine HCl 25 mg tablet 25 mg PO Q6H PRN itching 01/17/25 Unknown History (Benadryl Allergy) lactulose 10 gram/15 mL oral 45 ml PO TID 01/17/25 Unknown History solution (Enulose) Allergy/AdvReac Type Severity Reaction Status Date / Time No Known Allergies Allergy Verified 01/17/25 10:50 Social History housing: care home Smoking Status: Former smoker substance use type: does not use ROS ROS ED Review of Systems ROS Unobtainable: due to mental status EXAM Physical Exam Const Vital Signs: 01/17/25 10:42 Temperature 97.9 F Temperature Source Temporal Pulse Rate 72 Respiratory Rate 18 Blood Pressure 128/98 H Blood Pressure Mean 108 Pulse Ox 97 Oxygen Delivery Method Room Air Positive well nourished and well developed General Appearance ED: well developed and NAD HEENT Reports moist mucous membranes normocephalic and atraumatic Eyes PERRL and EOMs intact bilaterally Neck full ROM General: Negative for tenderness Resp normal respiratory effort Cardio regular rate and regular rhythm Extremity Extremity Narrative: Median, radial and ulnar function intact. Patient's little finger is extended at the MCP joint and flexed at the PIP joint. He dislocated his PIP joint approximately the proximal phalange E is displaced volarly. He has no pain with passive range of motion. Attempt to reduce caused him no pain and was unsuccessful. Capillary fill is normal. There is no subungual hematoma. There is no bruising noted. Neuro No oriented x3, CN's II-XII intact bilaterally and moves all extremities Sensorium / Orientation: alert Psych mental status grossly normal Skin Lesions: no lesions Rashes: no rashes MDM MDM MDM Narrative Medical decision making narrative: Will obtain x-rays of the right little finger. Suspect the flexor tendon is displaced and in the MCP joint. Once x-ray has been obtained we will attempt to reduce and if is unsuccessful refer to Dr. Cheng, who has hand privileges. He is not on-call this evening. In my opinion this does not need to be seen in immediately since there is no swelling pain suspect this is chronic and this is actually a delayed presentation. Radiography Chest X-Ray - ED: Read by ED Physician (Three-view x-ray of the right middle finger reveals a fracture dislocation of the MCP joint of his right little finger. Will have nurse hold his forearm and hand when I attempt to do a reduction without anesthesia since he has no pain with any type of movement.) Treatment and Re-Evaluation Narrative: With the assistance of an aide attempt was made to reduce the fracture dislocation. This was unsuccessful. This was done without anesthesia. Patient exhibited no evidence of discomfort. Suspect this is not an acute fracture or dislocation. He was referred to hand. Discharge Plan Triage Chief Complaint: Upper Extremity Injury ED Provider: Santiago Mullen Dx/Rx/DC Orders Clinical Impression: Closed fracture dislocation of finger, TBI (traumatic brain injury), Schizoaffective disorder Instructions: ED Finger Dislocation, ED Fracture, Finger, Closed Prescriptions: No Action acetaminophen [Tylenol] 325 MG tablet 650 mg PO Q4H PRN PRN (Reason: PAIN/FEVER) lorazepam [Ativan] 1 mg Tablet 1 mg PO Q4H PRN PRN (Reason: ANXIETY/SEIZURES) lamotrigine [Lamictal] 100 mg Tablet 100 mg PO Q12H cholecalciferol (vitamin D3) 1,250 mcg (50,000 unit) Capsule 1,250 mcg PO SAAVEDRA Patient Comments: every tuesday lorazepam [Ativan] 1 mg Tablet 1 mg PO TID PRN (Reason: Anxiety) atorvastatin [Lipitor] 20 mg Tablet 20 mg PO DAILY rifaximin 550 mg Tablet 550 mg PO BID aspirin 81 mg capsule 81 mg PO DAILY hydrochlorothiazide 25 mg tablet 25 mg PO DAILY ibuprofen [Advil] 200 mg tablet 600 mg PO Q8H haloperidol 5 mg tablet 5 mg PO TID Trintellix 10 mg tablet 10 mg PO DAILY mirtazapine 7.5 mg tablet 7.5 mg PO QHS fenofibrate nanocrystallized 48 mg tablet 48 mg PO DAILY omega-3 fatty acids [Super [place]-3] 1,000 mg capsule 2,000 mg PO BID propranolol 60 mg capsule,extended release 24 hr 60 mg PO DAILY memantine 10 mg tablet 10 mg PO BID lorazepam [Ativan] 2 mg/mL solution 1 mg IM PRN Rx Instructions: give qid if po not given zonisamide 100 mg Capsule 300 mg PO DAILY Qty: 0 0RF diphenhydramine HCl [Benadryl Allergy] 25 mg tablet 25 mg PO Q6H PRN (Reason: itching) lactulose [Enulose] 10 gram/15 mL solution 45 ml PO TID Patient Comments: [NO ORIGINAL SIG] Primary Care Provider: Ramon Sanchez Referrals: Chucky Cheng MD [Med Staff - Active Staff, Plastic Surgery] - As soon as possible Ramon Sanchez MD [Primary Care Provider, Medical] Activity Restrictions/Additional Instructions: Patient has a fracture dislocation of the MCP joint right little finger. Reduction was unsuccessful. Suspect the tendon is in the joint and will need open reduction internal fixation by hand specialist. In my opinion this is not an acute fracture dislocation since he has no pain, there is no swelling or discoloration. Print Language: Sinhala Disposition Disposition: Home, Self Care
--- OUTSIDE RECORDS SUMMARY | 2025-01-17 11:34 | XMS RPT_ITS | CCD ---
Author Organization [facility] Care Team Providers Care Sales Agent Financial Report Service Name Role Phone Daniel BOWENS, Dr. Navarro [...] Dr. Ramon Sanchez MD Attending Physician Andrae BOWESN, Dr. Saul Attending Physician Dr. Kg Abebe [...] hydrochloride 10 mg oral tablet (7 sources) G-yahtyq-V-aspartate Receptor Antagonist Start: 11-03-2024 take 1 tablet [...] 05, 2024 12:00am Complies with drug therapy Philadelphia-3 Fatty Acids ([place] 3 Fish Oil) Capsule (5 sources) Start: 08-27-2020 take 1 capsule by mouth once daily Philadelphia-3 Fatty Acids ([place] 3 Fish Oil) Capsule Active 2000 MG PO DAILY August 27, 2020 12:52pm Start: 08-27-2020 take 1 capsule by mouth once d aily Philadelphia-3 Fatty Acids ([place] 3 Fish Oil) Capsule Active 2000 MG PO DAILY August 26, 2020 11:00pm Start: 08-27-2020 take 1 capsule by mouth once d aily Philadelphia-3 Fatty Acids ([place] 3 Fish Oil) Capsule Active 2000 MG PO DAILY August 27, 2020 12:00am Philadelphia-3 Fatty Acids (Super Philadelphia-3) 1,000 mg capsule (2 sources) Start: 11-03-2024 take 3 capsules by mouth twice daily Philadelphia-3 Fatty Acids (Super Philadelphia-3) 1,000 mg capsule Active 2000 mg PO TWICE A DAY November 03, 2024 12:00am Complies with drug therapy Start: 11-03-2024 take 3 capsules by m outh twice daily Philadelphia-3 Fatty Acids (Super Philadelphia-3) 1,000 mg capsule Active 2000 mg PO [...] 27, 2020 12:00am July 05, 2024 7:26pm Philadelphia-3 Fatty Acids Capsule (5 sources) Start: 08-27-2020 End: 11-03-2024 take 1 capsule by mouth once daily Philadelphia-3 Fatty Acids Capsule Discontinued 2000 mg PO DAILY August 27, 2020 12:00am November 03, 2024 11:19am Start: 08-27-2020 take 1 capsule by mouth once d aily Philadelphia-3 Fatty Acids Capsule Active 2000 mg PO [...] without Contrast n 11-03-2024 Brain/Head without Contrast [facility] Imaging Services [address] [place] [address] [id number] Brain/Head without Contrast MR#: [id number] Acct: [id number] Name: JESUS WARD Klever Rep #: [id number] : 1970 M 53 From: Nolan Griffin MD PCP: Dr. Ramon Sanchez MD Status: REG ER Study: Brain/Head without Contrast Date of Exam: 10/22 05/15 Exam# [id number] Ordering Dr: Kg Abebe MD PROCEDURE: BRAIN/HEAD [...] intracranial pathology. 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 Reading Location: [facility] CC: Dr. Kg Abebe MD; Dr. Ramon Sanchez MD Gasoline Attendant: Signed Normal [facility] Emergency Department Summary on 11-03-2024 Emergency Department Summary [facility] Medical Records Department [address] [place] [address] Emergency Department Summary 11/03/24 MR#: [id number] Acct: [id number] Name: JESUS WARD Rep #: [id number] : 1970 53 From: Kg Abebe MD [...] now or his neck/back. Just his nose. [facility] Medical History Personality disorder Post traumatic seizure [...] BID 11/03/24 Unknown H istory capsule (Super Philadelphia-3) propranolol 60 mg capsule,24 60 mg PO DAILY 11/03/24 11/03/24 H istory hr,extended release Allergy/AdvReac Type Severity Reaction Status Date / Time No Known Allergies Allergy Verified 11/03/24 11:02 Social History (Updated 11/03/24 @ 11:[address] Kg Abebe MD) housing: residential Smoking Status: Smoker, status unknown tobacco type: [...] time following directions to move his eyes [id number] but I see no evidence of an extraocular entrapment. No evidence of globe trauma. (more content not included)... Normal [facility] Absolute lymphocyte countOrd ered By: Wil Leary on 07-05-2024 Lymphocytes Auto (Unsp spec) [#/Vol] 1.11 10*3/uL 0.83-4.51 [facility] Absolute neutrophil countOrd ered By: Wil Leary on 07-05-2024 Neutrophils (Bld) [#/Vol] 11.0 10*3/uL High 2.0-7.7 [facility] Anion gap in Serum or Plasma Ordered By: Wil Leary on 07-05-2024 Anion gap [Moles/Vol] 12 mmol/L 5- [facility] Automated lymphocyte count a s percentage of total leukocytesOrdered By: Wil Leary on 07-05-2024 Lymphocytes/100 WBC Auto (Unsp spec) 8.4 % Low 19-41 [facility] BUN/creatinine ratioOrdered By: Wil Leary on 07-05-2024 Urea nitrogen/Creatinine [Mass ratio] 15.8 mg/mg 10-20 [facility] Basophil percentageOrdered B y: Wil Leary on 07-05-2024 Basophils/100 WBC (Bld) 0.4 % 0-[address] [facility] Bilirubin, totalOrdered By: Wil Leary on 07-05-2024 Bilirubin [Mass/Vol] 0.30 mg/dL 0.00-1.30 [facility] Brain/Head without Contrasto n 07-05-2024 Brain/Head without Contrast [facility] Imaging Services [address] [place], [place] [address] Brain/Head without Contrast MR#: [id number] Acct: [id number] Name: JESUS WARD Rep #: [id number] : 1970 M 53 From: Masood Medina MD PCP: Dr. Ramon Sanchez MD Status: REG ER Study: Brain/Head without Contrast Date of Exam: 06/21 07/15 Exam# [id number] Ordering Dr: Wil Leary DO PROCEDURE: BRAIN/HEAD [...] left frontal and temporal lobes. Reading Location: [facility] CC: Dr. Wil eLary DO; Dr. Ramon Sanchez MD Gasoline Attendant: Signed Normal [facility] CBC W/Diff, Automatedon 06-21 Absolute Lymph 1.11 X10 3/uL Normal 0.83-4.51 [facility] Comment on above: Performed By: #### L 100.0100, L500.4050, L501.5200 #### [facility] [address] [place], [place], [id number] Absolute Neut 11.0 X10 3/uL High 2.0-7.7 [facility] Comment on above: Performed By: #### L 100.0100, L500.4050, L501.5200 #### [facility] [address] [place], [address] Basophils/100 WBC (Bld) 0.4 % Normal 0-[address] [facility] Comment on above: Performed By: #### L 100.0100, L500.4050, L501.5200 #### [facility] [address] [place], [address] Eosinophils/100 WBC (Bld) 2.0 % Normal 0-5 [facility] Comment on above: Performed By: #### L 100.0100, L500.4050, L501.5200 #### [facility] [address] [place], [address] Erythrocyte distribution width (RBC) [Ratio] 12.3 % Normal 11.6-14.6 [facility] Comment on above: Performed By: #### L 100.0100, L500.4050, L501.5200 #### [facility] [address] [place], [address] Hematocrit (Bld) [Volume fraction] 40.9 % Normal 40-54 [facility] Comment on above: Performed By: #### L 100.0100, L500.4050, L501.5200 #### [facility] [address] [place], [address] Hemoglobin (Bld) [Mass/Vol] 14.1 g/dL Normal 13.0-16.5 [facility] Comment on above: Performed By: #### L 100.0100, L500.4050, L501.5200 #### [facility] [address] [place], [address] IG% 0.500 Normal 0.0-0.9 [facility] Comment on above: Result Comment: IG% - Immature Granulocytes (promyelocytes, myelocytes and metamyelocytes) > 1% indicates that a LEFT SHIFT is Present. Performed By: #### L 100.0100, L500.4050, L501.5200 #### [facility] [address] [place], [address] Lymphocytes/100 WBC (Bld) 8.4 % Low 19-41 [facility] Comment on above: Performed By: #### L 100.0100, L500.4050, L501.5200 #### [facility] [address] [place], [address] MCH (RBC) [Entitic mass] 32.9 pg High 27.0-32.0 [facility] Comment on above: Performed By: #### L 100.0100, L500.4050, L501.5200 #### [facility] [address] [place], [address] MCHC (RBC) [Mass/Vol] 34.5 g/dL Normal 32-36 [facility] Comment on above: Performed By: #### L 100.0100, L500.4050, L501.5200 #### [facility] [address] [place], [address] MCV (RBC) [Entitic vol] 95.3 fL High 80-[address] [facility] Comment on above: Performed By: #### L 100.0100, L500.4050, L501.5200 #### [facility] [address] [place], [address] Monocytes/100 WBC (Bld) 5.7 % Normal 0-[address] [facility] Comment on above: Performed By: #### L 100.0100, L500.4050, L501.5200 #### [facility] [address] [place], [address] Neutrophils/100 WBC (Bld) 83.0 % High 47-70 [facility] Comment on above: Performed By: #### L 100.0100, L500.4050, L501.5200 #### [facility] [address] [place], [address] Nucleated RBC (Bld) [#/Vol] 0 10*3/uL Normal 0-5 [facility] Comment on above: Performed By: #### L 100.0100, L500.4050, L501.5200 #### [facility] [address] [place], [address] Platelet mean volume (Bld) [Entitic vol] 8.2 fL Normal 6.2-12.0 [facility] Comment on above: Performed By: #### L 100.0100, L500.4050, L501.5200 #### [facility] [address], [address] Platelets (Bld) [#/Vol] 261 10*3/uL Normal 150-450 [facility] Comment on above: Performed By: #### L 100.0100, L500.4050, L501.5200 #### [facility] [address] [place], [address] RBC (Bld) [#/Vol] 4.29 10*6/uL Low 4.6-6.2 [facility] Comment on above: Performed By: #### L 100.0100, L500.4050, L501.5200 #### [facility] [address] [place], [address] RDW SD 42.7 fl Normal 35.1-43.9 [facility] Comment on above: Performed By: #### L 100.0100, L500.4050, L501.5200 #### [facility] [address] [place], [address] WBC (Bld) [#/Vol] 13.3 10*3/uL High 4.4-11.0 [facility] Comment on above: Performed By: #### L 100.0100, L500.4050, L501.5200 #### [facility] [address] [place], [address] Carbon dioxide, total [Moles /volume] in Central venous bloodOrdered By: Wil Leary on 07-05-2024 CO2 [Moles/Vol] 23.8 mmol/L 21.0-32.0 [facility] Chloride assayOrdered By: Sunday Leary on 07-05-2024 Chloride [Moles/Vol] 103 mmol/L 98-108 [facility] Comprehensive Metabolic Prof ilon 07-05-2024 Albumin [Mass/Vol] 4.3 g/dL Normal 3.5-5.0 [facility] Comment on above: Performed By: #### L 100.0100, L500.4050, L501.5200 #### [facility] [address] [place], [address] Albumin/Globulin [Mass ratio] 1.4 {ratio} Normal 0.9-2.4 [facility] Comment on above: Performed By: #### L 100.0100, L500.4050, L501.5200 #### [facility] [address] [place], [address] ALK PHOS 116 U/L Normal 40-129 [facility] Comment on above: Performed By: #### L 100.0100, L500.4050, L501.5200 #### [facility] [address] [place], [address] ALT [Catalytic activity/Vol] 14 U/L Normal <=46 [facility] Comment on above: Performed By: #### L 100.0100, L500.4050, L501.5200 #### [facility] [address] [place], [address] AST [Catalytic activity/Vol] 23 U/L Normal <=37 [facility] Comment on above: Performed By: #### L 100.0100, L500.4050, L501.5200 #### [facility] [address] [place], [address] Bilirubin [Mass/Vol] 0.30 mg/dL Normal 0.00-1.30 [facility] Comment on above: Performed By: #### L 100.0100, L500.4050, L501.5200 #### [facility] [address] [place], [address] BUN/CRE 15.8 RATIO Normal 10-20 [facility] Comment on above: Performed By: #### L 100.0100, L500.4050, L501.5200 #### [facility] [address] [place], [address] Calcium [Mass/Vol] 9.9 mg/dL Normal 7.6-11.0 [facility] Comment on above: Performed By: #### L 100.0100, L500.4050, L501.5200 #### [facility] [address] [place], [address] Chloride [Moles/Vol] 103 mmol/L Normal 98-108 [facility] Comment on above: Performed By: #### L 100.0100, L500.4050, L501.5200 #### [facility] [address] [place], [address] CO2 [Moles/Vol] 23.8 mmol/L Normal 21.0-32.0 [facility] Comment on above: Performed By: #### L 100.0100, L500.4050, L501.5200 #### [facility] [address] [place], [address] Creatinine [Mass/Vol] 0.91 mg/dL Normal 0.70-1.20 [facility] Comment on above: Performed By: #### L 100.0100, L500.4050, L501.5200 #### [facility] [address] [place], [address] ECRCL 95.21 ml/min Normal 50-250 [facility] Comment on above: Performed By: #### L 100.0100, L500.4050, L501.5200 #### [facility] [address] [place], [address] GAP 12 Normal 5-15 [facility] Comment on above: Performed By: #### L 100.0100, L500.4050, L501.5200 #### [facility] [address] [place], [address] GFR/1.73 sq M.predicted among non-blacks MDRD (S/P/Bld) [Vol rate/Area] 101 mL/min/{1.73_m2} Normal >60 [facility] Comment on above: Result Comment: mL/m in/1.73m2 CKD-EPI Creatinine Equation (2020) Performed By: #### L 100.0100, L500.4050, L501.5200 #### [facility] [address] [place], [address] Globulin (S) [Mass/Vol] 3.0 g/dL Normal 2.2-4.2 [facility] Comment on above: Performed By: #### L 100.0100, L500.4050, L501.5200 #### [facility] [address] [place], [address] Glucose [Mass/Vol] 87 mg/dL Normal 70-99 [facility] Comment on above: Performed By: #### L 100.0100, L500.4050, L501.5200 #### [facility] [address] [place], [address] Potassium [Moles/Vol] 3.6 mmol/L Normal 3.3-5.1 [facility] Comment on above: Performed By: #### L 100.0100, L500.4050, L501.5200 #### [facility] [address] [place], [address] Sodium [Moles/Vol] 139 mmol/L Normal 133-145 [facility] Comment on above: Performed By: #### L 100.0100, L500.4050, L501.5200 #### [facility] [address] [place], [address] T PROT 7.3 g/dL Normal 5.9-8.4 [facility] Comment on above: Performed By: #### L 100.0100, L500.4050, L501.5200 #### [facility] [address] [place], [address] Urea nitrogen [Mass/Vol] 14 mg/dL Normal 4-19 [facility] Comment on above: Performed By: #### L 100.0100, L500.4050, L501.5200 #### [facility] [address] [place], [address] Emergency Department Summary on 07-05-2024 Emergency Department Summary [facility] Medical Records Department [address] [place] [address] Emergency Department Summary 07/05/24 MR#: [id number] Acct: [id number] Name: JESUS WARD Rep #: [id number] : 1970 53 From: Wil Leary DO PCP: Dr. Ramon Sanchez MD Status:REG ER Location: ED HPI History of Present Illness Chief Complaint: Seizure Informant: patient and EMS Narrative Narrative: 53-year-old male brought to the emergency room from EMS following a seizure. Reportedly the patient is from the [facility] has a history of TBI/stroke/psychiatr ic [...] not really contributing anything to the history. [facility] Medical History Personality disorder Post traumatic seizure [...] Narrative: P (more content not included)... Normal [facility] Eosinophil percentageOrdered By: Wil Leary on 07-05-2024 Eosinophils/100 WBC (Bld) 2.0 % 0-5 [facility] Erythrocyte distribution wid th ratioOrdered By: Wil Leary on 07-05-2024 Erythrocyte distribution width (RBC) [Ratio] 12.3 % 11.6-14.6 [facility] Erythrocyte distribution wid th standard deviationOrdered By: Wil Leary on 07-05-2024 Erythrocyte distribution width (RBC) [Ratio] 42.7 fl 35.1-43.9 [facility] Glomerular filtration rate ( GFR) estimation/1.73 sq m using serum, plasma, or whole bOrdered By: Wil Leary on 07-05-2024 GFR/1.73 sq M.predicted among non-blacks MDRD (S/P/Bld) [Vol rate/Area] 101 mL/min/{1.73_m2} >60 [facility] Comment on above: mL/min/1.73m2 CKD-EP I Creatinine Equation (2020) Hematocrit Auto (Bld) [Volum e fraction]Ordered By: Wil Leary on 07-05-2024 Hematocrit (Bld) [Volume fraction] 40.9 % 40-54 [facility] Hemoglobin measurementOrdere d By: Wil Leary on 07-05-2024 Hemoglobin (Bld) [Mass/Vol] 14.1 g/dL 13.0-16.5 [facility] Immature granulocytes/100 WB C Auto (Bld)Ordered By: Wil Leary on 07-05-2024 Immature granulocytes/100 WBC (Bld) 0.500 % 0.0-0.9 [facility] Comment on above: IG% - Immature Granu locytes (promyelocytes, myelocytes and metamyelocytes) > 1% indicates that a LEFT SHIFT is Present. Laboratory - Chemistry and C hemistry - challengeOrdered By: Wil Leary on 07-05-2024 AST [Catalytic activity/Vol] 23 U/L <38 [facility] MCV (mean corpuscular volume ) determinationOrdered By: Wil Leary on 07-05-2024 MCV (RBC) [Entitic vol] 95.3 fL High 80-[address] [facility] Magnesiumon 07-05-2024 Magnesium [Mass/Vol] 2.0 mg/dL Normal 1.5-2.2 [facility] Comment on above: Performed By: #### L 100.0100, L500.4050, L501.5200 ####[facility] [address] [place], [address] Magnesium measurement (mass/ volume)Ordered By: Wil Leary on 07-05-2024 Magnesium (Unsp spec) [Mass/Vol] 2.0 mg/dL 1.5-2.2 [facility] Mean corpuscular hemoglobin (MCH) determinationOrdered By: Wil Leary on 07-05-2024 MCH (RBC) [Entitic mass] 32.9 pg High 27.0-32.0 [facility] Mean corpuscular hemoglobin concentration (MCHC) determinationOrdered By: Wil Leary on 07-05-2024 MCHC (RBC) [Mass/Vol] 34.5 g/dL 32-36 [facility] Mean platelet volume determi nationOrdered By: Wil Leary on 07-05-2024 Platelet mean volume (Bld) [Entitic vol] 8.2 fL 6.2-12.0 [facility] Monocyte percentageOrdered B y: Wil Leary on 07-05-2024 Monocytes/100 WBC (Bld) 5.7 % 0-[address] [facility] Neutrophil percentageOrdered By: Wil Leary on 07-05-2024 Neutrophils/100 WBC (Bld) 83.0 % High 47-70 [facility] Nucleated red blood cell per centageOrdered By: Wil Leary on 07-05-2024 Nucleated RBC/100 WBC (Bld) [Ratio] 0 % 0-5 [facility] Platelet countOrdered By: Sunday Leary on 07-05-2024 Platelets (Bld) [#/Vol] 261 10*3/uL 150-450 [facility] Potassium measurement (mass/ volume)Ordered By: Wil Leary on 07-05-2024 Potassium (Unsp spec) [Mass/Vol] 3.6 mmol/L 3.3-5.1 [facility] RBC Auto (Bld) [#/Vol]Ordere d By: Wil Leary on 07-05-2024 RBC (Bld) [#/Vol] 4.29 10*6/uL Low 4.6-6.2 [facility] Serum creatinine measurement (mass/volume)Ordered By: Wil Leary on 07-05-2024 Creatinine [Mass/Vol] 0.91 mg/dL 0.70-1.20 [facility] Serum globulin measurementOr dered By: Wil Leary on 07-05-2024 Globulin (S) [Mass/Vol] 3.0 g/dL 2.2-4.[address] [facility] Serum glucose measurement (m ass/volume)Ordered By: Wil Leary on 07-05-2024 Glucose [Mass/Vol] 87 mg/dL 70-99 [facility] Serum or plasma alanine link otransferase (ALT) measurementOrdered By: Wil Leary on 07-05-2024 ALT [Catalytic activity/Vol] 14 U/L <47 [facility] Serum or plasma albumin ashish urement (mass/volume)Ordered By: Wil Leary on 07-05-2024 Albumin [Mass/Vol] 4.3 g/dL 3.5-5.0 [facility] Serum or plasma albumin/glob ulin mass ratioOrdered By: Wil Leary on 07-05-2024 Albumin/Globulin [Mass ratio] 1.4 {ratio} 0.9-2.4 [facility] Serum or plasma alkaline nanette sphatase measurementOrdered By: Wil Leary on 07-05-2024 ALP [Catalytic activity/Vol] 116 U/L 40-129 [facility] Serum or plasma calcium ashish urement (mass/volume)Ordered By: Wil Leary on 07-05-2024 Calcium [Mass/Vol] 9.9 mg/dL 7.6-11.0 [facility] Serum or plasma urea nitroge n measurement (mass/volume)Ordered By: Wil Gibran on 07-05-2024 Urea nitrogen [Mass/Vol] 14 mg/dL 4-19 [facility] Sodium levelOrdered By: Jerrod peterson Gibran on 07-05-2024 Sodium [Moles/Vol] 139 mmol/L 133-145 [facility] Total proteinOrdered By: Angel bledsoe Gibran on 07-05-2024 Protein [Mass/Vol] 7.3 g/dL 5.9-8.4 [facility] Urinalysis, Completeon 07-05 BACTERIA Normal None Seen [facility] Comment on above: Order Comment: [place] CTOR TO SPECIFY Result Comment: @PT DEPARTED ER, OK TO CANCEL BY MHOSTETTLER Performed By: #### L 400.0001 #### [facility] [address] [place], [address] BILIRUBIN URINE Normal Negative [facility] Comment on above: Order Comment: [place] CTOR TO SPECIFY Result Comment: @PT DEPARTED ER, OK TO CANCEL BY MHOSTETTLER Performed By: #### L 400.0001 #### [facility] [address] [place], [address] Clarity (U) Normal Clear [facility] Comment on above: Order Comment: [place] CTOR TO SPECIFY Result Comment: @PT DEPARTED ER, OK TO CANCEL BY MHOSTETTLER Performed By: #### L 400.0001 #### [facility] [address] [place], [address] Color (U) Normal Yellow [facility] Comment on above: Order Comment: [place] CTOR TO SPECIFY Result Comment: @PT DEPARTED ER, OK TO CANCEL BY MHOSTETTLER Performed By: #### L 400.0001 #### [facility] [address] [place], [address] EPI,SQUAMOUS Normal 0-5 [facility] Comment on above: Order Comment: COLLE CTOR TO SPECIFY Result Comment: @PT DEPARTED ER, OK TO CANCEL BY MHOSTETTLER Performed By: #### L 400.0001 #### [facility] [address] [place], [address] GLUCOSE, UR Normal Normal [facility] Comment on above: Order Comment: COLLE CTOR TO SPECIFY Result Comment: @PT DEPARTED ER, OK TO CANCEL BY MHOSTETTLER Performed By: #### L 400.0001 #### [facility] [address] [place], [address] KETONE UR Normal Negative [facility] Comment on above: Order Comment: COLLE CTOR TO SPECIFY Result Comment: @PT DEPARTED ER, OK TO CANCEL BY MHOSTETTLER Performed By: #### L 400.0001 #### [facility] [address] [place], [address] LEUK ESTERASE Normal Negative [facility] Comment on above: Order Comment: COLLE CTOR TO SPECIFY Result Comment: @PT DEPARTED ER, OK TO CANCEL BY MHOSTETTLER Performed By: #### L 400.0001 #### [facility] [address] [place], [address] Mucus Ql (Urine sed) Normal [facility] Comment on above: Order Comment: COLLE CTOR TO SPECIFY Result Comment: @PT DEPARTED ER, OK TO CANCEL BY MHOSTETTLER Performed By: #### L 400.0001 #### [facility] [address] [place], [address] Nitrite Ql (U) Normal Negative [facility] Comment on above: Order Comment: COLLE CTOR TO SPECIFY Result Comment: @PT DEPARTED ER, OK TO CANCEL BY MHOSTETTLER Performed By: #### L 400.0001 #### [facility] [address] [place], [address] OCCULT BLOOD-UR Normal Negative [facility] Comment on above: Order Comment: COLLE CTOR TO SPECIFY Result Comment: @PT DEPARTED ER, OK TO CANCEL BY MHOSTETTLER Performed By: #### L 400.0001 #### [facility] [address] [place], [address] pH UR Normal 5.0 - 8.0 [facility] Comment on above: Order Comment: COLLE CTOR TO SPECIFY Result Comment: @PT DEPARTED ER, OK TO CANCEL BY MHOSTETTLER Performed By: #### L 400.0001 #### [facility] [address] [place], [address] PROT DIPSTX Normal Negative [facility] Comment on above: Order Comment: COLLE CTOR TO SPECIFY Result Comment: @PT DEPARTED ER, OK TO CANCEL BY MHOSTETTLER Performed By: #### L 400.0001 #### [facility] [address] [place], [address] RBC Normal 0-5 [facility] Comment on above: Order Comment: COLLE CTOR TO SPECIFY Result Comment: @PT DEPARTED ER, OK TO CANCEL BY MHOSTETTLER Performed By: #### L 400.0001 #### [facility] [address] [place], [address] SP.GR. DIPSTX Normal 1.002-1.030 [facility] Comment on above: Order Comment: COLLE CTOR TO SPECIFY Result Comment: @PT DEPARTED ER, OK TO CANCEL BY MHOSTETTLER Performed By: #### L 400.0001 #### [facility] [address] [place], [address] UR Preservative Normal [facility] Comment on above: Order Comment: COLLE CTOR TO SPECIFY Result Comment: @PT DEPARTED ER, OK TO CANCEL BY MHOSTETTLER Performed By: #### L 400.0001 #### [facility] [address] [place], [address] UROBILI Normal Normal [facility] Comment on above: Order Comment: COLLE CTOR TO SPECIFY Result Comment: @PT DEPARTED ER, OK TO CANCEL BY MHOSTETTLER Performed By: #### L 400.0001 #### [facility] [address] [place], [address] WBC Normal 0-5 [facility] Comment on above: Order Comment: COLLE CTOR TO SPECIFY Result Comment: @PT DEPARTED ER, OK TO CANCEL BY MAYKEL Performed By: #### L 400.0001 #### [facility] [address] [place], [address] White blood cell (WBC) count Ordered By: Wil Leary on 07-05-2024 WBC (Bld) [#/Vol] 13.3 10*3/uL High 4.4-11.0 [facility] Emergency Department Summary on 12-29-2023 Emergency Department Summary [facility] Medical Records Department [address] [place] [address] Emergency Department Summary 12/29/23 MR#: [id number] Acct: [id number] Name: JESUS WARD Rep #: [id number] : 1970 53 From: Gianfranco Leigh DO [...] was limited (more content not included)... Normal [facility] Finger(s) Min 2 Viewson 11-0 Finger(s) Min 2 Views [facility] Imaging Services [address] [place], [place] [address] Finger(s) Min 2 Views MR#: [id number] Acct: [id number] Name: JESUS WARD Rep #: [id number] : 1970 M 53 From: Varinder burnett MD PCP: Dr. Ramon Sanchez MD Status: REG ER Study: Finger(s) Min 2 Views Date of Exam: 12/29/23 Exam# [id number] Ordering Dr: Gianfranco Leigh DO [id number] STUDY: X-RAY - RIGHT HAND, ATTENTION FIFTH [...] Gianfranco Leigh DO; Dr. Ramon Sanchez MD Gasoline Attendant: Signed Normal [facility] Finger(s) Min 2 Views [facility] Imaging Services [address] [place] [address] Finger(s) Min 2 Views MR#: [id number] Acct: [id number] Name: JESUS WARD Klever Rep #: [id number] : 1970 M 53 From: Varinder burnett MD PCP: Dr. Ramon Sanchez MD Status: [facility] ER Study: Finger(s) Min 2 Views Date of Exam: 12/29/23 Exam# [id number] Ordering Dr: Gianfranco Leigh DO [id number] STUDY: X-RAY - RIGHT HAND, ATTENTION FIFTH [...] Gianfranco Leigh, DO; Dr. Ramon Sanchez MD Gasoline Attendant: Signed Normal [facility] Absolute lymphocyte countOrd ered By: Jesus Way on 03-27-2023 Lymphocytes Auto (Unsp spec) [#/Vol] 2.47 10*3/uL 0.83-4.51 [facility] Automated lymphocyte count a s percentage of total leukocytesOrdered By: Jesus Way on 03-27-2023 Lymphocytes/100 WBC Auto (Unsp spec) 30.2 % 19-41 [facility] Basophil percentageOrdered B y: Jesus Way on 03-27-2023 Ammonia (P) [Moles/Vol] 60.0 umol/L 11-32 [facility] Basophils/100 WBC (Bld) 0.5 % 0-[address] [facility] Bilirubin [Mass/Vol] 0.20 mg/dL 0.20-1.00 [facility] Comment on above: For patients on eltr ombopag therapy, use of Dimension [place]ager TBIL is not recommended. Chloride [Moles/Vol] 103 mmol/L 98-107 [facility] Eosinophils/100 WBC (Bld) 3.3 % 0-5 [facility] Glucose [Mass/Vol] 100 mg/dL 74-106 [facility] Comment on above: Fasting Glucose resu lt from 100 to 125 mg/dL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
[2025-01-17 11:50] VITALS: BP 116/79; PULSE 63; RESP 16; TEMP 36.7; O2SAT 100
== END 2025-01-17 13:55 | disposition home or self-care (01) ==
PROVIDERS: Emergency Provider Emergency Medicine; PCP Family Medicine; Visit Provider Emergency Medicine
DX: S62.326A Displaced fracture of shaft of fifth metacarpal bone, right hand, initial encounter for closed fracture (principal); F25.9 Schizoaffective disorder, unspecified; F03.90 Unspecified dementia, unspecified severity, without behavioral disturbance, psychotic disturbance, mood disturbance, and anxiety; J44.9 Chronic obstructive pulmonary disease, unspecified; Z87.891 Personal history of nicotine dependence; E78.5 Hyperlipidemia, unspecified; Z87.820 Personal history of traumatic brain injury; W18.39XA Other fall on same level, initial encounter; S63.286A Dislocation of proximal interphalangeal joint of right little finger, initial encounter; Z51.5 Encounter for palliative care; Z66 Do not resuscitate; S60.221A Contusion of right hand, initial encounter
CPT/HCPCS: 26700; 73130; 73140; 99284